=== PATIENT | female | born 1935 | race Caucasian/White ===

== ENCOUNTER 2016-12-31 05:26 | Emergency (ER) | payer MEDICARE, OTHER ==
[2016-12-31 06:56] LABS: ABSOLUTE EOSINOPHILS # (AUTO) 0.1 10^3/uL (0.0-0.6); ABSOLUTE LYMPHOCYTES (AUTO) 1.8 10^3/uL (0.5-4.7); ABSOLUTE MONOCYTES (AUTO) 0.5 10^3/uL (0.1-1.4); ABSOLUTE NEUT (AUTO) 2.3 10^3/uL (1.7-8.2); EOSINOPHILS % (AUTO) 2.5 % (0-6); HEMATOCRIT 38.3 % (36.0-47.0); HEMOGLOBIN 12.3 g/dL (12.0-15.5); HGB HCT DIFFERENCE -1.4; LYMPHOCYTES % (AUTO) 37.7 % (13-45); MEAN CORPUSCULAR HEMOGLOBIN 29.2 pg (27.0-33.4); MEAN CORPUSCULAR VOLUME 91 fl (80-97); MONOCYTES % (AUTO) 11.1 % (3-13); RED BLOOD COUNT 4.21 10^6/uL (3.72-5.28); RED CELL DISTRIBUTION WIDTH 14.3 % (11.5-14.0); SEGMENTED NEUTROPHILS % (AUTO) 47.7 % (42-78); WHITE BLOOD COUNT 4.7 10^3/uL (4.0-10.5)
[2016-12-31 07:05] LABS: ALANINE AMINOTRANSFERASE 25 U/L (9-52); ALBUMIN 4.7 g/dL (3.5-5.0); ALKALINE PHOSPHATASE 53 U/L (38-126); ANION GAP 13 (5-19); ASPARTATE AMINO TRANSFERASE 21 U/L (14-36); BILIRUBIN,TOTAL 0.4 mg/dL (0.2-1.3); BLOOD UREA NITROGEN 18 mg/dL (7-20); CALCIUM 9.9 mg/dL (8.4-10.2); CARBON DIOXIDE 26 mmol/L (22-30); CHLORIDE 106 mmol/L (98-107); CREATINE KINASE 126 U/L (30-135); CREATININE RESULT 0.87 mg/dL (0.52-1.25); GLUCOSE 104 mg/dL (75-110); POTASSIUM 4.3 mmol/L (3.6-5.0); SODIUM 144.7 mmol/L (137-145); TOTAL PROTEIN 7.5 g/dL (6.3-8.2)
[2016-12-31] MEDS ORDERED: LABETALOL HCL 200 MG TABLET PO ONE (07:06)
[2016-12-31] MEDS ORDERED: HYDRALAZINE HCL 50 MG TABLET PO ONE (07:06)
[2016-12-31 07:17] LABS: CREATINE KINASE MB 2.65 ng/mL (<4.55); TROPONIN I 0.014 ng/mL
[2016-12-31 07:20] LABS: APPEARANCE,URINE SLIGHTLY-CLOUDY; BILIRUBIN,URINE NEGATIVE (NEGATIVE); GLUCOSE, URINE NEGATIVE (NEGATIVE); KETONES,URINE NEGATIVE (NEGATIVE); LEUKOCYTE ESTERASE,URINE NEGATIVE (NEGATIVE); NITRITE,URINE NEGATIVE (NEGATIVE); PROTEIN,URINE NEGATIVE (NEGATIVE); URINE SPECIFIC GRAVITY 1.012; UROBILINOGEN,URINE NEGATIVE mg/dL (<2.0)
[2016-12-31] MEDS ORDERED: NITROGLYCERIN 2% OINTMENT 1 GM PACKET TP ONE (07:23)
--- NOTE | 2016-12-31 08:28 | EKG REPORT ---
SEVERITY:- ABNORMAL ECG - SINUS RHYTHM INCOMPLETE RIGHT BUNDLE BRANCH BLOCK LEFT VENTRICULAR HYPERTROPHY : Confirmed by: Freda Navarrete 31-Dec-2016 08:28:00
--- NOTE | 2016-12-31 11:41 | ER Document Report ---
ED General - General Chief Complaint: High Blood Pressure Stated Complaint: BLOOD PRESSURE ISSUES TRAVEL OUTSIDE OF THE [place] IN LAST 30 DAYS: No - HPI Patient complains to provider of: hypertension Notes: Patient coming in for evaluation of her elevated blood pressure. Patient states that she is on multiple medications she takes various times throughout the day states last night she took a few extra doses of clonidine with no improvement of her blood pressure therefore came to ER for further evaluation. Patient denies taking her morning medications upon my evaluation. Patient is initially little confused about what medication she did take last night. Patient is on amlodipine clonidine patches hydralazine and other medications. Patient denies any recent travel patient does state that she has chest pressure lasting "less than a second" multiple episodes greater than last 24 hours. No nausea no vomiting no diarrhea. Patient denies any changes in her medication. - Related Data Allergies/Adverse Reactions: ANDREY Inhibitors [Andrey Inhibitors] Allergy (Severe, Verified 12/14/15 13:56) Swelling of tongue,throat,lips,mouth Sulfa (Sulfonamide Antibiotics) Allergy (Mild, Verified 08/20/15 11:03) rash Past Medical History - Social History Smoking Status: Never Smoker Chew tobacco use (# tins/day): No Frequency of alcohol use: None Drug Abuse: None Family History: Reviewed & Not Pertinent Patient has suicidal ideation: No Patient has homicidal ideation: No - Past Medical History Cardiac Medical History: Reports: Hx Hypercholesterolemia, Hx Hypertension Denies: Hx Heart Attack Pulmonary Medical History: Denies: Hx Asthma Neurological Medical History: Denies: Hx Cerebrovascular Accident, Hx Seizures Renal/ Medical History: Denies: Hx Peritoneal Dialysis Malignancy Medical History: Reports: Hx Skin Cancer GI Medical History: Denies: Hx Hepatitis, Hx Hiatal Hernia, Hx Ulcer Musculoskeltal Medical History: Reports Hx Arthritis Psychiatric Medical History: Reports: Hx Depression Infectious Medical History: Denies: Hx Hepatitis Past Surgical History: Reports: Hx Genitourinary Surgery - bladder, Hx Gynecologic Surgery, Hx Hysterectomy, Hx Orthopedic Surgery - L knee. Denies: Hx Mastectomy, Hx Open Heart Surgery, Hx Pacemaker - Immunizations Hx Diphtheria, Pertussis, Tetanus Vaccination: No Hx Pneumococcal Vaccination: 12/02/14 Review of Systems - Review of Systems Constitutional: Other - Hypertension EENT: No symptoms reported Cardiovascular: No symptoms reported Respiratory: No symptoms reported Gastrointestinal: No symptoms reported Genitourinary: No symptoms reported Female Genitourinary: No symptoms reported Musculoskeletal: No symptoms reported Skin: No symptoms reported Hematologic/Lymphatic: No symptoms reported Neurological/Psychological: No symptoms reported -: Yes All other systems reviewed and negative Physical Exam - Vital signs Vitals: Temp Pulse Resp BP Pulse Ox 97.6 F 59 L 18 202/67 H 94 12/31/16 05:37 12/31/16 05:37 12/31/16 05:37 12/31/16 05:37 12/31/16 05:37 Interpretation: Hypertensive - General General appearance: Appears well, Alert - HEENT Head: Normocephalic, Atraumatic Eyes: Normal Pupils: PERRL - Respiratory Respiratory status: No respiratory distress Chest status: Nontender Breath sounds: Normal Chest palpation: Normal - Cardiovascular Rhythm: Regular Heart sounds: Normal auscultation Murmur: No - Abdominal Inspection: Normal Distension: No distension Bowel sounds: Normal Tenderness: Nontender Organomegaly: No organomegaly - Back Back: Normal, Nontender - Extremities General upper extremity: Normal inspection, Nontender, Normal color, Normal ROM , Normal temperature General lower extremity: Normal inspection, Nontender, Normal color, Normal ROM , Normal temperature, Normal weight bearing. No: Tessie's sign - Neurological Neuro grossly intact: Yes Cognition: Normal Orientation: AAOx4 [place] Coma Scale Eye Opening: Spontaneous [place] Coma Scale Verbal: Oriented [place] Coma Scale Motor: Obeys Commands [place] Coma Scale Total: 15 Speech: Normal Motor strength normal: LUE, RUE, LLE, RLE Sensory: Normal - Psychological Associated symptoms: Normal affect, Normal mood - Skin Skin Temperature: Warm Skin Moisture: Dry Skin Color: Normal Course - Re-evaluation Re-evalutation: 12/31/16 14:21 Patient's EKG troponin negative 2. 2 troponins were performed due to the patient having chest pressure "for seconds". Patient's blood pressure return to her normal systolics in the 140s 150s according to the patient. This was obtained bilaterally taking her home medication. At this time patient otherwise looks stable patient was encouraged follow-up with her primary care physician and her nephrology expert. Patient will be discharged home. - Vital Signs Vital signs: Temp Pulse Resp BP Pulse Ox 97.5 F 59 L 16 166/60 H 97 12/31/16 12:10 12/31/16 05:37 12/31/16 11:46 12/31/16 11:46 12/31/16 11:46 - Laboratory Result Diagrams: 12/31/16 06:35 12/31/16 06:35 Laboratory results interpreted by me: 12/31/16 06:35 RDW 14.3 H Discharge - Discharge Clinical Impression: Hypertension Qualifiers: Hypertension type: other secondary hypertension Qualified Code(s): I15.8 - Other secondary hypertension Disposition: HOME, SELF-CARE Instructions: High Blood Pressure, Requiring Treatment ([facility]) Additional Instructions: Please follow-up with your primary care physician and your hypertensive specialist for further evaluation of your blood pressure medications. I would highly recommend writing down when you take your blood pressure medication as well as her blood pressure. This may have a record of when you take your medications. Please take your medications as present prescribed when you arrives home. Referrals: ERICK TORRES MD [Primary Care Provider] - Follow up as needed
[2016-12-31 11:52] VITALS: BP 166/60
== END 2016-12-31 12:10 | disposition home or self-care (01) ==
LOC: ER 05:26
DX: I10 Essential (primary) hypertension (principal); E78.00 Pure hypercholesterolemia, unspecified; Z85.828 Personal history of other malignant neoplasm of skin; Z90.710 Acquired absence of both cervix and uterus; Z88.2 Allergy status to sulfonamides
CPT/HCPCS: 93005; 99284; 36415; 82553; 82550; 85025; 80053; 81001; 84484; 71020; 93010; A9270 ×2

== ENCOUNTER 2018-01-30 17:00 | Inpatient (IN) | payer MEDICARE, OTHER ==
[2018-01-30] MEDS ORDERED: FENTANYL CITRATE INJ/PF 100 MCG/2 ML AMPUL IV ONE (17:42)
[2018-01-30] MEDS ORDERED: DIAZEPAM INJ 10 MG/2 ML DISP.SYRIN IV ONE (18:51)
[2018-01-30] MEDS ORDERED: LORAZEPAM INJ 2 MG/1 ML VIAL ONE (18:56)
--- NOTE | 2018-01-30 18:58 | ER Document Report ---
ED General - General Mode of Arrival: Ambulatory Information source: Patient, Relative TRAVEL OUTSIDE OF THE [place] IN LAST 30 DAYS: No - HPI Patient complains to provider of: Facial nerve pain Onset: Other - 5 days ago Associated symptoms: Other - see notes above <ARIEL MURRAY - Last Filed: 01/30/18 22:24> <ISELA LANG - Last Filed: 01/31/18 03:51> - General Chief Complaint: Mouth Problem Stated Complaint: FACIAL PAIN Notes: 82 year old female with history of trigeminal neuralgia presents to the ED complaining of left sided facial pain that started 5 days ago which has progressively worsened. Patient's family reports that she has not been sick recently and have not noticed anything out of ordinary. Patient is being seen by pain management and had 3 nerve blocks administered over the past 3 days to no relief. Patient is additionally on Lyrica and Tegretol. After the pain was more under control, the patient states that she recently started using a CPAP machine which has irritated her trigeminal nerve. Patient reports that she has had nerve attacks in the past, but not this painful. Pain Management: Dr. Farmer Neurology: Dr. Azar (ARIEL MURRAY) - Related Data Allergies/Adverse Reactions: ANDREY Inhibitors [Andrey Inhibitors] Allergy (Severe, Verified 12/14/15 13:56) Swelling of tongue,throat,lips,mouth Sulfa (Sulfonamide Antibiotics) Allergy (Mild, Verified 08/20/15 11:03) rash Past Medical History - General Information source: Patient, Relative - Social History Smoking Status: Unknown if Ever Smoked Chew tobacco use (# tins/day): No Frequency of alcohol use: Rare Drug Abuse: None Family History: Reviewed & Not Pertinent Patient has suicidal ideation: No Patient has homicidal ideation: No - Past Medical History Cardiac Medical History: Reports: Hx Hypercholesterolemia, Hx Hypertension Denies: Hx Heart Attack Pulmonary Medical History: Denies: Hx Asthma Neurological Medical History: Reports: Other - Trigeminal neuralgia. Denies: Hx Cerebrovascular Accident, Hx Seizures Renal/ Medical History: Denies: Hx Peritoneal Dialysis Malignancy Medical History: Reports: Hx Skin Cancer GI Medical History: Denies: Hx Hepatitis, Hx Hiatal Hernia, Hx Ulcer Musculoskeltal Medical History: Reports Hx Arthritis Psychiatric Medical History: Reports: Hx Depression Infectious Medical History: Denies: Hx Hepatitis Past Surgical History: Reports: Hx Genitourinary Surgery - bladder, Hx Gynecologic Surgery, Hx Hysterectomy, Hx Orthopedic Surgery - L knee. Denies: Hx Mastectomy, Hx Open Heart Surgery, Hx Pacemaker - Immunizations Hx Diphtheria, Pertussis, Tetanus Vaccination: No Hx Pneumococcal Vaccination: 12/02/14 <ARIEL MURRAY - Last Filed: 01/30/18 22:24> Review of Systems - Review of Systems Constitutional: No symptoms reported EENT: No symptoms reported Cardiovascular: No symptoms reported Respiratory: No symptoms reported Gastrointestinal: No symptoms reported Genitourinary: No symptoms reported Female Genitourinary: No symptoms reported Musculoskeletal: No symptoms reported Skin: No symptoms reported Hematologic/Lymphatic: No symptoms reported Neurological/Psychological: See HPI, Other - left sided facial nerve pain -: Yes All other systems reviewed and negative <ARIEL MURRAY - Last Filed: 01/30/18 22:24> Physical Exam - General General appearance: Alert, Other - Crying in pain - HEENT Head: Atraumatic, Other - Tenderness to palpation of the left side of her face. No: Normocephalic Eyes: Normal Extraocular movements intact: Yes Pupils: PERRL - Respiratory Respiratory status: No respiratory distress Breath sounds: Normal - Cardiovascular Rhythm: Regular Heart sounds: Normal auscultation - Abdominal Inspection: Normal - Back Back: Normal - Extremities General upper extremity: Normal inspection, Normal ROM General lower extremity: Normal inspection, Normal ROM - Neurological Neuro grossly intact: Yes - see head exam above - Psychological Associated symptoms: Normal affect, Normal mood - Skin Skin Temperature: Warm Skin Moisture: Dry Skin Color: Normal <ARIEL MURRAY - Last Filed: 01/30/18 22:24> - Vital signs Vitals: Temp Pulse Resp BP Pulse Ox 97.5 F 70 20 215/72 H 90 L 01/30/18 17:07 01/30/18 17:07 01/30/18 17:07 01/30/18 17:07 01/30/18 17:07 Course - Laboratory Result Diagrams: 01/30/18 18:51 01/30/18 18:51 - Consults [facility] Time consulted: 19:18 Elizabeth Time consulted: 19:24 Dr. Azar Time consulted: 19:44 Aneudy Salas Time consulted: 21:05 Dr. Farmer Time consulted: 19:25 Dr. De Leon Time consulted: 21:39 <ARIEL MURRAY - Last Filed: 01/30/18 22:24> - Laboratory Result Diagrams: 01/30/18 18:51 01/30/18 18:51 <ISELA LANG - Last Filed: 01/31/18 03:51> - Re-evaluation Re-evalutation: Patient is an unfortunate 82-year-old female who comes in complaining of left facial pain. Patient has a history of trigeminal neuralgia. Patient has been on Tegretol for a number of years. She is taking 400 twice a day. She just saw her neurologist on Saturday. Patient began having pain over the last few days. Patient was started on Lyrica. Patient also had nerve blocks done. Here in the emergency department, patient is complaining of severe pain. She has received a total of 180 of fentanyl, 1 mg of Ativan, 2 mg of Valium, and 15 mg of ketamine to finally get her pain controlled. I have talked to her pain management doctor who said she would see her in the morning to try a deeper nerve block if the patient was discharged. I have also tried talking to the patient's neurologist who does not have after hours availability. I spoke to neurology at [facility] who did not have any further insight into how to treat the patient's pain. They said they would not add any new medications other than pain medication and benzodiazepine to the regimen of an 82-year-old because of the potential side effects. Recommend that she be optimized on Tegretol and that Lyrica was a good adjunct. I have discussed the patient and her management at length with family would like the patient to stay overnight for pain control. Patient was discussed with the hospitalist service will admit the patient to telemetry due to the number of potentially sedating medication she has received. She is otherwise stable at the time of admission. (ISELA LANG) - Vital Signs Vital signs: Temp Pulse Resp BP Pulse Ox 97.5 F 71 11 L 157/71 H 97 01/30/18 17:07 01/30/18 18:00 01/31/18 02:31 01/31/18 02:31 01/31/18 02:31 - Laboratory Laboratory results interpreted by me: 01/30/18 18:51 Chloride 108 H Carbon Dioxide 21 L - Consults [facility] Reason for consultation: 01/30/18 19:18 [facility] line was busy. (ARIEL MURRAY) Elizabeth Reason for consultation: 01/30/18 19:24 Patient discussed with Elizabeth and neurology was paged. 01/30/18 19:[address] Beard who advises not to start the patient on additional nerve medications due to her age. (ARIEL MURRAY) Dr. Azar Reason for consultation: 01/30/18 19:44 Dr. Azar's office was called, but they do not have after hours office calls. (ARIEL MURRAY) Aneudy Salas Reason for consultation: 01/30/18 21:05 Patient discussed with Aneudy Salas and neurology was paged. 01/30/18 21:19 Patient discussed with doctor who states that he has no further recommendations other than to follow up with her neurologist in the morning. (ARIEL MURRAY) Dr. Farmer Reason for consultation: 01/30/18 19:[address] Farmer who states to give the patient Ketamine and if the patient's pain can be controlled the patient can be seen at the office tomorrow morning. (ARIEL MURRAY) Dr. De Leon Reason for consultation: 01/30/18 21:[address] De Leon who agrees to admit the patient under his care. (ARIEL MURRAY) Critical Care Note - Critical Care Note Total time excluding time spent on procedures (mins): 90 - Management of severe acute pain with multiple re-evaluations and attempts at controlling pain, counseling of patient and family, consultation with specialist, coronation with admission <ISELA LANG - Last Filed: 01/31/18 03:51> Discharge <ARIEL MURRAY - Last Filed: 01/30/18 22:24> - Discharge Admitting Provider: Ana Lilia De Leon Unit Admitted: Telemetry <ISELA LANG - Last Filed: 01/31/18 03:51> - Discharge Clinical Impression: Trigeminal neuralgia of left side of face, Inadequate pain control Condition: Stable Disposition: ADMITTED OBSERVATION Scribe Attestation: 01/31/18 03:51 I personally performed the services described in the documentation, reviewed and edited the documentation which was dictated to the scribe in my presence, and it accurately records my words and actions. (IESLA LANG) Scribe Documentation - Scribe Written by Scribe:: Negar Crump, 01/30/2018 1912 acting as scribe for :: Dina <ARIEL MURRAY - Last Filed: 01/30/18 22:24>
[2018-01-30 19:06] LABS: ABSOLUTE LYMPHOCYTES (AUTO) 1.2 10^3/uL (0.5-4.7); ABSOLUTE MONOCYTES (AUTO) 0.5 10^3/uL (0.1-1.4); ABSOLUTE NEUT (AUTO) 4.5 10^3/uL (1.7-8.2); BASOPHILS % (AUTO) 0.6 % (0-2); EOSINOPHILS % (AUTO) 0.6 % (0-6); HEMATOCRIT 39.7 % (36.0-47.0); HEMOGLOBIN 13.2 g/dL (12.0-15.5); LYMPHOCYTES % (AUTO) 18.5 % (13-45); MEAN CORPUSCULAR HGB CONC 33.2 g/dL (32.0-36.0); MEAN CORPUSCULAR VOLUME 91 fl (80-97); PLATELET COUNT 272 10^3/uL (150-450); RED BLOOD COUNT 4.38 10^6/uL (3.72-5.28); RED CELL DISTRIBUTION WIDTH 13.7 % (11.5-14.0); SEGMENTED NEUTROPHILS % (AUTO) 72.3 % (42-78); TOTAL CELLS COUNTED % (AUTO) 100 %; WHITE BLOOD COUNT 6.3 10^3/uL (4.0-10.5)
[2018-01-30 19:18] LABS: ANION GAP 9 (5-19); BLOOD UREA NITROGEN 13 mg/dL (7-20); CALCIUM 9.3 mg/dL (8.4-10.2); CARBON DIOXIDE 21 mmol/L (22-30); CHLORIDE 108 mmol/L (98-107); GLUCOSE 95 mg/dL (75-110); POTASSIUM 4.1 mmol/L (3.6-5.0); SODIUM 138.4 mmol/L (137-145)
[2018-01-30] MEDS ORDERED: NORMAL SALINE 500 ML IV ONE (19:29)
[2018-01-30] MEDS ORDERED: LORAZEPAM INJ 2 MG/1 ML VIAL IV ONE (19:45)
[2018-01-30] MEDS ORDERED: KETAMINE HCL INJ 500 MG/10 ML VIAL IV ONE ×2 (20:00→23:08)
[2018-01-30] MEDS ORDERED: KETAMINE HCL INJ 500 MG/10 ML VIAL ONE (20:03)
[2018-01-30] MEDS ORDERED: KETAMINE HCL INJ 500 MG/10 ML VIAL IV PRN (21:44)
[2018-01-30] MEDS ORDERED: HYDRALAZINE HCL INJ/PF 20 MG/1 ML SDV IV PRN (21:44)
[2018-01-30] MEDS ORDERED: TEGRETOL 400 MG PO SCH (21:45)
[2018-01-30] MEDS ORDERED: HYDRALAZINE HCL 50 MG TABLET PO SCH (22:00)
[2018-01-30] MEDS ORDERED: HYDROMORPHONE HCL INJ/PF 2 MG/ML AMPULE ONE (23:05)
[2018-01-30] MEDS ORDERED: HYDROMORPHONE HCL INJ/PF 2 MG/ML AMPULE IV ONE (23:08)
[2018-01-31] MEDS ORDERED: METOPROLOL TARTRATE PF/INJ 5 MG/5 ML SDV IV PRN (01:05)
[2018-01-31] MEDS: LABETALOL HCL 200 MG TABLET PO SCH ×3 (01:11→22:42)
[2018-01-31] MEDS: CARBAMAZEPINE 200 MG TABLET PO SCH ×3 (01:11→22:42)
[2018-01-31] MEDS: SERTRALINE HCL 50 MG TABLET PO SCH ×2 (01:11→22:42)
[2018-01-31] MEDS: HYDRALAZINE HCL 50 MG TABLET PO SCH ×4 (01:11→17:56)
[2018-01-31] MEDS: HEPARIN SOD (PORCINE) 5,000 UNIT/ML 1 ML SYRINGE SUBCUT SCH ×4 (02:36→22:41)
[2018-01-31] MEDS: KETOROLAC TROMETHAMINE INJ/PF 30 MG/1 ML SDV IV PRN ×2 (02:45→20:55)
[2018-01-31] MEDS ORDERED: HYDROMORPHONE HCL INJ/PF 2 MG/ML AMPULE IV ONE (03:27)
--- NOTE | 2018-01-31 04:21 | PDOC H&P ---
History of Present Illness Admission Date/PCP: 01/30/18 22:14 ERICK TORRES MD Patient complains of: Trigeminal neuralgia flare History of Present Illness: CHELSEY MCDANIEL is a 82 year old female with a past medical history of hypertension , obstructive sleep apnea and trigeminal neuralgia with recent flare of the last 5 days requiring evaluation from neurologist and pain management where she received Tegretol and Lyrica as well as nerve block. Pain is intermittently controlled prompting her to seek evaluation emergency room where she receives 180 mcg of fentanyl, 2 mg of Ativan, 2 mg of Valium, 20 mg of ketamine prior to minimal control. Emergency room provider consults neurologist at [place] [facility] who recommend opiates and benzodiazepine only with outpatient follow-up and consideration of gamma knife rhizotomy. Patient is requiring frequent reevaluation given her uncontrolled pain and referred to the hospitalist for management. Patient denies recent illness, change in medications or dental complaints. Past Medical History Cardiac Medical History: Reports: Hyperlipidema, Hypertension Denies: Myocardial Infarction Pulmonary Medical History: Denies: Asthma Neurological Medical History: Reports: Other - Trigeminal neuralgia Denies: Seizures Malignancy Medical History: Reports: Skin Cancer GI Medical History: Denies: Hepatitis, Hiatal Hernia Musculoskeltal Medical History: Reports: Arthritis Psychiatric Medical History: Reports: Depression Hematology: Denies: Anemia, Sickle Cell Disease Past Surgical History Past Surgical History: Reports: Hysterectomy, Orthopedic Surgery - L knee Denies: Amputation, Mastectomy, Pacemaker Social History Information Source: Emergency Med Personnel Smoking Status: Unknown if Ever Smoked Frequency of Alcohol Use: None Hx Recreational Drug Use: No Hx Prescription Drug Abuse: No - Advance Directive Resuscitation Status: Full Code Family History Parental Family History Reviewed: Yes Children Family History Reviewed: Yes Sibling(s) Family History Reviewed.: Yes Medication/Allergy Home Medications: Hydralazine HCl [Apresoline 50 mg Tablet] 50 mg PO QID 08/20/15 Sertraline HCl [Zoloft] 100 mg PO QHS 08/20/15 Amlodipine Besylate [Norvasc 10 mg Tablet] 10 mg PO DAILY #30 tablet 08/22/15 Labetalol HCl [Trandate] 200 mg PO BID #60 tablet 08/22/15 Loratadine [Claritin] 10 mg PO DAILY PRN #0 08/22/15 Tegretol 400 mg PO BID 12/14/15 Tricor 1 tab PO QHS 12/14/15 Valsartan 160 mg PO BID 12/14/15 Hydrocodone/Acetaminophen [[place] 5-325 Tablet] 1 each PO QID #15 tablet Walker [Folding Walker] 1 each ASDIR PRN #1 each 01/16/16 Walker [Folding Walker] 1 each ASDIR PRN #1 each 01/17/16 Allergies/Adverse Reactions: ANDREY Inhibitors [Andrey Inhibitors] Allergy (Severe, Verified 12/14/15 13:56) Swelling of tongue,throat,lips,mouth Sulfa (Sulfonamide Antibiotics) Allergy (Mild, Verified 08/20/15 11:03) rash Review of Systems ROS unobtainable: Due to mental status Physical Exam Vital Signs: Temp Pulse Resp BP Pulse Ox 97.5 F 71 11 L 157/71 H 97 01/30/18 17:07 01/30/18 18:00 01/31/18 02:31 01/31/18 02:31 01/31/18 02:31 General appearance: PRESENT: severe distress Head exam: PRESENT: atraumatic, normocephalic Eye exam: PRESENT: conjunctiva pink, EOMI, PERRLA. ABSENT: scleral icterus Mouth exam: PRESENT: moist, tongue midline Neck exam: ABSENT: carotid bruit, JVD, lymphadenopathy, thyromegaly Respiratory exam: PRESENT: clear to auscultation ludivina. ABSENT: rales, rhonchi, wheezes Cardiovascular exam: PRESENT: RRR. ABSENT: diastolic murmur, rubs, systolic murmur Pulses: PRESENT: normal dorsalis pedis pul Vascular exam: PRESENT: normal capillary refill GI/Abdominal exam: PRESENT: normal bowel sounds, soft. ABSENT: distended, guarding, mass, organolmegaly, rebound, tenderness Rectal exam: PRESENT: deferred Extremities exam: PRESENT: full ROM. ABSENT: calf tenderness, clubbing, pedal edema Neurological exam: PRESENT: altered, oriented to person, oriented to situation, CN II-XII grossly intact. ABSENT: motor sensory deficit Psychiatric exam: PRESENT: agitated, anxious Focused psych exam: PRESENT: restlessness Skin exam: PRESENT: dry, intact, warm. ABSENT: cyanosis, rash Assessment & Plan - Diagnosis (1) Hypertension Is this a current diagnosis for this admission?: Yes Plan: IV Lopressor and hydralazine as needed (2) Inadequate pain control Is this a current diagnosis for this admission?: Yes Plan: Benzodiazepine and opiate as needed (3) Trigeminal neuralgia of left side of face Is this a current diagnosis for this admission?: Yes Plan: [facility] recommend benzodiazepine and opiate as needed acutely, outpatient follow-up with neurology. - Time Time Spent: 50 to 70 Minutes - Inpatient Certification Medical Necessity: Need Close Monitoring Due to Risk of Patient Decompensation, Need for Pain Control
[2018-01-31] MEDS: LORAZEPAM INJ 2 MG/1 ML VIAL IV PRN ×2 (04:34→20:55)
[2018-01-31] MEDS ORDERED: KETAMINE HCL INJ 500 MG/10 ML VIAL IV ONE ×2 (05:30→22:00)
[2018-01-31] MEDS: HYDROMORPHONE HCL INJ/PF 2 MG/ML AMPULE IV PRN ×4 (05:40→22:01)
[2018-01-31 06:17] LABS: ABSOLUTE EOSINOPHILS # (AUTO) 0.1 10^3/uL (0.0-0.6); ABSOLUTE LYMPHOCYTES (AUTO) 1.6 10^3/uL (0.5-4.7); ABSOLUTE MONOCYTES (AUTO) 0.6 10^3/uL (0.1-1.4); BASOPHILS % (AUTO) 0.3 % (0-2); HEMATOCRIT 39.4 % (36.0-47.0); HEMOGLOBIN 13.1 g/dL (12.0-15.5); MEAN CORPUSCULAR HEMOGLOBIN 30.5 pg (27.0-33.4); MEAN CORPUSCULAR HGB CONC 33.2 g/dL (32.0-36.0); MEAN CORPUSCULAR VOLUME 92 fl (80-97); MONOCYTES % (AUTO) 7.9 % (3-13); PLATELET COUNT 276 10^3/uL (150-450); RED BLOOD COUNT 4.28 10^6/uL (3.72-5.28); RED CELL DISTRIBUTION WIDTH 14.2 % (11.5-14.0); SEGMENTED NEUTROPHILS % (AUTO) 68.8 % (42-78); TOTAL CELLS COUNTED % (AUTO) 100 %; WHITE BLOOD COUNT 7.2 10^3/uL (4.0-10.5)
[2018-01-31 06:40] LABS: ANION GAP 12 (5-19); BLOOD UREA NITROGEN 16 mg/dL (7-20); CALCIUM 9.8 mg/dL (8.4-10.2); CARBON DIOXIDE 22 mmol/L (22-30); CHLORIDE 107 mmol/L (98-107); GLUCOSE 98 mg/dL (75-110); POTASSIUM 4.6 mmol/L (3.6-5.0); SODIUM 140.7 mmol/L (137-145)
[2018-01-31] MEDS ORDERED: LABETALOL HCL 200 MG TABLET PO SCH (10:00)
[2018-01-31 10:04] LABS: APPEARANCE,URINE CLEAR; BILIRUBIN,URINE NEGATIVE (NEGATIVE); COLOR,URINE YELLOW; GLUCOSE, URINE NEGATIVE (NEGATIVE); KETONES,URINE NEGATIVE (NEGATIVE); LEUKOCYTE ESTERASE,URINE NEGATIVE (NEGATIVE); NITRITE,URINE NEGATIVE (NEGATIVE); PROTEIN,URINE 100 mg/dL (NEGATIVE); URINE SPECIFIC GRAVITY 1.018
[2018-01-31] MEDS: AMLODIPINE BESYLATE 10 MG TABLET PO SCH (11:16)
[2018-01-31] MEDS: DOCUSATE SODIUM 100 MG CAPSULE PO SCH ×2 (11:18→17:55)
[2018-01-31] MEDS ORDERED: HYDROMORPHONE HCL INJ/PF 2 MG/ML AMPULE IV PRN (11:28)
[2018-01-31] MEDS: 1/2 NORMAL SALINE 1,000 ML IV PRN (11:46)
[2018-01-31] MEDS ORDERED: PREGABALIN 75 MG CAPSULE PO SCH (14:00)
--- NOTE | 2018-01-31 19:02 | Progress Note ---
Provider Note Provider Note: Was admitted to ICU to received Ketamine - Discussed case with outpatient Pain Physician/Anesthiologist with Dr. Farmer, who provided 3 nerve blocks as outpatient on 01/30 - Has discussed case with Dr Vipul Calvert (NSGY in [place] who will see pt next week to discuss trigeminal balloon rhizotomy - Dr. Farmer is available all weekend by phone Doing better today, only received Dilaudid * 1 dose - Will transfer to [facility] bed - Updated Dr. Farmer Likely discharge on Saturday
[2018-01-31] MEDS ORDERED: KETAMINE HCL INJ 500 MG/10 ML VIAL ONE (21:45)
[2018-01-31] MEDS ORDERED: FENTANYL 25 MCG/HR PATCH.TD72 TD ONE (22:00)
[2018-01-31] MEDS: PREGABALIN 75 MG CAPSULE PO SCH (22:42)
[2018-02-01] MEDS: HYDROMORPHONE HCL INJ/PF 2 MG/ML AMPULE IV PRN ×6 (00:18→20:13)
[2018-02-01] MEDS: HYDRALAZINE HCL 50 MG TABLET PO SCH ×4 (01:03→19:02)
[2018-02-01] MEDS: 1/2 NORMAL SALINE 1,000 ML IV PRN ×2 (01:28→16:40)
[2018-02-01] MEDS: PREGABALIN 75 MG CAPSULE PO SCH ×2 (07:37→13:01)
[2018-02-01] MEDS: HEPARIN SOD (PORCINE) 5,000 UNIT/ML 1 ML SYRINGE SUBCUT SCH ×2 (07:37→13:00)
[2018-02-01] MEDS: KETOROLAC TROMETHAMINE INJ/PF 30 MG/1 ML SDV IV PRN ×2 (08:11→15:54)
[2018-02-01] MEDS: LORAZEPAM INJ 2 MG/1 ML VIAL IV PRN ×3 (08:47→20:14)
[2018-02-01] MEDS: AMLODIPINE BESYLATE 10 MG TABLET PO SCH (09:34)
[2018-02-01] MEDS: OXYCODONE-ACETAMINOPHEN 5-325 MG TABLET PO PRN ×3 (09:34→19:07)
[2018-02-01] MEDS: LABETALOL HCL 200 MG TABLET PO SCH (09:35)
[2018-02-01] MEDS: DOCUSATE SODIUM 100 MG CAPSULE PO SCH ×2 (09:35→19:02)
[2018-02-01] MEDS: CARBAMAZEPINE 200 MG TABLET PO SCH (09:44)
--- NOTE | 2018-02-01 16:55 | PDOC PROGRESS REPORT ---
Subjective Progress Note for:: 02/01/18 Subjective:: Patient still c/o pain despite the numerous analgesia she has received She was sleeping but easily arousable. Her Vitals remain stable. Reason For Visit: INTRACTABLE PAIN, GURMEET Physical Exam Vital Signs: Temp Pulse Resp BP Pulse Ox 99.7 F 88 9 L 129/60 H 95 02/01/18 15:00 02/01/18 14:00 02/01/18 15:00 02/01/18 14:15 02/01/18 15:00 Intake & Output 01/31/18 02/01/18 02/02/18 06:59 06:59 06:59 Intake Total 1523 Output Total 200 Balance 1323 Weight 80.3 kg General appearance: PRESENT: no acute distress, other - elderly female Head exam: PRESENT: atraumatic Eye exam: PRESENT: conjunctiva pink, EOMI, PERRLA. ABSENT: scleral icterus Ear exam: PRESENT: normal external ear exam Mouth exam: PRESENT: other - L sided facial pain Neck exam: ABSENT: carotid bruit, JVD, lymphadenopathy, thyromegaly Respiratory exam: PRESENT: clear to auscultation ludivina. ABSENT: rales, rhonchi, wheezes Cardiovascular exam: PRESENT: RRR. ABSENT: diastolic murmur, rubs, systolic murmur Pulses: PRESENT: normal dorsalis pedis pul Vascular exam: PRESENT: normal capillary refill GI/Abdominal exam: PRESENT: normal bowel sounds, soft. ABSENT: distended, guarding, mass, organolmegaly, rebound, tenderness Rectal exam: PRESENT: deferred Extremities exam: PRESENT: full ROM. ABSENT: calf tenderness, clubbing, pedal edema Neurological exam: PRESENT: alert, awake, oriented to person, oriented to place , oriented to time, oriented to situation, CN II-XII grossly intact. ABSENT: motor sensory deficit Psychiatric exam: PRESENT: appropriate affect, normal mood. ABSENT: homicidal ideation, suicidal ideation Skin exam: PRESENT: dry, intact, warm. ABSENT: cyanosis, rash Results Laboratory Results: 01/31/18 06:00 01/31/18 06:00 Assessment & Plan - Diagnosis (1) Trigeminal neuralgia of left side of face Is this a current diagnosis for this admission?: Yes Plan: Will increase Dilaudid, Tegretol and Fentanyl patch. F/u for nerve block on Saturday if stable (2) Hypertension Is this a current diagnosis for this admission?: Yes Plan: Adjust BP meds as needed (3) Inadequate pain control Is this a current diagnosis for this admission?: Yes Plan: See above - Time Time Spent with patient: 25-34 minutes - Including discussions with family Medications reviewed and adjusted accordingly: Yes Anticipated discharge: Home Within: within 48 hours - Inpatient Certification Medical Necessity: Other - Pain control
[2018-02-02] MEDS: HEPARIN SOD (PORCINE) 5,000 UNIT/ML 1 ML SYRINGE SUBCUT SCH ×3 (00:06→13:45)
[2018-02-02] MEDS: CARBAMAZEPINE 200 MG TABLET PO SCH ×4 (00:17→21:49)
[2018-02-02] MEDS: HYDRALAZINE HCL 50 MG TABLET PO SCH ×4 (00:18→17:17)
[2018-02-02] MEDS: PREGABALIN 75 MG CAPSULE PO SCH ×4 (00:18→21:48)
[2018-02-02] MEDS: SERTRALINE HCL 50 MG TABLET PO SCH ×2 (00:18→21:49)
[2018-02-02] MEDS: LABETALOL HCL 200 MG TABLET PO SCH ×3 (00:18→21:49)
[2018-02-02] MEDS: OXYCODONE-ACETAMINOPHEN 5-325 MG TABLET PO PRN ×3 (00:18→11:28)
[2018-02-02] MEDS: LORAZEPAM INJ 2 MG/1 ML VIAL IV PRN (02:42)
[2018-02-02] MEDS: HYDROMORPHONE HCL INJ/PF 2 MG/ML AMPULE IV PRN (02:42)
[2018-02-02 08:41] LABS: HEMATOCRIT 36.4 % (36.0-47.0); MEAN CORPUSCULAR HEMOGLOBIN 30.3 pg (27.0-33.4); MEAN CORPUSCULAR HGB CONC 32.8 g/dL (32.0-36.0); MEAN CORPUSCULAR VOLUME 92 fl (80-97); PLATELET COUNT 190 10^3/uL (150-450); RED BLOOD COUNT 3.95 10^6/uL (3.72-5.28); WHITE BLOOD COUNT 9.5 10^3/uL (4.0-10.5)
[2018-02-02 08:57] LABS: ANION GAP 13 (5-19); BLOOD UREA NITROGEN 34 mg/dL (7-20); CALCIUM 9.6 mg/dL (8.4-10.2); CARBON DIOXIDE 15 mmol/L (22-30); CHLORIDE 107 mmol/L (98-107); GLUCOSE 75 mg/dL (75-110); POTASSIUM 4.9 mmol/L (3.6-5.0); SODIUM 135.1 mmol/L (137-145)
[2018-02-02] MEDS: AMLODIPINE BESYLATE 10 MG TABLET PO SCH (09:32)
[2018-02-02] MEDS: DOCUSATE SODIUM 100 MG CAPSULE PO SCH ×2 (09:32→18:50)
[2018-02-02] MEDS: ACETAMINOPHEN 325 MG TABLET PO PRN (11:45)
[2018-02-02] MEDS ORDERED: DRONEDARONE HYDROCHLORIDE 400 MG TABLET PO ONE (12:00)
--- NOTE | 2018-02-02 13:16 | PDOC PROGRESS REPORT ---
Subjective Progress Note for:: 02/02/18 Subjective:: Patient feels better today. She actually had a pretty good night and the pain is much better controlled. She however went into atrial fibrillation this morning. She denies any prior history of such. There is no chest pain nausea vomiting or palpitations. Reason For Visit: INTRACTABLE PAIN, GURMEET Physical Exam Vital Signs: Temp Pulse Resp BP Pulse Ox 100.9 F H 101 H 18 122/63 92 02/02/18 10:00 02/02/18 09:53 02/02/18 10:00 02/02/18 09:53 02/02/18 10:00 Intake & Output 02/01/18 02/02/18 02/03/18 06:59 06:59 06:59 Intake Total 1523 1558 Output Total 200 425 60 Balance 1323 1133 -60 Weight 80.3 kg 79.8 kg General appearance: PRESENT: no acute distress Head exam: PRESENT: atraumatic Eye exam: PRESENT: conjunctiva pink, EOMI, PERRLA. ABSENT: scleral icterus Ear exam: PRESENT: bleeding Neck exam: ABSENT: carotid bruit, JVD, lymphadenopathy, thyromegaly Respiratory exam: PRESENT: clear to auscultation ludivina. ABSENT: rales, rhonchi, wheezes Cardiovascular exam: PRESENT: irregular rhythm, +S1, +S2, tachycardia Pulses: PRESENT: normal dorsalis pedis pul GI/Abdominal exam: PRESENT: normal bowel sounds, soft. ABSENT: distended, guarding, mass, organolmegaly, rebound, tenderness Rectal exam: PRESENT: deferred Neurological exam: PRESENT: alert, awake, oriented to person, oriented to place , oriented to situation Results Laboratory Results: 02/02/18 08:32 02/02/18 08:32 02/02/18 02/02/18 08:32 08:32 WBC 9.5 RBC 3.95 Hgb 12.0 Hct 36.4 MCV 92 MCH 30.3 MCHC 32.8 RDW 14.0 Plt Count 190 Sodium 135.1 L Potassium 4.9 Chloride 107 Carbon Dioxide 15 L Anion Gap 13 BUN 34 H Creatinine 1.23 Est GFR ( Amer) 51 L Est GFR (Non-Af Amer) 42 L Glucose 75 Calcium 9.6 Magnesium 1.9 02/02/18 08:32 Troponin I 0.077 Assessment & Plan - Diagnosis (1) Trigeminal neuralgia of left side of face Is this a current diagnosis for this admission?: Yes Plan: Pain is better controlled on increased Dilaudid, Tegretol and Fentanyl patch. F/u for nerve block on Saturday once discharged (2) Hypertension Is this a current diagnosis for this admission?: Yes Plan: Adjust BP meds as needed (3) Inadequate pain control Is this a current diagnosis for this admission?: Yes Plan: Appears to be better controlled on this regimen. The pain may be also contributing to this atrial fibrillation. (4) Atrial fibrillation Qualifiers: Atrial fibrillation type: paroxysmal Qualified Code(s): I48.0 - Paroxysmal atrial fibrillation Is this a current diagnosis for this admission?: Yes Plan: New onset as patient denies any prior history of such. 2-dimensional echocardiogram has been ordered as well as a cardiology consult and routine labs have also been ordered. Patient is currently on labetalol and so will continue these and adjust as needed. - Time Time Spent with patient: 15-24 minutes Medications reviewed and adjusted accordingly: Yes Anticipated discharge: Home Within: within 48 hours - Inpatient Certification Based on my medical assessment, after consideration of the patient's comorbidities, presenting symptoms, or acuity I expect that the services needed warrant INPATIENT care.: Yes I certify that my determination is in accordance with my understanding of Medicare's requirements for reasonable and necessary INPATIENT services [42 CFR 412.3e].: Yes Medical Necessity: Need For Continuous Telemetry Monitoring, Need for Pain Control
--- NOTE | 2018-02-02 15:01 | PDOC CONSULTATION ---
Consultation Consult Date: 02/02/18 Attending physician:: SOL SIMEON Consult reason:: Atrial fibrillation History of Present Illness Admission Date/PCP: 01/30/18 22:14 ERICK TORRES MD Patient complains of: Trigeminal neuralgia pain and atrial fibrillation History of Present Illness: CHELSEY MCDANIEL is a 82 year old female with a past medical history of hypertension , obstructive sleep apnea and trigeminal neuralgia with recent flare of the last 5 days requiring evaluation from neurologist and pain management where she received Tegretol and Lyrica as well as nerve block. Pain is intermittently controlled prompting her to seek evaluation emergency room where she receives 180 mcg of fentanyl, 2 mg of Ativan, 2 mg of Valium, 20 mg of ketamine prior to minimal control. Emergency room provider consults neurologist at [facility] who recommend opiates and benzodiazepine only with outpatient follow-up and consideration of gamma knife rhizotomy. Patient is requiring frequent reevaluation given her uncontrolled pain and referred to the hospitalist for management. Patient denies recent illness, change in medications or dental complaints. While being monitored in the unit she is noted to have atrial fibrillation with intermittent rapid ventricular response. I was asked to evaluate this patient because of above. Patient's son in the room. There is no prior history of atrial fibrillation. No significant prior heart related history except for hypertension. Past Medical History Cardiac Medical History: Reports: Hyperlipidema, Hypertension Denies: Myocardial Infarction Pulmonary Medical History: Denies: Asthma Neurological Medical History: Reports: Other - Trigeminal neuralgia Denies: Seizures Malignancy Medical History: Reports: Skin Cancer GI Medical History: Denies: Hepatitis, Hiatal Hernia Musculoskeltal Medical History: Reports: Arthritis Psychiatric Medical History: Reports: Depression Hematology: Denies: Anemia, Sickle Cell Disease Past Surgical History Past Surgical History: Reports: Hysterectomy, Orthopedic Surgery - L knee Denies: Amputation, Mastectomy, Pacemaker Social History Information Source: Patient Smoking Status: Never Smoker Frequency of Alcohol Use: None Hx Recreational Drug Use: No Drugs: None Hx Prescription Drug Abuse: No - Advance Directive Resuscitation Status: Full Code Surrogate healthcare decision maker:: Patient's son is the surrogate decision-maker Family History Family History: Reviewed & Not Pertinent Parental Family History Reviewed: Yes Children Family History Reviewed: Yes Sibling(s) Family History Reviewed.: Yes Medication/Allergy Home Medications: Amlodipine Besylate [Norvasc 10 mg Tablet] 10 mg PO DAILY 01/31/18 Carbamazepine [Tegretol Xr] 400 mg PO BID 01/31/18 Clonidine HCl [Catapres 0.2 mg Tablet] 0.2 mg PO Q12 01/31/18 Fenofibrate Nanocrystallized [Tricor 48 mg Tablet] 48 mg PO QHS 01/31/18 Furosemide [Lasix 20 mg Tablet] 20 mg PO BID 01/31/18 Hydralazine HCl [Apresoline 50 mg Tablet] 100 mg PO BID 01/31/18 Labetalol HCl [Trandate] 200 mg PO BID 01/31/18 Loratadine [Claritin] 10 mg PO DAILY 01/31/18 Pregabalin [Lyrica 50 Mg Capsule] 50 mg PO TID 01/31/18 Sertraline HCl [Zoloft] 200 mg PO DAILY 01/31/18 Valsartan [Diovan 160 mg Tablet] 160 mg PO BID 01/31/18 Allergies/Adverse Reactions: ANDREY Inhibitors [Andrey Inhibitors] Allergy (Severe, Verified 12/14/15 13:56) Swelling of tongue,throat,lips,mouth Sulfa (Sulfonamide Antibiotics) Allergy (Mild, Verified 08/20/15 11:03) rash Review of Systems Review of Systems: Please see history of present illness and past medical history as wall. System review is somewhat limited in view of patient being under great sedation. Some of the questions asked from son. Constitutional: No fever or chills reported. Severe left-sided jaw pain noted from trigeminal neuralgia. Head : No recent chronic headaches, recent head injury. Eyes: No recent eye pain, diplopia, redness, discharge, acute visual changes. Ears: No recent chronic ear pain, acute hearing loss, ear discharge. Oral cavity: No recent ulcerations, bleeding, oral cavity discomfort. Neck: No recent acute neck pain reported. Hematologic: No recent easy bruising or bleeding or hematologic malignancy reported. Lymphatic: No recent lymphatic malignancy, chronic lymphadenopathy reported yet Cardiovascular system review: See history of present illness. Respiratory system review: No recent chronic cough, hemoptysis, blood clots in the lungs reported. Shortness of breath on exertion Gastrointestinal system review: Negative for any recent acute or chronic abdominal pain, hematemesis, melena, recent change in bowel habits. Genitourinary system review: No recent acute or chronic hematuria, flank pain, UTI etc. reported. Skin system review: Negative for any recent abnormal bruising, no rash, no pruritus reported. Neurologic: No prior history of strokes, mini strokes, seizure disorder. Psychologic: No history of major psychosis or major depression reported. Musculoskeletal: Minor aches and pains reported. No acute joint swelling reported. Endocrine: No recent polyuria, polydipsia, recent heat or cold intolerance. Physical Exam Vital Signs: Temp Pulse Resp BP Pulse Ox 99.3 F 68 13 110/64 95 02/02/18 14:00 02/02/18 14:00 02/02/18 14:00 02/02/18 14:00 02/02/18 14:00 Intake & Output 02/01/18 02/02/18 02/03/18 06:59 06:59 06:59 Intake Total 1523 1558 Output Total 200 425 120 Balance 1323 1133 -120 Weight 80.3 kg 79.8 kg Exam: GENERAL: well-nourished and in no acute distress. Alert and oriented x3. Patient noted to be lethargic from sedation. HEAD: Atraumatic, normocephalic. EYES: Pupils equal round and reactive to light, extraocular movements intact, sclera anicteric, conjunctiva are normal. ENT: TMs normal, nares patent, oropharynx clear without exudates. Moist mucous membranes. No oral ulcerations or bleeding gums noted NECK: supple without lymphadenopathy. Trachea is central. No cervical or axillary lymphadenopathy noted. Carotids are 2+, JVD WNL LUNGS: Respiration seems nonlabored, no significant accessory muscle action noted. Breath sounds clear to auscultation bilaterally and equal noted. No wheezes rales or rhonchi noted. No significant dullness noted on percussion. CHEST: Palpation of the chest wall shows no significant chest wall tenderness. No other significant abnormalities noted. HEART: Brock [employer] TE[employer], No PSH, 1/6 SUMMER aortic area, 1/6 machado systolic murmur mitral area, no rubs, no gallops. ABDOMEN: Soft, no significant tenderness appreciated, normoactive bowel sounds. No guarding, no rebound. No rigidity noted . No masses appreciated. EXTREMITIES: Pedal pulses are 1-2+, no calf tenderness noted. No clubbing or cyanosis.trace to 1+ pedal edema noted NEUROLOGICAL: Focused neurological exam showed no significant neurologic deficit. Normal speech, no focal weakness appreciated. PSYCH: Normal mood, normal affect. Judgment and insight within normal limits. SKIN: No significant ecchymosis, skin is noted to be warm. MUSCULOSKELETAL EXAM: No significant acute joint swelling noted. Results Laboratory Results: 02/02/18 08:32 02/02/18 08:32 02/02/18 02/02/18 08:32 08:32 WBC 9.5 RBC 3.95 Hgb 12.0 Hct 36.4 MCV 92 MCH 30.3 MCHC 32.8 RDW 14.0 Plt Count 190 Sodium 135.1 L Potassium 4.9 Chloride 107 Carbon Dioxide 15 L Anion Gap 13 BUN 34 H Creatinine 1.23 Est GFR ( Amer) 51 L Est GFR (Non-Af Amer) 42 L Glucose 75 Calcium 9.6 Magnesium 1.9 02/02/18 08:32 Troponin I 0.077 EKG Comments: Atrial fibrillation with rapid ventricular response. No acute ST-T wave changes are noted. Assessment & Plan - Diagnosis (1) Atrial fibrillation Qualifiers: Atrial fibrillation type: unspecified Qualified Code(s): I48.91 - Unspecified atrial fibrillation Is this a current diagnosis for this admission?: Yes (2) Hypertension Qualifiers: Hypertension type: essential hypertension Qualified Code(s): I10 - Essential (primary) hypertension Is this a current diagnosis for this admission?: Yes (3) Inadequate pain control Is this a current diagnosis for this admission?: Yes (4) Trigeminal neuralgia of left side of face Is this a current diagnosis for this admission?: Yes (5) Sleep apnea syndrome Qualifiers: Sleep apnea type: unspecified type Qualified Code(s): G47.30 - Sleep apnea , unspecified Is this a current diagnosis for this admission?: Yes - Notes Notes: Atrial fibrillation: Currently unspecified. Could have been precipitated by vagal stimulation because of pain. At this point recommend rate control with beta blockers, will start patient on multaq. Because of increased risk of stroke, after mutually discussion, I placed patient on Eliquis at 5 mg p.o. twice daily. Side effects are discussed. Hypertension: Recommend good control of blood pressure. Inadequate pain control secondary to trigeminal neuralgia: Agree with management plans by hospitalist. History of sleep apnea syndrome: Patient would benefit from nightly bilevel/ CPAP therapy. Sleep apnea untreated is associated with recurrence of atrial fibrillation. - Time Time Spent: 30 to 50 Minutes - CODE STATUS was discussed, patient remains full code. Surrogate decision-maker unchanged. Multiple medical problems were addressed. More than 50% of the time spent coordinating care, discussing management plans with involved caregivers. Management plans discussed with involved personnels. Medical decision making was of moderate to high complexity , patient's has multiple comorbidities. Medications reviewed and adjusted accordingly: Yes
--- NOTE | 2018-02-02 15:34 | EKG REPORT ---
SEVERITY:- ABNORMAL ECG - ATRIAL FIBRILLATION LEFT VENTRICULAR HYPERTROPHY IVCD : Confirmed by: Andrea Mariscal MD 02-Feb-2018 15:32:47
[2018-02-02] MEDS ORDERED: FUROSEMIDE 20 MG TABLET PO ONE (18:45)
[2018-02-02] MEDS: APIXABAN 5 MG TABLET PO SCH (18:50)
[2018-02-02] MEDS: DRONEDARONE HYDROCHLORIDE 400 MG TABLET PO SCH (21:49)
[2018-02-03] MEDS: NORMAL SALINE 1000 ML 1,000 ML IV PRN ×2 (00:48→13:05)
[2018-02-03] MEDS: HYDRALAZINE HCL 50 MG TABLET PO SCH ×5 (00:49→23:11)
[2018-02-03] MEDS: PREGABALIN 75 MG CAPSULE PO SCH ×3 (06:47→23:11)
--- NOTE | 2018-02-03 07:29 | Physician Advisory Note ---
Physician Advisor ProgressNote .: [facility] medical [facility] for this patient. Physician Advisor Statement: Status: Medicare pt, appropriate for Inpatient status. 82yo w/severe pain from trigem neuralgia, precipitated by needing to start CPAP , worsening outpt despite appropriate tx w/Tegretol, Lyrica, & 3 nerve blocks outpt 01/30 by her pain mgmt Was appropriate to come in for monitoring initially after requiring high doses of mult sedating meds for pain control in ED. Duragesic was added 01/31, & this - & Dilaudid prn dose, & Tegretol - were all increased on 02/01. Developed Afib 02/02, prompting further eval. Already needing even higher dose Duragesic 02/03, & dose of Lasix 3 PM. Thanks! CK
--- NOTE | 2018-02-03 09:15 | EKG REPORT ---
SEVERITY:- ABNORMAL ECG - SINUS RHYTHM INCOMPLETE RIGHT BUNDLE BRANCH BLOCK LEFT VENTRICULAR HYPERTROPHY : Confirmed by: Freda Navarrete 03-Feb-2018 09:14:41
[2018-02-03] MEDS ORDERED: FENTANYL 50 MCG/HR PATCH.TD72 TD SCH (10:00)
[2018-02-03] MEDS ORDERED: FENTANYL 25 MCG/HR PATCH.TD72 TD SCH ×2 (10:00)
[2018-02-03] MEDS: CARBAMAZEPINE 200 MG TABLET PO SCH ×3 (10:22→23:11)
[2018-02-03] MEDS: FUROSEMIDE 20 MG TABLET PO SCH (11:02)
[2018-02-03] MEDS: DOCUSATE SODIUM 100 MG CAPSULE PO SCH ×2 (11:02→17:21)
[2018-02-03] MEDS: AMLODIPINE BESYLATE 10 MG TABLET PO SCH (11:02)
[2018-02-03] MEDS: LABETALOL HCL 200 MG TABLET PO SCH ×2 (11:03→23:11)
[2018-02-03] MEDS: DRONEDARONE HYDROCHLORIDE 400 MG TABLET PO SCH ×2 (11:03→23:11)
[2018-02-03] MEDS: APIXABAN 5 MG TABLET PO SCH ×2 (11:04→17:21)
--- NOTE | 2018-02-03 12:58 | XCELERA REPORT ---
[address] [address] Transthoracic Echocardiogram Report Name: CHELSEY MCDANIEL Age: 82 yrs Gender: Female : 1935 Patient Status: Inpatient Patient Location: ICU^605^A Study Date: 02/03/2018 08:43 AM Height: 62 in Weight: 175 lb BSA: 1.8 m2 Procedure: A complete two-dimensional transthoracic echocardiogram was performed (2D, M-mode, spectral and color flow Doppler). The study was technically difficult with many images being suboptimal in quality. Reason For Study: Atrial fibrillation Ordering Physician: FREDA BURKS Performed By: Nirali August Interpretation Summary The left ventricular ejection fraction is normal. There is borderline concentric left ventricular hypertrophy. The left ventricle is grossly normal size. Doppler measurements suggest pseudonormalized left ventricular relaxation, which is associated with grade II/IV or mild to moderate diastolic dysfunction Wall motion cannot be accurately commented on, but no definite regional wall motion abnormalities noted. The right ventricle is mild to moderately dilated. The right atrium is mildly dilated. The left atrium is mildly dilated. There is a mild amount of mitral regurgitation There is no mitral valve stenosis. No aortic regurgitation is present. There is no aortic valve stenosis There is a mild amount of tricuspid regurgitation There is mild to moderate pulmonary hypertension by echo Right ventricular systolic pressure is estimated to be elevated at 40- 50mmHg. The aortic root is not well visualized but is probably normal size. The inferior vena cava appeared normal and decreased > 50% with respiration (RAP 5-10 mmHg) There is no pericardial effusion. MMode/2D Measurements & Calculations RVDd: 3.3 cm LVIDd: 5.1 cm FS: 42.2 % Ao root diam: 2.7 cm IVSd: 0.98 cm LVIDs: 3.0 cm EDV(Teich): 124.8 ml LVPWd: 0.98 cm ESV(Teich): 33.8 ml Ao root area: 5.6 cm2 EF(Teich): 72.9 % LA dimension: 4.0 cm Doppler Measurements & Calculations MV E max jf: MV P1/2t max jf: Ao V2 max: LV V1 max P.3 cm/sec 93.8 cm/sec 158.2 cm/sec 6.5 mmHg MV A max jf: MV P1/2t: 64.3 msec Ao max PG: LV V1 max: 48.4 cm/sec 10.0 mmHg 127.3 cm/sec MV E/A: 1.9 MVA(P1/2t): 3.4 cm2 MV dec slope: 427.4 cm/sec2 MV dec time: 0.21 sec PA V2 max: PI end-d jf: TR max jf: 63.2 cm/sec 111.3 cm/sec 308.1 cm/sec PA max PG: TR max P.6 mmHg 38.0 mmHg Left Ventricle The left ventricle is grossly normal size. There is borderline concentric left ventricular hypertrophy. The left ventricular ejection fraction is normal. Doppler measurements suggest pseudonormalized left ventricular relaxation, which is associated with grade II/IV or mild to moderate diastolic dysfunction. Wall motion cannot be accurately commented on, but no definite regional wall motion abnormalities noted. Right Ventricle The right ventricle is mild to moderately dilated. There is normal right ventricular wall thickness. The right ventricular systolic function is normal. Atria The right atrium is mildly dilated. The left atrium is mildly dilated. Interarterial septum not well visualized and not well dopplered. Cannot comment on ASD/PFO presence. Mitral Valve The mitral valve is grossly normal. There is no mitral valve stenosis. There is a mild amount of mitral regurgitation. Aortic Valve The aortic valve is not well visualized secondary to technical limitations. There is no aortic valve stenosis. No aortic regurgitation is present. Tricuspid Valve The tricuspid valve is not well visualized, but is grossly normal. There is no tricuspid stenosis. There is a mild amount of tricuspid regurgitation. There is mild to moderate pulmonary hypertension by echo. Right ventricular systolic pressure is estimated to be elevated at 40-50mmHg. Pulmonic Valve The pulmonic valve is not well visualized. Great Vessels The aortic root is not well visualized but is probably normal size. The inferior vena cava appeared normal and decreased > 50% with respiration (RAP 5-10 mmHg). Effusions There is no pericardial effusion. : FREDA BURKS > Freda Burks
--- NOTE | 2018-02-03 19:27 | PDOC PROGRESS REPORT ---
Subjective Progress Note for:: 02/03/18 Subjective:: Patient continues to feel better with the pain much better controlled on the current regimen. She is able to eat a low bit more also. She is back in sinus rhythm after going into atrial fibrillation about 48 hours ago. She has been seen by Dr. Navarrete and patient is currently on Multitak as well as Eliquis as per Dr. Navarrete suggestion. Reason For Visit: INTRACTABLE PAIN, GURMEET Physical Exam Vital Signs: Temp Pulse Resp BP Pulse Ox 99 F 69 16 145/53 H 95 02/03/18 16:00 02/03/18 16:43 02/03/18 16:00 02/03/18 16:00 02/03/18 16:00 Intake & Output 02/02/18 02/03/18 02/04/18 06:59 06:59 06:59 Intake Total 1558 1509 625 Output Total 425 1040 360 Balance 1133 469 265 Weight 79.8 kg General appearance: PRESENT: no acute distress, well-developed Head exam: PRESENT: atraumatic Eye exam: PRESENT: conjunctival injection Mouth exam: PRESENT: other - Left mandibular area tenderness mild and improved with minimal swelling Cardiovascular exam: PRESENT: RRR. ABSENT: diastolic murmur, rubs, systolic murmur Pulses: PRESENT: normal dorsalis pedis pul GI/Abdominal exam: PRESENT: normal bowel sounds, soft. ABSENT: distended, guarding, mass, organolmegaly, rebound, tenderness Rectal exam: PRESENT: deferred Neurological exam: PRESENT: alert, awake, oriented to person, oriented to time, oriented to situation Results Laboratory Results: 02/02/18 08:32 02/02/18 08:32 02/02/18 02/03/18 08:32 09:54 Troponin I 0.077 0.085 Assessment & Plan - Diagnosis (1) Atrial fibrillation Qualifiers: Atrial fibrillation type: unspecified Qualified Code(s): I48.91 - Unspecified atrial fibrillation Is this a current diagnosis for this admission?: Yes Plan: New onset as patient denies any prior history of such. Continue Multaq and Eliquis as per cardiology suggestion (2) Trigeminal neuralgia of left side of face Is this a current diagnosis for this admission?: Yes Plan: Pain is much better controlled on increased Tegretol and Fentanyl patch. I have discontinued Dilaudid IV F/u for nerve block once discharged (3) Hypertension Qualifiers: Hypertension type: essential hypertension Qualified Code(s): I10 - Essential (primary) hypertension Is this a current diagnosis for this admission?: Yes Plan: Adjust BP meds as needed (4) Inadequate pain control Is this a current diagnosis for this admission?: Yes Plan: Appears to be better controlled on this regimen. - Time Time Spent with patient: 15-24 minutes Medications reviewed and adjusted accordingly: Yes Anticipated discharge: Home Within: within 48 hours
--- NOTE | 2018-02-03 19:45 | PDOC PROGRESS REPORT ---
Subjective Progress Note for:: 02/03/18 Subjective:: Patient seems to be doing better with gradual improvement. Pt is denying any chest arm or neck discomfort. Patient denying any PND, orthopnea. Patient denied any sustained palpitations, dizziness, syncope, near syncope. Patient denying any fever chills. Patient denying any other significant discomfort. Patient denies recurrence of trigeminal neuralgia pain since last night. Patient also converted to sinus rhythm and is maintaining sinus rhythm. Patient is maintaining sinus rhythm. Review of systems: Rest review of systems negative. Medications: Medications have been reviewed. Reason For Visit: INTRACTABLE PAIN, GURMEET Physical Exam Vital Signs: Temp Pulse Resp BP Pulse Ox 99.3 F 73 16 149/59 H 96 02/03/18 19:12 02/03/18 19:12 02/03/18 19:12 02/03/18 19:12 02/03/18 19:12 Intake & Output 02/02/18 02/03/18 02/04/18 06:59 06:59 06:59 Intake Total 1558 1509 625 Output Total 425 1040 360 Balance 1133 469 265 Weight 79.8 kg Exam: GENERAL: well-nourished and in no acute distress. Alert and oriented x3 HEAD: Atraumatic, normocephalic. EYES: Pupils equal round and reactive to light, extraocular movements intact, sclera anicteric, conjunctiva are normal. ENT: TMs normal, nares patent, oropharynx clear without exudates. Moist mucous membranes. No oral ulcerations or bleeding gums noted NECK: supple without lymphadenopathy. Trachea is central. No cervical or axillary lymphadenopathy noted. Carotids are 2+, JVD WNL LUNGS: Respiration seems nonlabored, no significant accessory muscle action noted. Breath sounds clear to auscultation bilaterally and equal noted. No wheezes rales or rhonchi noted. No significant dullness noted on percussion. CHEST: Palpation of the chest wall shows no significant chest wall tenderness. No other significant abnormalities noted. HEART: [place] [employer], No PSH, 1/6 SUMMER aortic area, 1/6 machado systolic murmur mitral area, no rubs, no gallops. ABDOMEN: Soft, no significant tenderness appreciated, normoactive bowel sounds. No guarding, no rebound. No rigidity noted . No masses appreciated. EXTREMITIES: Pedal pulses are 1-2+, no calf tenderness noted. No clubbing or cyanosis.trace to 1+ pedal edema noted NEUROLOGICAL: Focused neurological exam showed no significant neurologic deficit. Normal speech, no focal weakness appreciated. PSYCH: Normal mood, normal affect. Judgment and insight within normal limits. SKIN: No significant ecchymosis, skin is noted to be warm. MUSCULOSKELETAL EXAM: No significant acute joint swelling noted. Results Laboratory Results: 02/02/18 08:32 02/02/18 08:32 02/02/18 02/03/18 08:32 09:54 Troponin I 0.077 0.085 EKG Comments: Twelve-lead EKG shows sinus rhythm. QTc WNL. No acute ST-T wave changes noted. Assessment & Plan - Diagnosis (1) Atrial fibrillation Qualifiers: Atrial fibrillation type: unspecified Qualified Code(s): I48.91 - Unspecified atrial fibrillation Is this a current diagnosis for this admission?: Yes (2) Hypertension Qualifiers: Hypertension type: essential hypertension Qualified Code(s): I10 - Essential (primary) hypertension Is this a current diagnosis for this admission?: Yes (3) Inadequate pain control Is this a current diagnosis for this admission?: Yes (4) Trigeminal neuralgia of left side of face Is this a current diagnosis for this admission?: Yes (5) Sleep apnea syndrome Qualifiers: Sleep apnea type: unspecified type Qualified Code(s): G47.30 - Sleep apnea , unspecified Is this a current diagnosis for this admission?: Yes - Notes Notes: Twelve-lead EKG reviewed. 2D echo reviewed. Patient has enlargement of the RV. Atrial fibrillation: [place] to be paroxysmal. 2D echo reviewed shows enlargement of the right atrium, right ventricle. Due to presence of sleep apnea syndrome, obesity, feel there is increased risk of recurrence. At this point recommend rate control with beta blockers, continue patient on multaq. Because of increased risk of stroke, after mutually discussion, I placed patient on Eliquis at 5 mg p.o. twice daily. Side effects are discussed. Hypertension: Recommend good control of blood pressure. Inadequate pain control secondary to trigeminal neuralgia: Agree with management plans by hospitalist. Currently neuralgia pain coming under control. History of sleep apnea syndrome: Patient would benefit from nightly bilevel/ CPAP therapy. Sleep apnea untreated is associated with recurrence of atrial fibrillation. - Time Time with patient: Greater than 35 minutes - CODE STATUS was discussed, patient remains full code. Surrogate decision-maker unchanged. Multiple medical problems were addressed. More than 50% of the time spent coordinating care, discussing management plans with involved caregivers. Management plans discussed with involved personnels. Medical decision making was of moderate to high complexity, patient's has multiple comorbidities. Medications reviewed and adjusted accordingly: Yes
[2018-02-03] MEDS: NYSTATIN 500000 UNIT/5 ML UDCUP PO SCH (23:11)
[2018-02-03] MEDS: SERTRALINE HCL 50 MG TABLET PO SCH (23:11)
[2018-02-04] MEDS: PREGABALIN 75 MG CAPSULE PO SCH ×3 (06:04→21:33)
[2018-02-04] MEDS: HYDRALAZINE HCL 50 MG TABLET PO SCH ×3 (06:04→18:55)
[2018-02-04] MEDS: NYSTATIN 500000 UNIT/5 ML UDCUP PO SCH ×3 (06:04→18:55)
[2018-02-04] MEDS: CARBAMAZEPINE 200 MG TABLET PO SCH ×3 (06:04→21:35)
[2018-02-04] MEDS: DRONEDARONE HYDROCHLORIDE 400 MG TABLET PO SCH ×2 (09:08→21:35)
[2018-02-04] MEDS: APIXABAN 5 MG TABLET PO SCH ×2 (09:09→18:55)
[2018-02-04] MEDS: AMLODIPINE BESYLATE 10 MG TABLET PO SCH (09:10)
[2018-02-04] MEDS: DOCUSATE SODIUM 100 MG CAPSULE PO SCH ×2 (09:11→18:58)
--- NOTE | 2018-02-04 09:11 | EKG REPORT ---
SEVERITY:- ABNORMAL ECG - SINUS RHYTHM INCOMPLETE RIGHT BUNDLE BRANCH BLOCK LEFT VENTRICULAR HYPERTROPHY : Confirmed by: Freda Navarrete 04-Feb-2018 09:11:25
[2018-02-04] MEDS: FUROSEMIDE 20 MG TABLET PO SCH (09:16)
[2018-02-04] MEDS: LABETALOL HCL 200 MG TABLET PO SCH ×2 (09:18→21:35)
--- NOTE | 2018-02-04 12:52 | PDOC PROGRESS REPORT ---
Subjective Progress Note for:: 02/04/18 Subjective:: Patient seems to be doing better with gradual improvement. Patient just feels very weak and debilitated. Pt is denying any chest arm or neck discomfort. Patient denying any PND, orthopnea. Patient denied any sustained palpitations, dizziness, syncope, near syncope. Patient denying any fever chills. Patient denying any other significant discomfort. Patient denies recurrence of trigeminal neuralgia pain since last night. Patient is maintaining sinus rhythm. Patient is maintaining sinus rhythm. Review of systems: Rest review of systems negative. Medications: Medications have been reviewed. Reason For Visit: INTRACTABLE PAIN, GURMEET Physical Exam Vital Signs: Temp Pulse Resp BP Pulse Ox 100.0 F 77 20 127/91 H 95 02/04/18 11:36 02/04/18 11:36 02/04/18 11:36 02/04/18 11:36 02/04/18 11:36 Intake & Output 02/03/18 02/04/18 02/05/18 06:59 06:59 06:59 Intake Total 1509 1747 Output Total 1040 1360 Balance 469 387 Weight 79.5 kg Exam: GENERAL: well-nourished and in no acute distress. Alert and oriented x2. Patient not oriented to time. Patient has difficulty recalling events. HEAD: Atraumatic, normocephalic. EYES: Pupils equal round and reactive to light, extraocular movements intact, sclera anicteric, conjunctiva are normal. ENT: TMs normal, nares patent, oropharynx clear without exudates. Moist mucous membranes. No oral ulcerations or bleeding gums noted NECK: supple without lymphadenopathy. Trachea is central. No cervical or axillary lymphadenopathy noted. Carotids are 2+, JVD WNL LUNGS: Respiration seems nonlabored, no significant accessory muscle action noted. Breath sounds clear to auscultation bilaterally and equal noted. No wheezes rales or rhonchi noted. No significant dullness noted on percussion. CHEST: Palpation of the chest wall shows no significant chest wall tenderness. No other significant abnormalities noted. HEART: [place] [employer]ER, No PSH, 1/6 SUMMER aortic area, 1/6 machado systolic murmur mitral area, no rubs, no gallops. ABDOMEN: Soft, no significant tenderness appreciated, normoactive bowel sounds. No guarding, no rebound. No rigidity noted . No masses appreciated. EXTREMITIES: Pedal pulses are 1-2+, no calf tenderness noted. No clubbing or cyanosis.trace to 1+ pedal edema noted NEUROLOGICAL: Focused neurological exam showed no significant neurologic deficit. Normal speech, no focal weakness appreciated. PSYCH: Normal mood, normal affect. Judgment and insight possibly impaired. SKIN: No significant ecchymosis, skin is noted to be warm. MUSCULOSKELETAL EXAM: No significant acute joint swelling noted. Results Laboratory Results: 02/02/18 08:32 02/02/18 08:32 02/02/18 02/03/18 08:32 09:54 Troponin I 0.077 0.085 EKG Comments: Twelve-lead EKG shows sinus rhythm, incomplete right bundle branch block pattern , normal QTC, no acute ST-T wave changes. Assessment & Plan - Diagnosis (1) Atrial fibrillation Qualifiers: Atrial fibrillation type: unspecified Qualified Code(s): I48.91 - Unspecified atrial fibrillation Is this a current diagnosis for this admission?: Yes (2) Hypertension Qualifiers: Hypertension type: essential hypertension Qualified Code(s): I10 - Essential (primary) hypertension Is this a current diagnosis for this admission?: Yes (3) Inadequate pain control Is this a current diagnosis for this admission?: Yes (4) Trigeminal neuralgia of left side of face Is this a current diagnosis for this admission?: Yes (5) Sleep apnea syndrome Qualifiers: Sleep apnea type: unspecified type Qualified Code(s): G47.30 - Sleep apnea , unspecified Is this a current diagnosis for this admission?: Yes (6) Troponin I above reference range Is this a current diagnosis for this admission?: Yes - Notes Notes: Atrial fibrillation: [place] to be paroxysmal. 2D echo reviewed shows enlargement of the right atrium, right ventricle. Due to presence of sleep apnea syndrome, obesity, feel there is increased risk of recurrence. At this point recommend rate control with beta blockers, continue patient on multaq. Because of increased risk of stroke, after mutually discussion, continue patient on Eliquis at 5 mg p.o. twice daily. Side effects are discussed. Hypertension: Recommend good control of blood pressure. Inadequate pain control secondary to trigeminal neuralgia: Agree with management plans by hospitalist. Currently neuralgia pain coming under control. History of sleep apnea syndrome: Patient would benefit from nightly bilevel/ CPAP therapy. Sleep apnea untreated is associated with recurrence of atrial fibrillation. Abnormal troponin I level: Most likely related to transient atrial fibrillation , hypertension however patient likely to have underlying CAD. Discussed pursuing nuclear stress testing while inpatient or as an outpatient. Patient's [id number] was in the room. She needs to discuss this with her and get back to me. At this point will recommend medical management with Eliquis, beta-blockers, statins,, good control of blood pressure. - Time Time with patient: 15-25 minutes - CODE STATUS was discussed, patient remains full code. Surrogate decision-maker unchanged. Multiple medical problems were addressed. More than 50% of the time spent coordinating care, discussing management plans with involved caregivers. Management plans discussed with involved personnels. Medical decision making was of moderate to high complexity , patient's has multiple comorbidities. Medications reviewed and adjusted accordingly: Yes
[2018-02-04] MEDS: NORMAL SALINE 1000 ML 1,000 ML IV PRN (14:07)
[2018-02-04] MEDS ORDERED: FUROSEMIDE INJ/PF 40 MG/4 ML SDV IV ONE (17:40)
[2018-02-04] MEDS ORDERED: LORAZEPAM INJ 2 MG/1 ML VIAL IV PRN (17:44)
--- NOTE | 2018-02-04 17:52 | PDOC PROGRESS REPORT ---
Subjective Progress Note for:: 02/04/18 Subjective:: Daughter states the patient has been coughing more frequently. Nursing also reports the patient had a low-grade temperature. Nurse also reports that cough is very loose in nature. Daughter states that patient is very sleepy. Reason For Visit: INTRACTABLE PAIN, GURMEET Physical Exam Vital Signs: Temp Pulse Resp BP Pulse Ox 99.7 F 74 19 154/57 H 91 L 02/04/18 16:00 02/04/18 16:00 02/04/18 16:00 02/04/18 16:00 02/04/18 16:00 Intake & Output 02/03/18 02/04/18 02/05/18 06:59 06:59 06:59 Intake Total 1509 1747 Output Total 1040 1360 Balance 469 387 Weight 79.5 kg General appearance: PRESENT: no acute distress, well-developed, well-nourished Head exam: PRESENT: atraumatic, normocephalic Eye exam: PRESENT: conjunctiva pink, EOMI. ABSENT: scleral icterus Ear exam: PRESENT: normal external ear exam Mouth exam: PRESENT: moist, tongue midline Neck exam: ABSENT: carotid bruit, JVD, lymphadenopathy, thyromegaly Respiratory exam: PRESENT: crackles, other - bilaterally lower lobes, fair air movement Cardiovascular exam: PRESENT: RRR. ABSENT: diastolic murmur, rubs, systolic murmur Pulses: PRESENT: normal dorsalis pedis pul Vascular exam: PRESENT: normal capillary refill GI/Abdominal exam: PRESENT: normal bowel sounds, soft. ABSENT: distended, guarding, mass, organolmegaly, rebound, tenderness Rectal exam: PRESENT: deferred Extremities exam: PRESENT: full ROM. ABSENT: calf tenderness, clubbing, pedal edema Neurological exam: PRESENT: alert, awake, oriented to person, oriented to place , oriented to time, oriented to situation, CN II-XII grossly intact. ABSENT: motor sensory deficit Psychiatric exam: PRESENT: appropriate affect, normal mood. ABSENT: homicidal ideation, suicidal ideation Skin exam: PRESENT: dry, intact, warm. ABSENT: cyanosis, rash Results Laboratory Results: 02/02/18 08:32 02/02/18 08:32 02/02/18 02/03/18 08:32 09:54 Troponin I 0.077 0.085 Assessment & Plan - Diagnosis (1) Low grade fever Is this a current diagnosis for this admission?: Yes Plan: Chest x-ray. Will check urine and blood culture. (2) Shortness of breath Is this a current diagnosis for this admission?: Yes Plan: Will check CXR of chest (3) Hyponatremia Is this a current diagnosis for this admission?: Yes Plan: Will check BMP in am. (4) Atrial fibrillation Qualifiers: Atrial fibrillation type: unspecified Qualified Code(s): I48.91 - Unspecified atrial fibrillation Is this a current diagnosis for this admission?: Yes Plan: Multaq, Eliquis, and Metoprolol. (5) Hypertension Qualifiers: Hypertension type: essential hypertension Qualified Code(s): I10 - Essential (primary) hypertension Is this a current diagnosis for this admission?: Yes Plan: Will continue home medications (6) Inadequate pain control Is this a current diagnosis for this admission?: Yes Plan: Will continue to monitor. (7) Trigeminal neuralgia of left side of face Is this a current diagnosis for this admission?: Yes Plan: Will continue Tegretol and Fentanyl patch. - Time Time Spent with patient: 15-24 minutes
--- NOTE | 2018-02-04 18:16 | RADIOLOGY REPORT (SQ) ---
EXAM DESCRIPTION: CHEST SINGLE VIEW COMPLETED DATE/TIME: 02/04/2018 6:07 pm REASON FOR STUDY: Shortness of breath COMPARISON: 12/31/2016 EXAM PARAMETERS: NUMBER OF VIEWS: One view. TECHNIQUE: Single frontal radiographic view of the chest acquired. RADIATION DOSE: NA LIMITATIONS: None. FINDINGS: LUNGS AND PLEURA: No opacities, masses or pneumothorax. No pleural effusion. MEDIASTINUM AND HILAR STRUCTURES: No masses. Contour normal. HEART AND VASCULAR STRUCTURES: Cardiac silhouette is enlarged. There is mild pulmonary vascular jennifer estion. BONES: No acute findings. HARDWARE: None in the chest. OTHER: Some elevation of the right hemidiaphragm is seen. IMPRESSION: Cardiomegaly with mild pulmonary vascular congestion. No acute consolidations or pleura l effusions. Other findings as noted above TECHNICAL DOCUMENTATION: JOB ID: [id number] [employer]- All Rights Reserved Reading location - IP/workstation name: [email or web address]
[2018-02-04] MEDS ORDERED: FLUCONAZOLE 100 MG TABLET PO ONE (19:00)
[2018-02-04] MEDS: ATORVASTATIN CALCIUM 10 MG TABLET PO SCH (21:33)
[2018-02-04] MEDS: SERTRALINE HCL 50 MG TABLET PO SCH (21:34)
[2018-02-04] MEDS: ACETAMINOPHEN 325 MG TABLET PO PRN (21:35)
[2018-02-05] MEDS: HYDRALAZINE HCL 50 MG TABLET PO SCH ×5 (01:02→23:58)
[2018-02-05] MEDS: NYSTATIN 500000 UNIT/5 ML UDCUP PO SCH ×5 (05:17→21:22)
[2018-02-05] MEDS: CARBAMAZEPINE 200 MG TABLET PO SCH ×3 (05:59→21:25)
[2018-02-05] MEDS: PREGABALIN 75 MG CAPSULE PO SCH ×3 (05:59→21:24)
[2018-02-05 07:11] LABS: ABSOLUTE BASOPHILS # (AUTO) 0.1 10^3/uL (0.0-0.2); ABSOLUTE EOSINOPHILS # (AUTO) 0.1 10^3/uL (0.0-0.6); ABSOLUTE LYMPHOCYTES (AUTO) 0.8 10^3/uL (0.5-4.7); ABSOLUTE MONOCYTES (AUTO) 0.7 10^3/uL (0.1-1.4); ABSOLUTE NEUT (AUTO) 6.5 10^3/uL (1.7-8.2); EOSINOPHILS % (AUTO) 1.6 % (0-6); HEMATOCRIT 34.5 % (36.0-47.0); HEMOGLOBIN 11.5 g/dL (12.0-15.5); LYMPHOCYTES % (AUTO) 9.5 % (13-45); MEAN CORPUSCULAR HEMOGLOBIN 30.5 pg (27.0-33.4); MEAN CORPUSCULAR HGB CONC 33.4 g/dL (32.0-36.0); MEAN CORPUSCULAR VOLUME 91 fl (80-97); MONOCYTES % (AUTO) 8.5 % (3-13); PLATELET COUNT 167 10^3/uL (150-450); RED BLOOD COUNT 3.78 10^6/uL (3.72-5.28); RED CELL DISTRIBUTION WIDTH 13.9 % (11.5-14.0); SEGMENTED NEUTROPHILS % (AUTO) 79.4 % (42-78); TOTAL CELLS COUNTED % (AUTO) 100 %; WHITE BLOOD COUNT 8.2 10^3/uL (4.0-10.5)
[2018-02-05 07:30] LABS: ALANINE AMINOTRANSFERASE 33 U/L (9-52); ALBUMIN 3.4 g/dL (3.5-5.0); ALKALINE PHOSPHATASE 50 U/L (38-126); ANION GAP 10 (5-19); ASPARTATE AMINO TRANSFERASE 33 U/L (14-36); BILIRUBIN,DIRECT 0.5 mg/dL (0.0-0.4); BILIRUBIN,TOTAL 0.5 mg/dL (0.2-1.3); BLOOD UREA NITROGEN 16 mg/dL (7-20); CALCIUM 9.2 mg/dL (8.4-10.2); CARBON DIOXIDE 23 mmol/L (22-30); CHLORIDE 108 mmol/L (98-107); CHOLESTEROL 162.58 mg/dL (0-200); GLUCOSE 116 mg/dL (75-110); POTASSIUM 4.2 mmol/L (3.6-5.0); TOTAL PROTEIN 6.2 g/dL (6.3-8.2); TRIGLYCERIDES 154 mg/dL (<150)
[2018-02-05 07:41] LABS: DIRECT LDL 71 mg/dL (<100)
[2018-02-05 07:42] LABS: VLDL CHOLESTEROL 30.8 mg/dL (10-31)
--- NOTE | 2018-02-05 08:59 | EKG REPORT ---
SEVERITY:- ABNORMAL ECG - SINUS RHYTHM INCOMPLETE RIGHT BUNDLE BRANCH BLOCK LEFT VENTRICULAR HYPERTROPHY : Confirmed by: Freda Navarrete 05-Feb-2018 08:58:05
[2018-02-05] MEDS ORDERED: FLUCONAZOLE 100 MG TABLET PO SCH (10:00)
[2018-02-05] MEDS: LABETALOL HCL 200 MG TABLET PO SCH ×2 (12:09→21:25)
[2018-02-05] MEDS: DOCUSATE SODIUM 100 MG CAPSULE PO SCH ×2 (12:10→18:31)
[2018-02-05] MEDS: DRONEDARONE HYDROCHLORIDE 400 MG TABLET PO SCH ×2 (12:11→21:24)
[2018-02-05] MEDS: FUROSEMIDE 20 MG TABLET PO SCH (12:11)
[2018-02-05] MEDS: APIXABAN 5 MG TABLET PO SCH ×2 (12:11→18:32)
[2018-02-05] MEDS: AMLODIPINE BESYLATE 10 MG TABLET PO SCH (12:11)
--- NOTE | 2018-02-05 16:03 | PDOC PROGRESS REPORT ---
Subjective Progress Note for:: 02/05/18 Subjective:: Pt seen earlier this morning and son was at bedside. Son states that pt has been a little confused. Reason For Visit: INTRACTABLE PAIN, GURMEET Physical Exam Vital Signs: Temp Pulse Resp BP Pulse Ox 99.6 F 73 16 148/60 H 92 02/05/18 09:17 02/05/18 09:17 02/05/18 09:17 02/05/18 09:17 02/05/18 09:17 Intake & Output 02/04/18 02/05/18 02/06/18 06:59 06:59 06:59 Intake Total 1747 265 Output Total 1360 1300 Balance 387 -1035 Weight 79.5 kg 82.1 kg General appearance: PRESENT: no acute distress, well-developed, well-nourished Head exam: PRESENT: atraumatic, normocephalic Eye exam: PRESENT: conjunctiva pink, EOMI. ABSENT: scleral icterus Ear exam: PRESENT: normal external ear exam Mouth exam: PRESENT: moist, tongue midline Neck exam: ABSENT: carotid bruit, JVD, lymphadenopathy, thyromegaly Respiratory exam: PRESENT: clear to auscultation ludivina. ABSENT: rales, rhonchi, wheezes Cardiovascular exam: PRESENT: RRR. ABSENT: diastolic murmur, rubs, systolic murmur Pulses: PRESENT: normal dorsalis pedis pul Vascular exam: PRESENT: normal capillary refill GI/Abdominal exam: PRESENT: normal bowel sounds, soft. ABSENT: distended, guarding, mass, organolmegaly, rebound, tenderness Rectal exam: PRESENT: deferred Extremities exam: ABSENT: calf tenderness, clubbing, pedal edema Neurological exam: PRESENT: awake Psychiatric exam: PRESENT: appropriate affect, normal mood. ABSENT: homicidal ideation, suicidal ideation Skin exam: PRESENT: dry, intact, warm. ABSENT: cyanosis, rash Results Laboratory Results: 02/05/18 06:52 02/05/18 06:52 02/05/18 02/05/18 06:52 06:52 WBC 8.2 RBC 3.78 Hgb 11.5 L Hct 34.5 L MCV 91 MCH 30.5 MCHC 33.4 RDW 13.9 Plt Count 167 Seg Neutrophils % 79.4 H Lymphocytes % 9.5 L Monocytes % 8.5 Eosinophils % 1.6 Basophils % 1.0 Absolute Neutrophils 6.5 Absolute Lymphocytes 0.8 Absolute Monocytes 0.7 Absolute Eosinophils 0.1 Absolute Basophils 0.1 Sodium 141.0 Potassium 4.2 Chloride 108 H Carbon Dioxide 23 Anion Gap 10 BUN 16 Creatinine 0.75 Est GFR ( Amer) > 60 Est GFR (Non-Af Amer) > 60 Glucose 116 H Calcium 9.2 Magnesium 1.5 L Total Bilirubin 0.5 AST 33 ALT 33 Alkaline Phosphatase 50 Total Protein 6.2 L Albumin 3.4 L Triglycerides 154 H Cholesterol 162.58 LDL Cholesterol Direct 71 VLDL Cholesterol 30.8 HDL Cholesterol 53 02/02/18 02/03/18 08:32 09:54 Troponin I 0.077 0.085 Impressions: Chest X-Ray 02/04/18 00:00 IMPRESSION: Cardiomegaly with mild pulmonary vascular congestion. No acute consolidations or pleural effusions. Other findings as noted above Assessment & Plan - Diagnosis (1) Acute cystitis Is this a current diagnosis for this admission?: Yes Plan: Gram Negative Rods: Rocephin. (2) Low grade fever Is this a current diagnosis for this admission?: Yes Plan: Acute Cystitis Gram Neg Jose [place]: Rocephin. (3) Shortness of breath Is this a current diagnosis for this admission?: Yes Plan: Secondary Acute on chronic Diastolic CHF: Will give Lasix 40 mg IV X 1. BMP in am. (4) Hyponatremia Is this a current diagnosis for this admission?: Yes Plan: Resolved. (5) Atrial fibrillation Qualifiers: Atrial fibrillation type: unspecified Qualified Code(s): I48.91 - Unspecified atrial fibrillation Is this a current diagnosis for this admission?: Yes Plan: Multaq, Eliquis, and Metoprolol. (6) Hypertension Qualifiers: Hypertension type: essential hypertension Qualified Code(s): I10 - Essential (primary) hypertension Is this a current diagnosis for this admission?: Yes Plan: Will continue home medications (7) Inadequate pain control Is this a current diagnosis for this admission?: Yes Plan: Will continue to monitor. (8) Trigeminal neuralgia of left side of face Is this a current diagnosis for this admission?: Yes Plan: Will continue Tegretol. (9) Delirium Is this a current diagnosis for this admission?: Yes Plan: Secondary to Medication: We will discontinue fentanyl patch. We will also check ABG (10) Hypomagnesemia Is this a current diagnosis for this admission?: Yes Plan: Will give Magnesium 1 gram IV X 1. Mg in am - Time Time Spent with patient: 25-34 minutes
[2018-02-05] MEDS ORDERED: FUROSEMIDE INJ/PF 40 MG/4 ML SDV IV ONE (17:00)
[2018-02-05] MEDS ORDERED: MAGNESIUM SULFATE/D5W 1 GM/100 ML RTUPB IV ONE (17:00)
[2018-02-05 17:45] LABS: ARTERIAL BLOOD BASE EXCESS -1.2 mmol/L; ARTERIAL BLOOD H2CO3 1.06 mmol/L (1.05-1.35); ARTERIAL BLOOD HCO3 22.6 mmol/L (20-26); ARTERIAL BLOOD O2 SATURATION 93.7 % (94-98); ARTERIAL BLOOD PCO2 35.2 mmHg (35-45); ARTERIAL BLOOD PH 7.43 (7.35-7.45); ARTERIAL BLOOD PO2 66.3 mmHg (80-100); ARTERIAL BLOOD TOTAL CO2 23.7 mmol/L (21-25)
[2018-02-05 17:46] LABS: ARTERIAL BLOOD FIO2 2.5L
--- NOTE | 2018-02-05 19:39 | PDOC PROGRESS REPORT ---
Subjective Progress Note for:: 02/05/18 Subjective:: Patient noted to be somewhat confused by patient's [id number] and son. Otherwise patient is more arousable. Patient seems to be doing better with gradual improvement. Patient just feels very weak and debilitated. Pt is denying any chest arm or neck discomfort. Patient denying any PND, orthopnea. Patient denied any sustained palpitations, dizziness, syncope, near syncope. Patient denying any fever chills. Patient denying any other significant discomfort. Patient denies recurrence of trigeminal neuralgia pain since last night. Patient is maintaining sinus rhythm. Patient is maintaining sinus rhythm. Review of systems: Rest review of systems negative. Medications: Medications have been reviewed. Reason For Visit: INTRACTABLE PAIN, GURMEET Physical Exam Vital Signs: Temp Pulse Resp BP Pulse Ox 99.1 F 71 12 140/47 H 90 L 02/05/18 16:12 02/05/18 16:12 02/05/18 11:48 02/05/18 16:12 02/05/18 16:12 Intake & Output 02/04/18 02/05/18 02/06/18 06:59 06:59 06:59 Intake Total 1747 265 448 Output Total 1360 1300 200 Balance 387 -1035 248 Weight 79.5 kg 82.1 kg Exam: GENERAL: well-nourished and in no acute distress. Alert and oriented x1. Patient noted to be somewhat lethargic and confused which family thinks is related to medications. HEAD: Atraumatic, normocephalic. EYES: Pupils equal round and reactive to light, extraocular movements intact, sclera anicteric, conjunctiva are normal. ENT: TMs normal, nares patent, oropharynx clear without exudates. Moist mucous membranes. No oral ulcerations or bleeding gums noted NECK: supple without lymphadenopathy. Trachea is central. No cervical or axillary lymphadenopathy noted. Carotids are 2+, JVD WNL LUNGS: Respiration seems nonlabored, no significant accessory muscle action noted. Breath sounds clear to auscultation bilaterally and equal noted. No wheezes rales or rhonchi noted. No significant dullness noted on percussion. CHEST: Palpation of the chest wall shows no significant chest wall tenderness. No other significant abnormalities noted. 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 ABDOMEN: Soft, no significant tenderness appreciated, normoactive bowel sounds. No guarding, no rebound. No rigidity noted . No masses appreciated. EXTREMITIES: Pedal pulses are 1-2+, no calf tenderness noted. No clubbing or cyanosis.trace to 1+ pedal edema noted NEUROLOGICAL: Focused neurological exam showed no significant neurologic deficit. Normal speech, no focal weakness appreciated. PSYCH: Normal mood, normal affect. Judgment and insight not checked today. SKIN: No significant ecchymosis, skin is noted to be warm. MUSCULOSKELETAL EXAM: No significant acute joint swelling noted. Results Laboratory Results: 02/05/18 06:52 02/05/18 06:52 02/05/18 02/05/18 02/05/18 06:52 06:52 17:24 WBC 8.2 RBC 3.78 Hgb 11.5 L Hct 34.5 L MCV 91 MCH 30.5 MCHC 33.4 RDW 13.9 Plt Count 167 Seg Neutrophils % 79.4 H Lymphocytes % 9.5 L Monocytes % 8.5 Eosinophils % 1.6 Basophils % 1.0 Absolute Neutrophils 6.5 Absolute Lymphocytes 0.8 Absolute Monocytes 0.7 Absolute Eosinophils 0.1 Absolute Basophils 0.1 Carbonic Acid 1.06 HCO3/H2CO3 Ratio 21:1 ABG pH 7.43 ABG pCO2 35.2 ABG pO2 66.3 L ABG HCO3 22.6 ABG O2 Saturation 93.7 L ABG Base Excess -1.2 FiO2 2.5L Sodium 141.0 Potassium 4.2 Chloride 108 H Carbon Dioxide 23 Anion Gap 10 BUN 16 Creatinine 0.75 Est GFR ( Amer) > 60 Est GFR (Non-Af Amer) > 60 Glucose 116 H Calcium 9.2 Magnesium 1.5 L Total Bilirubin 0.5 AST 33 ALT 33 Alkaline Phosphatase 50 Total Protein 6.2 L Albumin 3.4 L Triglycerides 154 H Cholesterol 162.58 LDL Cholesterol Direct 71 VLDL Cholesterol 30.8 HDL Cholesterol 53 02/02/18 02/03/18 08:32 09:54 Troponin I 0.077 0.085 EKG Comments: Telemetry strips shows patient maintaining sinus rhythm. Impressions: Chest X-Ray 02/04/18 00:00 IMPRESSION: Cardiomegaly with mild pulmonary vascular congestion. No acute consolidations or pleural effusions. Other findings as noted above Assessment & Plan - Diagnosis (1) Atrial fibrillation Qualifiers: Atrial fibrillation type: unspecified Qualified Code(s): I48.91 - Unspecified atrial fibrillation Is this a current diagnosis for this admission?: Yes (2) Hypertension Qualifiers: Hypertension type: essential hypertension Qualified Code(s): I10 - Essential (primary) hypertension Is this a current diagnosis for this admission?: Yes (3) Inadequate pain control Is this a current diagnosis for this admission?: Yes (4) Trigeminal neuralgia of left side of face Is this a current diagnosis for this admission?: Yes (5) Sleep apnea syndrome Qualifiers: Sleep apnea type: unspecified type Qualified Code(s): G47.30 - Sleep apnea , unspecified Is this a current diagnosis for this admission?: Yes (6) Troponin I above reference range Is this a current diagnosis for this admission?: Yes - Notes Notes: Atrial fibrillation: [place] to be paroxysmal. 2D echo reviewed shows enlargement of the right atrium, right ventricle. Due to presence of sleep apnea syndrome, obesity, feel there is increased risk of recurrence. At this point recommend rate control with beta blockers, continue patient on multaq. continue patient on Eliquis at 5 mg p.o. twice daily. Side effects are discussed. Hypertension: Recommend good control of blood pressure. Currently blood pressure is satisfactorily controlled. Inadequate pain control secondary to trigeminal neuralgia: Agree with management plans by hospitalist. Currently neuralgia pain coming under control. History of sleep apnea syndrome: Patient would benefit from nightly bilevel/ CPAP therapy. Sleep apnea untreated is associated with recurrence of atrial fibrillation. Abnormal troponin I level: Most likely related to transient atrial fibrillation , hypertension however patient likely to have underlying CAD. Discussed pursuing nuclear stress testing while inpatient or as an outpatient. Because of marked general debility, it was decided to postpone nuclear stress test until patient condition improves. It can be considered as an outpatient. - Time Time with patient: Greater than 35 minutes - CODE STATUS was discussed, patient remains full code. Surrogate decision-maker unchanged. Multiple medical problems were addressed. More than 50% of the time spent coordinating care, discussing management plans with involved caregivers. Management plans discussed with involved personnels. Medical decision making was of moderate to high complexity, patient's has multiple comorbidities. Medications reviewed and adjusted accordingly: Yes
[2018-02-05] MEDS: ATORVASTATIN CALCIUM 10 MG TABLET PO SCH (21:24)
[2018-02-05] MEDS: SERTRALINE HCL 50 MG TABLET PO SCH (21:24)
[2018-02-05] MEDS: CEFTRIAXONE SODIUM 1,000 MG in NORMAL SALINE 100 ML IV SCH (21:26)
[2018-02-05] MEDS: ACETAMINOPHEN 325 MG TABLET PO PRN (23:58)
[2018-02-06] MEDS: CARBAMAZEPINE 200 MG TABLET PO SCH ×3 (06:03→22:09)
[2018-02-06] MEDS: PREGABALIN 75 MG CAPSULE PO SCH ×3 (06:04→22:09)
[2018-02-06] MEDS: NYSTATIN 500000 UNIT/5 ML UDCUP PO SCH ×4 (06:04→23:26)
[2018-02-06] MEDS: HYDRALAZINE HCL 50 MG TABLET PO SCH ×3 (06:07→18:43)
[2018-02-06 07:25] LABS: ABSOLUTE BASOPHILS # (AUTO) 0.1 10^3/uL (0.0-0.2); ABSOLUTE EOSINOPHILS # (AUTO) 0.1 10^3/uL (0.0-0.6); ABSOLUTE LYMPHOCYTES (AUTO) 0.9 10^3/uL (0.5-4.7); ABSOLUTE NEUT (AUTO) 6.8 10^3/uL (1.7-8.2); BASOPHILS % (AUTO) 0.6 % (0-2); EOSINOPHILS % (AUTO) 0.6 % (0-6); HEMOGLOBIN 11.2 g/dL (12.0-15.5); LYMPHOCYTES % (AUTO) 10.6 % (13-45); MEAN CORPUSCULAR HEMOGLOBIN 30.2 pg (27.0-33.4); MEAN CORPUSCULAR HGB CONC 32.9 g/dL (32.0-36.0); MEAN CORPUSCULAR VOLUME 92 fl (80-97); MONOCYTES % (AUTO) 11.2 % (3-13); PLATELET COUNT 157 10^3/uL (150-450); RED CELL DISTRIBUTION WIDTH 13.9 % (11.5-14.0); TOTAL CELLS COUNTED % (AUTO) 100 %; WHITE BLOOD COUNT 8.8 10^3/uL (4.0-10.5)
[2018-02-06 07:41] LABS: ALANINE AMINOTRANSFERASE 32 U/L (9-52); ALBUMIN 3.5 g/dL (3.5-5.0); ALKALINE PHOSPHATASE 50 U/L (38-126); ANION GAP 12 (5-19); ASPARTATE AMINO TRANSFERASE 24 U/L (14-36); BILIRUBIN,DIRECT 0.2 mg/dL (0.0-0.4); BILIRUBIN,TOTAL 0.2 mg/dL (0.2-1.3); BLOOD UREA NITROGEN 18 mg/dL (7-20); CARBON DIOXIDE 26 mmol/L (22-30); CHLORIDE 102 mmol/L (98-107); GLUCOSE 133 mg/dL (75-110); POTASSIUM 3.7 mmol/L (3.6-5.0)
[2018-02-06] MEDS ORDERED: CEFTRIAXONE 1 GM/D5W RTU 1 GM/50 ML RTUPB IV SCH (10:00)
[2018-02-06] MEDS: AMLODIPINE BESYLATE 10 MG TABLET PO SCH (10:25)
[2018-02-06] MEDS: LABETALOL HCL 200 MG TABLET PO SCH ×2 (10:26→22:09)
[2018-02-06] MEDS: FUROSEMIDE 20 MG TABLET PO SCH (10:26)
[2018-02-06] MEDS: APIXABAN 5 MG TABLET PO SCH ×2 (10:26→18:43)
[2018-02-06] MEDS: DOCUSATE SODIUM 100 MG CAPSULE PO SCH ×2 (10:26→18:42)
[2018-02-06] MEDS: DRONEDARONE HYDROCHLORIDE 400 MG TABLET PO SCH ×2 (10:28→22:09)
[2018-02-06] MEDS: OXYCODONE-ACETAMINOPHEN 5-325 MG TABLET PO PRN ×3 (11:16→22:09)
[2018-02-06] MEDS ORDERED: FUROSEMIDE INJ/PF 20 MG/2 ML SDV IV ONE (17:54)
--- NOTE | 2018-02-06 18:00 | PDOC PROGRESS REPORT ---
Subjective Progress Note for:: 02/06/18 Subjective:: Patient was seen this morning. Patient's daughter states that she is doing much better and she was able to feed herself. Received call later on during the day the patient vomited. Also received a call with the family was requesting for more pain medication but explained that due to patient's mental status feel that is best not to sedate patient with additional medication. Reason For Visit: INTRACTABLE PAIN, GURMEET Physical Exam Vital Signs: Temp Pulse Resp BP Pulse Ox 99.1 F 75 16 154/70 H 96 02/06/18 16:00 02/06/18 16:00 02/06/18 16:00 02/06/18 16:00 02/06/18 17:16 Intake & Output 02/05/18 02/06/18 02/07/18 06:59 06:59 06:59 Intake Total 265 1388 Output Total 1300 1750 Balance -1035 -362 Weight 82.1 kg 81.5 kg General appearance: PRESENT: no acute distress, well-developed, well-nourished Head exam: PRESENT: atraumatic, normocephalic Eye exam: PRESENT: conjunctiva pink, EOMI. ABSENT: scleral icterus Ear exam: PRESENT: normal external ear exam Mouth exam: PRESENT: moist, tongue midline Neck exam: ABSENT: carotid bruit, JVD, lymphadenopathy, thyromegaly Respiratory exam: PRESENT: clear to auscultation ludivina. ABSENT: rales, rhonchi, wheezes Cardiovascular exam: PRESENT: RRR. ABSENT: diastolic murmur, rubs, systolic murmur Pulses: PRESENT: normal dorsalis pedis pul Vascular exam: PRESENT: normal capillary refill GI/Abdominal exam: PRESENT: normal bowel sounds, soft. ABSENT: distended, guarding, mass, organolmegaly, rebound, tenderness Rectal exam: PRESENT: deferred Extremities exam: PRESENT: full ROM. ABSENT: calf tenderness, clubbing, pedal edema Musculoskeletal exam: PRESENT: full ROM Neurological exam: PRESENT: alert, awake, oriented to person Psychiatric exam: PRESENT: appropriate affect, normal mood. ABSENT: homicidal ideation, suicidal ideation Skin exam: PRESENT: dry, intact, warm. ABSENT: cyanosis, rash Results Laboratory Results: 02/06/18 06:48 02/06/18 06:48 02/06/18 02/06/18 06:48 06:48 WBC 8.8 RBC 3.70 L Hgb 11.2 L Hct 34.0 L MCV 92 MCH 30.2 MCHC 32.9 RDW 13.9 Plt Count 157 Seg Neutrophils % 77.0 Lymphocytes % 10.6 L Monocytes % 11.2 Eosinophils % 0.6 Basophils % 0.6 Absolute Neutrophils 6.8 Absolute Lymphocytes 0.9 Absolute Monocytes 1.0 Absolute Eosinophils 0.1 Absolute Basophils 0.1 Sodium 140.0 Potassium 3.7 Chloride 102 Carbon Dioxide 26 Anion Gap 12 BUN 18 Creatinine 0.91 Est GFR ( Amer) > 60 Est GFR (Non-Af Amer) 59 L Glucose 133 H Calcium 9.0 Magnesium 1.8 Total Bilirubin 0.2 AST 24 ALT 32 Alkaline Phosphatase 50 Total Protein 6.0 L Albumin 3.5 02/04/18 18:20 [place] Catheter Urine Culture - Final Escherichia Coli 02/02/18 02/03/18 08:32 09:54 Troponin I 0.077 0.085 Impressions: Chest X-Ray 02/04/18 00:00 IMPRESSION: Cardiomegaly with mild pulmonary vascular congestion. No acute consolidations or pleural effusions. Other findings as noted above Assessment & Plan - Diagnosis (1) Acute cystitis Is this a current diagnosis for this admission?: Yes Plan: E. coli: Rocephin. (2) Low grade fever Is this a current diagnosis for this admission?: Yes Plan: Acute Cystitis E. Coli: Rocephin. (3) Shortness of breath Is this a current diagnosis for this admission?: Yes Plan: Secondary Acute on chronic Diastolic CHF: Will give additional Lasix 40 mg IV X 1. BMP in am. (4) Hyponatremia Is this a current diagnosis for this admission?: Yes Plan: Resolved. (5) Atrial fibrillation Qualifiers: Atrial fibrillation type: unspecified Qualified Code(s): I48.91 - Unspecified atrial fibrillation Is this a current diagnosis for this admission?: Yes Plan: Multaq, Eliquis, and Metoprolol. (6) Hypertension Qualifiers: Hypertension type: essential hypertension Qualified Code(s): I10 - Essential (primary) hypertension Is this a current diagnosis for this admission?: Yes Plan: Will continue home medications (7) Inadequate pain control Is this a current diagnosis for this admission?: Yes Plan: Will continue to monitor. (8) Trigeminal neuralgia of left side of face Is this a current diagnosis for this admission?: Yes Plan: Will continue Tegretol. (9) Delirium Is this a current diagnosis for this admission?: Yes Plan: Secondary to Medication: discontinue fentanyl patch. Mentation improving. (10) Hypomagnesemia Is this a current diagnosis for this admission?: Yes Plan: Resolved. - Time Time Spent with patient: 15-24 minutes
--- NOTE | 2018-02-06 19:32 | RADIOLOGY REPORT (SQ) ---
EXAM DESCRIPTION: CHEST SINGLE VIEW COMPLETED DATE/TIME: 02/06/2018 6:19 pm REASON FOR STUDY: Pneumonia COMPARISON: 02/04/2018 EXAM PARAMETERS: NUMBER OF VIEWS: One view. TECHNIQUE: Single frontal radiographic view of the chest acquired. RADIATION DOSE: NA LIMITATIONS: None. FINDINGS: LUNGS AND PLEURA: No opacities, masses or pneumothorax. No pleural effusion. MEDIASTINUM AND HILAR STRUCTURES: No masses. Contour normal. HEART AND VASCULAR STRUCTURES: Heart normal in size. Normal vasculature. BONES: No acute findings. HARDWARE: None in the chest. OTHER: No other significant finding. IMPRESSION: NO ACUTE RADIOGRAPHIC FINDING IN THE CHEST. TECHNICAL DOCUMENTATION: JOB ID: [id number] [employer]- All Rights Reserved Reading location - IP/workstation name: [email or web address]
[2018-02-06] MEDS ORDERED: GLYCERIN (ADULT) SUPP.RECT PR ONE (20:00)
[2018-02-06] MEDS: ATORVASTATIN CALCIUM 10 MG TABLET PO SCH (22:09)
[2018-02-06] MEDS: CEFTRIAXONE SODIUM 1,000 MG in NORMAL SALINE 100 ML IV SCH (22:09)
[2018-02-06] MEDS: SERTRALINE HCL 50 MG TABLET PO SCH (22:09)
[2018-02-07] MEDS ORDERED: OXYCODONE HCL IR 5 MG TABLET PO PRN (00:50)
[2018-02-07] MEDS: HYDRALAZINE HCL 50 MG TABLET PO SCH ×4 (01:22→18:43)
[2018-02-07] MEDS: PREGABALIN 75 MG CAPSULE PO SCH (05:43)
[2018-02-07] MEDS: CARBAMAZEPINE 200 MG TABLET PO SCH ×3 (05:43→21:38)
[2018-02-07] MEDS: NYSTATIN 500000 UNIT/5 ML UDCUP PO SCH ×3 (05:43→18:44)
[2018-02-07 06:52] LABS: ABSOLUTE BASOPHILS # (AUTO) 0.1 10^3/uL (0.0-0.2); ABSOLUTE EOSINOPHILS # (AUTO) 0.2 10^3/uL (0.0-0.6); ABSOLUTE LYMPHOCYTES (AUTO) 1.4 10^3/uL (0.5-4.7); ABSOLUTE MONOCYTES (AUTO) 0.7 10^3/uL (0.1-1.4); ABSOLUTE NEUT (AUTO) 5.4 10^3/uL (1.7-8.2); BASOPHILS % (AUTO) 0.9 % (0-2); EOSINOPHILS % (AUTO) 2.6 % (0-6); HEMATOCRIT 34.1 % (36.0-47.0); HEMOGLOBIN 11.4 g/dL (12.0-15.5); LYMPHOCYTES % (AUTO) 17.4 % (13-45); MEAN CORPUSCULAR HEMOGLOBIN 30.5 pg (27.0-33.4); MEAN CORPUSCULAR HGB CONC 33.5 g/dL (32.0-36.0); MEAN CORPUSCULAR VOLUME 91 fl (80-97); MONOCYTES % (AUTO) 9.6 % (3-13); PLATELET COUNT 190 10^3/uL (150-450); RED BLOOD COUNT 3.75 10^6/uL (3.72-5.28); RED CELL DISTRIBUTION WIDTH 13.9 % (11.5-14.0); SEGMENTED NEUTROPHILS % (AUTO) 69.5 % (42-78); TOTAL CELLS COUNTED % (AUTO) 100 %; WHITE BLOOD COUNT 7.8 10^3/uL (4.0-10.5)
[2018-02-07 07:25] LABS: ALANINE AMINOTRANSFERASE 37 U/L (9-52); ALBUMIN 3.7 g/dL (3.5-5.0); ALKALINE PHOSPHATASE 54 U/L (38-126); ANION GAP 13 (5-19); ASPARTATE AMINO TRANSFERASE 26 U/L (14-36); BILIRUBIN,DIRECT 0.3 mg/dL (0.0-0.4); BILIRUBIN,TOTAL 0.3 mg/dL (0.2-1.3); BLOOD UREA NITROGEN 17 mg/dL (7-20); CALCIUM 9.4 mg/dL (8.4-10.2); CARBON DIOXIDE 29 mmol/L (22-30); CHLORIDE 101 mmol/L (98-107); GLUCOSE 114 mg/dL (75-110); POTASSIUM 3.9 mmol/L (3.6-5.0); SODIUM 142.6 mmol/L (137-145); TOTAL PROTEIN 6.4 g/dL (6.3-8.2)
[2018-02-07] MEDS ORDERED: PREGABALIN 75 MG CAPSULE PO SCH (10:28)
[2018-02-07] MEDS: LABETALOL HCL 200 MG TABLET PO SCH ×2 (10:38→21:38)
[2018-02-07] MEDS: APIXABAN 5 MG TABLET PO SCH ×2 (10:42→18:43)
[2018-02-07] MEDS: AMLODIPINE BESYLATE 10 MG TABLET PO SCH (10:42)
[2018-02-07] MEDS: DOCUSATE SODIUM 100 MG CAPSULE PO SCH ×2 (10:43→18:43)
--- NOTE | 2018-02-07 10:43 | PDOC PROGRESS REPORT ---
Subjective Progress Note for:: 02/07/18 Subjective:: Patient son was at bedside and stated the patient was saying that she was having severe pain at 1:00 in the morning. Patient was given OxyContin once. On morning rounds patient was very sedated and somewhat still at bedside. Called nurse to see if patient's mentation had improved and nurse states that patient is still very sleepy. Reason For Visit: INTRACTABLE PAIN, GURMEET Physical Exam Vital Signs: Temp Pulse Resp BP Pulse Ox 98.3 F 64 16 158/70 H 96 02/07/18 08:00 02/07/18 08:00 02/07/18 08:00 02/07/18 08:00 02/07/18 08:00 Intake & Output 02/06/18 02/07/18 02/08/18 06:59 06:59 06:59 Intake Total 1388 630 Output Total 1750 1030 Balance -362 -400 Weight 81.5 kg 80.5 kg General appearance: PRESENT: no acute distress, well-developed, well-nourished Head exam: PRESENT: atraumatic, normocephalic Eye exam: PRESENT: conjunctiva pink, EOMI. ABSENT: scleral icterus Ear exam: PRESENT: normal external ear exam Mouth exam: PRESENT: moist, tongue midline Neck exam: ABSENT: carotid bruit, JVD, lymphadenopathy, thyromegaly Respiratory exam: PRESENT: clear to auscultation ludivina. ABSENT: rales, rhonchi, wheezes Cardiovascular exam: PRESENT: RRR. ABSENT: diastolic murmur, rubs, systolic murmur Pulses: PRESENT: normal dorsalis pedis pul Vascular exam: PRESENT: normal capillary refill GI/Abdominal exam: PRESENT: normal bowel sounds, soft. ABSENT: distended, guarding, mass, organolmegaly, rebound, tenderness Rectal exam: PRESENT: deferred Extremities exam: PRESENT: full ROM. ABSENT: calf tenderness, clubbing, pedal edema Neurological exam: PRESENT: alert, awake, oriented to person. ABSENT: motor sensory deficit Psychiatric exam: PRESENT: appropriate affect, normal mood. ABSENT: homicidal ideation, suicidal ideation Skin exam: PRESENT: dry, intact, warm. ABSENT: cyanosis, rash Results Laboratory Results: 02/07/18 06:39 02/07/18 06:39 03/09/18 03/09/18 06:39 06:39 WBC 7.8 RBC 3.75 Hgb 11.4 L Hct 34.1 L MCV 91 MCH 30.5 MCHC 33.5 RDW 13.9 Plt Count 190 Seg Neutrophils % 69.5 Lymphocytes % 17.4 Monocytes % 9.6 Eosinophils % 2.6 Basophils % 0.9 Absolute Neutrophils 5.4 Absolute Lymphocytes 1.4 Absolute Monocytes 0.7 Absolute Eosinophils 0.2 Absolute Basophils 0.1 Sodium 142.6 Potassium 3.9 Chloride 101 Carbon Dioxide 29 Anion Gap 13 BUN 17 Creatinine 0.81 Est GFR ( Amer) > 60 Est GFR (Non-Af Amer) > 60 Glucose 114 H Calcium 9.4 Magnesium 1.7 Total Bilirubin 0.3 AST 26 ALT 37 Alkaline Phosphatase 54 Total Protein 6.4 Albumin 3.7 02/04/18 18:20 [place] Catheter Urine Culture - Final Escherichia Coli 02/02/18 02/03/18 08:32 09:54 Troponin I 0.077 0.085 Impressions: Chest X-Ray 02/06/18 00:00 IMPRESSION: NO ACUTE RADIOGRAPHIC FINDING IN THE CHEST. Assessment & Plan - Diagnosis (1) Acute cystitis Is this a current diagnosis for this admission?: Yes Plan: E. coli: Discontinue Rocephin and place patient on Keflex.. (2) Low grade fever Is this a current diagnosis for this admission?: Yes Plan: Acute Cystitis E. Coli: We will discontinue Rocephin and place patient on Keflex. (3) Shortness of breath Is this a current diagnosis for this admission?: Yes Plan: Secondary Acute on chronic Diastolic CHF: Resolved. (4) Hyponatremia Is this a current diagnosis for this admission?: Yes Plan: Resolved. (5) Atrial fibrillation Qualifiers: Atrial fibrillation type: unspecified Qualified Code(s): I48.91 - Unspecified atrial fibrillation Is this a current diagnosis for this admission?: Yes Plan: Multaq, Eliquis, and Metoprolol. (6) Hypertension Qualifiers: Hypertension type: essential hypertension Qualified Code(s): I10 - Essential (primary) hypertension Is this a current diagnosis for this admission?: Yes Plan: Will continue home medications (7) Inadequate pain control Is this a current diagnosis for this admission?: Yes Plan: Will continue to monitor. (8) Trigeminal neuralgia of left side of face Is this a current diagnosis for this admission?: Yes Plan: Will continue Tegretol, Lyrica. Will DC OxyContin due to patient being sedated. Will try hydrocodone with acetaminophen. Will also decrease dose of Lyrica. Goal now is to get patient more awake and functional so that patient can be discharged and follow-up for outpatient appointment. Have explained to family that patient will have pain with this issue and would be best served by seeing a specialist. (9) Delirium Is this a current diagnosis for this admission?: Yes Plan: Secondary to Medication: Mentation improving. (10) Hypomagnesemia Is this a current diagnosis for this admission?: Yes Plan: We will give magnesium replacement. Magnesium Replacement. - Time Time Spent with patient: 15-24 minutes
[2018-02-07] MEDS: DRONEDARONE HYDROCHLORIDE 400 MG TABLET PO SCH ×2 (10:46→21:38)
[2018-02-07] MEDS: FUROSEMIDE 20 MG TABLET PO SCH (10:47)
[2018-02-07] MEDS: PREGABALIN 50 MG CAPSULE PO SCH ×2 (13:08→21:38)
[2018-02-07] MEDS: MAGNESIUM SULFATE/D5W 1 GM/100 ML RTUPB IV SCH ×2 (13:09→14:30)
[2018-02-07] MEDS: ONDANSETRON HCL INJ/PF 4 MG/2 ML SDV IV PRN (15:42)
[2018-02-07] MEDS: HYDROCODONE/ACETAMINOPHEN 10-325 MG TABLET PO PRN (21:22)
[2018-02-07] MEDS: CEPHALEXIN 500 MG CAPSULE PO SCH (21:38)
[2018-02-07] MEDS: ATORVASTATIN CALCIUM 10 MG TABLET PO SCH (21:38)
[2018-02-07] MEDS: SERTRALINE HCL 50 MG TABLET PO SCH (21:38)
[2018-02-08 05:16] LABS: ABSOLUTE BASOPHILS # (AUTO) 0.1 10^3/uL (0.0-0.2); ABSOLUTE EOSINOPHILS # (AUTO) 0.2 10^3/uL (0.0-0.6); ABSOLUTE LYMPHOCYTES (AUTO) 1.4 10^3/uL (0.5-4.7); ABSOLUTE MONOCYTES (AUTO) 0.7 10^3/uL (0.1-1.4); ABSOLUTE NEUT (AUTO) 3.6 10^3/uL (1.7-8.2); EOSINOPHILS % (AUTO) 3.5 % (0-6); HEMATOCRIT 33.1 % (36.0-47.0); HEMOGLOBIN 10.8 g/dL (12.0-15.5); LYMPHOCYTES % (AUTO) 23.4 % (13-45); MEAN CORPUSCULAR HEMOGLOBIN 30.2 pg (27.0-33.4); MEAN CORPUSCULAR HGB CONC 32.7 g/dL (32.0-36.0); MEAN CORPUSCULAR VOLUME 92 fl (80-97); MONOCYTES % (AUTO) 11.2 % (3-13); PLATELET COUNT 202 10^3/uL (150-450); RED BLOOD COUNT 3.59 10^6/uL (3.72-5.28); RED CELL DISTRIBUTION WIDTH 13.7 % (11.5-14.0); SEGMENTED NEUTROPHILS % (AUTO) 60.9 % (42-78); TOTAL CELLS COUNTED % (AUTO) 100 %; WHITE BLOOD COUNT 5.9 10^3/uL (4.0-10.5)
[2018-02-08 05:45] LABS: ALANINE AMINOTRANSFERASE 35 U/L (9-52); ALBUMIN 3.4 g/dL (3.5-5.0); ALKALINE PHOSPHATASE 50 U/L (38-126); ANION GAP 12 (5-19); ASPARTATE AMINO TRANSFERASE 33 U/L (14-36); BILIRUBIN,DIRECT 0.3 mg/dL (0.0-0.4); BILIRUBIN,TOTAL 0.3 mg/dL (0.2-1.3); BLOOD UREA NITROGEN 22 mg/dL (7-20); CALCIUM 9.4 mg/dL (8.4-10.2); CARBON DIOXIDE 27 mmol/L (22-30); CHLORIDE 101 mmol/L (98-107); GLUCOSE 94 mg/dL (75-110); POTASSIUM 3.8 mmol/L (3.6-5.0)
[2018-02-08] MEDS: ONDANSETRON HCL INJ/PF 4 MG/2 ML SDV IV PRN ×3 (05:47→16:08)
[2018-02-08] MEDS: PREGABALIN 50 MG CAPSULE PO SCH ×3 (05:47→21:18)
[2018-02-08] MEDS: CARBAMAZEPINE 200 MG TABLET PO SCH ×3 (05:47→21:18)
[2018-02-08] MEDS: HYDRALAZINE HCL 50 MG TABLET PO SCH ×4 (05:54→17:55)
[2018-02-08] MEDS: NYSTATIN 500000 UNIT/5 ML UDCUP PO SCH ×4 (05:54→17:56)
[2018-02-08] MEDS: LABETALOL HCL 200 MG TABLET PO SCH ×2 (10:13→21:18)
[2018-02-08] MEDS: APIXABAN 5 MG TABLET PO SCH ×2 (10:14→17:55)
[2018-02-08] MEDS: DRONEDARONE HYDROCHLORIDE 400 MG TABLET PO SCH ×2 (10:14→21:17)
[2018-02-08] MEDS: DOCUSATE SODIUM 100 MG CAPSULE PO SCH ×2 (10:14→17:55)
[2018-02-08] MEDS: CEPHALEXIN 500 MG CAPSULE PO SCH ×2 (10:14→21:17)
[2018-02-08] MEDS: FUROSEMIDE 20 MG TABLET PO SCH (10:15)
[2018-02-08] MEDS: AMLODIPINE BESYLATE 10 MG TABLET PO SCH (10:15)
[2018-02-08] MEDS: HYDROCODONE/ACETAMINOPHEN 10-325 MG TABLET PO PRN (10:56)
--- NOTE | 2018-02-08 15:54 | PDOC PROGRESS REPORT ---
Subjective Progress Note for:: 02/08/18 Subjective:: Son was at bedside this morning concerned that his mother was sleeping a lot. Son states that she had another pain episode during the night. Reason For Visit: INTRACTABLE PAIN, GURMEET Physical Exam Vital Signs: Temp Pulse Resp BP Pulse Ox 98.3 F 62 16 179/69 H 92 02/08/18 13:21 02/08/18 13:21 02/08/18 13:21 02/08/18 13:21 02/08/18 13:21 Intake & Output 02/07/18 02/08/18 02/09/18 06:59 06:59 07:59 Intake Total 630 850 Output Total 1030 650 Balance -400 200 Weight 80.5 kg 79.3 kg General appearance: PRESENT: no acute distress, well-developed, well-nourished Head exam: PRESENT: atraumatic, normocephalic Eye exam: PRESENT: conjunctiva pink, EOMI. ABSENT: scleral icterus Ear exam: PRESENT: normal external ear exam Mouth exam: PRESENT: moist, tongue midline Neck exam: ABSENT: carotid bruit, JVD, lymphadenopathy, thyromegaly Respiratory exam: PRESENT: clear to auscultation ludivina. ABSENT: rales, rhonchi, wheezes Cardiovascular exam: PRESENT: RRR. ABSENT: diastolic murmur, rubs, systolic murmur Pulses: PRESENT: normal dorsalis pedis pul Vascular exam: PRESENT: normal capillary refill GI/Abdominal exam: PRESENT: normal bowel sounds, soft. ABSENT: distended, guarding, mass, organolmegaly, rebound, tenderness Rectal exam: PRESENT: deferred Extremities exam: ABSENT: calf tenderness, clubbing, pedal edema Neurological exam: PRESENT: alert, awake, oriented to person, oriented to place , oriented to time, oriented to situation. ABSENT: motor sensory deficit Psychiatric exam: PRESENT: appropriate affect, normal mood. ABSENT: homicidal ideation, suicidal ideation Skin exam: PRESENT: dry, intact, warm. ABSENT: cyanosis, rash Results Laboratory Results: 02/08/18 04:13 02/08/18 04:13 02/08/18 02/08/18 04:13 04:13 WBC 5.9 RBC 3.59 L Hgb 10.8 L Hct 33.1 L MCV 92 MCH 30.2 MCHC 32.7 RDW 13.7 Plt Count 202 Seg Neutrophils % 60.9 Lymphocytes % 23.4 Monocytes % 11.2 Eosinophils % 3.5 Basophils % 1.0 Absolute Neutrophils 3.6 Absolute Lymphocytes 1.4 Absolute Monocytes 0.7 Absolute Eosinophils 0.2 Absolute Basophils 0.1 Sodium 140.0 Potassium 3.8 Chloride 101 Carbon Dioxide 27 Anion Gap 12 BUN 22 H Creatinine 0.73 Est GFR ( Amer) > 60 Est GFR (Non-Af Amer) > 60 Glucose 94 Calcium 9.4 Magnesium 2.2 Total Bilirubin 0.3 AST 33 ALT 35 Alkaline Phosphatase 50 Total Protein 6.0 L Albumin 3.4 L 02/02/18 02/03/18 08:32 09:54 Troponin I 0.077 0.085 Impressions: Chest X-Ray 02/06/18 00:00 IMPRESSION: NO ACUTE RADIOGRAPHIC FINDING IN THE CHEST. Assessment & Plan - Diagnosis (1) Acute cystitis Is this a current diagnosis for this admission?: Yes Plan: E. coli: Keflex.. (2) Low grade fever Is this a current diagnosis for this admission?: Yes Plan: Acute Cystitis E. Coli: Keflex. (3) Shortness of breath Is this a current diagnosis for this admission?: Yes Plan: Secondary Acute on chronic Diastolic CHF: Resolved. (4) Hyponatremia Is this a current diagnosis for this admission?: Yes Plan: Resolved. (5) Atrial fibrillation Qualifiers: Atrial fibrillation type: unspecified Qualified Code(s): I48.91 - Unspecified atrial fibrillation Is this a current diagnosis for this admission?: Yes Plan: Multaq, Eliquis, and Metoprolol. (6) Hypertension Qualifiers: Hypertension type: essential hypertension Qualified Code(s): I10 - Essential (primary) hypertension Is this a current diagnosis for this admission?: Yes Plan: Will continue home medications (7) Inadequate pain control Is this a current diagnosis for this admission?: Yes Plan: Patient's hydrocodone was decreased to 5 mg every 6 hours as needed for pain. Patient this morning denied any pain. (8) Trigeminal neuralgia of left side of face Is this a current diagnosis for this admission?: Yes Plan: Will continue Tegretol, Lyrica. Patient yesterday was placed on hydrocodone 10 however will decrease to 5 mg. This morning patient states that she was not having any facial pain. (9) Delirium Is this a current diagnosis for this admission?: Yes Plan: Secondary to Medication: Mentation improving. (10) Hypomagnesemia Is this a current diagnosis for this admission?: Yes Plan: Resolved. - Time Time Spent with patient: 15-24 minutes
[2018-02-08] MEDS: HYDROCODONE/ACETAMINOPHEN 5-325 MG TABLET PO PRN (16:08)
--- NOTE | 2018-02-08 18:09 | PDOC PROGRESS REPORT ---
Subjective Progress Note for:: 02/06/18 Subjective:: Patient seems to be doing better with gradual improvement. Patient still has intermittent confusion. Patient just feels very weak and debilitated. Pt is denying any chest arm or neck discomfort. Patient denying any PND, orthopnea. Patient denied any sustained palpitations, dizziness, syncope, near syncope. Patient denying any fever chills. Patient denying any other significant discomfort. Mild recurrence of trigeminal neuralgia pain since last night. Patient is maintaining sinus rhythm. Patient is maintaining sinus rhythm. Review of systems: Rest review of systems negative. Medications: Medications have been reviewed. Reason For Visit: INTRACTABLE PAIN, GURMEET Physical Exam Vital Signs: Temp Pulse Resp BP Pulse Ox 99.1 F 75 16 154/70 H 96 02/06/18 16:00 02/06/18 16:00 02/06/18 16:00 02/06/18 16:00 02/06/18 17:16 Intake & Output 02/05/18 02/06/18 02/07/18 06:59 06:59 06:59 Intake Total 265 1388 410 Output Total 1300 1750 350 Balance -1035 -362 60 Weight 82.1 kg 81.5 kg Exam: GENERAL: well-nourished and in no acute distress. Patient is alert and oriented 2 HEAD: Atraumatic, normocephalic. EYES: Pupils equal round and reactive to light, extraocular movements intact, sclera anicteric, conjunctiva are normal. ENT: TMs normal, nares patent, oropharynx clear without exudates. Moist mucous membranes. No oral ulcerations or bleeding gums noted NECK: supple without lymphadenopathy or JVD. Trachea is central. No cervical or axillary lymphadenopathy noted. Carotids are 2+ LUNGS: Breath sounds bibasilar fine crackles at bases. No significant dullness noted. CHEST: Palpation of chest wall shows no significant chest wall tenderness. HEART: [place] [employer], No PSH, 2/6 SUMMER aortic area, 1/6 machado systolic murmur mitral area, rubs or gallops. ABDOMEN: Soft, no significant tenderness appreciated, normoactive bowel sounds. No guarding, no rebound. No rigidity noted . No masses appreciated. EXTREMITIES: Pedal pulses are 1-2+, no calf tenderness noted, Trace + pedal edema noted. No clubbing or cyanosis. NEUROLOGICAL: Patient is alert, generally weak but able to move all 4 extremities. PSYCH: Mood and judgment not checked. SKIN: No significant ecchymosis, rash, ulcerations or signs of pruritus noted. MUSCULOSKELETAL EXAM: No significant joint swelling noted. Results Laboratory Results: 02/06/18 06:48 02/06/18 06:48 02/06/18 02/06/18 06:48 06:48 WBC 8.8 RBC 3.70 L Hgb 11.2 L Hct 34.0 L MCV 92 MCH 30.2 MCHC 32.9 RDW 13.9 Plt Count 157 Seg Neutrophils % 77.0 Lymphocytes % 10.6 L Monocytes % 11.2 Eosinophils % 0.6 Basophils % 0.6 Absolute Neutrophils 6.8 Absolute Lymphocytes 0.9 Absolute Monocytes 1.0 Absolute Eosinophils 0.1 Absolute Basophils 0.1 Sodium 140.0 Potassium 3.7 Chloride 102 Carbon Dioxide 26 Anion Gap 12 BUN 18 Creatinine 0.91 Est GFR ( Amer) > 60 Est GFR (Non-Af Amer) 59 L Glucose 133 H Calcium 9.0 Magnesium 1.8 Total Bilirubin 0.2 AST 24 ALT 32 Alkaline Phosphatase 50 Total Protein 6.0 L Albumin 3.5 02/04/18 18:20 [place]antes Catheter Urine Culture - Final Escherichia Coli 02/02/18 02/03/18 08:32 09:54 Troponin I 0.077 0.085 EKG Comments: Telemetry strips shows patient maintaining sinus rhythm. Impressions: Chest X-Ray 02/06/18 00:00 IMPRESSION: NO ACUTE RADIOGRAPHIC FINDING IN THE CHEST. Assessment & Plan - Diagnosis (1) Atrial fibrillation Qualifiers: Atrial fibrillation type: unspecified Qualified Code(s): I48.91 - Unspecified atrial fibrillation Is this a current diagnosis for this admission?: Yes (2) Hypertension Qualifiers: Hypertension type: essential hypertension Qualified Code(s): I10 - Essential (primary) hypertension Is this a current diagnosis for this admission?: Yes (3) Inadequate pain control Is this a current diagnosis for this admission?: Yes (4) Trigeminal neuralgia of left side of face Is this a current diagnosis for this admission?: Yes (5) Sleep apnea syndrome Qualifiers: Sleep apnea type: unspecified type Qualified Code(s): G47.30 - Sleep apnea , unspecified Is this a current diagnosis for this admission?: Yes (6) Troponin I above reference range Is this a current diagnosis for this admission?: Yes - Notes Notes: Atrial fibrillation: [place] to be paroxysmal. 2D echo reviewed shows enlargement of the right atrium, right ventricle. Due to presence of sleep apnea syndrome, obesity, feel there is increased risk of recurrence. At this point recommend rate control with beta blockers, continue patient on multaq. continue patient on Eliquis at 5 mg p.o. twice daily. Side effects are discussed. Hypertension: Recommend good control of blood pressure. Currently blood pressure is satisfactorily controlled. Inadequate pain control secondary to trigeminal neuralgia: Agree with management plans by hospitalist. Currently neuralgia pain coming under control. History of sleep apnea syndrome: Patient would benefit from nightly bilevel/ CPAP therapy. Sleep apnea untreated is associated with recurrence of atrial fibrillation. Abnormal troponin I level: Most likely related to transient atrial fibrillation , hypertension however patient likely to have underlying CAD. Discussed pursuing nuclear stress testing while inpatient or as an outpatient. Because of marked general debility, it was decided to postpone nuclear stress test until patient condition improves. It can be considered as an outpatient. Will sign off. Please reconsult if needed. I will be happy to follow patient in the office. - Time Time with patient: 15-25 minutes - CODE STATUS was discussed, patient remains full code. Surrogate decision-maker unchanged. Multiple medical problems were addressed. More than 50% of the time spent coordinating care, discussing management plans with involved caregivers. Management plans discussed with involved personnels. Medical decision making was of moderate to high complexity , patient's has multiple comorbidities. Medications reviewed and adjusted accordingly: Yes
[2018-02-08] MEDS: SERTRALINE HCL 50 MG TABLET PO SCH (21:18)
[2018-02-08] MEDS: ATORVASTATIN CALCIUM 10 MG TABLET PO SCH (21:18)
[2018-02-09] MEDS: HYDRALAZINE HCL 50 MG TABLET PO SCH ×4 (00:32→17:32)
[2018-02-09] MEDS: NYSTATIN 500000 UNIT/5 ML UDCUP PO SCH ×5 (00:32→21:31)
[2018-02-09] MEDS: CARBAMAZEPINE 200 MG TABLET PO SCH ×3 (05:39→21:31)
[2018-02-09] MEDS: PREGABALIN 50 MG CAPSULE PO SCH ×3 (05:39→21:31)
[2018-02-09] MEDS: HYDROCODONE/ACETAMINOPHEN 5-325 MG TABLET PO PRN ×3 (08:27→19:56)
[2018-02-09] MEDS: ONDANSETRON HCL INJ/PF 4 MG/2 ML SDV IV PRN ×3 (08:28→19:55)
[2018-02-09] MEDS: APIXABAN 5 MG TABLET PO SCH ×2 (09:33→17:34)
[2018-02-09] MEDS: DRONEDARONE HYDROCHLORIDE 400 MG TABLET PO SCH ×2 (09:33→21:31)
[2018-02-09] MEDS: CEPHALEXIN 500 MG CAPSULE PO SCH ×2 (09:33→21:31)
[2018-02-09] MEDS: LABETALOL HCL 200 MG TABLET PO SCH ×2 (09:33→21:31)
[2018-02-09] MEDS: FUROSEMIDE 20 MG TABLET PO SCH (09:34)
[2018-02-09] MEDS: AMLODIPINE BESYLATE 10 MG TABLET PO SCH (09:34)
[2018-02-09] MEDS: DOCUSATE SODIUM 100 MG CAPSULE PO SCH ×2 (09:34→17:32)
--- NOTE | 2018-02-09 16:06 | PDOC PROGRESS REPORT ---
Subjective Progress Note for:: 02/09/18 Subjective:: Patient this morning was seen early and patient denied any pain issues at that time or during the night. Patient did report having a pain episode which required pain medication which helped. Patient's nurse states that she did vomit yesterday however when she was given Zofran she had no episodes of vomiting. Called nurse later on in the afternoon to see how patient was doing and nurse states that patient did have 2 pain episodes and was given pain medication and has tolerated medication well and is still able to talk and interact with family and staff. Nurse also reports that patient is denying to get out of bed because she feels too weak. Patient's son was at bedside during time of my encounter when I went back by the room patient's daughter was at bedside. Reason For Visit: INTRACTABLE PAIN, GURMEET Physical Exam Vital Signs: Temp Pulse Resp BP Pulse Ox 98.5 F 58 L 18 147/64 H 94 02/09/18 15:53 02/09/18 15:53 02/09/18 15:53 02/09/18 15:53 02/09/18 15:53 Intake & Output 02/08/18 02/09/18 02/10/18 05:59 06:59 06:59 Intake Total Output Total Balance Weight General appearance: PRESENT: no acute distress, well-developed, well-nourished Head exam: PRESENT: atraumatic, normocephalic Eye exam: PRESENT: conjunctiva pink, EOMI, PERRLA. ABSENT: scleral icterus Ear exam: PRESENT: normal external ear exam Mouth exam: PRESENT: moist, tongue midline, other - Right-sided facial tenderness Neck exam: ABSENT: carotid bruit, JVD, lymphadenopathy, thyromegaly Respiratory exam: PRESENT: clear to auscultation ludivina. ABSENT: rales, rhonchi, wheezes Cardiovascular exam: PRESENT: RRR. ABSENT: diastolic murmur, rubs, systolic murmur Pulses: PRESENT: normal dorsalis pedis pul Vascular exam: PRESENT: normal capillary refill GI/Abdominal exam: PRESENT: normal bowel sounds, soft. ABSENT: distended, guarding, mass, organolmegaly, rebound, tenderness Rectal exam: PRESENT: deferred Extremities exam: PRESENT: full ROM. ABSENT: calf tenderness, clubbing, pedal edema Musculoskeletal exam: PRESENT: full ROM Neurological exam: PRESENT: alert, awake, oriented to person, oriented to place , oriented to time, oriented to situation, CN II-XII grossly intact. ABSENT: motor sensory deficit Psychiatric exam: PRESENT: appropriate affect, normal mood. ABSENT: homicidal ideation, suicidal ideation Skin exam: PRESENT: dry, intact, warm. ABSENT: cyanosis, rash Results Laboratory Results: 02/08/18 04:13 02/08/18 04:13 02/02/18 02/03/18 08:32 09:54 Troponin I 0.077 0.085 Impressions: Chest X-Ray 02/06/18 00:00 IMPRESSION: NO ACUTE RADIOGRAPHIC FINDING IN THE CHEST. Assessment & Plan - Diagnosis (1) Acute cystitis Is this a current diagnosis for this admission?: Yes Plan: E. coli: Keflex.. (2) Low grade fever Is this a current diagnosis for this admission?: Yes Plan: Acute Cystitis E. Coli: Keflex. (3) Shortness of breath Is this a current diagnosis for this admission?: Yes Plan: Secondary Acute on chronic Diastolic CHF: Resolved. (4) Hyponatremia Is this a current diagnosis for this admission?: Yes Plan: Resolved. (5) Atrial fibrillation Qualifiers: Atrial fibrillation type: unspecified Qualified Code(s): I48.91 - Unspecified atrial fibrillation Is this a current diagnosis for this admission?: Yes Plan: Multaq, Eliquis, and Metoprolol. (6) Hypertension Qualifiers: Hypertension type: essential hypertension Qualified Code(s): I10 - Essential (primary) hypertension Is this a current diagnosis for this admission?: Yes Plan: Will continue home medications (7) Inadequate pain control Is this a current diagnosis for this admission?: Yes Plan: Patient's hydrocodone was decreased to 5 mg every 6 hours as needed for pain. She is tolerating new dose of pain medication. No changes today. (8) Trigeminal neuralgia of left side of face Is this a current diagnosis for this admission?: Yes Plan: Will continue Tegretol, Lyrica. Patient tolerating current dose of pain medication of 5/325 hydrocodone. This morning patient states that she was not having any facial pain. (9) Delirium Is this a current diagnosis for this admission?: Yes Plan: Secondary to Medication: Mentation improving. (10) Hypomagnesemia Is this a current diagnosis for this admission?: Yes Plan: Resolved. (11) Debility Is this a current diagnosis for this admission?: Yes Plan: Patient working with PT OT. Patient currently refusing to get up out of bed due to feeling too weak. Concerned that patient most likely will need rehab and not be able to make it to her specialist appointment for her trigeminal neuralgia. - Time Time Spent with patient: 15-24 minutes
[2018-02-09] MEDS: ACETAMINOPHEN 325 MG TABLET PO PRN (17:00)
[2018-02-09] MEDS: ATORVASTATIN CALCIUM 10 MG TABLET PO SCH (21:31)
[2018-02-09] MEDS: SERTRALINE HCL 50 MG TABLET PO SCH (21:31)
[2018-02-10] MEDS: HYDRALAZINE HCL 50 MG TABLET PO SCH ×4 (00:15→16:49)
[2018-02-10] MEDS: ONDANSETRON HCL INJ/PF 4 MG/2 ML SDV IV PRN ×2 (05:35→20:58)
[2018-02-10] MEDS: HYDROCODONE/ACETAMINOPHEN 5-325 MG TABLET PO PRN (05:36)
[2018-02-10] MEDS: PREGABALIN 50 MG CAPSULE PO SCH ×3 (05:42→20:44)
[2018-02-10] MEDS: CARBAMAZEPINE 200 MG TABLET PO SCH ×3 (05:42→20:44)
[2018-02-10] MEDS: NYSTATIN 500000 UNIT/5 ML UDCUP PO SCH ×5 (05:42→21:00)
[2018-02-10] MEDS ORDERED: HYDROCOD/ACETAMIN 7.5-325 MG/15 ML ORAL SOLN UDCUP PO ONE (08:44)
[2018-02-10] MEDS: APIXABAN 5 MG TABLET PO SCH ×2 (09:19→16:49)
[2018-02-10] MEDS: DOCUSATE SODIUM 100 MG CAPSULE PO SCH ×2 (09:19→16:49)
[2018-02-10] MEDS: AMLODIPINE BESYLATE 10 MG TABLET PO SCH (09:19)
[2018-02-10] MEDS: CEPHALEXIN 500 MG CAPSULE PO SCH ×2 (09:20→20:44)
[2018-02-10] MEDS: FUROSEMIDE 20 MG TABLET PO SCH (09:20)
[2018-02-10] MEDS: DRONEDARONE HYDROCHLORIDE 400 MG TABLET PO SCH ×2 (09:20→20:45)
[2018-02-10] MEDS: LABETALOL HCL 200 MG TABLET PO SCH ×2 (09:20→20:59)
[2018-02-10] MEDS: HYDROCODONE/ACETAMINOPHEN 7.5-325 MG TABLET PO PRN ×2 (14:36→20:59)
--- NOTE | 2018-02-10 19:10 | PDOC TRANSFER SUMMARY ---
General Admission Date/PCP: 01/30/18 22:15 ERICK TORRES MD Admission Date: 01/30/18 Transfer Date: 02/10/18 Accepting Facility: [facility] Resuscitation Status: Full Code - Transfer Diagnosis (1) Acute cystitis Is this a current diagnosis for this admission?: Yes Diagnosis Summary: Secondary to E. coli: Patient is on Keflex. Patient has 3 more days of treatment for total of 7 days. Patient prior to being switched to Keflex was on Rocephin for 2 days. (2) Low grade fever Is this a current diagnosis for this admission?: Yes Diagnosis Summary: Secondary to acute cystitis due to E. coli: Resolved (3) Shortness of breath Is this a current diagnosis for this admission?: Yes Diagnosis Summary: Secondary to acute on chronic diastolic congestive heart failure: Resolved (4) Hyponatremia Is this a current diagnosis for this admission?: Yes Diagnosis Summary: Resolved (5) Atrial fibrillation Is this a current diagnosis for this admission?: Yes Diagnosis Summary: Multaq,Eliquis, and Metoprolol (6) Hypertension Is this a current diagnosis for this admission?: Yes Diagnosis Summary: Continue home medications (7) Inadequate pain control Is this a current diagnosis for this admission?: Yes Diagnosis Summary: Pt continued on Hydrocodone 7.5mg [id number] PRN (8) Trigeminal neuralgia of left side of face Is this a current diagnosis for this admission?: Yes Diagnosis Summary: Tegreto,Lyrica, and hydrocodone. (9) Delirium Is this a current diagnosis for this admission?: Yes Diagnosis Summary: Secondary to medication: mentation improving. (10) Hypomagnesemia Is this a current diagnosis for this admission?: Yes Diagnosis Summary: Resolved. (11) Debility Is this a current diagnosis for this admission?: Yes Diagnosis Summary: PT/OT. - Transfer Medications Home Medications: Clonidine HCl [Catapres 0.2 mg Tablet] 0.2 mg PO Q12 01/31/18 Transfer Medications: Current Medications Acetaminophen (Tylenol 325 Mg Tablet) 650 mg PO Q6HP PRN PRN Reason: FOR PAIN OR TEMP Stop: 03/01/18 21:43 Last Admin: 02/09/18 17:00 Dose: 650 mg Hydrocodone Bitart/Acetaminophen ([place] 5-325 Mg Tablet) 1 tab PO Q6HP PRN PRN Reason: FOR PAIN SCALE 4-5 Stop: 02/15/18 13:32 Last Admin: 02/10/18 05:36 Dose: 1 tab Hydrocodone Bitart/Acetaminophen ([place] 7.5-325 Mg Tablet) 1 tab PO Q6HP PRN PRN Reason: FOR PAIN SCALE 3-5 Stop: 02/17/18 08:44 Last Admin: 02/10/18 14:36 Dose: 1 tab Amlodipine Besylate (Norvasc 10 Mg Tablet) 10 mg PO DAILY PEE Stop: 03/02/18 09:59 Last Admin: 02/10/18 09:19 Dose: 10 mg Apixaban (Eliquis 5 Mg Tablet) 5 mg PO BID [facility] Stop: 03/04/18 17:59 Last Admin: 02/10/18 16:49 Dose: 5 mg Atorvastatin Calcium (Lipitor 10 Mg Tablet) 10 mg PO QHS [facility] Stop: 03/06/18 21:59 Last Admin: 02/09/18 21:31 Dose: 10 mg Carbamazepine (Tegretol 200 Mg Tablet) 400 mg PO Q8 [facility] Stop: 03/03/18 21:59 Last Admin: 02/10/18 13:10 Dose: 400 mg Cephalexin HCl (Keflex 500 Mg Capsule) 500 mg PO Q12 [facility] Stop: 02/14/18 21:59 Last Admin: 02/10/18 09:20 Dose: 500 mg Docusate Sodium (Colace 100 Mg Capsule) 100 mg PO BID [facility] Stop: 03/02/18 09:59 Last Admin: 02/10/18 16:49 Dose: 100 mg Dronedarone (Multaq 400 Mg Tablet) 400 mg PO Q12 PEE Stop: 03/04/18 21:59 Last Admin: 02/10/18 09:20 Dose: 400 mg Furosemide (Lasix 20 Mg Tablet) 20 mg PO DAILY [facility] Stop: 03/05/18 09:59 Last Admin: 02/10/18 09:20 Dose: 20 mg Hydralazine HCl (Apresoline Inj/Pf 20 Mg/1 Ml Sdv) 10 mg IV Q6HP PRN PRN Reason: Sbp>160 Stop: 03/01/18 21:43 Hydralazine HCl (Apresoline 50 Mg Tablet) 50 mg PO Q6 PEE Stop: 03/02/18 00:00 Last Admin: 03/12/18 16:49 Dose: 50 mg Labetalol HCl (Normodyne 200 Mg Tablet) 200 mg PO Q12 PEE Stop: 03/01/18 21:59 Last Admin: 02/10/18 09:20 Dose: 200 mg Lorazepam (Ativan Inj 2 Mg/1 Ml Vial) 1 mg IV Q6HP PRN PRN Reason: ANXIETY/AGITATION Stop: 02/11/18 17:42 Metoprolol Tartrate (Lopressor Inj/Pf 5 Mg/5 Ml Sdv) 5 mg IV Q6HP PRN PRN Reason: BP ABOVE 150 SYSTOLIC Stop: 03/02/18 01:04 Nystatin (Mycostatin 500,000 Unit/5 Ml Susp Udcup) 100,000 unit PO Q6 PEE Stop: 02/11/18 00:00 Last Admin: 02/10/18 16:49 Dose: 100,000 unit Ondansetron HCl (Zofran Inj/Pf 4 Mg/2 Ml Sdv) 4 mg IV Q4HP PRN PRN Reason: FOR NAUSEA/VOMITING Stop: 03/08/18 17:52 Last Admin: 02/10/18 05:35 Dose: 4 mg Pregabalin (Lyrica 50 Mg Capsule) 50 mg PO Q8 PEE Stop: 03/09/18 13:59 Last Admin: 02/10/18 13:10 Dose: 50 mg Sertraline HCl (Zoloft 50 Mg Tablet) 100 mg PO QHS PEE Stop: 03/01/18 21:59 Last Admin: 02/09/18 21:31 Dose: 100 mg - Allergies Allergies/Adverse Reactions: ANDREY Inhibitors [Andrey Inhibitors] Allergy (Severe, Verified 12/14/15 13:56) Swelling of tongue,throat,lips,mouth Sulfa (Sulfonamide Antibiotics) Allergy (Mild, Verified 08/20/15 11:03) rash - Diet/Activity Discharge Diet: Cardiac Hospital Course Hospital Course: Patient is a 82-year-old female that was admitted to our facility for A. fib and trigeminal neuralgia. Patient was seen by cardiology which she was placed on appropriate medications and heart rate has been under good control since. Patient was found to have intractable pain secondary to trigeminal neuralgia and patient's medications were adjusted during this hospital stay. My interaction with the duration of patient's stay has been rather short however patient was taken off of some of the pain medications she had been placed on and placed on hydrocodone 7.5 as needed. This regimen has appeared to help decrease the severity of the pain. Family asked that patient be transferred to [facility] and I was connected to Dr. Velásquez who recommended that patient follow-up as outpatient. Patient's [id number] contacted Dr. Allred's office and then I was contacted by way of the nurse that Dr. Allred had agreed to accept patient under the services of Dr. Mónica Sexton. Spoke to Dr. Allred and Dr. Sexton who have agreed to accept patient. Patient was found to have an E. coli urinary tract infection has been on antibiotics. Patient will need 3 days of additional treatment before discontinuing therapy. Due to patient having A. fib patient was volume overloaded and received diuretics. Diuretics have been discontinued with patient's heart rate under good control. Physical Exam Vital Signs: Temp Pulse Resp BP Pulse Ox 98.4 F 60 16 121/53 L 94 02/10/18 15:41 02/10/18 15:41 02/10/18 15:41 02/10/18 15:41 02/10/18 15:41 Intake & Output 02/09/18 02/10/18 02/11/18 06:59 06:59 06:59 Intake Total 1800 765 Output Total 1075 650 Balance 725 115 Weight 81.1 kg General appearance: PRESENT: no acute distress, cooperative, well-developed, well-nourished Head exam: PRESENT: atraumatic, normocephalic Eye exam: PRESENT: conjunctiva pink, EOMI. ABSENT: scleral icterus Ear exam: PRESENT: normal external ear exam Mouth exam: PRESENT: moist, tongue midline Neck exam: ABSENT: carotid bruit, JVD, lymphadenopathy, thyromegaly Respiratory exam: PRESENT: clear to auscultation ludivina. ABSENT: rales, rhonchi, wheezes Cardiovascular exam: PRESENT: irregular rhythm. ABSENT: diastolic murmur, rubs , systolic murmur Pulses: PRESENT: normal dorsalis pedis pul Vascular exam: PRESENT: normal capillary refill GI/Abdominal exam: PRESENT: normal bowel sounds, soft. ABSENT: distended, guarding, mass, organolmegaly, rebound, tenderness Rectal exam: PRESENT: deferred Extremities exam: PRESENT: full ROM. ABSENT: calf tenderness, clubbing, pedal edema Musculoskeletal exam: PRESENT: full ROM Neurological exam: PRESENT: alert, oriented to person, oriented to place, oriented to time, oriented to situation Skin exam: PRESENT: dry, intact, warm. ABSENT: cyanosis, rash Results Laboratory Results: 02/08/18 04:13 02/08/18 04:13 02/04/18 18:30 Blood Blood Culture - Final NO GROWTH IN 5 DAYS 02/04/18 18:20 Blood Blood Culture - Final NO GROWTH IN 5 DAYS 02/02/18 02/03/18 08:32 09:54 Troponin I 0.077 0.085 Impressions: Chest X-Ray 02/06/18 00:00 IMPRESSION: NO ACUTE RADIOGRAPHIC FINDING IN THE CHEST. Plan Time Spent: Greater than 30 Minutes
[2018-02-10] MEDS: ACETAMINOPHEN 325 MG TABLET PO PRN (19:22)
[2018-02-10] MEDS: SERTRALINE HCL 50 MG TABLET PO SCH (20:44)
[2018-02-10] MEDS: ATORVASTATIN CALCIUM 10 MG TABLET PO SCH (20:45)
[2018-02-11] MEDS: HYDRALAZINE HCL 50 MG TABLET PO SCH (00:20)
[2018-02-11 00:59] VITALS: BP 169/65
== END 2018-02-11 00:55 | disposition short-term general hospital (02) | DRG 73 ==
LOC: ER 17:00 → EH 22:14 → OBSVTOIN 22:15 → ICU 01-31 12:00 → 4S 02-03 15:06 → 5 02-04 14:21
PROVIDERS: ADMIT Internal Medicine; ATTEND Internal Medicine
DX: G50.0 Trigeminal neuralgia (principal); I50.33 Acute on chronic diastolic (congestive) heart failure; N30.00 Acute cystitis without hematuria; E87.1 Hypo-osmolality and hyponatremia; I48.0 Paroxysmal atrial fibrillation; I11.0 Hypertensive heart disease with heart failure; B96.20 Unspecified Escherichia coli [E. coli] as the cause of diseases classified elsewhere; R41.0 Disorientation, unspecified; T50.905A Adverse effect of unspecified drugs, medicaments and biological substances, initial encounter; E83.42 Hypomagnesemia; G47.33 Obstructive sleep apnea (adult) (pediatric); M19.90 Unspecified osteoarthritis, unspecified site; F32.9 Major depressive disorder, single episode, unspecified; I25.10 Atherosclerotic heart disease of native coronary artery without angina pectoris; E78.00 Pure hypercholesterolemia, unspecified; E66.9 Obesity, unspecified; Z68.32 Body mass index [BMI] 32.0-32.9, adult; Z88.2 Allergy status to sulfonamides; Z85.828 Personal history of other malignant neoplasm of skin; Z90.710 Acquired absence of both cervix and uterus; Z79.899 Other long term (current) drug therapy
CPT/HCPCS: 36415; 36600; 71045; 80048; 80053; 80061; 80156; 81001; 82803; 83735; 84484; 85025; 85027; 87040; 87086; 87088; 87186; 93005; 93010; 93306; 94667; 94668; 96361; 96374; 96375; 96376; 99291; 99292; G8978-GP; G8979-GP; G8987-GO; G8988-GO; J0696; J1170; J1644; J1885; J1940; J2060; J2405; J3010; J3360; J3475; J3490; J7030; J7040

== ENCOUNTER 2018-03-01 20:02 | Inpatient (IN) | payer MEDICARE, OTHER ==
[2018-03-01 20:26] LABS: ABSOLUTE LYMPHOCYTES (AUTO) 0.9 10^3/uL (0.5-4.7); ABSOLUTE NEUT (AUTO) 9.6 10^3/uL (1.7-8.2); BASOPHILS % (AUTO) 0.2 % (0-2); EOSINOPHILS % (AUTO) 0.3 % (0-6); HEMOGLOBIN 11.4 g/dL (12.0-15.5); LYMPHOCYTES % (AUTO) 7.6 % (13-45); MEAN CORPUSCULAR HEMOGLOBIN 29.8 pg (27.0-33.4); MEAN CORPUSCULAR HGB CONC 32.6 g/dL (32.0-36.0); MEAN CORPUSCULAR VOLUME 91 fl (80-97); MONOCYTES % (AUTO) 8.9 % (3-13); PLATELET COUNT 159 10^3/uL (150-450); RED BLOOD COUNT 3.84 10^6/uL (3.72-5.28); RED CELL DISTRIBUTION WIDTH 14.6 % (11.5-14.0); TOTAL CELLS COUNTED % (AUTO) 100 %; WHITE BLOOD COUNT 11.5 10^3/uL (4.0-10.5)
[2018-03-01 20:36] LABS: VENOUS BLOOD BASE EXCESS -3.4 mmol/L; VENOUS BLOOD HCO3 21.5 mmol/L (20-32); VENOUS BLOOD PCO2 38.4 mmHg (35-63); VENOUS BLOOD PH 7.37 (7.30-7.42)
[2018-03-01 20:36] LABS: ALANINE AMINOTRANSFERASE 22 U/L (9-52); ALBUMIN 3.8 g/dL (3.5-5.0); ALKALINE PHOSPHATASE 63 U/L (38-126); ANION GAP 12 (5-19); ASPARTATE AMINO TRANSFERASE 39 U/L (14-36); BILIRUBIN,DIRECT 0.4 mg/dL (0.0-0.4); BILIRUBIN,TOTAL 0.5 mg/dL (0.2-1.3); BLOOD UREA NITROGEN 24 mg/dL (7-20); CALCIUM 9.2 mg/dL (8.4-10.2); CARBON DIOXIDE 25 mmol/L (22-30); CHLORIDE 99 mmol/L (98-107); CREATINE KINASE 200 U/L (30-135); GLUCOSE 122 mg/dL (75-110); LIPASE 49.7 U/L (23-300); POTASSIUM 3.3 mmol/L (3.6-5.0); SODIUM 135.9 mmol/L (137-145); TOTAL PROTEIN 6.9 g/dL (6.3-8.2)
[2018-03-01 20:43] LABS: INTERNATIONAL RATION (INR) 1.06; PROTHROMBIN TIME 14.5 SEC (11.4-15.4)
[2018-03-01 20:47] LABS: CREATINE KINASE MB 1.47 ng/mL (<4.55)
[2018-03-01 20:53] LABS: TROPONIN I 0.105 ng/mL
[2018-03-01] MEDS ORDERED: FUROSEMIDE INJ/PF 40 MG/4 ML SDV IV ONE (21:13)
[2018-03-01 21:34] LABS: COLOR,URINE YELLOW
[2018-03-01 21:35] LABS: APPEARANCE,URINE SLIGHTLY-CLOUDY; BILIRUBIN,URINE MODERATE (NEGATIVE); GLUCOSE, URINE NEGATIVE (NEGATIVE); KETONES,URINE NEGATIVE (NEGATIVE); LEUKOCYTE ESTERASE,URINE LARGE (NEGATIVE); NITRITE,URINE NEGATIVE (NEGATIVE); PROTEIN,URINE 100 mg/dL (NEGATIVE)
[2018-03-01] MEDS ORDERED: CEFTRIAXONE 1 GM/D5W RTU 1 GM/50 ML RTUPB IV ONE (21:51)
--- NOTE | 2018-03-01 21:51 | RADIOLOGY REPORT (SQ) ---
EXAM DESCRIPTION: CHEST SINGLE VIEW COMPLETED DATE/TIME: 03/01/2018 9:38 pm REASON FOR STUDY: hypoxia, BL crackles COMPARISON: 02/06/2018 NUMBER OF VIEWS: One view. TECHNIQUE: Single frontal radiographic view of the chest acquired. LIMITATIONS: None. FINDINGS: LUNGS AND PLEURA: No opacities, masses or pneumothorax. No pleural effusion. MEDIASTINUM AND HILAR STRUCTURES: No masses or contour abnormality. HEART AND VASCULATURE: Cardiac enlargement. Vascular congestion. BONES: No acute findings. HARDWARE: None in the chest. OTHER: No other significant finding. IMPRESSION: CARDIAC ENLARGEMENT. VASCULAR CONGESTION. TECHNICAL DOCUMENTATION: JOB ID: [id number] [employer]- All Rights Reserved Reading location - IP/workstation name: [email or web address]
[2018-03-01] MEDS ORDERED: NITROGLYCERIN 0.4 MG/TAB 25 TAB/BOTTLE ONE (22:01)
[2018-03-01] MEDS ORDERED: CEFTRIAXONE INJ 1000 MG VIAL ONE (22:03)
--- NOTE | 2018-03-01 22:03 | EKG REPORT ---
SEVERITY:- ABNORMAL ECG - SINUS RHYTHM PROBABLE LEFT VENTRICULAR HYPERTROPHY ABNORMAL T, CONSIDER ISCHEMIA, INFERIOR LEADS : Confirmed by: Andrea Mariscal MD 01-Mar-2018 22:02:55
--- NOTE | 2018-03-01 22:11 | RADIOLOGY REPORT (SQ) ---
EXAM DESCRIPTION: CT HEAD WITHOUT COMPLETED DATE/TIME: 03/01/2018 9:54 pm REASON FOR STUDY: hypoxia, BL crackles COMPARISON: 08/20/2015 TECHNIQUE: Axial images acquired through the brain without intravenous contrast. Images reviewed wi th bone, brain and subdural windows. Images stored on PACS. All CT scanners at this facility use dose modulation, iterative reconstruction, and/or weight based d osing when appropriate to reduce radiation dose to as low as reasonably achievable (ALARA). [facility]: Dose Right [facility]: CareDose [facility]: Dose Right [facility]: Teradose 4D [facility]: Smart [id number] RADIATION DOSE: CT Rad equipment meets quality standard of care and radiation dose reduction techniq ues were employed. CTDIvol: 53.2 mGy. DLP: 991 mGy-cm. mGy. LIMITATIONS: None. FINDINGS: VENTRICLES: Normal size and configuration. CEREBRUM: No masses. No hemorrhage. No midline shift. Very few scattered areas of low density in t he white matter most likely due to chronic micro-vascular ischemic change. No evidence for acute inf arction. CEREBELLUM: No masses. No hemorrhage. No alteration of density. No evidence for acute infarction. EXTRAAXIAL SPACES: Mild age-related involutional change. No fluid collections. No masses. ORBITS AND GLOBE: No intra- or extraconal masses. Normal contour of globe without masses. CALVARIUM: No fracture. PARANASAL SINUSES: No fluid or mucosal thickening. SOFT TISSUES: No mass or hematoma. OTHER: No other significant finding. IMPRESSION: MILD CHRONIC CHANGES OF ATROPHY AND MICROVASCULAR ISCHEMIA. NO ACUTE PROCESS. EVIDENCE OF ACUTE STROKE: NO. TECHNICAL DOCUMENTATION: JOB ID: [id number] Quality ID # [id number]: Final reports with documentation of one or more dose reduction techniques (e.g., Au tomated exposure control, adjustment of the mA and/or kV according to patient size, use of iterative reconstruction technique) 2010 [employer]- All Rights Reserved Reading location - IP/workstation name: [email or web address]
[2018-03-01] MEDS ORDERED: NITROGLYCERIN/D5W 50 MG/250 ML RTUINJ IV PRN (22:22)
--- NOTE | 2018-03-01 22:40 | ER Document Report ---
ED General - General Chief Complaint: Altered Mental Status Stated Complaint: DECREASED ALERTNESS,POSSIBLE AMS Time Seen by Provider: 03/01/18 20:10 Notes: 82-year-old female brought in from an acute rehab facility for alteration in mental status. Patient's primary care physician is Dr. Ranjeet Mcneil. For the past 3-4 days family members and staff members have noticed that she is becoming less responsive and less alert. They state that today she was hypotensive and hypoxic. They deny any specific focal deficits. Patient denies any pain for me at this time, admits to vomiting but denies abdominal pain, snf also admits abdominal pain. Patient does admit shortness of breath, denies chest pain. Denies cough. TRAVEL OUTSIDE OF THE [place] IN LAST 30 DAYS: No - Related Data Allergies/Adverse Reactions: ANDREY Inhibitors [Andrey Inhibitors] Allergy (Severe, Verified 12/14/15 13:56) Swelling of tongue,throat,lips,mouth Sulfa (Sulfonamide Antibiotics) Allergy (Mild, Verified 08/20/15 11:03) rash Past Medical History - General Information source: Patient, Relative, [facility] Records, Outside Facility Records - Social History Smoking Status: Never Smoker Chew tobacco use (# tins/day): No Frequency of alcohol use: None Drug Abuse: None Lives with: [facility] Family History: Reviewed & Not Pertinent Patient has suicidal ideation: No Patient has homicidal ideation: No - Past Medical History Cardiac Medical History: Reports: Hx Hypercholesterolemia, Hx Hypertension Denies: Hx Heart Attack Pulmonary Medical History: Denies: Hx Asthma Neurological Medical History: Denies: Hx Cerebrovascular Accident, Hx Seizures Renal/ Medical History: Denies: Hx Peritoneal Dialysis Malignancy Medical History: Reports: Hx Skin Cancer GI Medical History: Denies: Hx Hepatitis, Hx Hiatal Hernia, Hx Ulcer Musculoskeltal Medical History: Reports Hx Arthritis Psychiatric Medical History: Reports: Hx Depression Infectious Medical History: Denies: Hx Hepatitis Past Surgical History: Reports: Hx Genitourinary Surgery - bladder, Hx Gynecologic Surgery, Hx Hysterectomy, Hx Orthopedic Surgery - L knee. Denies: Hx Mastectomy, Hx Open Heart Surgery, Hx Pacemaker - Immunizations Hx Diphtheria, Pertussis, Tetanus Vaccination: No Hx Pneumococcal Vaccination: 12/02/14 Review of Systems - Review of Systems Constitutional: See HPI, Weakness, Recent illness EENT: No symptoms reported Cardiovascular: No symptoms reported. denies: Chest pain, Syncope, Dizziness Respiratory: See HPI, Short of breath. denies: Cough Gastrointestinal: See HPI, Nausea, Vomiting. denies: Abdominal pain -: Yes All other systems reviewed and negative Physical Exam - Vital signs Vitals: Resp Pulse Ox 22 H 94 03/01/18 20:11 03/01/18 20:11 Notes: Patient initially hypoxic and hypotensive, this is not reflected in initial vitals. - Notes Notes: GENERAL: Lethargic, appears fatigued, able to answer questions. HEAD: Normocephalic, atraumatic EYES: Pupils equal, round and reactive to light, extraocular movements intact. ENT: Oral mucosa dry, tongue midline. NECK: Full range of motion, supple, trachea midline. LUNGS: Appears somewhat short of breath, mildly tachypneic, rales two thirds the way up the lungs. HEART: Regular rate and rhythm, no murmurs, gallops, rubs. ABDOMEN: Soft, nontender, nondistended, bowel sounds present in all 4 quadrants. EXTREMITIES: Moves all 4 extremities spontaneously on command but moves them slowly, trace pitting edema bilateral lower extremities, radial and dorsalis pedis pulses 2/4 bilaterally. No cyanosis. NEUROLOGICAL: Oriented x3, very limited speech but will answer questions, biceps and patellar DTRs 2+ bilaterally. SKIN: Warm, Dry. Course - Re-evaluation Re-evalutation: 03/01/18 22:38 CBC shows leukocytosis 11.5, anemia with hemoglobin 11.4, platelets normal, INR normal at 1.06, venous blood gas does not show acidosis or significant CO2 retention, chemistries show acute renal failure with a BUN of 24 and creatinine 1.42, potassium slightly low at 3.3 this will be repleted, lactic acid is normal at 0.7, magnesium and calcium are also normal, patient does have a history of abnormalities in both of these, troponin is indeterminate at 0.105, proBNP elevated at 5810. Urinalysis shows large leukocyte esterase, 3+ bacteria , few WBC clumps, this was sent for culture as was blood. She is treated with Rocephin for monotherapy for sepsis. Lasix and nitroglycerin been started for heart failure, patient is a DNR, she has been placed on BiPAP due to her hypoxia. Hospitalist will be consulted for admission. Family is aware that she is quite ill. They have confirmed her DNR status. - Vital Signs Vital signs: Temp Pulse Resp BP Pulse Ox 100.7 F H 94 26 H 207/87 H 97 03/01/18 20:13 03/01/18 21:04 03/01/18 22:07 03/01/18 22:01 03/01/18 22:07 - Laboratory Result Diagrams: 03/01/18 19:45 03/01/18 19:45 Laboratory results interpreted by me: 03/01/18 03/01/18 03/01/18 19:45 19:45 19:45 WBC 11.5 H Hgb 11.4 L Hct 35.0 L RDW 14.6 H Seg Neutrophils % 83.0 H Lymphocytes % 7.6 L Absolute Neutrophils 9.6 H Sodium 135.9 L Potassium 3.3 L BUN 24 H Creatinine 1.42 H Est GFR ( Amer) 43 L Est GFR (Non-Af Amer) 36 L Glucose 122 H POC Glucose AST 39 H Creatine Kinase 200 H NT-Pro-B Natriuret Pep 5810 H Urine Protein Urine Bilirubin Urine Urobilinogen Ur Leukocyte Esterase 03/01/18 03/01/18 21:00 21:26 WBC Hgb Hct RDW Seg Neutrophils % Lymphocytes % Absolute Neutrophils Sodium Potassium BUN Creatinine Est GFR ( Amer) Est GFR (Non-Af Amer) Glucose POC Glucose 120 H AST Creatine Kinase NT-Pro-B Natriuret Pep Urine Protein 100 H Urine Bilirubin MODERATE H Urine Urobilinogen 2.0 H Ur Leukocyte Esterase LARGE H - EKG Interpretation by Me Additional EKG results interpreted by me: 03/01/18 22:39 EKG shows sinus rhythm at a rate of 84, normal axis, normal intervals, no ST segment elevations or depressions, baseline is quite irregular per my interpretation. Critical Care Note - Critical Care Note Total time excluding time spent on procedures (mins): 45 Discharge - Discharge Clinical Impression: Troponin level elevated Acute congestive heart failure Qualifiers: Heart failure type: diastolic Qualified Code(s): I50.31 - Acute diastolic ( congestive) heart failure Urinary tract infection Qualifiers: Urinary tract infection type: acute cystitis Hematuria presence: without hematuria Qualified Code(s): N30.00 - Acute cystitis without hematuria Acute renal failure Qualifiers: Acute renal failure type: unspecified Qualified Code(s): N17.9 - Acute kidney failure, unspecified Hypertension Qualifiers: Hypertension type: essential hypertension Qualified Code(s): I10 - Essential ( primary) hypertension Condition: Critical Disposition: ADMITTED INPATIENT Admitting Provider: [facility]ist [facility] Unit Admitted: [facility]
[2018-03-01] MEDS ORDERED: HYDRALAZINE HCL INJ/PF 20 MG/1 ML SDV IV PRN (22:45)
[2018-03-01] MEDS ORDERED: MAG HYDROX/AL HYDROX/SIMETH SUSP 30 ML UDCUP PO PRN (22:47)
[2018-03-01] MEDS ORDERED: IPRATROPIUM/ALBUTEROL 0.5-2.5 MG/3 ML AMPUL NEB PRN (22:47)
[2018-03-01] MEDS ORDERED: MAGNESIUM HYDROXIDE SUSP 30 ML UDCUP PO PRN (22:47)
[2018-03-01] MEDS ORDERED: ATORVASTATIN CALCIUM 10 MG TABLET PO ONE (23:00)
[2018-03-01] MEDS ORDERED: CLONIDINE HCL 0.2 MG TABLET PO ONE (23:00)
[2018-03-01] MEDS ORDERED: DRONEDARONE HYDROCHLORIDE 400 MG TABLET PO ONE (23:00)
[2018-03-01 23:46] LABS: CREATINE KINASE MB 0.9 ng/mL (<4.55); TROPONIN I 0.139 ng/mL
[2018-03-02] MEDS ORDERED: ACETAMINOPHEN 650 MG SUPP.RECT PR ONE ×2 (00:18→00:45)
[2018-03-02] MEDS: HYDRALAZINE HCL 50 MG TABLET PO SCH (01:19)
[2018-03-02] MEDS ORDERED: NORMAL SALINE 1000 ML 1,000 ML IV ONE (04:19)
[2018-03-02 05:47] LABS: ABSOLUTE LYMPHOCYTES (AUTO) 0.7 10^3/uL (0.5-4.7); ABSOLUTE MONOCYTES (AUTO) 1.2 10^3/uL (0.1-1.4); ABSOLUTE NEUT (AUTO) 9.7 10^3/uL (1.7-8.2); BASOPHILS % (AUTO) 0.2 % (0-2); HEMATOCRIT 30.5 % (36.0-47.0); HEMOGLOBIN 10.1 g/dL (12.0-15.5); LYMPHOCYTES % (AUTO) 5.9 % (13-45); MEAN CORPUSCULAR HEMOGLOBIN 29.8 pg (27.0-33.4); MEAN CORPUSCULAR VOLUME 90 fl (80-97); PLATELET COUNT 130 10^3/uL (150-450); RED BLOOD COUNT 3.39 10^6/uL (3.72-5.28); RED CELL DISTRIBUTION WIDTH 14.4 % (11.5-14.0); SEGMENTED NEUTROPHILS % (AUTO) 83.9 % (42-78); TOTAL CELLS COUNTED % (AUTO) 100 %; WHITE BLOOD COUNT 11.5 10^3/uL (4.0-10.5)
--- NOTE | 2018-03-02 06:02 | PDOC H&P ---
History of Present Illness Admission Date/PCP: 03/01/18 22:55 ERICK TORRES MD Patient complains of: Altered mental status History of Present Illness: CHELSEY MCDANIEL is a 82 year old female with a past medical history of trigeminal neuralgia, atrial fibrillation not on anticoagulation, diastolic heart failure, obstructive sleep apnea and hypertension. Patient presents from intermediate with 5 days of worsening lethargy noted in the afternoons followed by 24 hours of nausea with vomiting of gastric content. She is brought to the emergency room for evaluation and found to have fever, leukocytosis, uncontrolled hypertension and pyuria. She started on IV nitroglycerin, BiPAP and empiric antibiotics refer to the hospitalist for admission. Patient is able to arouse and denies pain. Review of her intermediate medications include clonazepam 0.5 twice daily scheduled for hypertension. Patient's son at bedside states she has occasionally taken clonazepam in the past for insomnia. Past Medical History Cardiac Medical History: Reports: Atrial Fibrillation, Congestive Heart Failure , Hyperlipidema, Hypertension Denies: Myocardial Infarction Pulmonary Medical History: Reports: Sleep Apnea Denies: Asthma Neurological Medical History: Denies: Seizures Malignancy Medical History: Reports: Skin Cancer GI Medical History: Denies: Hepatitis, Hiatal Hernia Musculoskeltal Medical History: Reports: Arthritis Psychiatric Medical History: Reports: Depression Hematology: Denies: Anemia, Sickle Cell Disease Past Surgical History Past Surgical History: Reports: Hysterectomy, Orthopedic Surgery - L knee Denies: Amputation, Mastectomy, Pacemaker Social History Information Source: Relative, Emergency Med Personnel, [facility] Records Lives with: Care Home Smoking Status: Never Smoker Frequency of Alcohol Use: None Hx Recreational Drug Use: No Drugs: None Hx Prescription Drug Abuse: No - Advance Directive Resuscitation Status: Do Not Resuscitate Family History Family History: Arthritis, Hypertension Parental Family History Reviewed: Yes Children Family History Reviewed: Yes Sibling(s) Family History Reviewed.: Yes Medication/Allergy Home Medications: Clonidine HCl [Catapres 0.2 mg Tablet] 0.2 mg PO Q12 01/31/18 Acetaminophen [Tylenol 325 mg Tablet] 650 mg PO Q6HP PRN tablet 02/10/18 Amlodipine Besylate [Norvasc 10 mg Tablet] 10 mg PO DAILY tablet 02/10/18 Apixaban [Eliquis 5 mg Tablet] 5 mg PO BID tablet 02/10/18 Atorvastatin Calcium [Lipitor 10 mg Tablet] 10 mg PO QHS tablet 02/10/18 Carbamazepine [Tegretol 200 mg Tablet] 400 mg PO Q8 tablet 02/10/18 Cephalexin Monohydrate [Keflex 500 mg Capsule] 500 mg PO Q12 capsule 02/10/18 Docusate Sodium [Colace 100 mg Capsule] 100 mg PO BID capsule 02/10/18 Dronedarone Hydrochloride [Multaq 400 mg Tablet] 400 mg PO Q12 tablet 02/10/18 Furosemide [Lasix 20 mg Tablet] 20 mg PO DAILY tablet 02/10/18 Hydralazine HCl [Apresoline 50 mg Tablet] 50 mg PO Q6 tablet 02/10/18 Hydrocodone/Acetaminophen [[place] 5-325 mg Tablet] 1 tab PO Q6HP PRN tablet 11/18 Hydrocodone/Acetaminophen [[place] 7.5-325 mg Tablet] 1 tab PO Q6HP PRN tablet Labetalol HCl [Normodyne 200 mg Tablet] 200 mg PO Q12 tablet 02/10/18 Nystatin [Mycostatin 500,000 Unit/5 ml Susp Udcup] 100,000 unit PO Q6 udc 02/10 Pregabalin [Lyrica 50 mg Capsule] 50 mg PO Q8 capsule 02/10/18 Sertraline HCl [Zoloft 50 mg Tablet] 100 mg PO QHS tablet 02/10/18 Allergies/Adverse Reactions: ANDREY Inhibitors [Andrey Inhibitors] Allergy (Severe, Verified 12/14/15 13:56) Swelling of tongue,throat,lips,mouth Sulfa (Sulfonamide Antibiotics) Allergy (Mild, Verified 08/20/15 11:03) rash Review of Systems ROS unobtainable: Due to mental status Physical Exam Vital Signs: Temp Pulse Resp BP Pulse Ox 98.3 F 66 17 119/41 L 100 03/02/18 05:09 03/02/18 05:09 03/02/18 05:09 03/02/18 05:09 03/02/18 05:09 Intake & Output 02/28/18 03/01/18 03/02/18 11:59 11:59 11:59 Intake Total 300 Output Total 750 Balance -450 Weight 73.5 kg General appearance: PRESENT: cooperative, mild distress, obese Head exam: PRESENT: atraumatic, normocephalic Eye exam: PRESENT: conjunctiva pink, EOMI, PERRLA. ABSENT: scleral icterus Ear exam: PRESENT: normal external ear exam Mouth exam: PRESENT: moist, tongue midline Neck exam: ABSENT: carotid bruit, lymphadenopathy, thyromegaly Respiratory exam: PRESENT: accessory muscle use, crackles, retraction, tachypnea Cardiovascular exam: PRESENT: gallop, irregular rhythm, +S1, +S2, systolic murmur Pulses: PRESENT: normal dorsalis pedis pul Vascular exam: PRESENT: normal capillary refill GI/Abdominal exam: PRESENT: normal bowel sounds, soft. ABSENT: distended, guarding, mass, organolmegaly, rebound, tenderness Rectal exam: PRESENT: deferred Extremities exam: PRESENT: full ROM. ABSENT: calf tenderness, clubbing, pedal edema Neurological exam: PRESENT: altered, awake, oriented to person, oriented to situation, CN II-XII grossly intact. ABSENT: motor sensory deficit Psychiatric exam: PRESENT: appropriate affect, normal mood. ABSENT: homicidal ideation, suicidal ideation Skin exam: PRESENT: dry, intact, warm. ABSENT: cyanosis, rash Results Laboratory Results: 03/01/18 23:13 Magnesium 1.5 L 03/01/18 03/01/18 23:13 23:13 Creatine Kinase 201 H CK-MB (CK-2) 0.90 Troponin I 0.139 Impressions: Head CT 03/01/18 20:16 IMPRESSION: MILD CHRONIC CHANGES OF ATROPHY AND MICROVASCULAR ISCHEMIA. NO ACUTE PROCESS. EVIDENCE OF ACUTE STROKE: NO. Chest X-Ray 03/01/18 20:17 IMPRESSION: CARDIAC ENLARGEMENT. VASCULAR CONGESTION. Assessment & Plan - Diagnosis (1) Hypertensive urgency Is this a current diagnosis for this admission?: Yes Plan: IV nitroglycerin, Lasix 1, hydralazine as needed (2) Diastolic heart failure Is this a current diagnosis for this admission?: Yes Plan: Secondary to #1, BiPAP with the above medications. Limiting diuresis (4) Acute renal failure Qualifiers: Acute renal failure type: unspecified Qualified Code(s): N17.9 - Acute kidney failure, unspecified Is this a current diagnosis for this admission?: Yes Plan: Likely secondary to hypertensive urgency, reevaluate chemistry avoid nephrotoxic meds and doses. (5) Atrial fibrillation Qualifiers: Atrial fibrillation type: unspecified Qualified Code(s): I48.91 - Unspecified atrial fibrillation Is this a current diagnosis for this admission?: Yes Plan: Resume amiodarone. Patient refuses anticoagulation in history. (6) Aspiration pneumonia Is this a current diagnosis for this admission?: Yes Plan: Secondary to vomiting. Right lower lobe with rales on exam. Levaquin initiated. BiPAP support (7) Urinary tract infection Qualifiers: Urinary tract infection type: acute cystitis Hematuria presence: without hematuria Qualified Code(s): N30.00 - Acute cystitis without hematuria Is this a current diagnosis for this admission?: Yes Plan: Patient's received Rocephin in the emergency room, Levaquin initiated for simultaneous aspiration pneumonia, recent urine culture results E. coli sensitive to both. Follow-up CBC, blood and urine culture - Time Time Spent: 50 to 70 Minutes - Inpatient Certification Medical Necessity: Need Close Monitoring Due to Risk of Patient Decompensation
[2018-03-02 06:14] LABS: ANION GAP 9 (5-19); BLOOD UREA NITROGEN 24 mg/dL (7-20); CALCIUM 8.5 mg/dL (8.4-10.2); CARBON DIOXIDE 26 mmol/L (22-30); CHLORIDE 102 mmol/L (98-107); CREATINE KINASE 215 U/L (30-135); GLUCOSE 129 mg/dL (75-110); SODIUM 137.4 mmol/L (137-145)
[2018-03-02 06:24] LABS: CREATINE KINASE MB 0.78 ng/mL (<4.55)
[2018-03-02 06:31] LABS: TROPONIN I 0.306 ng/mL
[2018-03-02] MEDS ORDERED: ASPIRIN 81 MG TABLET, CHEWABLE PO ONE (06:40)
[2018-03-02] MEDS: POTASSI CL 20 MEQ/50 ML RIDER 20 MEQ/50 ML RTUPB IV SCH ×2 (08:50→11:42)
[2018-03-02] MEDS: AMLODIPINE BESYLATE 10 MG TABLET PO SCH (09:08)
[2018-03-02] MEDS: DOCUSATE SODIUM 100 MG CAPSULE PO SCH ×2 (09:09→18:19)
[2018-03-02] MEDS: CLONIDINE HCL 0.2 MG TABLET PO SCH ×2 (09:09→22:41)
[2018-03-02] MEDS: DRONEDARONE HYDROCHLORIDE 400 MG TABLET PO SCH ×2 (09:10→22:42)
[2018-03-02] MEDS: APIXABAN 5 MG TABLET PO SCH ×2 (09:10→18:19)
[2018-03-02] MEDS: LEVOFLOXACIN 500 MG/D5W RTU 500 MG/100 ML RTUPB IV SCH (09:12)
[2018-03-02] MEDS ORDERED: LEVOFLOXACIN 750 MG/D5W RTU 750 MG/150 ML RTUPB IV SCH (10:00)
[2018-03-02 12:04] LABS: CREATINE KINASE MB 1.4 ng/mL (<4.55); TROPONIN I 0.136 ng/mL
--- NOTE | 2018-03-02 12:40 | PDOC CONSULTATION ---
Consultation Consult Date: 03/02/18 Attending physician:: COLE ORELLANA Consult reason:: Positive troponin I History of Present Illness Admission Date/PCP: 03/01/18 22:55 ERICK TORRES MD Patient complains of: Shortness of breath History of Present Illness: CHELSEY MCDANIEL is a 82 year old female with a past medical history of trigeminal neuralgia, atrial fibrillation not on anticoagulation, diastolic heart failure, obstructive sleep apnea and hypertension. Patient presents from [facility] with 5 days of worsening lethargy noted in the afternoons followed by 24 hours of nausea with vomiting of gastric content. She is brought to the emergency room for evaluation and found to have fever, leukocytosis, uncontrolled hypertension and pyuria. She started on IV nitroglycerin, BiPAP and empiric antibiotics refer to the hospitalist for admission. Patient is able to arouse and denies pain. Review of her [facility] medications include clonazepam 0.5 twice daily scheduled for hypertension. Patient's son at bedside states she has occasionally taken clonazepam in the past for insomnia. Patient has history of sleep apnea syndrome and was on BiPAP therapy at home but since she went to the [facility], she has not been on BiPAP therapy. Evaluation here showed elevated troponin I. I been asked to help with management of blood pressure and also evaluate elevated troponin I level. Patient seems to be not very active at this point. Past Medical History Cardiac Medical History: Reports: Atrial Fibrillation, Congestive Heart Failure , Hyperlipidema, Hypertension Denies: Myocardial Infarction Pulmonary Medical History: Reports: Sleep Apnea Denies: Asthma Neurological Medical History: Denies: Seizures Malignancy Medical History: Reports: Skin Cancer GI Medical History: Denies: Hepatitis, Hiatal Hernia Musculoskeltal Medical History: Reports: Arthritis Psychiatric Medical History: Reports: Depression Hematology: Denies: Anemia, Sickle Cell Disease Past Surgical History Past Surgical History: Reports: Hysterectomy, Orthopedic Surgery - L knee Denies: Amputation, Mastectomy, Pacemaker Social History Information Source: Relative Lives with: Prison Smoking Status: Unknown if Ever Smoked Frequency of Alcohol Use: None Hx Recreational Drug Use: No Drugs: None Hx Prescription Drug Abuse: No - Advance Directive Resuscitation Status: Do Not Resuscitate Surrogate healthcare decision maker:: Patient's son is the surrogate decision-maker Family History Family History: Arthritis, Hypertension Parental Family History Reviewed: Yes Children Family History Reviewed: Yes Sibling(s) Family History Reviewed.: Yes Medication/Allergy Home Medications: Clonidine HCl [Catapres 0.2 mg Tablet] 0.2 mg PO Q12 01/31/18 Acetaminophen [Tylenol 325 mg Tablet] 650 mg PO Q6HP PRN tablet 02/10/18 Amlodipine Besylate [Norvasc 10 mg Tablet] 10 mg PO DAILY tablet 02/10/18 Apixaban [Eliquis 5 mg Tablet] 5 mg PO BID tablet 02/10/18 Atorvastatin Calcium [Lipitor 10 mg Tablet] 10 mg PO QHS tablet 02/10/18 Carbamazepine [Tegretol 200 mg Tablet] 400 mg PO Q8 tablet 02/10/18 Cephalexin Monohydrate [Keflex 500 mg Capsule] 500 mg PO Q12 capsule 02/10/18 Docusate Sodium [Colace 100 mg Capsule] 100 mg PO BID capsule 02/10/18 Dronedarone Hydrochloride [Multaq 400 mg Tablet] 400 mg PO Q12 tablet 02/10/18 Furosemide [Lasix 20 mg Tablet] 20 mg PO DAILY tablet 02/10/18 Hydralazine HCl [Apresoline 50 mg Tablet] 50 mg PO Q6 tablet 02/10/18 Hydrocodone/Acetaminophen [[place] 5-325 mg Tablet] 1 tab PO Q6HP PRN tablet 11/18 Hydrocodone/Acetaminophen [[place] 7.5-325 mg Tablet] 1 tab PO Q6HP PRN tablet Labetalol HCl [Normodyne 200 mg Tablet] 200 mg PO Q12 tablet 02/10/18 Nystatin [Mycostatin 500,000 Unit/5 ml Susp Udcup] 100,000 unit PO Q6 udc 02/10 Pregabalin [Lyrica 50 mg Capsule] 50 mg PO Q8 capsule 02/10/18 Sertraline HCl [Zoloft 50 mg Tablet] 100 mg PO QHS tablet 02/10/18 Allergies/Adverse Reactions: ANDREY Inhibitors [Andrey Inhibitors] Allergy (Severe, Verified 12/14/15 13:56) Swelling of tongue,throat,lips,mouth Sulfa (Sulfonamide Antibiotics) Allergy (Mild, Verified 08/20/15 11:03) rash Review of Systems Review of Systems: Please see history of present illness and past medical history as wall. Constitutional: fever or chills reported. Generalized fatigue, tiredness noted. Head : No recent chronic headaches, recent head injury. Eyes: No recent eye pain, diplopia, redness, discharge, acute visual changes. Ears: No recent chronic ear pain, acute hearing loss, ear discharge. Oral cavity: No recent ulcerations, bleeding, oral cavity discomfort. Neck: No recent acute neck pain reported. Hematologic: No recent easy bruising or bleeding or hematologic malignancy reported. Lymphatic: No recent lymphatic malignancy, chronic lymphadenopathy reported yet Cardiovascular system review: See history of present illness. Respiratory system review: No recent chronic cough, hemoptysis, blood clots in the lungs reported. Shortness of breath on exertion Gastrointestinal system review: Negative for any recent acute or chronic abdominal pain, hematemesis, melena, recent change in bowel habits. Genitourinary system review: No recent acute or chronic hematuria, flank pain, UTI etc. reported. Skin system review: Negative for any recent abnormal bruising, no rash, no pruritus reported. Neurologic: No prior history of strokes, mini strokes, seizure disorder. History of severe trigeminal neuralgia. History of sleep apnea syndrome. Psychologic: No history of major psychosis or major depression reported. Musculoskeletal: Minor aches and pains reported. No acute joint swelling reported. Endocrine: No recent polyuria, polydipsia, recent heat or cold intolerance. Physical Exam Vital Signs: Temp Pulse Resp BP Pulse Ox 97.4 F 68 14 133/58 H 100 03/02/18 07:57 03/02/18 09:10 03/02/18 09:10 03/02/18 07:57 03/02/18 09:10 Intake & Output 03/01/18 03/02/18 03/03/18 06:59 06:59 06:59 Intake Total 300 Output Total 750 Balance -450 Weight 73.5 kg Exam: GENERAL: well-nourished and in no acute distress. Alert and oriented x2 HEAD: Atraumatic, normocephalic. EYES: Pupils equal round and reactive to light, extraocular movements intact, sclera anicteric, conjunctiva are normal. ENT: TMs normal, nares patent, oropharynx clear without exudates. Moist mucous membranes. No oral ulcerations or bleeding gums noted NECK: supple without lymphadenopathy. Trachea is central. No cervical or axillary lymphadenopathy noted. Carotids are 2+, JVD WNL LUNGS: Respiration seems nonlabored, no significant accessory muscle action noted. Breath sounds clear to auscultation bilaterally and equal noted. No wheezes rales or rhonchi noted. No significant dullness noted on percussion. CHEST: Palpation of the chest wall shows no significant chest wall tenderness. No other significant abnormalities noted. HEART: [place] [employer], No PSH, 1/6 SUMMER aortic area, 1/6 machado systolic murmur mitral area, no rubs, no gallops. ABDOMEN: Soft, no significant tenderness appreciated, normoactive bowel sounds. No guarding, no rebound. No rigidity noted . No masses appreciated. EXTREMITIES: Pedal pulses are 1-2+, no calf tenderness noted. No clubbing or cyanosis.trace to 1+ pedal edema noted NEUROLOGICAL: Focused neurological exam showed no significant neurologic deficit. Normal speech, no focal weakness appreciated. PSYCH: Normal mood, normal affect. Judgment and insight not checked. SKIN: No significant ecchymosis, skin is noted to be warm. MUSCULOSKELETAL EXAM: No significant acute joint swelling noted. Results Laboratory Results: 03/02/18 05:30 03/02/18 05:30 03/01/18 03/02/18 03/02/18 23:13 05:30 05:30 WBC 11.5 H RBC 3.39 L Hgb 10.1 L Hct 30.5 L MCV 90 MCH 29.8 MCHC 33.0 RDW 14.4 H Plt Count 130 L Seg Neutrophils % 83.9 H Lymphocytes % 5.9 L Monocytes % 10.0 Eosinophils % 0.0 Basophils % 0.2 Absolute Neutrophils 9.7 H Absolute Lymphocytes 0.7 Absolute Monocytes 1.2 Absolute Eosinophils 0.0 Absolute Basophils 0.0 Sodium 137.4 Potassium 3.0 L* Chloride 102 Carbon Dioxide 26 Anion Gap 9 BUN 24 H Creatinine 1.30 H Est GFR ( Amer) 48 L Est GFR (Non-Af Amer) 39 L Glucose 129 H Calcium 8.5 Magnesium 1.5 L 03/01/18 03/01/18 03/02/18 23:13 23:13 05:30 Creatine Kinase 201 H 215 H CK-MB (CK-2) 0.90 Troponin I 0.139 03/02/18 03/02/18 03/02/18 05:30 10:59 10:59 Creatine Kinase 213 H CK-MB (CK-2) 0.78 1.40 Troponin I 0.306 0.136 EKG Comments: Twelve-lead EKG shows sinus tachycardia, no acute ST-T wave changes noted. Impressions: Head CT 03/01/18 20:16 IMPRESSION: MILD CHRONIC CHANGES OF ATROPHY AND MICROVASCULAR ISCHEMIA. NO ACUTE PROCESS. EVIDENCE OF ACUTE STROKE: NO. Chest X-Ray 03/01/18 20:17 IMPRESSION: CARDIAC ENLARGEMENT. VASCULAR CONGESTION. Assessment & Plan - Diagnosis (1) Acute congestive heart failure Qualifiers: Heart failure type: diastolic Qualified Code(s): I50.31 - Acute diastolic ( congestive) heart failure Is this a current diagnosis for this admission?: Yes (2) Hypertensive urgency Is this a current diagnosis for this admission?: Yes (3) Troponin level elevated Is this a current diagnosis for this admission?: Yes (4) Urinary tract infection Qualifiers: Urinary tract infection type: acute cystitis Hematuria presence: without hematuria Qualified Code(s): N30.00 - Acute cystitis without hematuria Is this a current diagnosis for this admission?: Yes (5) Atrial fibrillation Qualifiers: Atrial fibrillation type: unspecified Qualified Code(s): I48.91 - Unspecified atrial fibrillation Is this a current diagnosis for this admission?: Yes (6) Debility Is this a current diagnosis for this admission?: Yes (7) Non-STEMI (non-ST elevated myocardial infarction) Is this a current diagnosis for this admission?: Yes - Notes Notes: Acute congestive heart failure: Diastolic, most likely related to severe hypertension and possibly volume overload. Currently much improved. Recommend low-dose diuretics and salt and fluid restriction. Hypertensive urgency: Patient was noted to have extremely high blood pressure over 200 mmHg systolic on presentation. Currently blood pressure is more stable. Blood pressure goal in this elderly should be less than 150/90. Troponin I elevated: Most likely related to severe hypertension, hypoxemia and CHF in setting of also chronic renal failure. At this point recommend statins and antiplatelet therapy along with beta-lauro therapy. Paroxysmal atrial fibrillation: Continue multaq therapy. She was noted to be in atrial fibrillation during last admission. Continue with Eliquis therapy. Recommend rate control with beta-blockers preferred. Urinary tract infection: Continue with antibiotic therapy. General debility: Patient will benefit from physical therapy. Non-STEMI: Type II related to supply demand mismatch. Do not feel patient has acute coronary syndrome. Feel patient not a optimal candidate for ischemia evaluation due to dementia, general debility etc. and also in the absence of any significant anginal symptoms. We will repeat EKG 2 to look for any evolving changes. - Time Time Spent: 30 to 50 Minutes - CODE STATUS was discussed, patient remains full code. Surrogate decision-maker patient's son. Multiple medical problems were addressed. More than 50% of the time spent coordinating care, discussing management plans with involved caregivers. Management plans discussed with involved personnels. Medical decision making was of moderate to high complexity , patient's has multiple comorbidities. Medications reviewed and adjusted accordingly: Yes
[2018-03-02] MEDS ORDERED: CEFTRIAXONE 1 GM/D5W RTU 1 GM/50 ML RTUPB IV SCH (22:00)
[2018-03-02] MEDS: ATORVASTATIN CALCIUM 10 MG TABLET PO SCH (22:40)
[2018-03-03] MEDS: ACETAMINOPHEN 325 MG TABLET PO PRN ×2 (02:04→08:33)
[2018-03-03] MEDS ORDERED: OXYCODONE HCL IR 5 MG TABLET PO ONE (02:45)
[2018-03-03] MEDS ORDERED: HYDRALAZINE HCL 25 MG TABLET ONE (06:24)
[2018-03-03] MEDS: HYDRALAZINE HCL 50 MG TABLET PO SCH ×3 (06:59→23:23)
[2018-03-03] MEDS ORDERED: HYDRALAZINE HCL 50 MG TABLET PO ONE (07:00)
[2018-03-03] MEDS: LEVOFLOXACIN 500 MG/D5W RTU 500 MG/100 ML RTUPB IV SCH (10:05)
[2018-03-03] MEDS: AMLODIPINE BESYLATE 10 MG TABLET PO SCH (10:06)
[2018-03-03] MEDS: APIXABAN 5 MG TABLET PO SCH ×2 (10:06→17:14)
[2018-03-03] MEDS: DRONEDARONE HYDROCHLORIDE 400 MG TABLET PO SCH ×2 (10:06→21:39)
[2018-03-03] MEDS: DOCUSATE SODIUM 100 MG CAPSULE PO SCH ×2 (10:07→17:14)
[2018-03-03] MEDS: CLONIDINE HCL 0.2 MG TABLET PO SCH ×2 (10:07→21:39)
[2018-03-03] MEDS ORDERED: HYDRALAZINE HCL INJ/PF 20 MG/1 ML SDV IV PRN (10:40)
[2018-03-03] MEDS ORDERED: MORPHINE SULFATE 10 MG/ML INJ IV ONE (10:43)
[2018-03-03] MEDS ORDERED: ACETAMINOPHEN 325 MG TABLET PO PRN (10:46)
[2018-03-03] MEDS ORDERED: LORAZEPAM INJ 2 MG/1 ML VIAL IV ONE (11:30)
[2018-03-03] MEDS: POTASSI CL 40 MEQ/NS 1L 1,000 ML IV PRN ×2 (11:51→21:41)
[2018-03-03 12:02] LABS: ANION GAP 10 (5-19); BLOOD UREA NITROGEN 15 mg/dL (7-20); CALCIUM 8.9 mg/dL (8.4-10.2); CARBON DIOXIDE 24 mmol/L (22-30); CHLORIDE 104 mmol/L (98-107); GLUCOSE 119 mg/dL (75-110); POTASSIUM 3.3 mmol/L (3.6-5.0); SODIUM 137.5 mmol/L (137-145)
[2018-03-03] MEDS: POTASSI CL 20 MEQ/50 ML RIDER 20 MEQ/50 ML RTUPB IV SCH ×2 (13:06→14:58)
--- NOTE | 2018-03-03 18:16 | PDOC PROGRESS REPORT ---
Subjective Progress Note for:: 03/03/18 Subjective:: Patient complains of nausea and headache. She states that the headache came first and then the nausea. Had not been able to eat for the past 2-3 days because of the pain. She denies neck pain Review of systems All organ systems evaluated and negative except as in subjective All significant laboratories and diagnostics have been reviewed Reason For Visit: UTI,DELERIUM,HTN URGENCY Physical Exam Vital Signs: Temp Pulse Resp BP Pulse Ox 98.9 F 64 22 H 122/83 96 03/03/18 04:02 03/03/18 04:02 03/03/18 04:02 03/03/18 04:02 03/03/18 04:02 Intake & Output 03/02/18 03/03/18 03/04/18 06:59 06:59 06:59 Intake Total 300 605 Output Total 750 1175 Balance -450 -570 Weight 73.5 kg 75.5 kg General appearance: PRESENT: cooperative, obese, severe distress Head exam: PRESENT: atraumatic, normocephalic Eye exam: PRESENT: conjunctival injection, conjunctiva pink, EOMI, PERRLA Ear exam: PRESENT: normal external ear exam Mouth exam: PRESENT: moist, neck supple Neck exam: PRESENT: full ROM. ABSENT: JVD, lymphadenopathy, tenderness Respiratory exam: PRESENT: clear to auscultation ludivina Cardiovascular exam: PRESENT: irregular rhythm. ABSENT: diastolic murmur, systolic murmur Vascular exam: PRESENT: normal capillary refill GI/Abdominal exam: PRESENT: normal bowel sounds, soft. ABSENT: tenderness Extremities exam: PRESENT: full ROM. ABSENT: pedal edema Musculoskeletal exam: PRESENT: ambulatory Neurological exam: PRESENT: alert, awake, oriented to person, oriented to place , oriented to time, oriented to situation, CN II-XII grossly intact Psychiatric exam: PRESENT: anxious. ABSENT: appropriate affect Skin exam: PRESENT: intact, normal color Results Laboratory Results: 03/02/18 05:30 03/02/18 05:30 03/01/18 03/01/18 03/02/18 23:13 23:13 05:30 Creatine Kinase 201 H 215 H CK-MB (CK-2) 0.90 Troponin I 0.139 03/02/18 03/02/18 03/02/18 05:30 10:59 10:59 Creatine Kinase 213 H CK-MB (CK-2) 0.78 1.40 Troponin I 0.306 0.136 Impressions: Head CT 03/01/18 20:16 IMPRESSION: MILD CHRONIC CHANGES OF ATROPHY AND MICROVASCULAR ISCHEMIA. NO ACUTE PROCESS. EVIDENCE OF ACUTE STROKE: NO. Chest X-Ray 03/01/18 20:17 IMPRESSION: CARDIAC ENLARGEMENT. VASCULAR CONGESTION. Assessment & Plan - Diagnosis (1) Headache Qualifiers: Headache type: unspecified Headache chronicity pattern: acute headache Is this a current diagnosis for this admission?: Yes Plan: It appears that patient does have a mildly prolonged QT interval well so therefore will place her on Ativan for nausea and vomiting. Will order morphine and follow-up response. (2) Hypokalemia Is this a current diagnosis for this admission?: Yes Plan: Will replace through IV and trend (3) Troponin level elevated Is this a current diagnosis for this admission?: Yes Plan: This likely related to myocardial demand ischemia in the setting of sepsis (4) Urinary tract infection Qualifiers: Urinary tract infection type: acute cystitis Hematuria presence: without hematuria Qualified Code(s): N30.00 - Acute cystitis without hematuria Is this a current diagnosis for this admission?: Yes Plan: Will continue Levaquin for now. (5) Atrial fibrillation Qualifiers: Atrial fibrillation type: unspecified Qualified Code(s): I48.91 - Unspecified atrial fibrillation Is this a current diagnosis for this admission?: Yes Plan: Stable (6) Sepsis Qualifiers: Sepsis type: Escherichia coli Qualified Code(s): A41.51 - Sepsis due to Escherichia coli [E. coli] Is this a current diagnosis for this admission?: Yes Plan: Sepsis due to translocation of E. coli from urinary tract infection. - Time Time Spent with patient: 15-24 minutes Medications reviewed and adjusted accordingly: Yes Anticipated discharge: SNF Within: within 72 hours - Inpatient Certification Based on my medical assessment, after consideration of the patient's comorbidities, presenting symptoms, or acuity I expect that the services needed warrant INPATIENT care.: Yes I certify that my determination is in accordance with my understanding of Medicare's requirements for reasonable and necessary INPATIENT services [42 CFR 412.3e].: Yes Medical Necessity: Need Close Monitoring Due to Risk of Patient Decompensation, Need for IV Antibiotics
--- NOTE | 2018-03-03 19:55 | PDOC PROGRESS REPORT ---
Subjective Progress Note for:: 03/03/18 Subjective:: Patient complaining of significant problems with headaches today. She is however denying any chest pain. Telemetry shows sinus rhythm without any sustained tachycardia or bradycardia. Reason For Visit: UTI,DELERIUM,HTN URGENCY Physical Exam Vital Signs: Temp Pulse Resp BP Pulse Ox 98.0 F 70 18 174/70 H 95 03/03/18 15:00 03/03/18 15:00 03/03/18 15:00 03/03/18 15:00 03/03/18 15:00 Intake & Output 03/02/18 03/03/18 03/04/18 06:59 06:59 06:59 Intake Total 200 067 2867 Output Total 750 1175 800 Balance -450 -570 860 Weight 73.5 kg 75.5 kg Exam: GENERAL: well-nourished and in no acute distress. Alert and oriented x2 HEAD: Atraumatic, normocephalic. EYES: Pupils equal round and reactive to light, extraocular movements intact, sclera anicteric, conjunctiva are normal. ENT: TMs normal, nares patent, oropharynx clear without exudates. Moist mucous membranes. No oral ulcerations or bleeding gums noted NECK: supple without lymphadenopathy. Trachea is central. No cervical or axillary lymphadenopathy noted. Carotids are 2+, JVD WNL LUNGS: Respiration seems nonlabored, no significant accessory muscle action noted. Breath sounds clear to auscultation bilaterally and equal noted. No wheezes rales or rhonchi noted. No significant dullness noted on percussion. CHEST: Palpation of the chest wall shows no significant chest wall tenderness. No other significant abnormalities noted. HEART: [place] [employer], No PSH, 1/6 SUMMER aortic area, 1/6 [place] systolic murmur mitral area, no rubs, no gallops. ABDOMEN: Soft, no significant tenderness appreciated, normoactive bowel sounds. No guarding, no rebound. No rigidity noted . No masses appreciated. EXTREMITIES: Pedal pulses are 1-2+, no calf tenderness noted. No clubbing or cyanosis.trace to 1+ pedal edema noted NEUROLOGICAL: Focused neurological exam showed no significant neurologic deficit. Normal speech, no focal weakness appreciated. PSYCH: Normal mood, normal affect. Judgment and insight not checked. SKIN: No significant ecchymosis, skin is noted to be warm. MUSCULOSKELETAL EXAM: No significant acute joint swelling noted. Results Laboratory Results: 03/02/18 05:30 03/03/18 11:20 03/03/18 11:20 Sodium 137.5 Potassium 3.3 L Chloride 104 Carbon Dioxide 24 Anion Gap 10 BUN 15 Creatinine 0.68 Est GFR ( Amer) > 60 Est GFR (Non-Af Amer) > 60 Glucose 119 H Calcium 8.9 03/01/18 03/01/18 03/02/18 23:13 23:13 05:30 Creatine Kinase 201 H 215 H CK-MB (CK-2) 0.90 Troponin I 0.139 03/02/18 03/02/18 03/02/18 05:30 10:59 10:59 Creatine Kinase 213 H CK-MB (CK-2) 0.78 1.40 Troponin I 0.306 0.136 EKG Comments: Telemetry strip shows sinus rhythm without any sustained tachycardia or bradycardia. Impressions: Head CT 03/01/18 20:16 IMPRESSION: MILD CHRONIC CHANGES OF ATROPHY AND MICROVASCULAR ISCHEMIA. NO ACUTE PROCESS. EVIDENCE OF ACUTE STROKE: NO. Chest X-Ray 03/01/18 20:17 IMPRESSION: CARDIAC ENLARGEMENT. VASCULAR CONGESTION. Assessment & Plan - Diagnosis (1) Acute congestive heart failure Qualifiers: Heart failure type: diastolic Qualified Code(s): I50.31 - Acute diastolic ( congestive) heart failure Is this a current diagnosis for this admission?: Yes (2) Hypertensive urgency Is this a current diagnosis for this admission?: Yes (3) Troponin level elevated Is this a current diagnosis for this admission?: Yes (4) Urinary tract infection Qualifiers: Urinary tract infection type: acute cystitis Hematuria presence: without hematuria Qualified Code(s): N30.00 - Acute cystitis without hematuria Is this a current diagnosis for this admission?: Yes (5) Atrial fibrillation Qualifiers: Atrial fibrillation type: unspecified Qualified Code(s): I48.91 - Unspecified atrial fibrillation Is this a current diagnosis for this admission?: Yes (6) Debility Is this a current diagnosis for this admission?: Yes (7) Non-STEMI (non-ST elevated myocardial infarction) Is this a current diagnosis for this admission?: Yes - Notes Notes: Patient is denying any chest pain. EKG for some reason was not performed. Will order an EKG for today. This is to look for evolving changes. Blood pressure still intermittently elevated. Due to hypokalemia, will add spironolactone. May consider switching either to clonidine TTS patch for more a smoother action or sustained release form. Acute congestive heart failure: Diastolic, most likely related to severe hypertension and possibly volume overload. Currently much improved. Recommend low-dose diuretics and salt and fluid restriction. Hypertensive urgency: Patient was noted to have extremely high blood pressure over 200 mmHg systolic on presentation. Currently blood pressure is more stable. Blood pressure goal in this elderly should be less than 150/90. Will adjust blood pressure medication further. Troponin I elevated: Most likely related to severe hypertension, hypoxemia and CHF in setting of also chronic renal failure. At this point recommend statins and antiplatelet therapy along with beta-lauro therapy. Will repeat EKG to look for any evolving changes. Paroxysmal atrial fibrillation: Continue multaq therapy. She was noted to be in atrial fibrillation during last admission. Continue with Eliquis therapy. Recommend rate control with beta-blockers preferred. Urinary tract infection: Continue with antibiotic therapy. General debility: Patient will benefit from physical therapy. Non-STEMI: Type II related to supply demand mismatch. Do not feel patient has acute coronary syndrome. Feel patient not a optimal candidate for ischemia evaluation due to dementia, general debility etc. and also in the absence of any significant anginal symptoms. We will repeat EKG 2 to look for any evolving changes. - Time Time with patient: 15-25 minutes - CODE STATUS was discussed, patient remains DNR. Surrogate decision-maker unchanged. Multiple medical problems were addressed. More than 50% of the time spent coordinating care, discussing management plans with involved caregivers. Management plans discussed with involved personnels. Medical decision making was of moderate to high complexity , patient's has multiple comorbidities. Medications reviewed and adjusted accordingly: Yes
[2018-03-03] MEDS ORDERED: SPIRONOLACTONE 25 MG TABLET PO ONE (20:30)
[2018-03-03] MEDS: MORPHINE SULFATE 10 MG/ML INJ IV PRN (21:38)
[2018-03-03] MEDS: ATORVASTATIN CALCIUM 10 MG TABLET PO SCH (21:39)
[2018-03-03] MEDS: LORAZEPAM INJ 2 MG/1 ML VIAL IV PRN (21:39)
[2018-03-04] MEDS: HYDRALAZINE HCL 50 MG TABLET PO SCH ×3 (05:12→17:30)
[2018-03-04 06:02] LABS: ANION GAP 9 (5-19); BLOOD UREA NITROGEN 10 mg/dL (7-20); CALCIUM 9.1 mg/dL (8.4-10.2); CARBON DIOXIDE 22 mmol/L (22-30); CHLORIDE 108 mmol/L (98-107); GLUCOSE 89 mg/dL (75-110); SODIUM 139.1 mmol/L (137-145)
[2018-03-04 06:06] LABS: POTASSIUM 4.8 mmol/L (3.6-5.0)
[2018-03-04] MEDS: DRONEDARONE HYDROCHLORIDE 400 MG TABLET PO SCH ×2 (10:03→22:45)
[2018-03-04] MEDS: AMLODIPINE BESYLATE 10 MG TABLET PO SCH (10:03)
[2018-03-04] MEDS: APIXABAN 5 MG TABLET PO SCH ×2 (10:03→17:30)
[2018-03-04] MEDS: CLONIDINE HCL 0.2 MG TABLET PO SCH ×2 (10:03→22:44)
[2018-03-04] MEDS: DOCUSATE SODIUM 100 MG CAPSULE PO SCH ×2 (10:04→17:30)
[2018-03-04] MEDS: LEVOFLOXACIN 500 MG/D5W RTU 500 MG/100 ML RTUPB IV SCH (10:04)
[2018-03-04] MEDS: SPIRONOLACTONE 25 MG TABLET PO SCH (10:04)
--- NOTE | 2018-03-04 10:41 | EKG REPORT ---
SEVERITY:- ABNORMAL ECG - SINUS RHYTHM LEFT VENTRICULAR HYPERTROPHY BORDERLINE T ABNORMALITIES, INFERIOR LEADS : Confirmed by: Freda Navarrete 04-Mar-2018 10:40:31
--- NOTE | 2018-03-04 12:42 | PDOC PROGRESS REPORT ---
Subjective Progress Note for:: 03/04/18 Subjective:: Patient today claims that her headache is resolved. She is feeling improved. She is however denying any chest pain. Telemetry shows sinus rhythm without any sustained tachycardia or bradycardia. Reason For Visit: UTI,DELERIUM,HTN URGENCY Physical Exam Vital Signs: Temp Pulse Resp BP Pulse Ox 98.4 F 76 16 151/51 H 95 03/04/18 10:49 03/04/18 10:49 03/04/18 10:49 03/04/18 10:49 03/04/18 10:49 Intake & Output 03/03/18 03/04/18 03/05/18 06:59 06:59 06:59 Intake Total 605 3465 225 Output Total 1175 1900 450 Balance -570 1565 -225 Weight 75.5 kg 76.2 kg Exam: GENERAL: well-nourished and in no acute distress. Alert and oriented x2 HEAD: Atraumatic, normocephalic. EYES: Pupils equal round and reactive to light, extraocular movements intact, sclera anicteric, conjunctiva are normal. ENT: TMs normal, nares patent, oropharynx clear without exudates. Moist mucous membranes. No oral ulcerations or bleeding gums noted NECK: supple without lymphadenopathy. Trachea is central. No cervical or axillary lymphadenopathy noted. Carotids are 2+, JVD WNL LUNGS: Respiration seems nonlabored, no significant accessory muscle action noted. Breath sounds clear to auscultation bilaterally and equal noted. No wheezes rales or rhonchi noted. No significant dullness noted on percussion. CHEST: Palpation of the chest wall shows no significant chest wall tenderness. No other significant abnormalities noted. HEART: [place] RIDING DOUBLE, No PSH, 1/6 [place] aortic area, 1/6 [place] systolic murmur mitral area, no rubs, no gallops. ABDOMEN: Soft, no significant tenderness appreciated, normoactive bowel sounds. No guarding, no rebound. No rigidity noted . No masses appreciated. EXTREMITIES: Pedal pulses are 1-2+, no calf tenderness noted. No clubbing or cyanosis. negative pedal edema noted NEUROLOGICAL: Focused neurological exam showed no significant neurologic deficit. Normal speech, no focal weakness appreciated. PSYCH: Normal mood, normal affect. Judgment and insight not evaluated. SKIN: No significant ecchymosis, skin is noted to be warm. MUSCULOSKELETAL EXAM: No significant acute joint swelling noted. Results Laboratory Results: 03/02/18 05:30 03/04/18 04:52 03/04/18 04:52 Sodium 139.1 Potassium 4.8 D Chloride 108 H Carbon Dioxide 22 Anion Gap 9 BUN 10 Creatinine 0.57 Est GFR ( Amer) > 60 Est GFR (Non-Af Amer) > 60 Glucose 89 Calcium 9.1 Magnesium 1.8 03/01/18 03/01/18 03/02/18 23:13 23:13 05:30 Creatine Kinase 201 H 215 H CK-MB (CK-2) 0.90 Troponin I 0.139 03/02/18 03/02/18 03/02/18 05:30 10:59 10:59 Creatine Kinase 213 H CK-MB (CK-2) 0.78 1.40 Troponin I 0.306 0.136 EKG Comments: Telemetry shows sinus rhythm without any sustained tachycardia or bradycardia. Impressions: Head CT 03/01/18 20:16 IMPRESSION: MILD CHRONIC CHANGES OF ATROPHY AND MICROVASCULAR ISCHEMIA. NO ACUTE PROCESS. EVIDENCE OF ACUTE STROKE: NO. Chest X-Ray 03/01/18 20:17 IMPRESSION: CARDIAC ENLARGEMENT. VASCULAR CONGESTION. Assessment & Plan - Diagnosis (1) Acute congestive heart failure Qualifiers: Heart failure type: diastolic Qualified Code(s): I50.31 - Acute diastolic ( congestive) heart failure Is this a current diagnosis for this admission?: Yes (2) Hypertensive urgency Is this a current diagnosis for this admission?: Yes (3) Troponin level elevated Is this a current diagnosis for this admission?: Yes (4) Urinary tract infection Qualifiers: Urinary tract infection type: acute cystitis Hematuria presence: without hematuria Qualified Code(s): N30.00 - Acute cystitis without hematuria Is this a current diagnosis for this admission?: Yes (5) Atrial fibrillation Qualifiers: Atrial fibrillation type: unspecified Qualified Code(s): I48.91 - Unspecified atrial fibrillation Is this a current diagnosis for this admission?: Yes (6) Debility Is this a current diagnosis for this admission?: Yes (7) Non-STEMI (non-ST elevated myocardial infarction) Is this a current diagnosis for this admission?: Yes - Notes Notes: Patient is denying any chest pain. EKG from yesterday morning reviewed. Showed sinus rhythm, minor nonspecific T-wave inversion noted inferiorly. Blood pressure still intermittently elevated. Potassium today normal. Spironolactone was added yesterday. May consider switching either to clonidine TTS patch for more a smoother action or sustained release form. Have added carvedilol 6.25 mg p.o. twice daily for blood pressure control and also for presumed underlying CAD. Acute congestive heart failure: Diastolic, most likely related to severe hypertension and possibly volume overload. Currently much improved. Recommend low-dose diuretics and salt and fluid restriction. Hypertensive urgency: Patient was noted to have extremely high blood pressure over 200 mmHg systolic on presentation. Currently blood pressure is more stable. Blood pressure goal in this elderly should be less than 150/90. Blood pressure seemingly coming gradually under better control. Troponin I elevated: Most likely related to severe hypertension, hypoxemia and CHF in setting of also chronic renal failure. At this point recommend statins and antiplatelet therapy along with beta-lauro therapy. Paroxysmal atrial fibrillation: Continue multaq therapy. She was noted to be in atrial fibrillation during last admission. Continue with Eliquis therapy. Recommend rate control with beta-blockers preferred. Urinary tract infection: Continue with antibiotic therapy. General debility: Patient will benefit from physical therapy. Non-STEMI: Type II related to supply demand mismatch. Do not feel patient has acute coronary syndrome. Medical management for presumed underlying CAD is being optimized. Feel patient not a optimal candidate for ischemia evaluation due to dementia, general debility etc. and also in the absence of any significant anginal symptoms. We will repeat EKG 2 to look for any evolving changes. - Time Time with patient: Greater than 35 minutes - CODE STATUS : was discussed, patient remains DO NOT RESUSCITATE. Surrogate decision-maker unchanged. Multiple medical problems were addressed. More than 50% of the time spent coordinating care, discussing management plans with involved caregivers. Management plans discussed with involved personnels. Medical decision making was of moderate to high complexity, patient's has multiple comorbidities. Medications reviewed and adjusted accordingly: Yes
[2018-03-04] MEDS: LACTULOSE SYRUP 20 GM/30 ML UDCUP PO SCH (17:30)
[2018-03-04] MEDS: NORMAL SALINE 1000 ML 1,000 ML IV PRN (17:32)
[2018-03-04] MEDS: ATORVASTATIN CALCIUM 10 MG TABLET PO SCH (22:44)
[2018-03-04] MEDS: CARVEDILOL 6.25 MG TABLET PO SCH (22:44)
[2018-03-05] MEDS: HYDRALAZINE HCL 50 MG TABLET PO SCH ×4 (00:50→22:32)
--- NOTE | 2018-03-05 02:50 | PDOC PROGRESS REPORT ---
Subjective Progress Note for:: 03/04/18 Subjective:: Patient complains of constipation. Nausea andheadache is better Review of systems All organ systems evaluated and negative except as in subjective All significant laboratories and diagnostics have been reviewed Reason For Visit: UTI,DELERIUM,HTN URGENCY Physical Exam Vital Signs: Temp Pulse Resp BP Pulse Ox 99.1 F 70 16 176/70 H 95 03/04/18 04:13 03/04/18 04:13 03/04/18 04:13 03/04/18 04:13 03/04/18 04:13 Intake & Output 03/02/18 03/03/18 03/04/18 06:59 06:59 06:59 Intake Total 728 170 8570 Output Total 750 1175 1900 Balance -450 -570 115 Weight 73.5 kg 75.5 kg 76.2 kg General appearance: PRESENT: cooperative, well-developed, well-nourished Head exam: PRESENT: atraumatic, normocephalic Eye exam: PRESENT: conjunctiva pink, EOMI, PERRLA Mouth exam: PRESENT: moist Neck exam: PRESENT: full ROM. ABSENT: JVD, lymphadenopathy, tenderness Respiratory exam: PRESENT: clear to auscultation ludivina Cardiovascular exam: PRESENT: irregular rhythm. ABSENT: diastolic murmur, systolic murmur Vascular exam: PRESENT: normal capillary refill GI/Abdominal exam: PRESENT: normal bowel sounds, soft. ABSENT: tenderness Extremities exam: PRESENT: full ROM. ABSENT: pedal edema Musculoskeletal exam: ABSENT: ambulatory Neurological exam: PRESENT: alert, awake, oriented to person, oriented to place , oriented to time, oriented to situation, CN II-XII grossly intact Psychiatric exam: PRESENT: appropriate affect, normal mood Skin exam: PRESENT: normal color Results Laboratory Results: 03/02/18 05:30 03/04/18 04:52 03/03/18 03/04/18 11:20 04:52 Sodium 137.5 139.1 Potassium 3.3 L 4.8 D Chloride 104 108 H Carbon Dioxide 24 22 Anion Gap 10 9 BUN 15 10 Creatinine 0.68 0.57 Est GFR ( Amer) > 60 > 60 Est GFR (Non-Af Amer) > 60 > 60 Glucose 119 H 89 Calcium 8.9 9.1 Magnesium 1.8 03/31/18 03/31/18 04/01/18 23:13 23:13 05:30 Creatine Kinase 201 H 215 H CK-MB (CK-2) 0.90 Troponin I 0.139 03/02/18 03/02/18 03/02/18 05:30 10:59 10:59 Creatine Kinase 213 H CK-MB (CK-2) 0.78 1.40 Troponin I 0.306 0.136 Impressions: Head CT 03/01/18 20:16 IMPRESSION: MILD CHRONIC CHANGES OF ATROPHY AND MICROVASCULAR ISCHEMIA. NO ACUTE PROCESS. EVIDENCE OF ACUTE STROKE: NO. Chest X-Ray 03/01/18 20:17 IMPRESSION: CARDIAC ENLARGEMENT. VASCULAR CONGESTION. Assessment & Plan - Diagnosis (1) Headache Qualifiers: Headache type: unspecified Headache chronicity pattern: acute headache Is this a current diagnosis for this admission?: Yes Plan: Improving. To continue current treatment (2) Hypokalemia Is this a current diagnosis for this admission?: Yes Plan: Resolved. Discontinue supplementation (3) Troponin level elevated Is this a current diagnosis for this admission?: Yes Plan: This likely related to myocardial demand ischemia in the setting of sepsis (4) Urinary tract infection Qualifiers: Urinary tract infection type: acute cystitis Hematuria presence: without hematuria Qualified Code(s): N30.00 - Acute cystitis without hematuria Is this a current diagnosis for this admission?: Yes Plan: To change to ceftin since on multaq (5) Atrial fibrillation Qualifiers: Atrial fibrillation type: unspecified Qualified Code(s): I48.91 - Unspecified atrial fibrillation Is this a current diagnosis for this admission?: Yes Plan: Stable (6) Sepsis Qualifiers: Sepsis type: Escherichia coli Qualified Code(s): A41.51 - Sepsis due to Escherichia coli [E. coli] Is this a current diagnosis for this admission?: Yes Plan: Sepsis due to translocation of E. coli from urinary tract infection. (7) Constipation Qualifiers: Constipation type: unspecified constipation type Qualified Code(s): K59.00 - Constipation, unspecified Is this a current diagnosis for this admission?: Yes Plan: Bowel regimen - Time Time Spent with patient: 15-24 minutes Medications reviewed and adjusted accordingly: Yes Anticipated discharge: SNF Within: within 72 hours - Inpatient Certification Based on my medical assessment, after consideration of the patient's comorbidities, presenting symptoms, or acuity I expect that the services needed warrant INPATIENT care.: Yes I certify that my determination is in accordance with my understanding of Medicare's requirements for reasonable and necessary INPATIENT services [42 CFR 412.3e].: Yes Medical Necessity: Need Close Monitoring Due to Risk of Patient Decompensation
[2018-03-05] MEDS: METAXALONE 800 MG TABLET PO SCH ×3 (05:55→22:32)
[2018-03-05] MEDS ORDERED: PREGABALIN 50 MG CAPSULE PO SCH (06:00)
[2018-03-05] MEDS: NORMAL SALINE 1000 ML 1,000 ML IV PRN ×2 (06:18→17:33)
--- NOTE | 2018-03-05 09:32 | EKG REPORT ---
SEVERITY:- ABNORMAL ECG - ATRIAL FIBRILLATION : Confirmed by: Freda Navarrete 05-Mar-2018 09:31:36
[2018-03-05] MEDS ORDERED: SERTRALINE HCL 50 MG TABLET PO SCH (10:00)
[2018-03-05] MEDS ORDERED: CLONIDINE HCL 0.2 MG TABLET PO SCH (10:00)
[2018-03-05] MEDS ORDERED: LEVOFLOXACIN 500 MG TABLET PO SCH (10:00)
[2018-03-05] MEDS: MORPHINE SULFATE 10 MG/ML INJ IV PRN (10:25)
[2018-03-05] MEDS: LORAZEPAM INJ 2 MG/1 ML VIAL IV PRN (10:25)
[2018-03-05] MEDS: CARBAMAZEPINE 200 MG TABLET PO SCH ×2 (10:25→17:30)
[2018-03-05] MEDS: DOCUSATE SODIUM 100 MG CAPSULE PO SCH ×2 (11:06→17:33)
[2018-03-05] MEDS: LACTULOSE SYRUP 20 GM/30 ML UDCUP PO SCH ×2 (11:06→17:33)
[2018-03-05] MEDS: POLYETHYLENE GLYCOL 3350 POWDER 17 GM/1 PACKET PO SCH (11:06)
[2018-03-05] MEDS: APIXABAN 5 MG TABLET PO SCH ×2 (12:44→17:30)
[2018-03-05] MEDS: SPIRONOLACTONE 25 MG TABLET PO SCH (12:44)
[2018-03-05] MEDS: DRONEDARONE HYDROCHLORIDE 400 MG TABLET PO SCH ×2 (12:45→22:32)
[2018-03-05] MEDS: CEFUROXIME 500 MG TABLET PO SCH ×2 (12:45→17:30)
[2018-03-05] MEDS: ASPIRIN 81 MG TABLET, ENT COATED PO SCH (12:46)
[2018-03-05] MEDS: CARVEDILOL 6.25 MG TABLET PO SCH ×2 (12:46→22:32)
[2018-03-05] MEDS: AMLODIPINE BESYLATE 10 MG TABLET PO SCH (12:46)
[2018-03-05] MEDS: CLONIDINE HCL 0.2 MG TABLET PO SCH ×2 (12:46→22:32)
[2018-03-05] MEDS: GABAPENTIN 300 MG CAPSULE PO SCH ×2 (12:47→22:32)
--- NOTE | 2018-03-05 17:22 | PDOC PROGRESS REPORT ---
Subjective Reason For Visit: UTI,DELERIUM,HTN URGENCY Physical Exam Vital Signs: Temp Pulse Resp BP Pulse Ox 98.2 F 78 18 102/54 L 96 03/05/18 15:43 03/05/18 15:43 03/05/18 15:43 03/05/18 15:43 03/05/18 15:43 Intake & Output 03/04/18 03/05/18 03/06/18 06:59 06:59 06:59 Intake Total 3465 3055 Output Total 1900 2250 425 Balance 1565 805 -425 Weight 76.2 kg 75.5 kg Results Laboratory Results: 03/02/18 05:30 03/04/18 04:52 03/01/18 03/01/18 03/02/18 23:13 23:13 05:30 Creatine Kinase 201 H 215 H CK-MB (CK-2) 0.90 Troponin I 0.139 03/02/18 03/02/18 03/02/18 05:30 10:59 10:59 Creatine Kinase 213 H CK-MB (CK-2) 0.78 1.40 Troponin I 0.306 0.136 Impressions: Head CT 03/01/18 20:16 IMPRESSION: MILD CHRONIC CHANGES OF ATROPHY AND MICROVASCULAR ISCHEMIA. NO ACUTE PROCESS. EVIDENCE OF ACUTE STROKE: NO. Chest X-Ray 03/01/18 20:17 IMPRESSION: CARDIAC ENLARGEMENT. VASCULAR CONGESTION. Assessment & Plan - Diagnosis (1) Headache Qualifiers: Headache type: unspecified Headache chronicity pattern: acute headache Is this a current diagnosis for this admission?: Yes (2) Hypokalemia Is this a current diagnosis for this admission?: Yes (3) Troponin level elevated Is this a current diagnosis for this admission?: Yes (4) Urinary tract infection Qualifiers: Urinary tract infection type: acute cystitis Hematuria presence: without hematuria Qualified Code(s): N30.00 - Acute cystitis without hematuria Is this a current diagnosis for this admission?: Yes (5) Atrial fibrillation Qualifiers: Atrial fibrillation type: unspecified Qualified Code(s): I48.91 - Unspecified atrial fibrillation Is this a current diagnosis for this admission?: Yes (6) Sepsis Qualifiers: Sepsis type: Escherichia coli Qualified Code(s): A41.51 - Sepsis due to Escherichia coli [E. coli] Is this a current diagnosis for this admission?: Yes (7) Constipation Qualifiers: Constipation type: unspecified constipation type Qualified Code(s): K59.00 - Constipation, unspecified Is this a current diagnosis for this admission?: Yes (8) NSTEMI (non-ST elevated myocardial infarction) Is this a current diagnosis for this admission?: Yes Plan: Due to myocardial demand ischemia in the setting of hypertensive urgency (9) Diastolic heart failure Qualifiers: Heart failure chronicity: acute on chronic Qualified Code(s): I50.33 - Acute on chronic diastolic (congestive) heart failure Is this a current diagnosis for this admission?: Yes Plan: Exacerbation due to hypertensive urgency. Resolved (10) Encephalopathy Is this a current diagnosis for this admission?: Yes Plan: Resolved (11) Debility Is this a current diagnosis for this admission?: Yes Plan: Order PT (12) Trigeminal neuralgia of left side of face Is this a current diagnosis for this admission?: Yes Plan: Discontinue pregabalin and try gabapentin. Continue carbamazepine. Follow-up response (13) Hypertensive urgency Is this a current diagnosis for this admission?: Yes Plan: Improved. Patient on her usual outpatient regimen. To change hydralazine 200 mg p.o. every 8 hours - Time Time Spent with patient: 15-24 minutes Medications reviewed and adjusted accordingly: Yes Anticipated discharge: SNF Within: within 48 hours - Inpatient Certification Based on my medical assessment, after consideration of the patient's comorbidities, presenting symptoms, or acuity I expect that the services needed warrant INPATIENT care.: Yes I certify that my determination is in accordance with my understanding of Medicare's requirements for reasonable and necessary INPATIENT services [42 CFR 412.3e].: Yes Medical Necessity: Need Close Monitoring Due to Risk of Patient Decompensation, Need for Pain Control
[2018-03-05] MEDS: ATORVASTATIN CALCIUM 10 MG TABLET PO SCH (22:32)
[2018-03-05] MEDS: FENOFIBRATE NANOCRYSTALLIZED 48 MG TABLET PO SCH (22:32)
[2018-03-06] MEDS: CARBAMAZEPINE 200 MG TABLET PO SCH ×4 (02:37→23:18)
[2018-03-06] MEDS: NORMAL SALINE 1000 ML 1,000 ML IV PRN (04:24)
[2018-03-06] MEDS: HYDRALAZINE HCL 50 MG TABLET PO SCH ×3 (05:52→21:19)
[2018-03-06] MEDS: GABAPENTIN 300 MG CAPSULE PO SCH ×3 (05:53→21:19)
[2018-03-06] MEDS: METAXALONE 800 MG TABLET PO SCH ×3 (05:53→21:20)
[2018-03-06] MEDS: CEFUROXIME 500 MG TABLET PO SCH ×2 (10:12→17:47)
[2018-03-06] MEDS: DOCUSATE SODIUM 100 MG CAPSULE PO SCH ×2 (10:13→17:48)
[2018-03-06] MEDS: SPIRONOLACTONE 25 MG TABLET PO SCH (10:13)
[2018-03-06] MEDS: SERTRALINE HCL 50 MG TABLET PO SCH (10:15)
[2018-03-06] MEDS: ASPIRIN 81 MG TABLET, ENT COATED PO SCH (10:15)
[2018-03-06] MEDS: DRONEDARONE HYDROCHLORIDE 400 MG TABLET PO SCH ×2 (10:15→21:19)
[2018-03-06] MEDS: CLONIDINE HCL 0.2 MG TABLET PO SCH ×2 (10:16→21:19)
[2018-03-06] MEDS: APIXABAN 5 MG TABLET PO SCH ×2 (10:16→17:48)
[2018-03-06] MEDS: AMLODIPINE BESYLATE 10 MG TABLET PO SCH (10:17)
[2018-03-06] MEDS: CARVEDILOL 6.25 MG TABLET PO SCH ×2 (10:17→21:20)
[2018-03-06] MEDS: POLYETHYLENE GLYCOL 3350 POWDER 17 GM/1 PACKET PO SCH (10:57)
[2018-03-06] MEDS: LACTULOSE SYRUP 20 GM/30 ML UDCUP PO SCH ×2 (10:57→17:49)
--- NOTE | 2018-03-06 17:59 | PDOC PROGRESS REPORT ---
Subjective Progress Note for:: 03/06/18 Subjective:: Patient relates that she was able to move her bowels. Patient expressed that she is tired of being treated as an 82 years old as she mentally feels like she is 52 years old. She wants to return back to physical therapy as soon as possible. Family has requested an update in her whole medical condition and we held the conference around 9:00. Family was made aware of findings which included a urinary tract infection which translocated to the bloodstream. Also expressed the family that my major concern is that patient still having poor appetite. Family expressed that they will go to Dr. Mallika Nathan to try to address some of the issues that happened while she was staying at that facility. They would like for her to return back to the same facility. They were informed that likely she will be discharged in the morning Review of systems All organ systems evaluated and negative except as in subjective All significant laboratories and diagnostics have been reviewed Reason For Visit: UTI,DELERIUM,HTN URGENCY Physical Exam Vital Signs: Temp Pulse Resp BP Pulse Ox 98.3 F 63 16 100/40 L 93 03/06/18 11:46 03/06/18 14:00 03/06/18 11:46 03/06/18 11:46 03/06/18 11:46 Intake & Output 03/05/18 03/06/18 03/07/18 06:59 06:59 06:59 Intake Total 3055 2480 218 Output Total 2250 750 225 Balance 805 1730 -7 Weight 75.5 kg 77.6 kg General appearance: PRESENT: no acute distress, cooperative, obese Head exam: PRESENT: atraumatic, normocephalic Eye exam: PRESENT: conjunctiva pink, EOMI, PERRLA Ear exam: PRESENT: normal external ear exam Neck exam: PRESENT: full ROM. ABSENT: JVD, lymphadenopathy, tenderness Respiratory exam: PRESENT: clear to auscultation ludivina Cardiovascular exam: PRESENT: irregular rhythm. ABSENT: diastolic murmur, systolic murmur Vascular exam: PRESENT: normal capillary refill GI/Abdominal exam: PRESENT: normal bowel sounds, soft. ABSENT: tenderness Extremities exam: PRESENT: full ROM. ABSENT: pedal edema Musculoskeletal exam: PRESENT: ambulatory Neurological exam: PRESENT: alert, awake, oriented to person, oriented to place , oriented to time, oriented to situation, CN II-XII grossly intact Psychiatric exam: PRESENT: appropriate affect, normal mood Skin exam: PRESENT: intact, normal color Results Laboratory Results: 03/02/18 05:30 03/04/18 04:52 03/01/18 03/01/18 03/02/18 23:13 23:13 05:30 Creatine Kinase 201 H 215 H CK-MB (CK-2) 0.90 Troponin I 0.139 03/02/18 03/02/18 03/02/18 05:30 10:59 10:59 Creatine Kinase 213 H CK-MB (CK-2) 0.78 1.40 Troponin I 0.306 0.136 Impressions: Head CT 03/01/18 20:16 IMPRESSION: MILD CHRONIC CHANGES OF ATROPHY AND MICROVASCULAR ISCHEMIA. NO ACUTE PROCESS. EVIDENCE OF ACUTE STROKE: NO. Chest X-Ray 03/01/18 20:17 IMPRESSION: CARDIAC ENLARGEMENT. VASCULAR CONGESTION. Assessment & Plan - Diagnosis (1) Urinary tract infection Qualifiers: Urinary tract infection type: acute cystitis Hematuria presence: without hematuria Qualified Code(s): N30.00 - Acute cystitis without hematuria Is this a current diagnosis for this admission?: Yes Plan: Continue Ceftin (2) Sepsis Qualifiers: Sepsis type: Escherichia coli Qualified Code(s): A41.51 - Sepsis due to Escherichia coli [E. coli] Is this a current diagnosis for this admission?: Yes Plan: Continue Ceftin for a total of 14 days. Family has been recommended after discharge she needs to follow-up with her primary care provider and recommended to repeat urine and blood culture within 48 hours after stopping antibiotic (3) Headache Qualifiers: Headache type: unspecified Headache chronicity pattern: acute headache Is this a current diagnosis for this admission?: Yes Plan: To continue current treatment (4) Hypokalemia Is this a current diagnosis for this admission?: Yes Plan: Resolved. Discontinue supplementation. Trend (5) Troponin level elevated Is this a current diagnosis for this admission?: Yes Plan: This likely related to myocardial demand ischemia in the setting of sepsis (6) Atrial fibrillation Qualifiers: Atrial fibrillation type: unspecified Qualified Code(s): I48.91 - Unspecified atrial fibrillation Is this a current diagnosis for this admission?: Yes Plan: Stable (7) Constipation Qualifiers: Constipation type: unspecified constipation type Qualified Code(s): K59.00 - Constipation, unspecified Is this a current diagnosis for this admission?: Yes (8) NSTEMI (non-ST elevated myocardial infarction) Is this a current diagnosis for this admission?: Yes Plan: Due to myocardial demand ischemia in the setting of hypertensive urgency (9) Diastolic heart failure Qualifiers: Heart failure chronicity: acute on chronic Qualified Code(s): I50.33 - Acute on chronic diastolic (congestive) heart failure Is this a current diagnosis for this admission?: Yes Plan: Exacerbation due to hypertensive urgency. Resolved (10) Encephalopathy Is this a current diagnosis for this admission?: Yes Plan: Resolved (11) Debility Is this a current diagnosis for this admission?: Yes Plan: Continue PT (12) Trigeminal neuralgia of left side of face Is this a current diagnosis for this admission?: Yes Plan: Continue carbamazepine and gabapentin. (13) Hypertensive urgency Is this a current diagnosis for this admission?: Yes Plan: Improved. - Time Time Spent with patient: 25-34 minutes Medications reviewed and adjusted accordingly: Yes Anticipated discharge: Acute Rehab Within: within 24 hours - Inpatient Certification Based on my medical assessment, after consideration of the patient's comorbidities, presenting symptoms, or acuity I expect that the services needed warrant INPATIENT care.: Yes I certify that my determination is in accordance with my understanding of Medicare's requirements for reasonable and necessary INPATIENT services [42 CFR 412.3e].: Yes Medical Necessity: Need Close Monitoring Due to Risk of Patient Decompensation
--- NOTE | 2018-03-06 20:19 | PDOC PROGRESS REPORT ---
Subjective Progress Note for:: 03/06/18 Subjective:: Patient claims to be feeling better. She is feeling improved. She is however denying any chest pain. Patient denying any significant problems with palpitations, syncope or near syncope.. Reason For Visit: UTI,DELERIUM,HTN URGENCY Physical Exam Vital Signs: Temp Pulse Resp BP Pulse Ox 98.4 F 60 15 120/55 L 96 03/06/18 15:40 03/06/18 15:40 03/06/18 15:40 03/06/18 15:40 03/06/18 15:40 Intake & Output 03/05/18 03/06/18 03/07/18 06:59 06:59 06:59 Intake Total 3055 2480 1218 Output Total 2250 750 325 Balance 805 1730 893 Weight 75.5 kg 77.6 kg Exam: GENERAL: well-nourished and in no acute distress. Alert and oriented x2, patient noted to be intermittently confused as related by the nurses. HEAD: Atraumatic, normocephalic. EYES: Pupils equal round and reactive to light, extraocular movements intact, sclera anicteric, conjunctiva are normal. ENT: TMs normal, nares patent, oropharynx clear without exudates. Moist mucous membranes. No oral ulcerations or bleeding gums noted NECK: supple without lymphadenopathy. Trachea is central. No cervical or axillary lymphadenopathy noted. Carotids are 2+, JVD WNL LUNGS: Respiration seems nonlabored, no significant accessory muscle action noted. Breath sounds clear to auscultation bilaterally and equal noted. No wheezes rales or rhonchi noted. No significant dullness noted on percussion. CHEST: Palpation of the chest wall shows no significant chest wall tenderness. No other significant abnormalities noted. HEART: [place] [employer], No PSH, 1/6 SUMMER aortic area, 1/6 machado systolic murmur mitral area, no rubs, no gallops. ABDOMEN: Soft, no significant tenderness appreciated, normoactive bowel sounds. No guarding, no rebound. No rigidity noted . No masses appreciated. EXTREMITIES: Pedal pulses are 1-2+, no calf tenderness noted. No clubbing or cyanosis. negative pedal edema noted NEUROLOGICAL: Focused neurological exam showed no significant neurologic deficit. Normal speech, no focal weakness appreciated. PSYCH: Normal mood, normal affect. Judgment and insight not checked. SKIN: No significant ecchymosis, skin is noted to be warm. MUSCULOSKELETAL EXAM: No significant acute joint swelling noted. Results Laboratory Results: 03/02/18 05:30 03/04/18 04:52 03/01/18 03/01/18 03/02/18 23:13 23:13 05:30 Creatine Kinase 201 H 215 H CK-MB (CK-2) 0.90 Troponin I 0.139 03/02/18 03/02/18 03/02/18 05:30 10:59 10:59 Creatine Kinase 213 H CK-MB (CK-2) 0.78 1.40 Troponin I 0.306 0.136 Impressions: Head CT 03/01/18 20:16 IMPRESSION: MILD CHRONIC CHANGES OF ATROPHY AND MICROVASCULAR ISCHEMIA. NO ACUTE PROCESS. EVIDENCE OF ACUTE STROKE: NO. Chest X-Ray 03/01/18 20:17 IMPRESSION: CARDIAC ENLARGEMENT. VASCULAR CONGESTION. Assessment & Plan - Diagnosis (1) Acute congestive heart failure Qualifiers: Heart failure type: diastolic Qualified Code(s): I50.31 - Acute diastolic ( congestive) heart failure Is this a current diagnosis for this admission?: Yes (2) Hypertensive urgency Is this a current diagnosis for this admission?: Yes (3) Troponin level elevated Is this a current diagnosis for this admission?: Yes (4) Urinary tract infection Qualifiers: Urinary tract infection type: acute cystitis Hematuria presence: without hematuria Qualified Code(s): N30.00 - Acute cystitis without hematuria Is this a current diagnosis for this admission?: Yes (5) Atrial fibrillation Qualifiers: Atrial fibrillation type: unspecified Qualified Code(s): I48.91 - Unspecified atrial fibrillation Is this a current diagnosis for this admission?: Yes (6) Debility Is this a current diagnosis for this admission?: Yes (7) Non-STEMI (non-ST elevated myocardial infarction) Is this a current diagnosis for this admission?: Yes - Notes Notes: Acute congestive heart failure: Diastolic, most likely related to severe hypertension and possibly volume overload. Currently much improved. Recommend low-dose diuretics and salt and fluid restriction. Hypertensive urgency: Patient was noted to have extremely high blood pressure over 200 mmHg systolic on presentation. Currently blood pressure is more stable. Blood pressure goal in this elderly should be less than 150/90. Blood pressure seemingly coming gradually under better control. Troponin I elevated: Most likely related to severe hypertension, hypoxemia and CHF in setting of also chronic renal failure. At this point recommend statins and antiplatelet therapy along with beta-lauro therapy. Patient currently felt not an optimal candidate for any ischemia workup due to dementia and DNR status. Paroxysmal atrial fibrillation: Continue multaq therapy. She was noted to be in atrial fibrillation during last admission. Continue with Eliquis therapy. Recommend rate control with beta-blockers preferred. Patient currently in paroxysmal atrial fibrillation. Urinary tract infection: Continue with antibiotic therapy. General debility: Patient will benefit from physical therapy. Non-STEMI: Type II related to supply demand mismatch. Do not feel patient has acute coronary syndrome. Medical management for presumed underlying CAD is being optimized. Feel patient not a optimal candidate for ischemia evaluation due to dementia, general debility etc. and also in the absence of any significant anginal symptoms. At this point will sign off. Please reconsult if needed. - Time Time with patient: 15-25 minutes - CODE STATUS : was discussed, patient remains DO NOT RESUSCITATE. Surrogate decision-maker unchanged. Multiple medical problems were addressed. More than 50% of the time spent coordinating care, discussing management plans with involved caregivers. Management plans discussed with involved personnels. Medical decision making was of moderate to high complexity, patient's has multiple comorbidities. Medications reviewed and adjusted accordingly: Yes
--- NOTE | 2018-03-06 20:20 | PDOC PROGRESS REPORT ---
Subjective Progress Note for:: 03/05/18 Subjective:: Patient today claims that her headache is resolved. She is feeling improved. She is however denying any chest pain. Patient noted to be in atrial fibrillation but tolerating this well. Heart rate is well controlled. Atrial fibrillation also noted on EKG. Reason For Visit: UTI,DELERIUM,HTN URGENCY Physical Exam Vital Signs: Temp Pulse Resp BP Pulse Ox 98.3 F 79 20 138/71 H 98 03/05/18 19:46 03/05/18 19:46 03/05/18 19:46 03/05/18 19:46 03/05/18 19:46 Intake & Output 03/04/18 03/05/18 03/06/18 06:59 06:59 06:59 Intake Total 3465 3055 1350 Output Total 1900 2250 475 Balance 1565 805 875 Weight 76.2 kg 75.5 kg Exam: GENERAL: well-nourished and in no acute distress. Alert and oriented x2 HEAD: Atraumatic, normocephalic. EYES: Pupils equal round and reactive to light, extraocular movements intact, sclera anicteric, conjunctiva are normal. ENT: TMs normal, nares patent, oropharynx clear without exudates. Moist mucous membranes. No oral ulcerations or bleeding gums noted NECK: supple without lymphadenopathy. Trachea is central. No cervical or axillary lymphadenopathy noted. Carotids are 2+, JVD WNL LUNGS: Respiration seems nonlabored, no significant accessory muscle action noted. Breath sounds clear to auscultation bilaterally and equal noted. No wheezes rales or rhonchi noted. No significant dullness noted on percussion. CHEST: Palpation of the chest wall shows no significant chest wall tenderness. No other significant abnormalities noted. HEART: [place] [employer], No PSH, 1/6 SUMMER aortic area, 1/6 machado systolic murmur mitral area, no rubs, no gallops. ABDOMEN: Soft, no significant tenderness appreciated, normoactive bowel sounds. No guarding, no rebound. No rigidity noted . No masses appreciated. EXTREMITIES: Pedal pulses are 1-2+, no calf tenderness noted. No clubbing or cyanosis. negative pedal edema noted NEUROLOGICAL: Focused neurological exam showed no significant neurologic deficit. Normal speech, no focal weakness appreciated. PSYCH: Normal mood, normal affect. Judgment and insight not checked. SKIN: No significant ecchymosis, skin is noted to be warm. MUSCULOSKELETAL EXAM: No significant acute joint swelling noted. Results Laboratory Results: 03/02/18 05:30 03/04/18 04:52 03/01/18 03/01/18 03/02/18 23:13 23:13 05:30 Creatine Kinase 201 H 215 H CK-MB (CK-2) 0.90 Troponin I 0.139 03/02/18 03/02/18 03/02/18 05:30 10:59 10:59 Creatine Kinase 213 H CK-MB (CK-2) 0.78 1.40 Troponin I 0.306 0.136 EKG Comments: Telemetry strip shows atrial fibrillation however heart rate seems well controlled. Impressions: Head CT 03/01/18 20:16 IMPRESSION: MILD CHRONIC CHANGES OF ATROPHY AND MICROVASCULAR ISCHEMIA. NO ACUTE PROCESS. EVIDENCE OF ACUTE STROKE: NO. Chest X-Ray 03/01/18 20:17 IMPRESSION: CARDIAC ENLARGEMENT. VASCULAR CONGESTION. Assessment & Plan - Diagnosis (1) Acute congestive heart failure Qualifiers: Heart failure type: diastolic Qualified Code(s): I50.31 - Acute diastolic ( congestive) heart failure Is this a current diagnosis for this admission?: Yes (2) Hypertensive urgency Is this a current diagnosis for this admission?: Yes (3) Troponin level elevated Is this a current diagnosis for this admission?: Yes (4) Urinary tract infection Qualifiers: Urinary tract infection type: acute cystitis Hematuria presence: without hematuria Qualified Code(s): N30.00 - Acute cystitis without hematuria Is this a current diagnosis for this admission?: Yes (5) Atrial fibrillation Qualifiers: Atrial fibrillation type: unspecified Qualified Code(s): I48.91 - Unspecified atrial fibrillation Is this a current diagnosis for this admission?: Yes (6) Debility Is this a current diagnosis for this admission?: Yes (7) Non-STEMI (non-ST elevated myocardial infarction) Is this a current diagnosis for this admission?: Yes - Notes Notes: Acute congestive heart failure: Diastolic, most likely related to severe hypertension and possibly volume overload. Currently much improved. Recommend low-dose diuretics and salt and fluid restriction. Hypertensive urgency: Patient was noted to have extremely high blood pressure over 200 mmHg systolic on presentation. Currently blood pressure is more stable. Blood pressure goal in this elderly should be less than 150/90. Blood pressure seemingly coming gradually under better control. Troponin I elevated: Most likely related to severe hypertension, hypoxemia and CHF in setting of also chronic renal failure. At this point recommend statins and antiplatelet therapy along with beta-lauro therapy. Patient currently felt not an optimal candidate for any ischemia workup due to dementia and DNR status. Paroxysmal atrial fibrillation: Continue multaq therapy. She was noted to be in atrial fibrillation during last admission. Continue with Eliquis therapy. Recommend rate control with beta-blockers preferred. Patient currently in paroxysmal atrial fibrillation. Urinary tract infection: Continue with antibiotic therapy. General debility: Patient will benefit from physical therapy. Non-STEMI: Type II related to supply demand mismatch. Do not feel patient has acute coronary syndrome. Medical management for presumed underlying CAD is being optimized. Feel patient not a optimal candidate for ischemia evaluation due to dementia, general debility etc. and also in the absence of any significant anginal symptoms. Patient advised to report any chest pain, significant shortness of breath. Will follow patient for 1 more day, since patient noted to be in atrial fibrillation today. - Time Time with patient: 15-25 minutes - CODE STATUS : was discussed, patient remains DO NOT RESUSCITATE. Surrogate decision-maker unchanged. Multiple medical problems were addressed. More than 50% of the time spent coordinating care, discussing management plans with involved caregivers. Management plans discussed with involved personnels. Medical decision making was of moderate to high complexity, patient's has multiple comorbidities. Medications reviewed and adjusted accordingly: Yes
[2018-03-06] MEDS: FENOFIBRATE NANOCRYSTALLIZED 48 MG TABLET PO SCH (21:19)
[2018-03-06] MEDS: ATORVASTATIN CALCIUM 10 MG TABLET PO SCH (21:20)
[2018-03-07] MEDS: METAXALONE 800 MG TABLET PO SCH ×2 (05:32→15:10)
[2018-03-07] MEDS: GABAPENTIN 300 MG CAPSULE PO SCH ×2 (05:32→15:10)
[2018-03-07] MEDS: HYDRALAZINE HCL 50 MG TABLET PO SCH ×2 (05:32→15:10)
[2018-03-07 06:18] LABS: ABSOLUTE BASOPHILS # (AUTO) 0.1 10^3/uL (0.0-0.2); ABSOLUTE EOSINOPHILS # (AUTO) 0.3 10^3/uL (0.0-0.6); ABSOLUTE LYMPHOCYTES (AUTO) 1.2 10^3/uL (0.5-4.7); ABSOLUTE MONOCYTES (AUTO) 0.6 10^3/uL (0.1-1.4); ABSOLUTE NEUT (AUTO) 5.7 10^3/uL (1.7-8.2); BASOPHILS % (AUTO) 0.7 % (0-2); EOSINOPHILS % (AUTO) 3.2 % (0-6); HEMATOCRIT 33.3 % (36.0-47.0); LYMPHOCYTES % (AUTO) 15.2 % (13-45); MEAN CORPUSCULAR HEMOGLOBIN 29.7 pg (27.0-33.4); MEAN CORPUSCULAR VOLUME 90 fl (80-97); MONOCYTES % (AUTO) 7.9 % (3-13); PLATELET COUNT 241 10^3/uL (150-450); RED BLOOD COUNT 3.69 10^6/uL (3.72-5.28); RED CELL DISTRIBUTION WIDTH 14.3 % (11.5-14.0); TOTAL CELLS COUNTED % (AUTO) 100 %; WHITE BLOOD COUNT 7.7 10^3/uL (4.0-10.5)
[2018-03-07 06:38] LABS: ANION GAP 8 (5-19); BLOOD UREA NITROGEN 11 mg/dL (7-20); CALCIUM 9.2 mg/dL (8.4-10.2); CARBON DIOXIDE 23 mmol/L (22-30); CHLORIDE 105 mmol/L (98-107); GLUCOSE 99 mg/dL (75-110); POTASSIUM 4.3 mmol/L (3.6-5.0)
[2018-03-07] MEDS: POLYETHYLENE GLYCOL 3350 POWDER 17 GM/1 PACKET PO SCH (09:47)
[2018-03-07] MEDS: CARBAMAZEPINE 200 MG TABLET PO SCH ×2 (09:47→15:10)
[2018-03-07] MEDS: SERTRALINE HCL 50 MG TABLET PO SCH (09:48)
[2018-03-07] MEDS: SPIRONOLACTONE 25 MG TABLET PO SCH (09:48)
[2018-03-07] MEDS: AMLODIPINE BESYLATE 10 MG TABLET PO SCH (09:49)
[2018-03-07] MEDS: DOCUSATE SODIUM 100 MG CAPSULE PO SCH ×2 (09:49→17:20)
[2018-03-07] MEDS: CEFUROXIME 500 MG TABLET PO SCH ×2 (09:49→17:20)
[2018-03-07] MEDS: DRONEDARONE HYDROCHLORIDE 400 MG TABLET PO SCH (09:49)
[2018-03-07] MEDS: ASPIRIN 81 MG TABLET, ENT COATED PO SCH (09:49)
[2018-03-07] MEDS: CARVEDILOL 6.25 MG TABLET PO SCH (09:50)
[2018-03-07] MEDS: APIXABAN 5 MG TABLET PO SCH ×2 (09:50→17:20)
[2018-03-07] MEDS: CLONIDINE HCL 0.2 MG TABLET PO SCH (09:50)
--- NOTE | 2018-03-07 14:43 | PDOC TRANSFER SUMMARY ---
General - Admit/Disc Date/PCP Admission Date/Primary Care Provider: 03/01/18 22:55 ERICK TORRES MD Discharge Date: 03/07/18 - Discharge Diagnosis (1) UTI (urinary tract infection) Is this a current diagnosis for this admission?: Yes Summary: Continue ceftin two times daily for a total of 14 days (2) Acute renal failure Is this a current diagnosis for this admission?: Yes (3) Diastolic heart failure Is this a current diagnosis for this admission?: Yes (4) Encephalopathy Is this a current diagnosis for this admission?: Yes (5) Hypertensive urgency Is this a current diagnosis for this admission?: Yes (6) NSTEMI (non-ST elevated myocardial infarction) Is this a current diagnosis for this admission?: Yes - Additional Information Resuscitation Status: Do Not Resuscitate Discharge Diet: Cardiac Discharge Activity: Activity As Tolerated, Balance Activity w/Rest, Weigh Daily Prescriptions: Cefuroxime Axetil [Ceftin 500 mg Tablet] 500 mg PO BID #12 tablet Home Medications: Acetaminophen [Tylenol 325 mg Tablet] 650 mg PO Q4HP PRN 03/02/18 Aspirin [Aspirin EC] 81 mg PO DAILY 03/02/18 Carbamazepine [Tegretol 200 Mg Tablet] 400 mg PO Q8@0000,0800,1600 03/02/18 Clonidine HCl [Catapres 0.2 mg Tablet] 0.2 mg PO Q12 03/02/18 Cyclosporine 0.05% Oph Emulsio [Restasis 0.05% Oph Emulsion Pf 0.4 ml] 1 drop OU Q12 03/02/18 Docusate Sodium [Colace 100 mg Capsule] 100 mg PO BID 03/02/18 Dronedarone Hydrochloride [Multaq 400 mg Tablet] 400 mg PO Q12 03/02/18 Fenofibrate Nanocrystallized [Tricor 48 mg Tablet] 48 mg PO QHS 03/02/18 Furosemide [Lasix 20 mg Tablet] 20 mg PO QAM 03/02/18 Hydralazine HCl [Apresoline 25 mg Tablet] 25 mg PO Q8 03/02/18 Metaxalone [Skelaxin 800 mg Tablet] 800 mg PO Q8 03/02/18 Oxycodone HCl [Oxy-Ir 5 mg Tablet] 5 mg PO Q6HP PRN 03/02/18 Oxycodone HCl [Oxy-Ir 5 mg Tablet] 10 mg PO Q6HP PRN 03/02/18 Pantoprazole Sodium [Protonix] 40 mg PO Q6AM 03/02/18 Polyethylene Glycol 3350 [Miralax Powder 17 gm/Packet] 1 packet PO DAILY Prednisolone Acetate [Pred Forte] 1 drop OD Q6 03/02/18 Pregabalin [Lyrica 50 mg Capsule] 50 mg PO Q8 03/02/18 Sertraline HCl [Zoloft 50 mg Tablet] 50 mg PO DAILY 03/02/18 Apixaban [Eliquis 5 mg Tablet] 5 mg PO BID tablet 03/07/18 Carvedilol [Coreg 6.25 mg Tablet] 6.25 mg PO Q12 tablet 03/07/18 Cefuroxime Axetil [Ceftin 500 mg Tablet] 500 mg PO BID #12 tablet 03/07/18 Hydralazine HCl [Apresoline 50 mg Tablet] 100 mg PO Q8 tablet 03/07/18 Polyethylene Glycol 3350 [Miralax Powder 17 gm/Packet] 17 gm PO DAILY powd.pack 03/07/18 History of Present Illness Admission Date/PCP: 03/01/18 22:55 ERICK TORRES MD Patient complains of: Altered mental status History of Present Illness: CHELSEY MCDANIEL is a 82 year old female with a past medical history of trigeminal neuralgia, atrial fibrillation not on anticoagulation, diastolic heart failure, obstructive sleep apnea and hypertension. Patient presents from care home with 5 days of worsening lethargy noted in the afternoons followed by 24 hours of nausea with vomiting of gastric content. She is brought to the emergency room for evaluation and found to have fever, leukocytosis, uncontrolled hypertension and pyuria. She started on IV nitroglycerin, BiPAP and empiric antibiotics refer to the hospitalist for admission. Patient is able to arouse and denies pain. Review of her care home medications include clonazepam 0.5 twice daily scheduled for hypertension. Patient's son at bedside states she has occasionally taken clonazepam in the past for insomnia. Patient has history of sleep apnea syndrome and was on BiPAP therapy at home but since she went to the care home, she has not been on BiPAP therapy. Evaluation here showed elevated troponin I. I been asked to help with management of blood pressure and also evaluate elevated troponin I level. Patient seems to be not very active at this point. Hospital Course Hospital Course: Patient was admitted to [facility] on telemetry. She ruled in for non-STEMI. Cardiology was consulted. Dr. Navarrete saw the patient in consult. She had her medications adjusted for her hypertensive urgency. She was diuresed. Blood pressure medications were maximized. Troponins were thought to be possible to have due to hypertensive urgency and hypoxemia. She was also found to have a UTI and started on IV antibiotics. These were later transitioned to oral. She had physical therapy and occupational therapy to assess for out of bed. Today her blood pressure has been well controlled over the last 48 hours. Patient would like to be discharged home to [facility] to get for further rehab services. She will follow-up with her neurologist in [place] regarding her trigeminal neuralgia. Physical Exam Vital Signs: Temp Pulse Resp BP Pulse Ox 98.4 F 69 16 165/61 H 93 03/07/18 07:45 03/07/18 07:45 03/07/18 07:45 03/07/18 07:45 03/07/18 07:45 Intake & Output 03/06/18 03/07/18 03/08/18 06:59 06:59 06:59 Intake Total 2480 1618 Output Total 750 1075 Balance 1730 543 Weight 77.6 kg 78.4 kg General appearance: PRESENT: no acute distress, obese, well-developed, well- nourished Head exam: PRESENT: atraumatic, normocephalic Eye exam: PRESENT: conjunctiva pink, EOMI, PERRLA. ABSENT: scleral icterus Ear exam: PRESENT: bleeding Mouth exam: PRESENT: moist, tongue midline Neck exam: ABSENT: carotid bruit, JVD, lymphadenopathy, thyromegaly Respiratory exam: PRESENT: clear to auscultation lud[place], decreased breath sounds - bilateral bases. ABSENT: rales, rhonchi, wheezes Cardiovascular exam: PRESENT: RRR. ABSENT: diastolic murmur, rubs, systolic murmur Pulses: PRESENT: normal dorsalis pedis pul Vascular exam: PRESENT: normal capillary refill GI/Abdominal exam: PRESENT: normal bowel sounds, soft. ABSENT: distended, guarding, mass, organolmegaly, rebound, tenderness Rectal exam: PRESENT: deferred Extremities exam: PRESENT: full ROM. ABSENT: calf tenderness, clubbing, pedal edema Musculoskeletal exam: PRESENT: ambulatory Neurological exam: PRESENT: alert, awake, oriented to person, oriented to place , oriented to time, oriented to situation, CN II-XII grossly intact. ABSENT: motor sensory deficit Psychiatric exam: PRESENT: appropriate affect, normal mood. ABSENT: homicidal ideation, suicidal ideation Skin exam: PRESENT: dry, intact, warm. ABSENT: cyanosis, rash Results Laboratory Results: 03/07/18 05:52 03/07/18 05:52 03/07/18 03/07/18 05:52 05:52 WBC 7.7 RBC 3.69 L Hgb 11.0 L Hct 33.3 L MCV 90 MCH 29.7 MCHC 33.0 RDW 14.3 H Plt Count 241 Seg Neutrophils % 73.0 Lymphocytes % 15.2 Monocytes % 7.9 Eosinophils % 3.2 Basophils % 0.7 Absolute Neutrophils 5.7 Absolute Lymphocytes 1.2 Absolute Monocytes 0.6 Absolute Eosinophils 0.3 Absolute Basophils 0.1 Sodium 136.0 L Potassium 4.3 Chloride 105 Carbon Dioxide 23 Anion Gap 8 BUN 11 Creatinine 0.60 Est GFR ( Amer) > 60 Est GFR (Non-Af Amer) > 60 Glucose 99 Calcium 9.2 Magnesium 1.8 03/02/18 08:30 Blood Blood Culture - Final NO GROWTH IN 5 DAYS 03/02/18 05:30 Blood Blood Culture - Final NO GROWTH IN 5 DAYS 03/01/18 03/01/18 03/02/18 23:13 23:13 05:30 Creatine Kinase 201 H 215 H CK-MB (CK-2) 0.90 Troponin I 0.139 03/02/18 03/02/18 03/02/18 05:30 10:59 10:59 Creatine Kinase 213 H CK-MB (CK-2) 0.78 1.40 Troponin I 0.306 0.136 Impressions: Head CT 03/01/18 20:16 IMPRESSION: MILD CHRONIC CHANGES OF ATROPHY AND MICROVASCULAR ISCHEMIA. NO ACUTE PROCESS. EVIDENCE OF ACUTE STROKE: NO. Chest X-Ray 03/01/18 20:17 IMPRESSION: CARDIAC ENLARGEMENT. VASCULAR CONGESTION. Transfer Plan - Disposition Transfer Plan: Return to [facility] - Time Spent with Patient Time spent with patient: Less than 30 Minutes Qualifiers - * PATEINT BEING DISCHARGED WITH ANY OF THE FOLLOWING DIAGNOSIS?: No
[2018-03-07 16:23] VITALS: BP 121/47
== END 2018-03-07 20:34 | DRG 871 ==
LOC: ER 20:02 → EH 22:55 → 3W 03-02 05:08
PROVIDERS: ADMIT Internal Medicine; ATTEND Internal Medicine
PROC: 5A09457 Assistance with Respiratory Ventilation, 24-96 Consecutive Hours, Continuous Positive Airway Pressure (ICD-10-PCS; principal; 2018-03-01)
DX: A41.51 Sepsis due to Escherichia coli [E. coli] (principal); I21.A1 Myocardial infarction type 2; I50.33 Acute on chronic diastolic (congestive) heart failure; G93.41 Metabolic encephalopathy; N39.0 Urinary tract infection, site not specified; N17.9 Acute kidney failure, unspecified; I16.0 Hypertensive urgency; B96.20 Unspecified Escherichia coli [E. coli] as the cause of diseases classified elsewhere; G50.0 Trigeminal neuralgia; I11.0 Hypertensive heart disease with heart failure; E87.6 Hypokalemia; I48.0 Paroxysmal atrial fibrillation; G47.33 Obstructive sleep apnea (adult) (pediatric); E78.5 Hyperlipidemia, unspecified; M19.90 Unspecified osteoarthritis, unspecified site; F32.9 Major depressive disorder, single episode, unspecified; Z85.828 Personal history of other malignant neoplasm of skin; Z66 Do not resuscitate; Z82.49 Family history of ischemic heart disease and other diseases of the circulatory system; Z88.2 Allergy status to sulfonamides; K59.00 Constipation, unspecified
CPT/HCPCS: 36415; 51701; 70450; 71045; 80048; 80053; 81001; 82550; 82553; 82803; 82962; 83605; 83690; 83735; 83880; 84484; 85025; 85610; 87040; 87077; 87086; 87088; 87186; 93005; 93010; 94660; 96365; 96368; 96375; 99291; G8978-GP; G8979-GP; J0360; J0696; J1940; J1956; J2060; J2270; J3480; J3490; J7030

== ENCOUNTER 2018-03-20 00:02 | Inpatient (IN) | payer MEDICARE, OTHER ==
[2018-03-20] MEDS ORDERED: IBUPROFEN 600 MG TABLET PO ONE (00:27)
[2018-03-20] MEDS ORDERED: NORMAL SALINE 1000 ML 1,000 ML IV ONE (00:35)
[2018-03-20 00:56] LABS: HEMATOCRIT 32.2 % (36.0-47.0); HEMOGLOBIN 10.8 g/dL (12.0-15.5); MEAN CORPUSCULAR HEMOGLOBIN 29.9 pg (27.0-33.4); MEAN CORPUSCULAR HGB CONC 33.5 g/dL (32.0-36.0); MEAN CORPUSCULAR VOLUME 89 fl (80-97); PLATELET COUNT 112 10^3/uL (150-450); RED BLOOD COUNT 3.61 10^6/uL (3.72-5.28); RED CELL DISTRIBUTION WIDTH 14.6 % (11.5-14.0); WHITE BLOOD COUNT 9.8 10^3/uL (4.0-10.5)
[2018-03-20] MEDS ORDERED: ACETAMINOPHEN 650 MG SUPP.RECT PR ONE (01:00)
[2018-03-20 01:02] LABS: AMORPHOUS SEDIMENT,URINE TRACE /HPF; APPEARANCE,URINE CLOUDY; BILIRUBIN,URINE NEGATIVE (NEGATIVE); COLOR,URINE AMBER; GLUCOSE, URINE NEGATIVE (NEGATIVE); KETONES,URINE NEGATIVE (NEGATIVE); LEUKOCYTE ESTERASE,URINE LARGE (NEGATIVE); NITRITE,URINE NEGATIVE (NEGATIVE); PROTEIN,URINE 100 mg/dL (NEGATIVE); URINE SPECIFIC GRAVITY 1.012; UROBILINOGEN,URINE NEGATIVE mg/dL (<2.0)
--- NOTE | 2018-03-20 01:08 | ER Document Report ---
ED Fever - General Chief Complaint: Fever Stated Complaint: FEVER Time Seen by Provider: 03/20/18 00:22 Mode of Arrival: Medic Information source: Emergency Med Personnel, Outside Facility Records TRAVEL OUTSIDE OF THE [place] IN LAST 30 DAYS: No - HPI Patient complains to provider of: Fever Onset: This evening Context: Cough Similar symptoms previously: Yes Recently seen / treated by doctor: Yes Notes: Patient is an 82-year-old female sent from local [facility] care facility for complaints of fever with altered mental status, patient was diagnosed with a urinary tract infection and received some Rocephin today at the [facility], however this evening her fever shot up to 105 and she has a change in mental status as well prompting the staff there to send her to the emergency room for evaluation, patient is able to answer simple yes or no questions but other than that can provide no further details of her current condition - Related Data Allergies/Adverse Reactions: ANDREY Inhibitors [Andrey Inhibitors] Allergy (Severe, Verified 12/14/15 13:56) Swelling of tongue,throat,lips,mouth Sulfa (Sulfonamide Antibiotics) Allergy (Mild, Verified 08/20/15 11:03) rash Past Medical History - General Information source: Outside Facility Records - Social History Smoking Status: Unknown if Ever Smoked Chew tobacco use (# tins/day): No Frequency of alcohol use: None Drug Abuse: None Family History: Arthritis, Hypertension Patient has suicidal ideation: No Patient has homicidal ideation: No - Past Medical History Cardiac Medical History: Reports: Hx Atrial Fibrillation, Hx Congestive Heart Failure, Hx Hypercholesterolemia, Hx Hypertension Denies: Hx Heart Attack Pulmonary Medical History: Reports: Hx Sleep Apnea Denies: Hx Asthma Neurological Medical History: Denies: Hx Cerebrovascular Accident, Hx Seizures Renal/ Medical History: Denies: Hx Peritoneal Dialysis Malignancy Medical History: Reports: Hx Skin Cancer GI Medical History: Denies: Hx Hepatitis, Hx Hiatal Hernia, Hx Ulcer Musculoskeltal Medical History: Reports Hx Arthritis Psychiatric Medical History: Reports: Hx Depression Infectious Medical History: Denies: Hx Hepatitis Past Surgical History: Reports: Hx Genitourinary Surgery - bladder, Hx Gynecologic Surgery, Hx Hysterectomy, Hx Orthopedic Surgery - L knee. Denies: Hx Mastectomy, Hx Open Heart Surgery, Hx Pacemaker - Immunizations Hx Diphtheria, Pertussis, Tetanus Vaccination: No Hx Pneumococcal Vaccination: 12/02/14 Review of Systems - Review of Systems -: Yes ROS unobtainable due to patient's medical condition Constitutional: Fever EENT: No symptoms reported Cardiovascular: No symptoms reported Respiratory: Cough Gastrointestinal: No symptoms reported Genitourinary: See HPI Female Genitourinary: No symptoms reported Musculoskeletal: No symptoms reported Skin: No symptoms reported Hematologic/Lymphatic: No symptoms reported Neurological/Psychological: Confusion -: Yes All other systems reviewed and negative Physical Exam - Vital signs Vitals: Temp Pulse Resp BP Pulse Ox 103.4 F H 93 24 H 153/92 H 92 03/20/18 00:03 03/20/18 00:03 03/20/18 00:03 03/20/18 00:03 03/20/18 00:03 Interpretation: Febrile - General General appearance: Appears well, Alert - HEENT Head: Normocephalic, Atraumatic Eyes: Normal Pupils: PERRL - Respiratory Respiratory status: Tachypnea Chest status: Nontender Breath sounds: Nonproductive cough, Rhonchi Chest palpation: Normal - Cardiovascular Rhythm: Regular Heart sounds: Normal auscultation Murmur: No - Abdominal Inspection: Normal Distension: No distension Bowel sounds: Normal Tenderness: Nontender Organomegaly: No organomegaly - Back Back: Normal, Nontender - Extremities General upper extremity: Normal inspection, Nontender, Normal color, Normal ROM , Normal temperature General lower extremity: Normal inspection, Nontender, Normal color, Normal ROM , Normal temperature. No: Tessie's sign - Neurological Cognition: Confused [place] Coma Scale Eye Opening: Spontaneous [place] Coma Scale Verbal: Confused [place] Coma Scale Motor: Withdraws to Pain [place] Coma Scale Total: 12 Motor strength normal: LUE, RUE, LLE, RLE Additional motor exam normals: Involuntary movements - Rigors Sensory: Normal - Skin Skin Temperature: Warm Skin Moisture: Dry Skin Color: Normal Course - Re-evaluation Re-evalutation: 03/20/18 03:49 Patient much more awake and alert on reevaluation, temperature is coming down, vital signs are stable, imaging findings unremarkable, labs consistent with urinary tract infection, patient discussed with the hospitalist who agrees to admit for further evaluation and treatment - Vital Signs Vital signs: Temp Pulse Resp BP Pulse Ox 105.5 F H 94 17 147/59 H 95 03/20/18 01:11 03/20/18 00:21 03/20/18 02:02 03/20/18 02:02 03/20/18 02:02 - Laboratory Result Diagrams: 03/20/18 00:40 03/20/18 00:40 Laboratory results interpreted by me: 03/20/18 03/20/18 03/20/18 00:40 00:40 00:40 RBC 3.61 L Hgb 10.8 L Hct 32.2 L RDW 14.6 H Plt Count 112 L Seg Neuts % (Manual) 86 H Lymphocytes % (Manual) 3 L Abs Neuts (Manual) 8.8 H Abs Lymphs (Manual) 0.3 L Potassium 2.8 L* Est GFR ( Amer) 55 L Est GFR (Non-Af Amer) 46 L Glucose 137 H Calcium 8.3 L Magnesium 1.5 L Direct Bilirubin 0.6 H Total Protein 6.1 L Albumin 3.2 L Urine Protein Urine Blood Ur Leukocyte Esterase 03/20/18 00:41 RBC Hgb Hct RDW Plt Count Seg Neuts % (Manual) Lymphocytes % (Manual) Abs Neuts (Manual) Abs Lymphs (Manual) Potassium Est GFR ( Amer) Est GFR (Non-Af Amer) Glucose Calcium Magnesium Direct Bilirubin Total Protein Albumin Urine Protein 100 H Urine Blood SMALL H Ur Leukocyte Esterase LARGE H - Diagnostic Test Radiology reviewed: Image reviewed, Reports reviewed Discharge - Discharge Clinical Impression: Hypomagnesemia, Hypokalemia Urinary tract infection Qualifiers: Urinary tract infection type: site unspecified Hematuria presence: without hematuria Qualified Code(s): N39.0 - Urinary tract infection, site not specified Condition: Fair Disposition: ADMITTED INPATIENT Admitting Provider: Hospitalist Unit Admitted: Telemetry
[2018-03-20 01:09] LABS: ALANINE AMINOTRANSFERASE 25 U/L (9-52); ALBUMIN 3.2 g/dL (3.5-5.0); ALKALINE PHOSPHATASE 55 U/L (38-126); ASPARTATE AMINO TRANSFERASE 23 U/L (14-36); BILIRUBIN,DIRECT 0.6 mg/dL (0.0-0.4); BILIRUBIN,TOTAL 0.6 mg/dL (0.2-1.3); BLOOD UREA NITROGEN 19 mg/dL (7-20); CALCIUM 8.3 mg/dL (8.4-10.2); CARBON DIOXIDE 29 mmol/L (22-30); CHLORIDE 98 mmol/L (98-107); GLUCOSE 137 mg/dL (75-110); TOTAL PROTEIN 6.1 g/dL (6.3-8.2)
[2018-03-20] MEDS ORDERED: PIPERACILLIN/TAZOBACTAM 3.375 GM VIAL IV ONE (01:09)
[2018-03-20 01:23] LABS: POTASSIUM 2.8 mmol/L (3.6-5.0)
[2018-03-20 01:24] LABS: ANION GAP 14 (5-19); SODIUM 141.1 mmol/L (137-145)
[2018-03-20 01:29] LABS: ABSOLUTE LYMPHOCYTES# (MANUAL) 0.3 10^3/uL (0.5-4.7); ABSOLUTE MONOCYTES # (MANUAL) 0.7 10^3/uL (0.1-1.4); ABSOLUTE NEUTROPHILS# (MANUAL) 8.8 10^3/uL (1.7-8.2); BAND NEUTROPHILS % (MANUAL) 4 % (3-5); BASOPHILS % (MANUAL) 0 % (0-2); EOSINOPHILS % (MANUAL) 0 % (0-6); LYMPHOCYTES % (MANUAL) 3 % (13-45); MONOCYTES % (MANUAL) 7 % (3-13); SEGMENTED NEUTROPHILS % (MAN) 86 % (42-78); TOTAL CELLS COUNTED 100
[2018-03-20 01:31] LABS: PLATELET COMMENT DECREASED; PLATELET GIANT PRESENT; PLATELET LARGE PRESENT
[2018-03-20 01:32] LABS: RBC MORPHOLOGY COMMENT NORMO-CYTIC/CHROMIC; TOXIC GRANULATION 1+; TOXIC VACUOLATION PRESENT
--- NOTE | 2018-03-20 01:56 | RADIOLOGY REPORT (SQ) ---
EXAM DESCRIPTION: CHEST 2 VIEWS CLINICAL HISTORY: fever COMPARISON: 03/01/2018 FINDINGS: Frontal and lateral views of the chest. Atherosclerotic calcification and tortuosity of thoracic aorta. Cardiomegaly. Low lung volumes. Leads overlie the chest. No consolidation, pneumothorax, or pleural effusion. Degenerative change of the spine. Upper abdominal soft tissues are unremarkable. IMPRESSION: 1. No acute pulmonary process identified. Low lung volumes.
[2018-03-20] MEDS ORDERED: MAGNESIUM SULFATE/D5W 1 GM/100 ML RTUPB IV SCH ×2 (02:00→09:30)
--- NOTE | 2018-03-20 02:08 | RADIOLOGY REPORT (SQ) ---
EXAM DESCRIPTION: CT HEAD WITHOUT CLINICAL HISTORY: ams COMPARISON: 03/01/2018 TECHNIQUE: Axial CT of the head obtained from the skull apex to the skull base without contrast. FINDINGS: No acute intracranial hemorrhage identified. No mass, mass effect, shift of the midline, abnormal extra-axial fluid collection or CT evidence of acute ischemic change identified. The ventricular system and sulcal spaces are mildly enlarged compatible with mild cerebral atrophy. Scattered areas of hypodensity throughout the supratentorial white matter are nonspecific and may be related to chronic small vessel ischemic change. The visualized paranasal sinuses and the mastoids are clear. No skull fracture identified. Visualized orbits and globes are unremarkable. Atherosclerotic calcification of the intracranial internal carotid arteries. DLP:363.96 mGy-cm IMPRESSION: 1. No acute intracranial abnormality by CT criteria. This exam was performed according to our departmental dose-optimization program, which includes automated exposure control, adjustment of the mA and/or kV according to patient size and/or use of iterative reconstruction technique.
[2018-03-20] MEDS ORDERED: ALBUTEROL SULFATE 0.083% NEB 2.5 MG/3 ML AMPUL NEB PRN (02:40)
[2018-03-20] MEDS ORDERED: PROMETHAZINE HCL INJ 25 MG/1 ML VIAL IV PRN (02:40)
[2018-03-20] MEDS ORDERED: PIPERACILLIN/TAZOBACTAM 3.375 GM VIAL IV PRN (03:02)
[2018-03-20] MEDS: POTASSI CL 20 MEQ/50 ML RIDER 20 MEQ/50 ML RTUPB IV SCH ×3 (03:59→10:41)
[2018-03-20] MEDS ORDERED: PIPERACILLIN SODIUM/TAZOBACTAM 3.375 GM in NORMAL SALINE 100 ML IV SCH (06:00)
--- NOTE | 2018-03-20 06:49 | PDOC H&P ---
History of Present Illness Admission Date/PCP: 03/20/18 02:34 Patient complains of: Altered mental status and fever today. History of Present Illness: CHELSEY OTTO is a 82 year old female with history of NSTEMI (omn 03/2018), chronic diastolic CHF, A. fib (on Eliquis since 01/2018), chronic respiratory failure (on 2 L home oxygen since 01/2018), GURMEET (not on CPAP) and recurrent UTIs was sent from rehab center with above-mentioned complaints. The patient was last hospitalized here from 03/02/2018 to 03/07/2018 for non-STEMI, UTI and acute renal failure and she was discharged to SNF. Most of the history which was limited was obtained from the ED physician/notes and her son at bedside. According to her son, the patient was more confused and lethargic last night. She also was nauseous and vomited once. According to the ED note, the patient was diagnosed with UTI and was given on dose of Rocephin in AM. However, this evening she spiked a fever of 105 and she had altered mental status so she was sent to the ED for further evaluation and treatment. The patient currently denies any chest pain, shortness of breath, cough, abdominal pain or any diarrhea or constipation. She also denies any dysuria, hematuria or increased frequency or urgency. She feels generally weak since she is severely deconditioned after her long and repeat recent hospitalizations. In the ED, her temperature was 103.4 (105.5 rectally), heart rate 93, respiratory rate 24, blood pressure 153/92 with oxygen saturation of 92% on 2 L nasal cannula. Her WBC was 9.8 and her hemoglobin was 10.8. Her potassium was 2.8 and her magnesium was 1.5. UA was positive. A chest x-ray and CAT scan of the head were done which were unremarkable. She received 3.375 mg and Zosyn 1 , 20 mEq KCl (1 of 3), 1 mg IV magnesium sulfate (1 of 2) and 1 L of normal saline. A otto catheter was placed in the ED. Past Medical History Medical History: Other - According to patient and son and based on previous records. E coli sepsis. Cardiac Medical History: Reports: Atrial Fibrillation - on eliquis., Congestive Heart Failure - on 2L home oxygen., Hyperlipidema, Hypertension Denies: Myocardial Infarction Pulmonary Medical History: Reports: Sleep Apnea Denies: Asthma Neurological Medical History: Reports: Other - trigeminal neuralgia. Denies: Seizures Renal/ Medical History: Reports: Other - recurrent UTIs. Malignancy Medical History: Reports: Cervical Cancer, Skin Cancer GI Medical History: Denies: Hepatitis, Hiatal Hernia Musculoskeltal Medical History: Reports: Arthritis Psychiatric Medical History: Reports: Depression Hematology: Denies: Anemia, Sickle Cell Disease Infectious Medical History: Reports: Other Past Surgical History Past Surgical History: Reports: Hysterectomy, Orthopedic Surgery - L knee, Other - bladder tuck: R corneal implant. Denies: Amputation, Mastectomy, Pacemaker Social History Smoking Status: Never Smoker Frequency of Alcohol Use: None Hx Recreational Drug Use: No Drugs: None Hx Prescription Drug Abuse: No - Advance Directive Resuscitation Status: Do Not Resuscitate Family History Family History: Arthritis, Hypertension Parental Family History Reviewed: Yes - Mother: Heart disease. Children Family History Reviewed: No Sibling(s) Family History Reviewed.: Yes Medication/Allergy Home Medications: Acetaminophen [Tylenol 325 mg Tablet] 650 mg PO Q4HP PRN 03/02/18 Aspirin [Aspirin EC] 81 mg PO DAILY 03/02/18 Carbamazepine [Tegretol 200 Mg Tablet] 400 mg PO Q8@0000,0800,1600 03/02/18 Clonidine HCl [Catapres 0.2 mg Tablet] 0.2 mg PO Q12 03/02/18 Cyclosporine 0.05% Oph Emulsio [Restasis 0.05% Oph Emulsion Pf 0.4 ml] 1 drop OU Q12 03/02/18 Docusate Sodium [Colace 100 mg Capsule] 100 mg PO BID 03/02/18 Dronedarone Hydrochloride [Multaq 400 mg Tablet] 400 mg PO Q12 03/02/18 Fenofibrate Nanocrystallized [Tricor 48 mg Tablet] 48 mg PO QHS 03/02/18 Furosemide [Lasix 20 mg Tablet] 20 mg PO QAM 03/02/18 Hydralazine HCl [Apresoline 25 mg Tablet] 25 mg PO Q8 03/02/18 Metaxalone [Skelaxin 800 mg Tablet] 800 mg PO Q8 03/02/18 Oxycodone HCl [Oxy-Ir 5 mg Tablet] 10 mg PO Q6HP PRN 03/02/18 Pantoprazole Sodium [Protonix] 40 mg PO Q6AM 03/02/18 Polyethylene Glycol 3350 [Miralax Powder 17 gm/Packet] 1 packet PO DAILY Prednisolone Acetate [Pred Forte] 1 drop OD Q6 03/02/18 Pregabalin [Lyrica 50 mg Capsule] 50 mg PO Q8 03/02/18 Sertraline HCl [Zoloft 50 mg Tablet] 50 mg PO DAILY 03/02/18 Apixaban [Eliquis 5 mg Tablet] 5 mg PO BID tablet 03/07/18 Carvedilol [Coreg 6.25 mg Tablet] 6.25 mg PO Q12 tablet 03/07/18 Cefuroxime Axetil [Ceftin 500 mg Tablet] 500 mg PO BID #12 tablet 03/07/18 Hydralazine HCl [Apresoline 50 mg Tablet] 100 mg PO Q8 tablet 03/07/18 Oxycodone HCl [Oxy-Ir 5 mg Tablet] 5 mg PO Q6HP PRN #20 tablet 03/07/18 Polyethylene Glycol 3350 [Miralax Powder 17 gm/Packet] 17 gm PO DAILY powd.pack 03/07/18 Allergies/Adverse Reactions: ANDREY Inhibitors [Andrey Inhibitors] Allergy (Severe, Verified 12/14/15 13:56) Swelling of tongue,throat,lips,mouth Sulfa (Sulfonamide Antibiotics) Allergy (Mild, Verified 08/20/15 11:03) rash Review of Systems ROS unobtainable: Other - Pertinent positives and negatives as detailed in the HPI. Physical Exam Vital Signs: Temp Pulse Resp BP Pulse Ox 105.5 F H 94 17 147/59 H 95 03/20/18 01:11 03/20/18 00:21 03/20/18 02:02 03/20/18 02:02 03/20/18 02:02 General appearance: PRESENT: no acute distress, obese Head exam: PRESENT: atraumatic, normocephalic Eye exam: PRESENT: PERRLA Mouth exam: PRESENT: dry mucosa Neck exam: PRESENT: full ROM. ABSENT: JVD Respiratory exam: PRESENT: clear to auscultation ludivina. ABSENT: rales, rhonchi, wheezes Cardiovascular exam: PRESENT: +S1, +S2, other - irregular heart beat. Pulses: PRESENT: normal dorsalis pedis pul GI/Abdominal exam: PRESENT: normal bowel sounds, soft. ABSENT: distended, rebound, tenderness Rectal exam: PRESENT: deferred Extremities exam: ABSENT: pedal edema Musculoskeletal exam: PRESENT: other - able to move all 4 extremities.. ABSENT : full ROM Neurological exam: PRESENT: alert, altered, awake, oriented to person, oriented to place, motor sensory deficit - Motor 3+ thoughout , no sensory deficit. No Babinski or clonus, gait was not assessed. Results Laboratory Results: CBC: WBC 9.8, hemoglobin 10.8, hematocrit 32.2, MCV 89, RDW 14.6, platelets 112. BMP: Sodium 141, potassium 2.8, chloride 98, bicarb 29, anion gap 14, BUN 19, creatinine 1.14, glucose 137, lactic acid 0.9, calcium 8.3, magnesium 1.5. UA: positive. Impressions: Chest X-Ray 03/20/18 00:26 IMPRESSION: 1. No acute pulmonary process identified. Low lung volumes. Head CT 03/20/18 00:36 IMPRESSION: 1. No acute intracranial abnormality by CT criteria. This exam was performed according to our departmental dose-optimization program, which includes automated exposure control, adjustment of the mA and/or kV according to patient size and/or use of iterative reconstruction technique. Assessment & Plan - Diagnosis (1) Sepsis Qualifiers: Sepsis type: sepsis due to unspecified organism Qualified Code(s): A41.9 - Sepsis, unspecified organism Is this a current diagnosis for this admission?: Yes Plan: by criteria given leukocytosis (prior to admission) and fever in the setting of UTI, however the patient does not look clinically septic. Will continue Zosyn for now and follow-up cultures. Lactic acid was 0.9. On reviewing previous urine and blood cultures, they all grew E. coli sensitive to almost all antibiotics. (2) Hypokalemia Is this a current diagnosis for this admission?: Yes Plan: Will continue to replace as indicated. (3) Hypomagnesemia Is this a current diagnosis for this admission?: Yes Plan: Will replace as indicated. (4) Atrial fibrillation Is this a current diagnosis for this admission?: No Plan: Rate controlled. Will continue Eliquis started during her hospitalization in 2017. (5) Essential hypertension Is this a current diagnosis for this admission?: Yes Plan: Will resume some of her BP medications until her medications' list is clarified by pharmacy. (6) NSTEMI (non-ST elevated myocardial infarction) Is this a current diagnosis for this admission?: No Plan: history of NSTEMI during her last hospitalization on 03/02/2018. Will resume her medication once clarified by pharmacy. - Time Time Spent: Greater than 70 Minutes - Inpatient Certification Based on my medical assessment, after consideration of the patient's comorbidities, presenting symptoms, or acuity I expect that the services needed warrant INPATIENT care.: Yes I certify that my determination is in accordance with my understanding of Medicare's requirements for reasonable and necessary INPATIENT services [42 CFR 412.3e].: Yes
[2018-03-20] MEDS ORDERED: POTASSI CL 20 MEQ/50 ML RIDER 20 MEQ/50 ML RTUPB IV ONE (10:00)
[2018-03-20] MEDS ORDERED: APIXABAN 5 MG TABLET PO SCH (10:00)
[2018-03-20] MEDS: CARVEDILOL 6.25 MG TABLET PO SCH ×2 (10:31→21:46)
[2018-03-20] MEDS: CARBAMAZEPINE 200 MG TABLET PO SCH ×2 (10:37→15:42)
[2018-03-20] MEDS: FUROSEMIDE 20 MG TABLET PO SCH (10:39)
[2018-03-20] MEDS: APIXABAN 5 MG TABLET PO SCH ×2 (10:40→21:45)
[2018-03-20] MEDS: 1/2 NORMAL SALINE 1,000 ML IV PRN (10:40)
[2018-03-20] MEDS: SERTRALINE HCL 50 MG TABLET PO SCH (10:40)
[2018-03-20] MEDS: DRONEDARONE HYDROCHLORIDE 400 MG TABLET PO SCH ×2 (10:40→21:45)
[2018-03-20] MEDS: PIPERACILLIN SODIUM/TAZOBACTAM 3.375 GM in NORMAL SALINE 100 ML IV SCH ×3 (10:40→21:47)
[2018-03-20] MEDS: ASPIRIN 81 MG TABLET, ENT COATED PO SCH (10:40)
[2018-03-20] MEDS ORDERED: MAGNESIUM SULFATE/D5W 1 GM/100 ML RTUPB IV ONE (13:33)
--- NOTE | 2018-03-20 16:46 | RADIOLOGY REPORT (SQ) ---
EXAM DESCRIPTION: CT ABD/PELVIS NO ORAL OR IV COMPLETED DATE/TIME: 03/20/2018 4:28 pm REASON FOR STUDY: r/o kidney stone COMPARISON: Chest x-ray dated 03/01/2018 TECHNIQUE: CT scan of the abdomen and pelvis performed without intravenous or oral contrast. Images reviewed with lung, soft tissue, and bone windows. Reconstructed coronal and sagittal MPR images revi ewed. All images stored on PACS. All CT scanners at this facility use dose modulation, iterative reconstruction, and/or weight based d osing when appropriate to reduce radiation dose to as low as reasonably achievable (ALARA). [facility]: Dose Right [facility]: CareDose [facility]: Dose Right [facility]: Teradose 4D [facility]: Smart BackerKit RADIATION DOSE: mGy. LIMITATIONS: None. FINDINGS: LOWER CHEST: A 2.9 cm in diameter lateral pleural-based cavitary mass is identified in the right lower hemithorax. The differential possibilities would include a lung abscess versus a cavita ry mass lesion. A tiny right pleural effusion is identified. There is some minimal airspace consoli dation in the lung bases posteriorly most consistent with atelectatic changes although I cannot exclu de minimal pneumonic infiltrates. NON-CONTRASTED LIVER, SPLEEN, ADRENALS: Evaluation limited by lack of IV contrast. No identified sign ificant masses. PANCREAS: No masses. No peripancreatic inflammatory changes. GALLBLADDER: No identified stones by CT criteria. No inflammatory changes to suggest cholecystitis. RIGHT KIDNEY AND URETER: There is compensatory hypertrophy of the right kidney. No suspicious masses . Assessment limited by lack of IV contrast. No significant calcifications. No hydronephrosis or hydroureter. LEFT KIDNEY AND URETER: Atrophic appearing left kidney is identified. No suspicious masses. Assessm ent limited by lack of IV contrast. No significant calcifications. No hydronephrosis or hydrouret er. AORTA AND RETROPERITONEUM: No aneurysm. No retroperitoneal masses or adenopathy. BOWEL AND PERITONEAL CAVITY: No obvious masses or inflammatory changes. No free fluid. APPENDIX: Not identified PELVIS, BLADDER, AND ABDOMINAL WALL:No abnormal masses. No free fluid. Bladder is in a decompressed state with Orantes catheter being identified. Umbilical hernia is identified containing fat. BONES: No significant findings. OTHER: No other significant finding. IMPRESSION: 2.9 cm in diameter are lateral pleural base cavitary mass in the right lower hemithorax as noted above. The differential possibilities would include a lung abscess versus is a cavitary mas s lesion. Fat containing umbilical hernia. Atrophic left kidney with compensatory hypertrophy of th e right kidney Orantes catheter in the bladder. Other findings as noted above COMMENT: Quality ID # 436: Final reports with documentation of one or more dose reduction techniques (e.g., Automated exposure control, adjustment of the mA and/or kV according to patient size, use of iterative reconstruction technique) TECHNICAL DOCUMENTATION: JOB ID: [id number] 2033 [employer]- All Rights Reserved Reading location - IP/workstation name: [email or web address]
[2018-03-20] MEDS ORDERED: OXYCODONE HCL IR 5 MG TABLET PO PRN (17:23)
--- NOTE | 2018-03-20 17:28 | Progress Note ---
Provider Note Provider Note: Patient seen this morning on rounds. She has no complaints during my assessment. She is sleeping, but arousable and answers all questions appropriately. Her son is at the bedside. Home medications restarted. Blood and urine cultures are POSITIVE for Gram negative Rods. She is adequately covered with IV Zosyn. Will narrow antibiotic spectrum once sensitivities are resulted. Agree with ship keeper plan of care.
[2018-03-20] MEDS: PREDNISOLONE ACETATE 1% OPH SUSP 5 ML OD SCH (21:43)
[2018-03-20] MEDS: CYCLOSPORINE 0.05% OPH EMULSIO 0.4 ML DROPERETTE OU SCH (21:44)
[2018-03-20] MEDS: CLONIDINE HCL 0.2 MG TABLET PO SCH (21:45)
[2018-03-20] MEDS: PREGABALIN 50 MG CAPSULE PO SCH (21:46)
[2018-03-20] MEDS: HYDRALAZINE HCL 25 MG TABLET PO SCH (21:47)
[2018-03-20] MEDS: FENOFIBRATE NANOCRYSTALLIZED 48 MG TABLET PO SCH (21:49)
[2018-03-21] MEDS: PREDNISOLONE ACETATE 1% OPH SUSP 5 ML OD SCH ×4 (01:34→17:00)
[2018-03-21] MEDS: CARBAMAZEPINE 200 MG TABLET PO SCH ×3 (01:36→17:00)
[2018-03-21] MEDS: PIPERACILLIN SODIUM/TAZOBACTAM 3.375 GM in NORMAL SALINE 100 ML IV SCH ×4 (04:53→22:49)
[2018-03-21] MEDS: ACETAMINOPHEN 325 MG TABLET PO PRN (04:53)
[2018-03-21] MEDS: HYDRALAZINE HCL 25 MG TABLET PO SCH ×3 (06:28→22:52)
[2018-03-21] MEDS: PREGABALIN 50 MG CAPSULE PO SCH ×3 (06:28→22:52)
[2018-03-21] MEDS: LANSOPRAZOLE 30 MG TAB.RAP.DR PO SCH (06:28)
[2018-03-21 06:45] LABS: HEMATOCRIT 26.8 % (36.0-47.0); MEAN CORPUSCULAR HEMOGLOBIN 29.6 pg (27.0-33.4); MEAN CORPUSCULAR HGB CONC 33.6 g/dL (32.0-36.0); MEAN CORPUSCULAR VOLUME 88 fl (80-97); RED BLOOD COUNT 3.04 10^6/uL (3.72-5.28); RED CELL DISTRIBUTION WIDTH 14.9 % (11.5-14.0); WHITE BLOOD COUNT 7.6 10^3/uL (4.0-10.5)
[2018-03-21 06:54] LABS: ANION GAP 11 (5-19); BLOOD UREA NITROGEN 11 mg/dL (7-20); CALCIUM 7.8 mg/dL (8.4-10.2); CARBON DIOXIDE 25 mmol/L (22-30); CHLORIDE 103 mmol/L (98-107); GLUCOSE 104 mg/dL (75-110); POTASSIUM 3.1 mmol/L (3.6-5.0); SODIUM 139.2 mmol/L (137-145)
[2018-03-21 07:13] LABS: PLATELET COUNT 97 10^3/uL (150-450)
[2018-03-21] MEDS ORDERED: POTASSIUM CHLORIDE 10 MEQ TABLET.SA PO ONE (08:15)
[2018-03-21] MEDS: SERTRALINE HCL 50 MG TABLET PO SCH (10:04)
[2018-03-21] MEDS: ASPIRIN 81 MG TABLET, ENT COATED PO SCH (10:04)
[2018-03-21] MEDS: CLONIDINE HCL 0.2 MG TABLET PO SCH ×2 (10:05→22:52)
[2018-03-21] MEDS: CARVEDILOL 6.25 MG TABLET PO SCH ×2 (10:05→22:51)
[2018-03-21] MEDS: DRONEDARONE HYDROCHLORIDE 400 MG TABLET PO SCH ×2 (10:05→22:51)
[2018-03-21] MEDS: CYCLOSPORINE 0.05% OPH EMULSIO 0.4 ML DROPERETTE OU SCH ×2 (10:06→22:50)
--- NOTE | 2018-03-21 10:11 | RADIOLOGY REPORT (SQ) ---
EXAM DESCRIPTION: CT CHEST WITHOUT COMPLETED DATE/TIME: 03/21/2018 9:33 am REASON FOR STUDY: cavitary lung lesion COMPARISON: CT abdomen dated 03/20/2018. Chest x-ray dated 03/20/2018, 03/01/2018, and 02/06/2018. TECHNIQUE: CT scan performed of the chest without intravenous contrast. Images reviewed with lung, soft tissue and bone windows. Reconstructed coronal and sagittal MPR images reviewed. All images st ored on PACS. All CT scanners at this facility use dose modulation, iterative reconstruction, and/or weight based d osing when appropriate to reduce radiation dose to as low as reasonably achievable (ALARA). [facility]: Dose Right [facility]: CareDose [facility]: Dose Right [facility]: Teradose 4D [facility]: Smart Smartsy RADIATION DOSE: CT Rad equipment meets quality standard of care and radiation dose reduction techniq ues were employed. CTDIvol: 8.5 - 9.2 mGy. DLP: 395 mGy-cm. mGy. LIMITATIONS: No technical limitations. FINDINGS: LUNGS AND PLEURA: Irregular density in the peripheral subpleural right middle lobe, measur ing 2.5 cm in diameter. A few areas of radiolucency appear to be due to adjacent uninvolved lung par enchyma as opposed to actual cavitation. Subpleural nodular mass in the right lower lobe measuring 6 x 14 mm (axial series 3, image 77). A few calcified granulomas. Small pleural effusions. Bilatera l lower lobe bronchiectasis. HILAR AND MEDIASTINAL STRUCTURES: No identified masses or abnormal nodes. No obvious aneurysm. HEART AND VASCULAR STRUCTURES: No aneurysm. No pericardial effusion. UPPER ABDOMEN: No significant findings. The left kidney appears be atrophic although not fully image d. Limited exam. THYROID AND OTHER SOFT TISSUES: No masses. No adenopathy. BONES: No significant finding. HARDWARE: None in the chest. OTHER: No other significant findings. IMPRESSION: 1. IRREGULAR DENSITY IN THE PERIPHERAL SUBPLEURAL RIGHT MIDDLE LOBE DESCRIBED. THIS WAS NOT PRESE NT ON THE PRIOR CHEST X-RAY DATED 02/06/2018. THIS MOST LIKELY REPRESENTS AN AREA OF PNEUMONIA. RADIO LUCENT AREAS WITHIN THIS DENSITY APPEAR TO REPRESENT SMALL AREAS OF UNINVOLVED LUNG AND DO NOT REPRES ENT TRUE CAVITATION. 2. SUBPLEURAL NODULAR MASS IN THE PERIPHERAL RIGHT LOWER LOBE. DIFFERENTIAL INCLUDES INFECTIOUS ETIO LOGY VERSUS SOFT TISSUE MASS. 3. SMALL PLEURAL EFFUSIONS. BRONCHIECTASIS IN BOTH LOWER LOBES. 4. RECOMMEND APPROPRIATE TREATMENT FOR PRESUMED PNEUMONIA WITH FOLLOW-UP CHEST CT IN 6 WEEKS TO DETER MINE IF THE LESIONS IN THE RIGHT LUNG RESPOND TO TREATMENT. TECHNICAL DOCUMENTATION: JOB ID: [id number] Quality ID # [id number]: Final reports with documentation of one or more dose reduction techniques (e.g., Au tomated exposure control, adjustment of the mA and/or kV according to patient size, use of iterative reconstruction technique) 2010 [employer]- All Rights Reserved Reading location - IP/workstation name: [email or web address]
[2018-03-21] MEDS: POLYETHYLENE GLYCOL 3350 POWDER 17 GM/1 PACKET PO SCH (10:15)
[2018-03-21] MEDS: APIXABAN 5 MG TABLET PO SCH ×2 (10:15→22:53)
[2018-03-21] MEDS: 1/2 NORMAL SALINE 1,000 ML IV PRN (13:13)
[2018-03-21] MEDS ORDERED: VANCOMYCIN HCL 0 MG in DEXTROSE 5%-WATER 250 ML IV NR (16:30)
[2018-03-21] MEDS: FENOFIBRATE NANOCRYSTALLIZED 48 MG TABLET PO SCH (22:51)
[2018-03-22] MEDS: CARBAMAZEPINE 200 MG TABLET PO SCH ×3 (00:55→15:01)
[2018-03-22] MEDS: HYDRALAZINE HCL INJ/PF 20 MG/1 ML SDV IV PRN (00:55)
[2018-03-22] MEDS: PREDNISOLONE ACETATE 1% OPH SUSP 5 ML OD SCH ×4 (00:56→17:02)
[2018-03-22] MEDS: VANCOMYCIN HCL 1,250 MG in DEXTROSE 5%-WATER 250 ML IV SCH ×2 (01:58→22:06)
[2018-03-22] MEDS: PIPERACILLIN SODIUM/TAZOBACTAM 3.375 GM in NORMAL SALINE 100 ML IV SCH (05:36)
[2018-03-22] MEDS: HYDRALAZINE HCL 25 MG TABLET PO SCH ×3 (05:36→21:35)
[2018-03-22] MEDS: LANSOPRAZOLE 30 MG TAB.RAP.DR PO SCH (05:36)
[2018-03-22] MEDS: PREGABALIN 50 MG CAPSULE PO SCH ×3 (05:37→21:35)
[2018-03-22] MEDS: CARVEDILOL 6.25 MG TABLET PO SCH ×2 (08:36→21:35)
[2018-03-22] MEDS: CLONIDINE HCL 0.2 MG TABLET PO SCH ×2 (08:37→21:35)
[2018-03-22] MEDS: ASPIRIN 81 MG TABLET, ENT COATED PO SCH (08:37)
[2018-03-22] MEDS: SERTRALINE HCL 50 MG TABLET PO SCH (08:37)
[2018-03-22] MEDS: CYCLOSPORINE 0.05% OPH EMULSIO 0.4 ML DROPERETTE OU SCH ×2 (08:37→21:35)
[2018-03-22] MEDS: DRONEDARONE HYDROCHLORIDE 400 MG TABLET PO SCH ×2 (08:38→21:35)
[2018-03-22] MEDS: APIXABAN 5 MG TABLET PO SCH ×2 (08:38→21:35)
[2018-03-22] MEDS: POLYETHYLENE GLYCOL 3350 POWDER 17 GM/1 PACKET PO SCH (08:48)
[2018-03-22] MEDS: MEROPENEM 1 GM in NORMAL SALINE 50 ML IV SCH ×2 (10:21→21:35)
[2018-03-22 10:53] LABS: ABSOLUTE EOSINOPHILS # (AUTO) 0.1 10^3/uL (0.0-0.6); ABSOLUTE MONOCYTES (AUTO) 0.5 10^3/uL (0.1-1.4); ABSOLUTE NEUT (AUTO) 3.1 10^3/uL (1.7-8.2); BASOPHILS % (AUTO) 0.9 % (0-2); EOSINOPHILS % (AUTO) 1.2 % (0-6); HEMATOCRIT 26.7 % (36.0-47.0); HEMOGLOBIN 8.9 g/dL (12.0-15.5); LYMPHOCYTES % (AUTO) 20.7 % (13-45); MEAN CORPUSCULAR HEMOGLOBIN 29.7 pg (27.0-33.4); MEAN CORPUSCULAR HGB CONC 33.5 g/dL (32.0-36.0); MEAN CORPUSCULAR VOLUME 89 fl (80-97); MONOCYTES % (AUTO) 10.1 % (3-13); SEGMENTED NEUTROPHILS % (AUTO) 67.1 % (42-78); TOTAL CELLS COUNTED % (AUTO) 100 %; WHITE BLOOD COUNT 4.7 10^3/uL (4.0-10.5)
[2018-03-22 11:21] LABS: ANION GAP 8 (5-19); BLOOD UREA NITROGEN 9 mg/dL (7-20); CARBON DIOXIDE 26 mmol/L (22-30); CHLORIDE 104 mmol/L (98-107); GLUCOSE 117 mg/dL (75-110); PHOSPHORUS 2.3 mg/dL (2.5-4.5); POTASSIUM 3.3 mmol/L (3.6-5.0); SODIUM 138.1 mmol/L (137-145)
[2018-03-22 11:28] LABS: PLATELET COUNT 101 10^3/uL (150-450)
--- NOTE | 2018-03-22 12:26 | PDOC PROGRESS REPORT ---
Subjective Progress Note for:: 03/21/18 Subjective:: CHELSEY MCDANIEL is a 82 year old female who was admitted on03/20/2018 for UTI. She has a PMH of NSTEMI, chronic diastolic CHF, A. fib on Eliquis, chronic respiratory failure on 2 L home oxygen, GURMEET, recurrent UTI. Last hospitalized at [facility] from 03/02-03/07/2018 for NSTEMI, UTI and ARF. She was discharged to SNF. Yesterday, her blood and urine cultures grew out GNR, currently awaiting sensitivities. During her previous 2 hospitalizations, the patient's urine has grown out E. coli, but she has never been bacteremic. Additionally, a 2.9 cm lateral pleural based cavitary mass was discovered on CT. Pulmonary has been consulted, awaiting their recommendations. Reason For Visit: FEVER/ELECTROLYTE ABNORMALITIES/UTI. Physical Exam Vital Signs: Temp Pulse Resp BP Pulse Ox 98.5 F 58 L 16 133/59 H 99 03/21/18 11:56 03/21/18 14:00 03/21/18 12:49 03/21/18 11:56 03/21/18 11:56 Intake & Output 03/20/18 03/21/18 03/22/18 06:59 06:59 06:59 Intake Total 1355 Output Total 1825 Balance -470 Weight 76.4 kg General appearance: PRESENT: no acute distress Head exam: PRESENT: atraumatic Eye exam: PRESENT: conjunctiva pink, PERRLA Mouth exam: PRESENT: moist Teeth exam: PRESENT: poor dentation Neck exam: PRESENT: full ROM Respiratory exam: PRESENT: symmetrical, unlabored Pulses: PRESENT: normal radial pulses, normal dorsalis pedis pul Vascular exam: PRESENT: normal capillary refill GI/Abdominal exam: PRESENT: normal bowel sounds, soft. ABSENT: tenderness Rectal exam: PRESENT: deferred Gentrourinary exam: PRESENT: indwelling catheter Extremities exam: PRESENT: full ROM Musculoskeletal exam: PRESENT: ambulatory - with assistance, full ROM Neurological exam: PRESENT: alert, awake, oriented to person, oriented to place , oriented to time, oriented to situation. ABSENT: normal gait Psychiatric exam: PRESENT: appropriate affect Skin exam: PRESENT: intact, normal color, warm Results Laboratory Results: 03/21/18 05:25 03/21/18 05:25 03/20/18 03/21/18 03/21/18 17:50 05:25 05:25 WBC 7.6 RBC 3.04 L Hgb 9.0 L Hct 26.8 L MCV 88 MCH 29.6 MCHC 33.6 RDW 14.9 H Plt Count 97 L Sodium 139.2 Potassium 3.1 L Chloride 103 Carbon Dioxide 25 Anion Gap 11 BUN 11 Creatinine 0.76 Est GFR ( Amer) > 60 Est GFR (Non-Af Amer) > 60 Glucose 104 Lactic Acid 0.8 Calcium 7.8 L Magnesium 1.9 Impressions: Abdomen/Pelvis CT 03/20/18 00:00 IMPRESSION: 2.9 cm in diameter are lateral pleural base cavitary mass in the right lower hemithorax as noted above. The differential possibilities would include a lung abscess versus is a cavitary mass lesion. Fat containing umbilical hernia. Atrophic left kidney with compensatory hypertrophy of the right kidney Mcdaniel catheter in the bladder. Other findings as noted above Chest X-Ray 03/20/18 00:26 IMPRESSION: 1. No acute pulmonary process identified. Low lung volumes. Head CT 03/20/18 00:36 IMPRESSION: 1. No acute intracranial abnormality by CT criteria. This exam was performed according to our departmental dose-optimization program, which includes automated exposure control, adjustment of the mA and/or kV according to patient size and/or use of iterative reconstruction technique. Chest CT 03/21/18 00:00 IMPRESSION: 1. IRREGULAR DENSITY IN THE PERIPHERAL SUBPLEURAL RIGHT MIDDLE LOBE DESCRIBED. THIS WAS NOT PRESENT ON THE PRIOR CHEST X-RAY DATED 02/06/2018. THIS MOST LIKELY REPRESENTS AN AREA OF PNEUMONIA. RADIOLUCENT AREAS WITHIN THIS DENSITY APPEAR TO REPRESENT SMALL AREAS OF UNINVOLVED LUNG AND DO NOT REPRESENT TRUE CAVITATION. 2. SUBPLEURAL NODULAR MASS IN THE PERIPHERAL RIGHT LOWER LOBE. DIFFERENTIAL INCLUDES INFECTIOUS ETIOLOGY VERSUS SOFT TISSUE MASS. 3. SMALL PLEURAL EFFUSIONS. BRONCHIECTASIS IN BOTH LOWER LOBES. 4. RECOMMEND APPROPRIATE TREATMENT FOR PRESUMED PNEUMONIA WITH FOLLOW-UP CHEST CT IN 6 WEEKS TO DETERMINE IF THE LESIONS IN THE RIGHT LUNG RESPOND TO TREATMENT. Status: Imported from PACS Assessment & Plan - Diagnosis (1) Sepsis Qualifiers: Sepsis type: sepsis due to unspecified organism Qualified Code(s): A41.9 - Sepsis, unspecified organism Is this a current diagnosis for this admission?: Yes Plan: Sepsis due to UTI as evidenced by leukocytosis (WBC 12.1 - from lab work done at [facility]), and fever. In the last 3 months the patient has been hospitalized twice for urinary tract infection, the organism is always E. coli Urine and blood cultures from admission growing gram-negative rods, awaiting sensitivities. Continue IV zosyn for GNR coverage until sensitivities result and can narrow antibiotic spectrum. Chest CT completed today to evaluate lung nodule. Demonstrates irregular density in the peripheral subpleural right middle lobe, not present on prior chest x-ray dated 02/06/2018. Could very well represent an area of pneumonia. Given the patient's recent stay at alf facility, will add IV vancomycin to treat for suspected MDR organism. Pulmonology consulted, awaiting their recommendations. (2) UTI (urinary tract infection) Qualifiers: Urinary tract infection type: site unspecified Hematuria presence: without hematuria Qualified Code(s): N39.0 - Urinary tract infection, site not specified Is this a current diagnosis for this admission?: Yes Plan: Patient has a history of recurrent urinary tract infections within the last 3 months. Urine cultures consistently positive for E. coli. Mcdaniel catheter placed in emergency department, no plan to discontinue Antibiotic and culture data listed above (3) Lung mass Is this a current diagnosis for this admission?: Yes Plan: New lung mass present on CT, not previously seen on chest x-ray from 02/06/2018. Irregular density in the peripheral subpleural right middle lobe measuring 2.5 cm in diameter. Subpleural nodular mass in the right lower lobe measuring 6 x 14 mm. The patient's lungs are clear to auscultation, she does not appear to be in any respiratory distress. Pulmonary has been consulted, awaiting their recommendations. (4) Atrial fibrillation Qualifiers: Atrial fibrillation type: chronic Qualified Code(s): I48.2 - Chronic atrial fibrillation Is this a current diagnosis for this admission?: Yes Plan: Rate controlled. Continue home dose Eliquis. Continue home dose Multaq (5) Essential hypertension Is this a current diagnosis for this admission?: Yes Plan: Patient endorses history of hypertension. Continue home dose Coreg, Catapres, hydralazine. (6) Limited code status Is this a current diagnosis for this admission?: Yes Plan: The patient is a DNR/DNI, confirmed with family. - Time Time Spent with patient: 15-24 minutes Medications reviewed and adjusted accordingly: Yes Anticipated discharge: Home - Inpatient Certification Based on my medical assessment, after consideration of the patient's comorbidities, presenting symptoms, or acuity I expect that the services needed warrant INPATIENT care.: Yes I certify that my determination is in accordance with my understanding of Medicare's requirements for reasonable and necessary INPATIENT services [42 CFR 412.3e].: Yes Medical Necessity: Need for IV Antibiotics, Risk of Complication if Not Cared For in Hospital
--- NOTE | 2018-03-22 13:52 | PDOC PROGRESS REPORT ---
Subjective Progress Note for:: 03/22/18 Subjective:: CHELSEY MCDANIEL is a 82 year old female who was admitted on03/20/2018 for UTI. She has a PMH of NSTEMI, chronic diastolic CHF, A. fib on Eliquis, chronic respiratory failure on 2 L home oxygen, GURMEET, recurrent UTI. Last hospitalized at [facility] from 03/02-03/07/2018 for NSTEMI, UTI and ARF. She was discharged to SNF. Her blood and urine cultures grew out E. Coli ESBL, resistant to MULTIPLE antibiotics. Discontinued Zosyn and initiated Meropenem. Additionally, her repeat chest CT to evaluate the new lesion in her R lung was inconclusive. Cavitary lesion vs. abscess/empyema vs. pneumonia. Started vancomycin yesterday to empirically cover for healthcare associated pneumonia. The patient was seen this morning on rounds, she is resting comfortably in bed on supplemental oxygen. Her only complaint this morning is generalized weakness , requiring 2 person assist to get out of bed to chair. The patient denies chest pain, shortness of breath, dyspnea, abdominal pain, dysuria. The patient has remained afebrile and her vital signs are stable over the last 24 hours. Reason For Visit: FEVER/ELECTROLYTE ABNORMALITIES/UTI. Physical Exam Vital Signs: Temp Pulse Resp BP Pulse Ox 98.7 F 61 16 132/48 H 97 03/22/18 12:00 03/22/18 12:00 03/22/18 12:00 03/22/18 12:00 03/22/18 12:00 Intake & Output 03/21/18 03/22/18 03/23/18 06:59 06:59 06:59 Intake Total 1355 2038 Output Total 1825 625 Balance -470 1413 Weight 76.4 kg 76.4 kg General appearance: PRESENT: no acute distress, well-developed Eye exam: PRESENT: conjunctiva pink, PERRLA Mouth exam: PRESENT: moist Teeth exam: PRESENT: poor dentation Neck exam: PRESENT: full ROM Respiratory exam: PRESENT: clear to auscultation ludivina, symmetrical, unlabored Cardiovascular exam: PRESENT: +S1, +S2 Pulses: PRESENT: normal radial pulses, normal dorsalis pedis pul GI/Abdominal exam: PRESENT: normal bowel sounds, soft. ABSENT: tenderness Rectal exam: PRESENT: deferred Gentrourinary exam: PRESENT: indwelling catheter Extremities exam: PRESENT: full ROM Musculoskeletal exam: PRESENT: ambulatory - With assistance, full ROM Neurological exam: PRESENT: alert, awake, oriented to person, oriented to place , oriented to time, oriented to situation Psychiatric exam: PRESENT: appropriate affect Skin exam: PRESENT: intact, normal color Results Laboratory Results: 03/22/18 10:39 03/22/18 10:39 03/22/18 03/22/18 10:39 10:39 WBC 4.7 RBC 3.00 L Hgb 8.9 L Hct 26.7 L MCV 89 MCH 29.7 MCHC 33.5 RDW 15.0 H Plt Count 101 L Seg Neutrophils % 67.1 Lymphocytes % 20.7 Monocytes % 10.1 Eosinophils % 1.2 Basophils % 0.9 Absolute Neutrophils 3.1 Absolute Lymphocytes 1.0 Absolute Monocytes 0.5 Absolute Eosinophils 0.1 Absolute Basophils 0.0 Sodium 138.1 Potassium 3.3 L Chloride 104 Carbon Dioxide 26 Anion Gap 8 BUN 9 Creatinine 0.69 Est GFR ( Amer) > 60 Est GFR (Non-Af Amer) > 60 Glucose 117 H Calcium 8.0 L Phosphorus 2.3 L Magnesium 1.9 Impressions: Abdomen/Pelvis CT 03/20/18 00:00 IMPRESSION: 2.9 cm in diameter are lateral pleural base cavitary mass in the right lower hemithorax as noted above. The differential possibilities would include a lung abscess versus is a cavitary mass lesion. Fat containing umbilical hernia. Atrophic left kidney with compensatory hypertrophy of the right kidney Mcdaniel catheter in the bladder. Other findings as noted above Chest X-Ray 03/20/18 00:26 IMPRESSION: 1. No acute pulmonary process identified. Low lung volumes. Head CT 03/20/18 00:36 IMPRESSION: 1. No acute intracranial abnormality by CT criteria. This exam was performed according to our departmental dose-optimization program, which includes automated exposure control, adjustment of the mA and/or kV according to patient size and/or use of iterative reconstruction technique. Chest CT 03/21/18 00:00 IMPRESSION: 1. IRREGULAR DENSITY IN THE PERIPHERAL SUBPLEURAL RIGHT MIDDLE LOBE DESCRIBED. THIS WAS NOT PRESENT ON THE PRIOR CHEST X-RAY DATED 02/06/2018. THIS MOST LIKELY REPRESENTS AN AREA OF PNEUMONIA. RADIOLUCENT AREAS WITHIN THIS DENSITY APPEAR TO REPRESENT SMALL AREAS OF UNINVOLVED LUNG AND DO NOT REPRESENT TRUE CAVITATION. 2. SUBPLEURAL NODULAR MASS IN THE PERIPHERAL RIGHT LOWER LOBE. DIFFERENTIAL INCLUDES INFECTIOUS ETIOLOGY VERSUS SOFT TISSUE MASS. 3. SMALL PLEURAL EFFUSIONS. BRONCHIECTASIS IN BOTH LOWER LOBES. 4. RECOMMEND APPROPRIATE TREATMENT FOR PRESUMED PNEUMONIA WITH FOLLOW-UP CHEST CT IN 6 WEEKS TO DETERMINE IF THE LESIONS IN THE RIGHT LUNG RESPOND TO TREATMENT. Status: Imported from PACS Assessment & Plan - Diagnosis (1) Sepsis Qualifiers: Sepsis type: sepsis due to unspecified organism Qualified Code(s): A41.9 - Sepsis, unspecified organism Is this a current diagnosis for this admission?: Yes Plan: Sepsis due to UTI as evidenced by leukocytosis (WBC 12.1 - from lab work done at [facility]), and fever. In the last 3 months the patient has been hospitalized twice for urinary tract infection, the organism is always E. coli Urine and blood cultures from admission e. coli ESBL. Resistant to multiple antibiotics. Discontinue IV zosyn and initiated Meropenem per sensitivity report. Chest CT completed today to evaluate lung nodule. Demonstrates irregular density in the peripheral subpleural right middle lobe, not present on prior chest x-ray dated 02/06/2018. Could very well represent an area of pneumonia. Given the patient's recent stay at [facility], will add IV vancomycin to treat for suspected MDR organism. Pulmonology consulted, their recommendations are listed below. (2) UTI (urinary tract infection) Qualifiers: Urinary tract infection type: site unspecified Hematuria presence: without hematuria Qualified Code(s): N39.0 - Urinary tract infection, site not specified Is this a current diagnosis for this admission?: Yes Plan: Patient has a history of recurrent urinary tract infections within the last 3 months. Urine cultures consistently positive for E. coli. Mcdaniel catheter placed in emergency department, no plan to discontinue Antibiotic and culture data listed above (3) Lung mass Is this a current diagnosis for this admission?: Yes Plan: New lung mass present on CT, not previously seen on chest x-ray from 02/06/2018. Irregular density in the peripheral subpleural right middle lobe measuring 2.5 cm in diameter. Subpleural nodular mass in the right lower lobe measuring 6 x 14 mm. cavitary lesion vs. abscess/empyema vs. pneumonia Started empiric antibiotic therapy for healthcare associated pneumonia The patient's lungs are clear to auscultation, she does not appear to be in any respiratory distress. Pulmonary has been consulted, Dr. Giordano recommends continuing empiric antibiotic treatment for pneumonia. Will re-CT chest in 3 days. If 'infiltrate' has diminished in size, will continue to treat as pneumonia. If no change in size, will likely perform bronchoscopy. (4) Atrial fibrillation Qualifiers: Atrial fibrillation type: chronic Qualified Code(s): I48.2 - Chronic atrial fibrillation Is this a current diagnosis for this admission?: Yes Plan: Rate controlled. Continue home dose Eliquis. Continue home dose Multaq (5) Essential hypertension Is this a current diagnosis for this admission?: Yes Plan: Patient endorses history of hypertension. Continue home dose Coreg, Catapres, hydralazine. (6) Limited code status Is this a current diagnosis for this admission?: Yes Plan: The patient is a DNR/DNI, confirmed with family. - Time Time Spent with patient: 15-24 minutes Medications reviewed and adjusted accordingly: Yes Anticipated discharge: Home - Inpatient Certification Based on my medical assessment, after consideration of the patient's comorbidities, presenting symptoms, or acuity I expect that the services needed warrant INPATIENT care.: Yes I certify that my determination is in accordance with my understanding of Medicare's requirements for reasonable and necessary INPATIENT services [42 CFR 412.3e].: Yes Medical Necessity: Need for IV Antibiotics, Risk of Complication if Not Cared For in Hospital - Plan Summary Plan Summary: Ultimately, the plan is to discharge the patient home, in the care of her family , with home health and physical therapy.
[2018-03-22] MEDS: 1/2 NORMAL SALINE 1,000 ML IV PRN (21:35)
[2018-03-22] MEDS: FENOFIBRATE NANOCRYSTALLIZED 48 MG TABLET PO SCH (21:35)
[2018-03-23] MEDS: PREDNISOLONE ACETATE 1% OPH SUSP 5 ML OD SCH ×5 (05:43→23:23)
[2018-03-23] MEDS: CARBAMAZEPINE 200 MG TABLET PO SCH ×4 (05:46→23:22)
[2018-03-23] MEDS: HYDRALAZINE HCL 25 MG TABLET PO SCH ×3 (05:50→23:21)
[2018-03-23] MEDS: PREGABALIN 50 MG CAPSULE PO SCH ×3 (05:50→23:22)
[2018-03-23] MEDS: LANSOPRAZOLE 30 MG TAB.RAP.DR PO SCH (05:51)
[2018-03-23 06:59] LABS: ABSOLUTE EOSINOPHILS # (AUTO) 0.1 10^3/uL (0.0-0.6); ABSOLUTE LYMPHOCYTES (AUTO) 1.3 10^3/uL (0.5-4.7); ABSOLUTE MONOCYTES (AUTO) 0.4 10^3/uL (0.1-1.4); ABSOLUTE NEUT (AUTO) 2.9 10^3/uL (1.7-8.2); BASOPHILS % (AUTO) 0.9 % (0-2); EOSINOPHILS % (AUTO) 1.2 % (0-6); HEMATOCRIT 28.1 % (36.0-47.0); HEMOGLOBIN 9.3 g/dL (12.0-15.5); LYMPHOCYTES % (AUTO) 27.6 % (13-45); MEAN CORPUSCULAR HEMOGLOBIN 29.3 pg (27.0-33.4); MEAN CORPUSCULAR HGB CONC 33.1 g/dL (32.0-36.0); MEAN CORPUSCULAR VOLUME 88 fl (80-97); MONOCYTES % (AUTO) 9.1 % (3-13); PLATELET COUNT 120 10^3/uL (150-450); RED BLOOD COUNT 3.18 10^6/uL (3.72-5.28); RED CELL DISTRIBUTION WIDTH 15.2 % (11.5-14.0); SEGMENTED NEUTROPHILS % (AUTO) 61.2 % (42-78); TOTAL CELLS COUNTED % (AUTO) 100 %; WHITE BLOOD COUNT 4.7 10^3/uL (4.0-10.5)
[2018-03-23 07:25] LABS: ANION GAP 7 (5-19); BLOOD UREA NITROGEN 7 mg/dL (7-20); CALCIUM 8.3 mg/dL (8.4-10.2); CARBON DIOXIDE 27 mmol/L (22-30); CHLORIDE 104 mmol/L (98-107); GLUCOSE 92 mg/dL (75-110); PHOSPHORUS 2.9 mg/dL (2.5-4.5); POTASSIUM 3.3 mmol/L (3.6-5.0); SODIUM 137.7 mmol/L (137-145)
[2018-03-23] MEDS: HYDRALAZINE HCL INJ/PF 20 MG/1 ML SDV IV PRN (07:44)
[2018-03-23] MEDS: DRONEDARONE HYDROCHLORIDE 400 MG TABLET PO SCH ×2 (09:53→23:23)
[2018-03-23] MEDS: POLYETHYLENE GLYCOL 3350 POWDER 17 GM/1 PACKET PO SCH (09:53)
[2018-03-23] MEDS: APIXABAN 5 MG TABLET PO SCH ×2 (09:53→23:22)
[2018-03-23] MEDS: CLONIDINE HCL 0.2 MG TABLET PO SCH ×2 (09:54→23:22)
[2018-03-23] MEDS: ASPIRIN 81 MG TABLET, ENT COATED PO SCH (09:54)
[2018-03-23] MEDS: CARVEDILOL 6.25 MG TABLET PO SCH ×2 (09:54→23:22)
[2018-03-23] MEDS: CYCLOSPORINE 0.05% OPH EMULSIO 0.4 ML DROPERETTE OU SCH ×2 (09:54→23:22)
[2018-03-23] MEDS: MEROPENEM 1 GM in NORMAL SALINE 50 ML IV SCH ×2 (09:55→23:23)
[2018-03-23] MEDS: SERTRALINE HCL 50 MG TABLET PO SCH (09:55)
--- NOTE | 2018-03-23 16:41 | PDOC PROGRESS REPORT ---
Subjective Progress Note for:: 03/23/18 Subjective:: CHELSEY MCDANIEL is a 82 year old female who was admitted on03/20/2018 for UTI. She has a PMH of NSTEMI, chronic diastolic CHF, A. fib on Eliquis, chronic respiratory failure on 2 L home oxygen, GURMEET, recurrent UTI. Last hospitalized at [facility] from 03/02-03/07/2018 for NSTEMI, UTI and ARF. She was discharged to SNF. Her blood and urine cultures grew out E. Coli ESBL, resistant to MULTIPLE antibiotics. The patient was seen this morning on rounds, she is resting comfortably in bed on supplemental oxygen. The patient is very sleepy, she is able to wake up for assessment but drifts back to sleep when not participating in conversation. Patient's son is at bedside, lengthy conversation regarding plan of care. He states understanding. Reason For Visit: FEVER/ELECTROLYTE ABNORMALITIES/UTI. Physical Exam Vital Signs: Temp Pulse Resp BP Pulse Ox 97.9 F 61 16 173/56 H 95 03/23/18 15:28 03/23/18 15:28 03/23/18 15:28 03/23/18 15:28 03/23/18 15:28 Intake & Output 03/22/18 03/23/18 03/24/18 06:59 06:59 06:59 Intake Total 2038 2455 Output Total 625 800 Balance 1413 1655 Weight 76.4 kg 78.5 kg Results Laboratory Results: 03/23/18 06:34 03/23/18 06:34 03/23/18 03/23/18 06:34 06:34 WBC 4.7 RBC 3.18 L Hgb 9.3 L Hct 28.1 L MCV 88 MCH 29.3 MCHC 33.1 RDW 15.2 H Plt Count 120 L Seg Neutrophils % 61.2 Lymphocytes % 27.6 Monocytes % 9.1 Eosinophils % 1.2 Basophils % 0.9 Absolute Neutrophils 2.9 Absolute Lymphocytes 1.3 Absolute Monocytes 0.4 Absolute Eosinophils 0.1 Absolute Basophils 0.0 Sodium 137.7 Potassium 3.3 L Chloride 104 Carbon Dioxide 27 Anion Gap 7 BUN 7 Creatinine 0.58 Est GFR ( Amer) > 60 Est GFR (Non-Af Amer) > 60 Glucose 92 Calcium 8.3 L Phosphorus 2.9 Magnesium 1.8 Impressions: Abdomen/Pelvis CT 03/20/18 00:00 IMPRESSION: 2.9 cm in diameter are lateral pleural base cavitary mass in the right lower hemithorax as noted above. The differential possibilities would include a lung abscess versus is a cavitary mass lesion. Fat containing umbilical hernia. Atrophic left kidney with compensatory hypertrophy of the right kidney Mcdaniel catheter in the bladder. Other findings as noted above Chest X-Ray 03/20/18 00:26 IMPRESSION: 1. No acute pulmonary process identified. Low lung volumes. Head CT 03/20/18 00:36 IMPRESSION: 1. No acute intracranial abnormality by CT criteria. This exam was performed according to our departmental dose-optimization program, which includes automated exposure control, adjustment of the mA and/or kV according to patient size and/or use of iterative reconstruction technique. Chest CT 03/21/18 00:00 IMPRESSION: 1. IRREGULAR DENSITY IN THE PERIPHERAL SUBPLEURAL RIGHT MIDDLE LOBE DESCRIBED. THIS WAS NOT PRESENT ON THE PRIOR CHEST X-RAY DATED 02/06/2018. THIS MOST LIKELY REPRESENTS AN AREA OF PNEUMONIA. RADIOLUCENT AREAS WITHIN THIS DENSITY APPEAR TO REPRESENT SMALL AREAS OF UNINVOLVED LUNG AND DO NOT REPRESENT TRUE CAVITATION. 2. SUBPLEURAL NODULAR MASS IN THE PERIPHERAL RIGHT LOWER LOBE. DIFFERENTIAL INCLUDES INFECTIOUS ETIOLOGY VERSUS SOFT TISSUE MASS. 3. SMALL PLEURAL EFFUSIONS. BRONCHIECTASIS IN BOTH LOWER LOBES. 4. RECOMMEND APPROPRIATE TREATMENT FOR PRESUMED PNEUMONIA WITH FOLLOW-UP CHEST CT IN 6 WEEKS TO DETERMINE IF THE LESIONS IN THE RIGHT LUNG RESPOND TO TREATMENT. Assessment & Plan - Diagnosis (1) Sepsis Qualifiers: Sepsis type: sepsis due to unspecified organism Qualified Code(s): A41.9 - Sepsis, unspecified organism Is this a current diagnosis for this admission?: Yes Plan: Sepsis due to UTI as evidenced by leukocytosis (WBC 12.1 - from lab work done at [facility]), and fever. In the last 3 months the patient has been hospitalized twice for urinary tract infection, the organism is always E. coli Urine and blood cultures from this admission e. coli ESBL. Resistant to multiple antibiotics. Continue Meropenem per sensitivity report. Chest CT demonstrates irregular density in the peripheral subpleural right middle lobe, not present on prior chest x-ray dated 02/06/2018. Could very well represent an area of pneumonia. [facility], currently treating with IV vancomycin for suspected MDR organism. Pulmonology consulted, their recommendations are listed below. (2) UTI (urinary tract infection) Qualifiers: Urinary tract infection type: site unspecified Hematuria presence: without hematuria Qualified Code(s): N39.0 - Urinary tract infection, site not specified Is this a current diagnosis for this admission?: Yes Plan: Patient has a history of recurrent urinary tract infections within the last 3 months. Urine cultures consistently positive for E. coli. Mcdaniel catheter placed in emergency department, no plan to discontinue Antibiotic and culture data listed above (3) Lung mass Is this a current diagnosis for this admission?: Yes Plan: New lung mass present on CT, not previously seen on chest x-ray from 02/06/2018. Irregular density in the peripheral subpleural right middle lobe measuring 2.5 cm in diameter. Subpleural nodular mass in the right lower lobe measuring 6 x 14 mm. cavitary lesion vs. abscess/empyema vs. pneumonia Started empiric vancomycin for healthcare associated pneumonia The patient's lungs are clear to auscultation, she does not appear to be in any respiratory distress. Pulmonary has been consulted, Dr. Giordano recommends continuing empiric antibiotic treatment for pneumonia. Will re-CT chest in 24-48hrs. If 'infiltrate ' has diminished in size, will continue to treat as pneumonia. If no change in size, will likely perform bronchoscopy. (4) Atrial fibrillation Qualifiers: Atrial fibrillation type: chronic Qualified Code(s): I48.2 - Chronic atrial fibrillation Is this a current diagnosis for this admission?: Yes Plan: Rate controlled. Continue home dose Eliquis. Continue home dose Multaq (5) Essential hypertension Is this a current diagnosis for this admission?: Yes Plan: Patient endorses history of hypertension. She has remained HYPERtensive, requiring a number of PRN IV medications. Continue home dose Coreg and Catapres. Plan to increase hydralazine from 25 to 50mg PO TID. (6) Limited code status Is this a current diagnosis for this admission?: Yes Plan: The patient is a DNR/DNI, confirmed with family. - Time Time Spent with patient: 15-24 minutes Anticipated discharge: Home - Inpatient Certification Based on my medical assessment, after consideration of the patient's comorbidities, presenting symptoms, or acuity I expect that the services needed warrant INPATIENT care.: Yes I certify that my determination is in accordance with my understanding of Medicare's requirements for reasonable and necessary INPATIENT services [42 CFR 412.3e].: Yes Medical Necessity: Risk of Complication if Not Cared For in Hospital - Plan Summary Plan Summary: Ultimately, the plan is to send the patient home to live with her son and daughter in law.
--- NOTE | 2018-03-23 17:48 | PDOC CONSULTATION ---
Consultation Consult Date: 03/20/18 Attending physician:: SOL SORIA Consult reason:: Abnormal CT scan History of Present Illness Admission Date/PCP: 03/20/18 02:34 History of Present Illness: CHELSEY MCDANIEL is a 82 year old female No hemoptysis nausea vomiting diarrhea she has a cough but is usually nonproductive PPD status is negative dates unknown she is to be exposed to passive smoke as a child as well as an adultShe has no significant occupational history of exposure to potential respiratory toxins she has no pets and no recent travel she denies currently angina-like chest pain sleeps on 2-3 pillows occasional PND occasional nocturnal cough and intermittent episodes of edema.She has no significant occupational history of exposure to potential respiratory toxins she has no pets and no recent travel she denies currently angina-like chest pain sleeps on 2-3 pillows occasional PND occasional nocturnal cough and intermittent episodes of edema Past Medical History Cardiac Medical History: Reports: Atrial Fibrillation - on eliquis., Congestive Heart Failure - on 2L home oxygen., Hyperlipidema, Hypertension Denies: Myocardial Infarction Pulmonary Medical History: Reports: Sleep Apnea Denies: Asthma Neurological Medical History: Reports: Other - trigeminal neuralgia. Denies: Seizures Renal/ Medical History: Reports: Other - recurrent UTIs. Malignancy Medical History: Reports: Cervical Cancer, Skin Cancer GI Medical History: Denies: Hepatitis, Hiatal Hernia Musculoskeltal Medical History: Reports: Arthritis Psychiatric Medical History: Reports: Depression Hematology: Denies: Anemia, Sickle Cell Disease Infectious Medical History: Reports: Other Past Surgical History Past Surgical History: Reports: Hysterectomy, Orthopedic Surgery - L knee, Other - bladder tuck: R corneal implant. Denies: Amputation, Mastectomy, Pacemaker Social History Information Source: Patient, [facility] Records Smoking Status: Never Smoker Passive smoke exposure as: Both Frequency of Alcohol Use: None Hx Recreational Drug Use: No Drugs: None Hx Prescription Drug Abuse: No Do you have pets?: No Have you had any respiratory illnesses as a child?: No Have you been exposed to any sick contacts recently?: No Have you had any recent respiratory illnesses?: No Have you travelled outside of [place] in the past 12 months?: No - Advance Directive Resuscitation Status: Do Not Resuscitate Family History Family History: Arthritis, Hypertension Parental Family History Reviewed: Yes Children Family History Reviewed: Yes Sibling(s) Family History Reviewed.: Yes Medication/Allergy Home Medications: Acetaminophen [Tylenol 325 mg Tablet] 650 mg PO Q4HP PRN 03/02/18 Aspirin [Aspirin EC] 81 mg PO DAILY 03/02/18 Carbamazepine [Tegretol 200 Mg Tablet] 400 mg PO Q8 03/02/18 Clonidine HCl [Catapres 0.2 mg Tablet] 0.2 mg PO Q12 03/02/18 Cyclosporine 0.05% Oph Emulsio [Restasis 0.05% Oph Emulsion Pf 0.4 ml] 1 drop OU Q12 03/02/18 Docusate Sodium [Colace 100 mg Capsule] 100 mg PO BID 03/02/18 Dronedarone Hydrochloride [Multaq 400 mg Tablet] 400 mg PO Q12 03/02/18 Fenofibrate Nanocrystallized [Tricor 48 mg Tablet] 48 mg PO QHS 03/02/18 Furosemide [Lasix 20 mg Tablet] 20 mg PO QAM 03/02/18 Hydralazine HCl [Apresoline 25 mg Tablet] 25 mg PO Q8 MDD HOLD FOR SBP <120 12/19 Metaxalone [Skelaxin 800 mg Tablet] 800 mg PO Q8 03/02/18 Oxycodone HCl [Oxy-Ir 5 mg Tablet] 10 mg PO Q6HP PRN 03/02/18 Pantoprazole Sodium [Protonix] 40 mg PO Q6AM 03/02/18 Prednisolone Acetate [Pred Forte] 1 drop OD Q6 03/02/18 Pregabalin [Lyrica 50 mg Capsule] 50 mg PO Q8 03/02/18 Sertraline HCl [Zoloft 50 mg Tablet] 50 mg PO DAILY 03/02/18 Apixaban [Eliquis 5 mg Tablet] 5 mg PO BID tablet 03/07/18 Carvedilol [Coreg 6.25 mg Tablet] 6.25 mg PO Q12 tablet 03/07/18 Cefuroxime Axetil [Ceftin 500 mg Tablet] 500 mg PO BID #12 tablet 03/07/18 Oxycodone HCl [Oxy-Ir 5 mg Tablet] 5 mg PO Q6HP PRN #20 tablet 03/07/18 Polyethylene Glycol 3350 [Miralax Powder 17 gm/Packet] 17 gm PO DAILY powd.pack 03/07/18 Allergies/Adverse Reactions: ANDREY Inhibitors [Andrey Inhibitors] Allergy (Severe, Verified 12/14/15 13:56) Swelling of tongue,throat,lips,mouth Sulfa (Sulfonamide Antibiotics) Allergy (Mild, Verified 08/20/15 11:03) rash Review of Systems Constitutional: PRESENT: fatigue, weakness Eyes: ABSENT: visual disturbances Ears: ABSENT: hearing changes Nose, Mouth, and Throat: ABSENT: mouth pain Cardiovascular: PRESENT: edema, orthropnea. ABSENT: palpitations Respiratory: PRESENT: cough, dyspnea. ABSENT: hemoptysis Gastrointestinal: PRESENT: abdominal pain, bloating, heartburn Neurological: ABSENT: abnormal gait, abnormal movements, abnormal speech, confusion, focal weakness, lack of coordination, memory loss Psychiatric: ABSENT: hallucinations, homidical ideation, suicidal ideation Endocrine: ABSENT: cold intolerance, heat intolerance, polydipsia, polyuria Hematologic/Lymphatic: PRESENT: easy bruising Physical Exam Vital Signs: Temp Pulse Resp BP Pulse Ox 97.9 F 61 16 173/56 H 95 03/23/18 15:28 03/23/18 15:28 03/23/18 15:28 03/23/18 15:28 03/23/18 15:28 Intake & Output 03/22/18 03/23/18 03/24/18 06:59 06:59 06:59 Intake Total 2038 2455 636 Output Total 667 562 9230 Balance 1413 1655 -664 Weight 76.4 kg 78.5 kg General appearance: PRESENT: no acute distress, cooperative, disheveled, obese Head exam: PRESENT: atraumatic, normocephalic Eye exam: PRESENT: conjunctiva pale, EOMI. ABSENT: nystagmus, periorbital swelling, scleral icterus Mouth exam: PRESENT: moist, neck supple, tongue midline Neck exam: ABSENT: carotid bruit, JVD, lymphadenopathy, thyromegaly, tracheal deviation, tracheostomy Respiratory exam: PRESENT: decreased breath sounds, prolonged expiratory phas, rales, rhonchi, symmetrical, unlabored. ABSENT: retraction, stridor Cardiovascular exam: PRESENT: RRR, +S1, +S2 GI/Abdominal exam: PRESENT: diminished bowel sounds, soft Extremities exam: ABSENT: calf tenderness, clubbing, joint swelling Musculoskeletal exam: ABSENT: deformity, dislocation Neurological exam: PRESENT: awake Psychiatric exam: PRESENT: flat affect Skin exam: PRESENT: dry, warm Results Laboratory Results: 03/23/18 06:34 03/23/18 06:34 03/23/18 03/23/18 06:34 06:34 WBC 4.7 RBC 3.18 L Hgb 9.3 L Hct 28.1 L MCV 88 MCH 29.3 MCHC 33.1 RDW 15.2 H Plt Count 120 L Seg Neutrophils % 61.2 Lymphocytes % 27.6 Monocytes % 9.1 Eosinophils % 1.2 Basophils % 0.9 Absolute Neutrophils 2.9 Absolute Lymphocytes 1.3 Absolute Monocytes 0.4 Absolute Eosinophils 0.1 Absolute Basophils 0.0 Sodium 137.7 Potassium 3.3 L Chloride 104 Carbon Dioxide 27 Anion Gap 7 BUN 7 Creatinine 0.58 Est GFR ( Amer) > 60 Est GFR (Non-Af Amer) > 60 Glucose 92 Calcium 8.3 L Phosphorus 2.9 Magnesium 1.8 Impressions: Abdomen/Pelvis CT 03/20/18 00:00 IMPRESSION: 2.9 cm in diameter are lateral pleural base cavitary mass in the right lower hemithorax as noted above. The differential possibilities would include a lung abscess versus is a cavitary mass lesion. Fat containing umbilical hernia. Atrophic left kidney with compensatory hypertrophy of the right kidney Mcdaniel catheter in the bladder. Other findings as noted above Chest X-Ray 03/20/18 00:26 IMPRESSION: 1. No acute pulmonary process identified. Low lung volumes. Head CT 03/20/18 00:36 IMPRESSION: 1. No acute intracranial abnormality by CT criteria. This exam was performed according to our departmental dose-optimization program, which includes automated exposure control, adjustment of the mA and/or kV according to patient size and/or use of iterative reconstruction technique. Chest CT 03/21/18 00:00 IMPRESSION: 1. IRREGULAR DENSITY IN THE PERIPHERAL SUBPLEURAL RIGHT MIDDLE LOBE DESCRIBED. THIS WAS NOT PRESENT ON THE PRIOR CHEST X-RAY DATED 02/06/2018. THIS MOST LIKELY REPRESENTS AN AREA OF PNEUMONIA. RADIOLUCENT AREAS WITHIN THIS DENSITY APPEAR TO REPRESENT SMALL AREAS OF UNINVOLVED LUNG AND DO NOT REPRESENT TRUE CAVITATION. 2. SUBPLEURAL NODULAR MASS IN THE PERIPHERAL RIGHT LOWER LOBE. DIFFERENTIAL INCLUDES INFECTIOUS ETIOLOGY VERSUS SOFT TISSUE MASS. 3. SMALL PLEURAL EFFUSIONS. BRONCHIECTASIS IN BOTH LOWER LOBES. 4. RECOMMEND APPROPRIATE TREATMENT FOR PRESUMED PNEUMONIA WITH FOLLOW-UP CHEST CT IN 6 WEEKS TO DETERMINE IF THE LESIONS IN THE RIGHT LUNG RESPOND TO TREATMENT. Assessment & Plan - Diagnosis (1) Atrial fibrillation Qualifiers: Atrial fibrillation type: chronic Qualified Code(s): I48.2 - Chronic atrial fibrillation Is this a current diagnosis for this admission?: Yes Plan: Chronic anticoagulation (2) Lung mass Is this a current diagnosis for this admission?: Yes Plan: Afebrile, no leukocytosis, no left shift, (3) NSTEMI (non-ST elevated myocardial infarction) Is this a current diagnosis for this admission?: No (4) Aspiration pneumonia Is this a current diagnosis for this admission?: Yes Plan: This is a distinct possibility she has chemical pneumonitisConsidering debilitation or level of consciousness waxing and waning with follow these lesions closely and if necessary and suitable for her level of care would proceed with a bronchoscopy after these decisions have been made (5) Pulmonary hypertension Is this a current diagnosis for this admission?: Yes Plan: via echo 02/16
[2018-03-23] MEDS: FENOFIBRATE NANOCRYSTALLIZED 48 MG TABLET PO SCH (23:23)
[2018-03-24] MEDS: HYDRALAZINE HCL INJ/PF 20 MG/1 ML SDV IV PRN (00:20)
[2018-03-24] MEDS: VANCOMYCIN HCL 1,250 MG in DEXTROSE 5%-WATER 250 ML IV SCH ×2 (00:21→21:38)
[2018-03-24] MEDS: 1/2 NORMAL SALINE 1,000 ML IV PRN (06:12)
[2018-03-24] MEDS: HYDRALAZINE HCL 25 MG TABLET PO SCH (06:13)
[2018-03-24] MEDS: LANSOPRAZOLE 30 MG TAB.RAP.DR PO SCH (06:13)
[2018-03-24] MEDS: PREGABALIN 50 MG CAPSULE PO SCH ×2 (06:13→13:58)
[2018-03-24] MEDS: PREDNISOLONE ACETATE 1% OPH SUSP 5 ML OD SCH ×4 (06:13→20:43)
[2018-03-24 06:42] LABS: ARTERIAL BLOOD BASE EXCESS 0 mmol/L; ARTERIAL BLOOD FIO2 28%; ARTERIAL BLOOD H2CO3 1.14 mmol/L (1.05-1.35); ARTERIAL BLOOD HCO3 24.3 mmol/L (20-26); ARTERIAL BLOOD O2 SATURATION 97.6 % (94-98); ARTERIAL BLOOD PH 7.42 (7.35-7.45); ARTERIAL BLOOD PO2 98.9 mmHg (80-100); ARTERIAL BLOOD TOTAL CO2 25.4 mmol/L (21-25)
[2018-03-24] MEDS: POLYETHYLENE GLYCOL 3350 POWDER 17 GM/1 PACKET PO SCH (09:17)
[2018-03-24] MEDS: DRONEDARONE HYDROCHLORIDE 400 MG TABLET PO SCH ×2 (09:17→20:42)
[2018-03-24] MEDS: CYCLOSPORINE 0.05% OPH EMULSIO 0.4 ML DROPERETTE OU SCH ×2 (09:17→20:42)
[2018-03-24] MEDS: CARVEDILOL 6.25 MG TABLET PO SCH ×2 (09:18→20:41)
[2018-03-24] MEDS: APIXABAN 5 MG TABLET PO SCH ×2 (09:18→20:41)
[2018-03-24] MEDS: CARBAMAZEPINE 200 MG TABLET PO SCH ×3 (09:18→20:42)
[2018-03-24] MEDS: SERTRALINE HCL 50 MG TABLET PO SCH (09:19)
[2018-03-24] MEDS: ASPIRIN 81 MG TABLET, ENT COATED PO SCH (09:19)
[2018-03-24] MEDS: CLONIDINE HCL 0.2 MG TABLET PO SCH ×2 (09:19→20:42)
[2018-03-24] MEDS: MEROPENEM 1 GM in NORMAL SALINE 50 ML IV SCH ×2 (11:33→20:45)
[2018-03-24] MEDS: HYDRALAZINE HCL 50 MG TABLET PO SCH ×2 (13:58→20:42)
[2018-03-24] MEDS: PREGABALIN 25 MG CAPSULE PO SCH (20:42)
[2018-03-24] MEDS: FENOFIBRATE NANOCRYSTALLIZED 48 MG TABLET PO SCH (20:42)
--- NOTE | 2018-03-24 22:39 | PDOC PROGRESS REPORT ---
Subjective Progress Note for:: 03/24/18 Subjective:: CHELSEY MCDANIEL is a 82 year old female who was admitted on 03/20/2018 for E.coli ESBL UTI and bacteremia. She has a PMH of NSTEMI, chronic diastolic CHF, A. fib on Eliquis, chronic respiratory failure on 2 L home oxygen, GURMEET, recurrent UTI. Last hospitalized at [facility] from 03/02-03/07/2018 for NSTEMI, UTI and ARF. She was discharged to SNF. The patient was seen this morning on rounds, she is resting comfortably in bed on supplemental oxygen. The patient is very sleepy, she is able to wake up for assessment but drifts back to sleep when not participating in conversation. Reason For Visit: FEVER/ELECTROLYTE ABNORMALITIES/UTI. Physical Exam Vital Signs: Temp Pulse Resp BP Pulse Ox 98.7 F 59 L 16 177/61 H 98 03/24/18 19:42 03/24/18 19:42 03/24/18 19:42 03/24/18 19:42 03/24/18 19:42 Intake & Output 03/23/18 03/24/18 03/25/18 06:59 06:59 06:59 Intake Total 2455 3286 1050 Output Total 800 3375 700 Balance 1655 -89 350 Weight 78.5 kg 78 kg General appearance: PRESENT: no acute distress Eye exam: PRESENT: conjunctiva pink, PERRLA Mouth exam: PRESENT: moist Neck exam: PRESENT: full ROM Respiratory exam: PRESENT: clear to auscultation ludivina, symmetrical, unlabored Cardiovascular exam: PRESENT: +S1, +S2 Pulses: PRESENT: normal radial pulses, normal dorsalis pedis pul Vascular exam: PRESENT: normal capillary refill GI/Abdominal exam: PRESENT: normal bowel sounds, soft. ABSENT: tenderness Rectal exam: PRESENT: deferred Extremities exam: PRESENT: full ROM. ABSENT: pedal edema Musculoskeletal exam: PRESENT: ambulatory - with assistance, full ROM Neurological exam: PRESENT: alert, awake, oriented to person, oriented to place , oriented to time, oriented to situation Psychiatric exam: PRESENT: appropriate affect Skin exam: PRESENT: dry, intact, normal color Results Laboratory Results: 03/23/18 06:34 03/23/18 06:34 03/24/18 06:24 Carbonic Acid 1.14 HCO3/H2CO3 Ratio 21:1 ABG pH 7.42 ABG pCO2 38.0 ABG pO2 98.9 ABG HCO3 24.3 ABG O2 Saturation 97.6 ABG Base Excess 0 FiO2 28% Impressions: Abdomen/Pelvis CT 03/20/18 00:00 IMPRESSION: 2.9 cm in diameter are lateral pleural base cavitary mass in the right lower hemithorax as noted above. The differential possibilities would include a lung abscess versus is a cavitary mass lesion. Fat containing umbilical hernia. Atrophic left kidney with compensatory hypertrophy of the right kidney Mcdaniel catheter in the bladder. Other findings as noted above Chest X-Ray 03/20/18 00:26 IMPRESSION: 1. No acute pulmonary process identified. Low lung volumes. Head CT 03/20/18 00:36 IMPRESSION: 1. No acute intracranial abnormality by CT criteria. This exam was performed according to our departmental dose-optimization program, which includes automated exposure control, adjustment of the mA and/or kV according to patient size and/or use of iterative reconstruction technique. Chest CT 03/21/18 00:00 IMPRESSION: 1. IRREGULAR DENSITY IN THE PERIPHERAL SUBPLEURAL RIGHT MIDDLE LOBE DESCRIBED. THIS WAS NOT PRESENT ON THE PRIOR CHEST X-RAY DATED 02/06/2018. THIS MOST LIKELY REPRESENTS AN AREA OF PNEUMONIA. RADIOLUCENT AREAS WITHIN THIS DENSITY APPEAR TO REPRESENT SMALL AREAS OF UNINVOLVED LUNG AND DO NOT REPRESENT TRUE CAVITATION. 2. SUBPLEURAL NODULAR MASS IN THE PERIPHERAL RIGHT LOWER LOBE. DIFFERENTIAL INCLUDES INFECTIOUS ETIOLOGY VERSUS SOFT TISSUE MASS. 3. SMALL PLEURAL EFFUSIONS. BRONCHIECTASIS IN BOTH LOWER LOBES. 4. RECOMMEND APPROPRIATE TREATMENT FOR PRESUMED PNEUMONIA WITH FOLLOW-UP CHEST CT IN 6 WEEKS TO DETERMINE IF THE LESIONS IN THE RIGHT LUNG RESPOND TO TREATMENT. Status: Imported from PACS Assessment & Plan - Diagnosis (1) Sepsis Qualifiers: Sepsis type: sepsis due to unspecified organism Qualified Code(s): A41.9 - Sepsis, unspecified organism Is this a current diagnosis for this admission?: Yes Plan: Sepsis due to UTI as evidenced by leukocytosis (WBC 12.1 - from lab work done at [facility]), and fever. In the last 3 months the patient has been hospitalized twice for urinary tract infection, the organism is always E. coli Urine and blood cultures from this admission e. coli ESBL. Resistant to multiple antibiotics. Continue Meropenem per sensitivity report. ID has been consulted, specifically regarding the length of IV antibiotic treatment Continue maintenance IVF, home dose lasix on hold for now. Chest CT demonstrates irregular density in the peripheral subpleural right middle lobe, not present on prior chest x-ray dated 02/06/2018. Could very well represent an area of pneumonia. Given the patient's recent stay at [facility] facility, currently treating with IV vancomycin for suspected MDR organism. Pulmonology consulted, their recommendations are listed below. (2) UTI (urinary tract infection) Qualifiers: Urinary tract infection type: site unspecified Hematuria presence: without hematuria Qualified Code(s): N39.0 - Urinary tract infection, site not specified Is this a current diagnosis for this admission?: Yes Plan: Patient has a history of recurrent urinary tract infections within the last 3 months. Urine cultures consistently positive for E. coli. Mcdaniel catheter placed in emergency department, no plan to discontinue Antibiotic and culture data listed above (3) Lung mass Is this a current diagnosis for this admission?: Yes Plan: New lung mass present on CT, not previously seen on chest x-ray from 02/06/2018. Irregular density in the peripheral subpleural right middle lobe measuring 2.5 cm in diameter. Subpleural nodular mass in the right lower lobe measuring 6 x 14 mm. cavitary lesion vs. abscess/empyema vs. pneumonia Started empiric vancomycin for healthcare associated pneumonia The patient's lungs are clear to auscultation, she does not appear to be in any respiratory distress. Pulmonary has been consulted, Dr. Giordano recommends continuing empiric antibiotic treatment for pneumonia. Will re-CT chest tomorrow AM (3d after initiation of Vancomycin). If 'infiltrate' has diminished in size, will continue to treat as pneumonia. If no change in size, will likely perform bronchoscopy. (4) Atrial fibrillation Qualifiers: Atrial fibrillation type: chronic Qualified Code(s): I48.2 - Chronic atrial fibrillation Is this a current diagnosis for this admission?: Yes Plan: Rate controlled. Continue home dose Eliquis. Continue home dose Multaq (5) Essential hypertension Is this a current diagnosis for this admission?: Yes Plan: Patient endorses history of hypertension. She has remained HYPERtensive, requiring a number of PRN IV medications. Continue home dose Coreg and multaq. Will increase Catapres from 0.2 to 0.3 mg PO daily. Hydralazine increased from 25 to 50mg PO TID. (6) Limited code status Is this a current diagnosis for this admission?: Yes Plan: The patient is a DNR/DNI, confirmed with family. (7) Weakness Is this a current diagnosis for this admission?: Yes Plan: Family and patient state that the patient has been hospitalized multiple times within the last new months. The patient has spent a lot of time in bed and therefore has experienced generalized de-conditioning The patient requires a 1-2 person assist to get out of bed to recliner. PO/OT has been ordered. Son and [id number] express that they DO NOT want the patient to return to a SNF, they would like her to return home. The patient will require home health and PT post-discharge. Discharge planning has been notified. - Time Time Spent with patient: 15-24 minutes Medications reviewed and adjusted accordingly: Yes Anticipated discharge: Home - Inpatient Certification Based on my medical assessment, after consideration of the patient's comorbidities, presenting symptoms, or acuity I expect that the services needed warrant INPATIENT care.: Yes I certify that my determination is in accordance with my understanding of Medicare's requirements for reasonable and necessary INPATIENT services [42 CFR 412.3e].: Yes Medical Necessity: Need for IV Antibiotics - Plan Summary Plan Summary: Disposition plan is unclear at this time. The family would like to take the patient home with them, they expressed that they DO NOT want the patient to return to SNF. She will require home health and PT.
[2018-03-25] MEDS: HYDRALAZINE HCL INJ/PF 20 MG/1 ML SDV IV PRN ×2 (04:31→23:56)
[2018-03-25 05:09] LABS: ABSOLUTE BASOPHILS # (AUTO) 0.1 10^3/uL (0.0-0.2); ABSOLUTE EOSINOPHILS # (AUTO) 0.1 10^3/uL (0.0-0.6); ABSOLUTE LYMPHOCYTES (AUTO) 1.1 10^3/uL (0.5-4.7); ABSOLUTE MONOCYTES (AUTO) 0.5 10^3/uL (0.1-1.4); ABSOLUTE NEUT (AUTO) 2.8 10^3/uL (1.7-8.2); BASOPHILS % (AUTO) 1.2 % (0-2); EOSINOPHILS % (AUTO) 2.3 % (0-6); HEMATOCRIT 29.3 % (36.0-47.0); HEMOGLOBIN 9.8 g/dL (12.0-15.5); LYMPHOCYTES % (AUTO) 24.7 % (13-45); MEAN CORPUSCULAR HEMOGLOBIN 29.7 pg (27.0-33.4); MEAN CORPUSCULAR HGB CONC 33.6 g/dL (32.0-36.0); MEAN CORPUSCULAR VOLUME 88 fl (80-97); MONOCYTES % (AUTO) 10.4 % (3-13); PLATELET COUNT 175 10^3/uL (150-450); RED BLOOD COUNT 3.31 10^6/uL (3.72-5.28); RED CELL DISTRIBUTION WIDTH 15.4 % (11.5-14.0); SEGMENTED NEUTROPHILS % (AUTO) 61.4 % (42-78); TOTAL CELLS COUNTED % (AUTO) 100 %; WHITE BLOOD COUNT 4.5 10^3/uL (4.0-10.5)
[2018-03-25 05:36] LABS: ANION GAP 12 (5-19); BLOOD UREA NITROGEN 4 mg/dL (7-20); CALCIUM 8.4 mg/dL (8.4-10.2); CARBON DIOXIDE 26 mmol/L (22-30); CHLORIDE 103 mmol/L (98-107); GLUCOSE 88 mg/dL (75-110); PHOSPHORUS 2.6 mg/dL (2.5-4.5); POTASSIUM 3.6 mmol/L (3.6-5.0); SODIUM 140.9 mmol/L (137-145)
[2018-03-25] MEDS: PREDNISOLONE ACETATE 1% OPH SUSP 5 ML OD SCH ×4 (05:58→23:56)
[2018-03-25] MEDS: HYDRALAZINE HCL 50 MG TABLET PO SCH ×3 (05:58→21:26)
[2018-03-25] MEDS: LANSOPRAZOLE 30 MG TAB.RAP.DR PO SCH (05:58)
--- NOTE | 2018-03-25 09:16 | RADIOLOGY REPORT (SQ) ---
EXAM DESCRIPTION: CT CHEST WITHOUT COMPLETED DATE/TIME: 03/25/2018 8:27 am REASON FOR STUDY: evaluate improvement/progression pulmonary lesion COMPARISON: CT 03/21/2018 Chest films 03/20/2018, 03/01/2018 TECHNIQUE: CT scan performed of the chest without intravenous contrast. Images reviewed with lung, soft tissue and bone windows. Reconstructed coronal and sagittal MPR images reviewed. All images st ored on PACS. All CT scanners at this facility use dose modulation, iterative reconstruction, and/or weight based d osing when appropriate to reduce radiation dose to as low as reasonably achievable (ALARA). [facility]: Dose Right [facility]: CareDose [facility]: Dose Right [facility]: Teradose 4D [facility]: [employer] RADIATION DOSE: CT Rad equipment meets quality standard of care and radiation dose reduction techniq ues were employed. CTDIvol: 16.2 mGy. DLP: 589 mGy-cm. mGy. LIMITATIONS: No technical limitations. FINDINGS: LUNGS AND PLEURA: A peripheral wedge-shaped density persists at the intersection of the ri ght major and minor fissures on axial images 59-65. This is worrisome for consolidation in the later al segment right middle lobe. This is similar compared to CT chest 03/21/2018 and chest films 03/20/20 18 and 03/01/2018. There is now dense consolidation in the right and left lower lobes with air bronchograms. Small bila teral pleural effusions are present. HILAR AND MEDIASTINAL STRUCTURES: There are several small prevascular, pretracheal, AP window, and bi lateral hilar lymph nodes similar compared to CT chest 03/21/2018 HEART AND VASCULAR STRUCTURES: No aneurysm. No pericardial effusion. UPPER ABDOMEN: No significant findings. Limited exam. THYROID AND OTHER SOFT TISSUES: No masses. No adenopathy. BONES: No significant finding. HARDWARE: None in the chest. OTHER: No other significant findings. IMPRESSION: Peripheral consolidation lateral segment right middle lobe unchanged from 03/21/2018 Small bilateral pleural effusions with bibasilar airspace disease, atelectasis versus pneumonia. Thi s is new compared to 03/21/2018. TECHNICAL DOCUMENTATION: JOB ID: [id number] Quality ID # [id number]: Final reports with documentation of one or more dose reduction techniques (e.g., Au tomated exposure control, adjustment of the mA and/or kV according to patient size, use of iterative reconstruction technique) 2010 [employer]- All Rights Reserved Reading location - IP/workstation name: [email or web address]
[2018-03-25] MEDS: CARVEDILOL 6.25 MG TABLET PO SCH ×2 (09:49→21:26)
[2018-03-25] MEDS: DRONEDARONE HYDROCHLORIDE 400 MG TABLET PO SCH ×2 (09:50→21:26)
[2018-03-25] MEDS: PREGABALIN 25 MG CAPSULE PO SCH ×2 (09:50→21:26)
[2018-03-25] MEDS: CARBAMAZEPINE 200 MG TABLET PO SCH ×3 (09:50→23:56)
[2018-03-25] MEDS: ASPIRIN 81 MG TABLET, ENT COATED PO SCH (09:50)
[2018-03-25] MEDS: CLONIDINE HCL 0.2 MG TABLET PO SCH ×2 (09:51→21:26)
[2018-03-25] MEDS: APIXABAN 5 MG TABLET PO SCH (09:51)
[2018-03-25] MEDS: SERTRALINE HCL 50 MG TABLET PO SCH (09:51)
[2018-03-25] MEDS: CYCLOSPORINE 0.05% OPH EMULSIO 0.4 ML DROPERETTE OU SCH ×2 (09:51→21:12)
[2018-03-25] MEDS: FUROSEMIDE 20 MG TABLET PO SCH (09:51)
[2018-03-25] MEDS: POLYETHYLENE GLYCOL 3350 POWDER 17 GM/1 PACKET PO SCH (09:53)
[2018-03-25] MEDS: MEROPENEM 1 GM in NORMAL SALINE 50 ML IV SCH ×2 (09:59→17:34)
[2018-03-25] MEDS: 1/2 NORMAL SALINE 1,000 ML IV PRN (12:46)
[2018-03-25] MEDS: ACETAMINOPHEN 325 MG TABLET PO PRN (12:49)
[2018-03-25 14:21] LABS: TOTAL PROTEIN 5.3 g/dL (6.3-8.2)
[2018-03-25 14:23] LABS: INTERNATIONAL RATION (INR) 1.26; PROTHROMBIN TIME 16.4 SEC (11.4-15.4)
[2018-03-25 14:24] LABS: PARTIAL THROMBOPLASTIN TIME 42.3 SEC (23.5-35.8)
--- NOTE | 2018-03-25 14:35 | Progress Note ---
Provider Note Provider Note: ID Consult Note Asked to review the patient's chart by Pharmacy. Pt not seen or examined. Imaging, VS, labs, and notes reviewed. Ms. Orantes is an 82 year old woman who presented on 03/20/18 with increased confusion, lethargy, and fever up to 103.4 F. She has pmh including NSTEMI, chronic diastolic CHF, AF on anticoagulation, chronic respiratory failure on 2 L home oxygen, and GURMEET. She has had a normal WBC count. Chest imaging (CT chest, CXR) do not show a new pulmonary lesion. Urine culture grew an ESBL E. coli, as did one of her blood cultures on admission. She was initially treated with empiric vancomycin and Zosyn. Zosyn was then changed to meropenem on 03/22/18. Impression/Recommendations Sepsis due to ESBL E. coli bacteremia from a urinary source - Traditionally uncomplicated bacteremia with Gram negative bacilli are treated for 7-14 days in duration. The optimal duration of therapy is still a matter of debate, but recent data from several retrospective studies suggests that treating for shorter durations of seven to ten days may be as effective as longer courses. - Recommend completion of 10 days of treatment with a carbapenem. She is currently on meropenem (today should be day 4), which can be continued for another 6 days, or she can complete the remaining 6 days with ertapenem 1 gram daily, since antipseudomonal activity is not needed, and ertapenem has the advantage of once daily dosing. Teddy Urbina MD [facility], [facility] Infectious Diseases pager [phone]
--- NOTE | 2018-03-25 16:26 | PDOC PROGRESS REPORT ---
Subjective Progress Note for:: 03/25/18 Subjective:: The patient is an 82 year old female with a past medical history of NSTEMI, chronic diastolic CHF, A. fib on Eliquis, chronic respiratory failure on 2 L home oxygen, GURMEET, and UTI. The patient was last hospitalized on home H from 03/02 -03/07/18 for non-STEMI, UTI, and ARF. She was discharged to SNF. The patient was readmitted on 03/20/18 with sepsis secondary to UTI. The patient is seen on morning rounds. She is found sitting up in the recliner on supplemental oxygen at 2 L/min. She is initially sleeping but wakes easily when I say her name. She denies complaints other than feeling tired. She denies fever, chills, chest pain, palpitations, dyspnea, orthopnea, cough, abdominal pain, nausea vomiting and diarrhea. The patient does confirm that her goal is to be discharged home and not back to SNF at time of discharge. Reason For Visit: FEVER/ELECTROLYTE ABNORMALITIES/UTI. Physical Exam Vital Signs: Temp Pulse Resp BP Pulse Ox 99.0 F 62 12 136/54 H 97 03/25/18 11:54 03/25/18 14:00 03/25/18 11:54 03/25/18 11:54 03/25/18 11:54 Intake & Output 03/24/18 03/25/18 03/26/18 06:59 06:59 06:59 Intake Total 3286 2640 Output Total 3375 2400 Balance -89 240 Weight 78 kg 78.5 kg General appearance: PRESENT: no acute distress, obese, well-developed, well- nourished Head exam: PRESENT: atraumatic, normocephalic Eye exam: PRESENT: conjunctiva pink, EOMI, PERRLA. ABSENT: scleral icterus Ear exam: PRESENT: normal external ear exam Mouth exam: PRESENT: moist, tongue midline Neck exam: ABSENT: carotid bruit, JVD, lymphadenopathy, thyromegaly Respiratory exam: PRESENT: clear to auscultation ludivina, symmetrical, unlabored, other - baseline oxygen requirement of 2 lpm. ABSENT: rales, rhonchi, wheezes Cardiovascular exam: PRESENT: RRR, +S1, +S2. ABSENT: diastolic murmur, rubs, systolic murmur Pulses: PRESENT: normal dorsalis pedis pul Vascular exam: PRESENT: normal capillary refill GI/Abdominal exam: PRESENT: normal bowel sounds, soft. ABSENT: distended, guarding, mass, organolmegaly, rebound, tenderness Rectal exam: PRESENT: deferred Extremities exam: PRESENT: full ROM. ABSENT: calf tenderness, clubbing, pedal edema Neurological exam: PRESENT: alert, awake, oriented to person, oriented to place , oriented to time, oriented to situation, CN II-XII grossly intact. ABSENT: motor sensory deficit Psychiatric exam: PRESENT: appropriate affect, normal mood. ABSENT: homicidal ideation, suicidal ideation Skin exam: PRESENT: dry, intact, pallor, warm. ABSENT: cyanosis, rash Results Laboratory Results: 03/25/18 03:56 03/25/18 03:56 03/25/18 03/25/18 03/25/18 03:56 03:56 13:23 WBC 4.5 RBC 3.31 L Hgb 9.8 L Hct 29.3 L MCV 88 MCH 29.7 MCHC 33.6 RDW 15.4 H Plt Count 175 Seg Neutrophils % 61.4 Lymphocytes % 24.7 Monocytes % 10.4 Eosinophils % 2.3 Basophils % 1.2 Absolute Neutrophils 2.8 Absolute Lymphocytes 1.1 Absolute Monocytes 0.5 Absolute Eosinophils 0.1 Absolute Basophils 0.1 Sodium 140.9 Potassium 3.6 Chloride 103 Carbon Dioxide 26 Anion Gap 12 BUN 4 L Creatinine 0.60 Est GFR ( Amer) > 60 Est GFR (Non-Af Amer) > 60 Glucose 88 Calcium 8.4 Phosphorus 2.6 Magnesium 1.9 Total Protein 5.3 L Impressions: Abdomen/Pelvis CT 03/20/18 00:00 IMPRESSION: 2.9 cm in diameter are lateral pleural base cavitary mass in the right lower hemithorax as noted above. The differential possibilities would include a lung abscess versus is a cavitary mass lesion. Fat containing umbilical hernia. Atrophic left kidney with compensatory hypertrophy of the right kidney Orantes catheter in the bladder. Other findings as noted above Chest X-Ray 03/20/18 00:26 IMPRESSION: 1. No acute pulmonary process identified. Low lung volumes. Head CT 03/20/18 00:36 IMPRESSION: 1. No acute intracranial abnormality by CT criteria. This exam was performed according to our departmental dose-optimization program, which includes automated exposure control, adjustment of the mA and/or kV according to patient size and/or use of iterative reconstruction technique. Chest CT 03/25/18 06:00 IMPRESSION: Peripheral consolidation lateral segment right middle lobe unchanged from 03/21/2018 Small bilateral pleural effusions with bibasilar airspace disease, atelectasis versus pneumonia. This is new compared to 03/21/2018. Assessment & Plan - Diagnosis (1) Sepsis Qualifiers: Sepsis type: sepsis due to unspecified organism Qualified Code(s): A41.9 - Sepsis, unspecified organism Is this a current diagnosis for this admission?: Yes Plan: Improving. Sepsis due to UTI, present on admission, as evidenced by leukocytosis (WBC 12.1 from lab work done at [facility]), temperature of 103.4, tachypnea with respiratory rate of 24, hypoxia with SPO2 of 91% on 4 L/min which is increased from her baseline requirement of 2 L/min. Leukocytosis has resolved, the patient is now afebrile with normal vital signs. Urine and blood cultures from this admission are positive for ESBL E. coli resistant to multiple antibiotics with similar sensitivity patterns. The patient has been admitted to the medical floor. She is receiving maintenance IV fluids. She has been empirically placed on meropenem which has been continued based on sensitivity reporting. Infectious disease was consulted appreciate their recommendations for a total of 10 days of IV antibiotic therapy. Patient is currently on day 4 of 10. (2) UTI (urinary tract infection) Qualifiers: Urinary tract infection type: site unspecified Hematuria presence: without hematuria Qualified Code(s): N39.0 - Urinary tract infection, site not specified Is this a current diagnosis for this admission?: Yes Plan: The patient has a history of recurrent urinary tract infections within the last 3 months. Urine cultures are consistently positive for E. coli. Current urine culture is positive for ESBL E. coli with multiple resistance patterns; Sensitive to meropenem. Orantes catheter was placed in the emergency department; will continue for now. We will continue meropenem for a total of 10 days; currently on day 4. (3) Lung mass Is this a current diagnosis for this admission?: Yes Plan: Lung masses present on CT which was not previously seen on chest x-ray from . Irregular density in the peripheral subpleural right middle lobe measuring 2.5 cm in diameter. Subpleural nodule mass in the right lower lobe measuring 6 x 14 mm is concerning for cavitary lesion versus abscess/empyema versus pneumonia. Repeat CT of the chest today demonstrates the peripheral consolidation of the lateral segment of the right middle lobe is unchanged from previous exam. Dr. Giordano has been consulted and based upon repeat CT imaging will likely pursue bronchoscopy. This may be completed as an outpatient follow the acute infectious/inflammatory process has resolved. (4) Essential hypertension Is this a current diagnosis for this admission?: Yes Plan: Blood pressures are appropriate today. Continue home dose Coreg and Multaq. Continue Catapres 0.3 mg p.o. daily. Continue hydralazine 50 mg p.o. 3 times daily. Resume furosemide 20 mg p.o. daily. IV hydralazine as needed for BP control. (5) Atrial fibrillation Qualifiers: Atrial fibrillation type: chronic Qualified Code(s): I48.2 - Chronic atrial fibrillation Is this a current diagnosis for this admission?: Yes Plan: Rate controlled. Continue home dose Multaq and Eliquis. (6) Weakness Is this a current diagnosis for this admission?: Yes Plan: The patient and family member state that the patient has been hospitalized multiple times within the last few months. The patient has been a lot of time in bed and therefore is experiencing generalized deconditioning. She is currently a 1-2 person assist to get out of bed to recliner. PT/OT services have been ordered. The patient and family members expressed that they do not want the patient to return to SNF and would like her to return to home. Discharge planning has been notified; she will require home health nursing, aide , PT/OT services at home. - Time Time Spent with patient: 25-34 minutes Anticipated discharge: Home with Homehealth - Inpatient Certification Based on my medical assessment, after consideration of the patient's comorbidities, presenting symptoms, or acuity I expect that the services needed warrant INPATIENT care.: Yes I certify that my determination is in accordance with my understanding of Medicare's requirements for reasonable and necessary INPATIENT services [42 CFR 412.3e].: Yes Medical Necessity: Need Close Monitoring Due to Risk of Patient Decompensation, Need For IV Fluids, Need for IV Antibiotics
--- NOTE | 2018-03-25 18:39 | PDOC PROGRESS REPORT ---
Subjective Progress Note for:: 03/21/18 Subjective:: Resting comfortably Reason For Visit: FEVER/ELECTROLYTE ABNORMALITIES/UTI. Physical Exam Vital Signs: Temp Pulse Resp BP Pulse Ox 97.5 F 68 18 134/48 H 96 03/24/18 11:25 03/24/18 11:25 03/24/18 11:25 03/24/18 11:25 03/24/18 11:25 Intake & Output 03/23/18 03/24/18 03/25/18 06:59 06:59 06:59 Intake Total 2455 3286 Output Total 800 3375 Balance 1655 -89 Weight 78.5 kg 78 kg General appearance: PRESENT: no acute distress, cooperative, disheveled Head exam: PRESENT: atraumatic, normocephalic Eye exam: PRESENT: conjunctiva pale, EOMI. ABSENT: nystagmus, periorbital swelling, scleral icterus Mouth exam: PRESENT: moist, neck supple, tongue midline Neck exam: ABSENT: carotid bruit, JVD, lymphadenopathy, thyromegaly, tracheal deviation, tracheostomy Respiratory exam: PRESENT: decreased breath sounds, prolonged expiratory phas, rales, rhonchi, unlabored. ABSENT: retraction, stridor, tachypnea Cardiovascular exam: PRESENT: RRR, +S1, +S2 Pulses: PRESENT: normal radial pulses GI/Abdominal exam: PRESENT: diminished bowel sounds, soft Gentrourinary exam: PRESENT: indwelling catheter Extremities exam: ABSENT: clubbing, joint swelling Musculoskeletal exam: ABSENT: deformity, dislocation Neurological exam: PRESENT: awake, oriented to person, oriented to place Psychiatric exam: PRESENT: flat affect Skin exam: PRESENT: dry, warm Results Laboratory Results: 03/23/18 06:34 03/23/18 06:34 03/24/18 06:24 Carbonic Acid 1.14 HCO3/H2CO3 Ratio 21:1 ABG pH 7.42 ABG pCO2 38.0 ABG pO2 98.9 ABG HCO3 24.3 ABG O2 Saturation 97.6 ABG Base Excess 0 FiO2 28% Impressions: Abdomen/Pelvis CT 03/20/18 00:00 IMPRESSION: 2.9 cm in diameter are lateral pleural base cavitary mass in the right lower hemithorax as noted above. The differential possibilities would include a lung abscess versus is a cavitary mass lesion. Fat containing umbilical hernia. Atrophic left kidney with compensatory hypertrophy of the right kidney Orantes catheter in the bladder. Other findings as noted above Chest X-Ray 03/20/18 00:26 IMPRESSION: 1. No acute pulmonary process identified. Low lung volumes. Head CT 03/20/18 00:36 IMPRESSION: 1. No acute intracranial abnormality by CT criteria. This exam was performed according to our departmental dose-optimization program, which includes automated exposure control, adjustment of the mA and/or kV according to patient size and/or use of iterative reconstruction technique. Chest CT 03/21/18 00:00 IMPRESSION: 1. IRREGULAR DENSITY IN THE PERIPHERAL SUBPLEURAL RIGHT MIDDLE LOBE DESCRIBED. THIS WAS NOT PRESENT ON THE PRIOR CHEST X-RAY DATED 02/06/2018. THIS MOST LIKELY REPRESENTS AN AREA OF PNEUMONIA. RADIOLUCENT AREAS WITHIN THIS DENSITY APPEAR TO REPRESENT SMALL AREAS OF UNINVOLVED LUNG AND DO NOT REPRESENT TRUE CAVITATION. 2. SUBPLEURAL NODULAR MASS IN THE PERIPHERAL RIGHT LOWER LOBE. DIFFERENTIAL INCLUDES INFECTIOUS ETIOLOGY VERSUS SOFT TISSUE MASS. 3. SMALL PLEURAL EFFUSIONS. BRONCHIECTASIS IN BOTH LOWER LOBES. 4. RECOMMEND APPROPRIATE TREATMENT FOR PRESUMED PNEUMONIA WITH FOLLOW-UP CHEST CT IN 6 WEEKS TO DETERMINE IF THE LESIONS IN THE RIGHT LUNG RESPOND TO TREATMENT. Assessment & Plan - Diagnosis (1) Atrial fibrillation Qualifiers: Atrial fibrillation type: chronic Qualified Code(s): I48.2 - Chronic atrial fibrillation Is this a current diagnosis for this admission?: Yes Plan: Stable rate at this time (2) Lung mass Is this a current diagnosis for this admission?: Yes Plan: Afebrile, no leukocytosis, no left shift, lung mass vs pna vs effusion (3) NSTEMI (non-ST elevated myocardial infarction) Is this a current diagnosis for this admission?: No (4) Aspiration pneumonia Is this a current diagnosis for this admission?: Yes
--- NOTE | 2018-03-25 18:42 | PDOC PROGRESS REPORT ---
Subjective Progress Note for:: 03/24/18 Subjective:: Awaiting talking to relatives Reason For Visit: FEVER/ELECTROLYTE ABNORMALITIES/UTI. Physical Exam Vital Signs: Temp Pulse Resp BP Pulse Ox 97.5 F 68 18 134/48 H 96 03/24/18 11:25 03/24/18 11:25 03/24/18 11:25 03/24/18 11:25 03/24/18 11:25 Intake & Output 03/23/18 03/24/18 03/25/18 06:59 06:59 06:59 Intake Total 2455 3286 Output Total 800 3375 Balance 1655 -89 Weight 78.5 kg 78 kg General appearance: PRESENT: no acute distress, well-developed. ABSENT: disheveled Head exam: PRESENT: atraumatic, normocephalic Eye exam: PRESENT: conjunctiva pale, EOMI. ABSENT: nystagmus, periorbital swelling, scleral icterus Mouth exam: PRESENT: moist, neck supple, tongue midline Neck exam: ABSENT: carotid bruit, JVD, lymphadenopathy, thyromegaly, tracheal deviation, tracheostomy Respiratory exam: PRESENT: decreased breath sounds, prolonged expiratory phas, rales, rhonchi, unlabored. ABSENT: retraction, stridor, tachypnea Cardiovascular exam: PRESENT: RRR, +S1, +S2 Pulses: PRESENT: normal radial pulses GI/Abdominal exam: PRESENT: diminished bowel sounds, soft Extremities exam: ABSENT: clubbing, joint swelling Musculoskeletal exam: ABSENT: deformity, dislocation Neurological exam: PRESENT: awake, oriented to person, oriented to place Psychiatric exam: PRESENT: flat affect Skin exam: PRESENT: dry, warm Results Laboratory Results: 03/23/18 06:34 03/23/18 06:34 03/24/18 06:24 Carbonic Acid 1.14 HCO3/H2CO3 Ratio 21:1 ABG pH 7.42 ABG pCO2 38.0 ABG pO2 98.9 ABG HCO3 24.3 ABG O2 Saturation 97.6 ABG Base Excess 0 FiO2 28% Impressions: Abdomen/Pelvis CT 03/20/18 00:00 IMPRESSION: 2.9 cm in diameter are lateral pleural base cavitary mass in the right lower hemithorax as noted above. The differential possibilities would include a lung abscess versus is a cavitary mass lesion. Fat containing umbilical hernia. Atrophic left kidney with compensatory hypertrophy of the right kidney Orantes catheter in the bladder. Other findings as noted above Chest X-Ray 03/20/18 00:26 IMPRESSION: 1. No acute pulmonary process identified. Low lung volumes. Head CT 03/20/18 00:36 IMPRESSION: 1. No acute intracranial abnormality by CT criteria. This exam was performed according to our departmental dose-optimization program, which includes automated exposure control, adjustment of the mA and/or kV according to patient size and/or use of iterative reconstruction technique. Chest CT 03/21/18 00:00 IMPRESSION: 1. IRREGULAR DENSITY IN THE PERIPHERAL SUBPLEURAL RIGHT MIDDLE LOBE DESCRIBED. THIS WAS NOT PRESENT ON THE PRIOR CHEST X-RAY DATED 02/06/2018. THIS MOST LIKELY REPRESENTS AN AREA OF PNEUMONIA. RADIOLUCENT AREAS WITHIN THIS DENSITY APPEAR TO REPRESENT SMALL AREAS OF UNINVOLVED LUNG AND DO NOT REPRESENT TRUE CAVITATION. 2. SUBPLEURAL NODULAR MASS IN THE PERIPHERAL RIGHT LOWER LOBE. DIFFERENTIAL INCLUDES INFECTIOUS ETIOLOGY VERSUS SOFT TISSUE MASS. 3. SMALL PLEURAL EFFUSIONS. BRONCHIECTASIS IN BOTH LOWER LOBES. 4. RECOMMEND APPROPRIATE TREATMENT FOR PRESUMED PNEUMONIA WITH FOLLOW-UP CHEST CT IN 6 WEEKS TO DETERMINE IF THE LESIONS IN THE RIGHT LUNG RESPOND TO TREATMENT. Assessment & Plan - Diagnosis (1) Atrial fibrillation Qualifiers: Atrial fibrillation type: chronic Qualified Code(s): I48.2 - Chronic atrial fibrillation Is this a current diagnosis for this admission?: Yes Plan: Stable rate at this time (2) Lung mass Is this a current diagnosis for this admission?: Yes Plan: Awaiting repeat CT scan (3) NSTEMI (non-ST elevated myocardial infarction) Is this a current diagnosis for this admission?: No (4) Aspiration pneumonia Is this a current diagnosis for this admission?: Yes Plan: This is a distinct possibility she has chemical pneumonitisConsidering debilitation or level of consciousness waxing and waning with follow these lesions closely and if necessary and suitable for her level of care would proceed with a bronchoscopy after these decisions have been made
--- NOTE | 2018-03-25 18:45 | PDOC PROGRESS REPORT ---
Subjective Progress Note for:: 03/25/18 Subjective:: A little more short of breath Reason For Visit: FEVER/ELECTROLYTE ABNORMALITIES/UTI. Physical Exam Vital Signs: Temp Pulse Resp BP Pulse Ox 99.0 F 61 12 136/54 H 97 03/25/18 11:54 03/25/18 11:54 03/25/18 11:54 03/25/18 11:54 03/25/18 11:54 Intake & Output 03/24/18 03/25/18 03/26/18 06:59 06:59 06:59 Intake Total 3286 2640 Output Total 3375 2400 Balance -89 240 Weight 78 kg 78.5 kg General appearance: PRESENT: no acute distress, cooperative. ABSENT: disheveled Head exam: PRESENT: atraumatic, normocephalic Eye exam: PRESENT: conjunctiva pale, EOMI. ABSENT: nystagmus, periorbital swelling, scleral icterus Mouth exam: PRESENT: moist, neck supple, tongue midline Neck exam: ABSENT: carotid bruit, JVD, lymphadenopathy, thyromegaly, tracheal deviation, tracheostomy Respiratory exam: PRESENT: decreased breath sounds, prolonged expiratory phas, rales, rhonchi, unlabored. ABSENT: retraction, stridor, tachypnea Cardiovascular exam: PRESENT: irregular rhythm, +S1, +S2 Pulses: PRESENT: normal radial pulses GI/Abdominal exam: PRESENT: diminished bowel sounds, soft Extremities exam: ABSENT: calf tenderness, clubbing, joint swelling Musculoskeletal exam: ABSENT: deformity, dislocation Neurological exam: PRESENT: awake Skin exam: PRESENT: dry, warm Results Laboratory Results: 03/25/18 03:56 03/25/18 03:56 03/25/18 03/25/18 03:56 03:56 WBC 4.5 RBC 3.31 L Hgb 9.8 L Hct 29.3 L MCV 88 MCH 29.7 MCHC 33.6 RDW 15.4 H Plt Count 175 Seg Neutrophils % 61.4 Lymphocytes % 24.7 Monocytes % 10.4 Eosinophils % 2.3 Basophils % 1.2 Absolute Neutrophils 2.8 Absolute Lymphocytes 1.1 Absolute Monocytes 0.5 Absolute Eosinophils 0.1 Absolute Basophils 0.1 Sodium 140.9 Potassium 3.6 Chloride 103 Carbon Dioxide 26 Anion Gap 12 BUN 4 L Creatinine 0.60 Est GFR ( Amer) > 60 Est GFR (Non-Af Amer) > 60 Glucose 88 Calcium 8.4 Phosphorus 2.6 Magnesium 1.9 Impressions: Abdomen/Pelvis CT 03/20/18 00:00 IMPRESSION: 2.9 cm in diameter are lateral pleural base cavitary mass in the right lower hemithorax as noted above. The differential possibilities would include a lung abscess versus is a cavitary mass lesion. Fat containing umbilical hernia. Atrophic left kidney with compensatory hypertrophy of the right kidney Orantes catheter in the bladder. Other findings as noted above Chest X-Ray 03/20/18 00:26 IMPRESSION: 1. No acute pulmonary process identified. Low lung volumes. Head CT 03/20/18 00:36 IMPRESSION: 1. No acute intracranial abnormality by CT criteria. This exam was performed according to our departmental dose-optimization program, which includes automated exposure control, adjustment of the mA and/or kV according to patient size and/or use of iterative reconstruction technique. Chest CT 03/25/18 06:00 IMPRESSION: Peripheral consolidation lateral segment right middle lobe unchanged from 03/21/2018 Small bilateral pleural effusions with bibasilar airspace disease, atelectasis versus pneumonia. This is new compared to 03/21/2018. Assessment & Plan - Diagnosis (1) Atrial fibrillation Qualifiers: Atrial fibrillation type: chronic Qualified Code(s): I48.2 - Chronic atrial fibrillation Is this a current diagnosis for this admission?: Yes (2) Lung mass Is this a current diagnosis for this admission?: Yes Plan: CT scan shows increased pleural effusion increase densities in the 50s between lobes requested ultrasound-guided thoracentesis as I believe the bulk of these findings are secondary to pleural effusions possibly due to congestive heart failure (3) NSTEMI (non-ST elevated myocardial infarction) Is this a current diagnosis for this admission?: No (4) Aspiration pneumonia Is this a current diagnosis for this admission?: Yes Plan: Far less likely (5) Pulmonary hypertension Is this a current diagnosis for this admission?: Yes Plan: via echo 02/16
[2018-03-25] MEDS: FENOFIBRATE NANOCRYSTALLIZED 48 MG TABLET PO SCH (21:26)
[2018-03-26] MEDS: MEROPENEM 1 GM in NORMAL SALINE 50 ML IV SCH ×3 (02:52→17:08)
[2018-03-26] MEDS: HYDRALAZINE HCL INJ/PF 20 MG/1 ML SDV IV PRN (03:36)
[2018-03-26 05:23] LABS: HEMATOCRIT 29.4 % (36.0-47.0); HEMOGLOBIN 9.9 g/dL (12.0-15.5); MEAN CORPUSCULAR HEMOGLOBIN 29.9 pg (27.0-33.4); MEAN CORPUSCULAR HGB CONC 33.7 g/dL (32.0-36.0); MEAN CORPUSCULAR VOLUME 89 fl (80-97); PLATELET COUNT 203 10^3/uL (150-450); RED BLOOD COUNT 3.32 10^6/uL (3.72-5.28); RED CELL DISTRIBUTION WIDTH 15.5 % (11.5-14.0)
[2018-03-26 05:42] LABS: ANION GAP 8 (5-19); BLOOD UREA NITROGEN 5 mg/dL (7-20); CALCIUM 8.3 mg/dL (8.4-10.2); CARBON DIOXIDE 28 mmol/L (22-30); CHLORIDE 104 mmol/L (98-107); GLUCOSE 84 mg/dL (75-110); POTASSIUM 3.3 mmol/L (3.6-5.0); SODIUM 140.2 mmol/L (137-145)
[2018-03-26] MEDS: LANSOPRAZOLE 30 MG TAB.RAP.DR PO SCH (06:03)
[2018-03-26] MEDS: HYDRALAZINE HCL 50 MG TABLET PO SCH ×3 (06:03→21:53)
[2018-03-26] MEDS: 1/2 NORMAL SALINE 1,000 ML IV PRN (06:04)
[2018-03-26] MEDS: PREDNISOLONE ACETATE 1% OPH SUSP 5 ML OD SCH ×3 (06:04→17:07)
[2018-03-26] MEDS: CARVEDILOL 6.25 MG TABLET PO SCH ×2 (10:41→21:54)
[2018-03-26] MEDS: POLYETHYLENE GLYCOL 3350 POWDER 17 GM/1 PACKET PO SCH (10:41)
[2018-03-26] MEDS: PREGABALIN 25 MG CAPSULE PO SCH ×2 (10:41→21:52)
[2018-03-26] MEDS: CARBAMAZEPINE 200 MG TABLET PO SCH ×2 (10:42→17:07)
[2018-03-26] MEDS: CLONIDINE HCL 0.2 MG TABLET PO SCH ×2 (10:42→21:53)
[2018-03-26] MEDS: FUROSEMIDE 20 MG TABLET PO SCH (10:42)
[2018-03-26] MEDS: SERTRALINE HCL 50 MG TABLET PO SCH (10:43)
[2018-03-26] MEDS: DRONEDARONE HYDROCHLORIDE 400 MG TABLET PO SCH ×2 (10:43→21:55)
[2018-03-26] MEDS: CYCLOSPORINE 0.05% OPH EMULSIO 0.4 ML DROPERETTE OU SCH ×2 (10:43→21:55)
--- NOTE | 2018-03-26 13:21 | PDOC PROGRESS REPORT ---
Subjective Progress Note for:: 03/26/18 Subjective:: The patient is an 82 year old female with a past medical history of NSTEMI, chronic diastolic CHF, A. fib on Eliquis, chronic respiratory failure on 2 L home oxygen, GURMEET, and UTI. The patient was last hospitalized on home H from 03/02 -03/07/18 for non-STEMI, UTI, and ARF. She was discharged to SNF. The patient was readmitted on 03/20/18 with sepsis secondary to UTI. The patient is seen on morning rounds. She is found sitting up in the recliner on supplemental oxygen at 2 L/min after having worked with physical therapy. She does report slight dyspnea with exertion and can not recall if she was oxygen dependent prior to this admission. She denies fever, chills, chest pain, palpitations, orthopnea, cough, abdominal pain, nausea vomiting and diarrhea. Her only complaint today is the frequent nature of her readmissions. She is aware of the plans for "lung biopsy [thoracentesis]" scheduled for Saturday and has no questions regarding the procedure at this time. The patient does confirm that her goal is to be discharged home and not back to SNF at time of discharge. Reason For Visit: FEVER/ELECTROLYTE ABNORMALITIES/UTI. Physical Exam Vital Signs: Temp Pulse Resp BP Pulse Ox 98.4 F 64 14 152/57 H 98 03/26/18 13:00 03/26/18 13:00 03/26/18 13:00 03/26/18 13:00 03/26/18 13:00 Intake & Output 03/25/18 03/26/18 03/27/18 06:59 06:59 06:59 Intake Total 2640 2820 Output Total 2400 1500 Balance 240 1320 Weight 78.5 kg 78.5 kg General appearance: PRESENT: no acute distress, cooperative, well-developed, well-nourished, other - Overweight Head exam: PRESENT: atraumatic, normocephalic Eye exam: PRESENT: conjunctiva pink, EOMI, PERRLA. ABSENT: scleral icterus Ear exam: PRESENT: normal external ear exam Mouth exam: PRESENT: moist, tongue midline Neck exam: ABSENT: carotid bruit, JVD, lymphadenopathy, thyromegaly Respiratory exam: PRESENT: crackles - RLL, symmetrical, unlabored. ABSENT: rales, rhonchi, wheezes Cardiovascular exam: PRESENT: RRR, +S1, +S2. ABSENT: diastolic murmur, rubs, systolic murmur Pulses: PRESENT: normal dorsalis pedis pul Vascular exam: PRESENT: normal capillary refill GI/Abdominal exam: PRESENT: normal bowel sounds, soft. ABSENT: distended, guarding, mass, organolmegaly, rebound, tenderness Rectal exam: PRESENT: deferred Extremities exam: PRESENT: full ROM. ABSENT: calf tenderness, clubbing, pedal edema Neurological exam: PRESENT: alert, awake, oriented to person, oriented to place , oriented to time, oriented to situation, CN II-XII grossly intact. ABSENT: motor sensory deficit Psychiatric exam: PRESENT: appropriate affect, normal mood. ABSENT: homicidal ideation, suicidal ideation Skin exam: PRESENT: dry, intact, pallor, warm. ABSENT: cyanosis, rash Results Laboratory Results: 03/26/18 03:55 03/26/18 03:55 03/25/18 03/26/18 03/26/18 13:23 03:55 03:55 WBC 5.0 RBC 3.32 L Hgb 9.9 L Hct 29.4 L MCV 89 MCH 29.9 MCHC 33.7 RDW 15.5 H Plt Count 203 Sodium 140.2 Potassium 3.3 L Chloride 104 Carbon Dioxide 28 Anion Gap 8 BUN 5 L Creatinine 0.56 Est GFR ( Amer) > 60 Est GFR (Non-Af Amer) > 60 Glucose 84 Calcium 8.3 L Total Protein 5.3 L Impressions: Abdomen/Pelvis CT 03/20/18 00:00 IMPRESSION: 2.9 cm in diameter are lateral pleural base cavitary mass in the right lower hemithorax as noted above. The differential possibilities would include a lung abscess versus is a cavitary mass lesion. Fat containing umbilical hernia. Atrophic left kidney with compensatory hypertrophy of the right kidney Orantes catheter in the bladder. Other findings as noted above Chest X-Ray 03/20/18 00:26 IMPRESSION: 1. No acute pulmonary process identified. Low lung volumes. Head CT 03/20/18 00:36 IMPRESSION: 1. No acute intracranial abnormality by CT criteria. This exam was performed according to our departmental dose-optimization program, which includes automated exposure control, adjustment of the mA and/or kV according to patient size and/or use of iterative reconstruction technique. Chest CT 03/25/18 06:00 IMPRESSION: Peripheral consolidation lateral segment right middle lobe unchanged from 03/21/2018 Small bilateral pleural effusions with bibasilar airspace disease, atelectasis versus pneumonia. This is new compared to 03/21/2018. Assessment & Plan - Diagnosis (1) Sepsis Qualifiers: Sepsis type: sepsis due to unspecified organism Qualified Code(s): A41.9 - Sepsis, unspecified organism Is this a current diagnosis for this admission?: Yes Plan: Improving. Sepsis due to UTI, present on admission, as evidenced by leukocytosis (WBC 12.1 from lab work done at [facility]), temperature of 103.4, tachypnea with respiratory rate of 24, hypoxia with SPO2 of 91% on 4 L/min which is increased from her baseline requirement of 2 L/min. Leukocytosis has resolved, the patient is now afebrile with normal vital signs. Urine and blood cultures from this admission are positive for ESBL E. coli resistant to multiple antibiotics with similar sensitivity patterns. The patient has been admitted to the medical floor. She has received adequate IVF resuscitation. She has been empirically placed on meropenem which has been continued based on sensitivity reporting. Infectious disease was consulted appreciate their recommendations for a total of 10 days of IV antibiotic therapy. Patient is currently on day 5 of 10. (2) UTI (urinary tract infection) Qualifiers: Urinary tract infection type: site unspecified Hematuria presence: without hematuria Qualified Code(s): N39.0 - Urinary tract infection, site not specified Is this a current diagnosis for this admission?: Yes Plan: The patient has a history of recurrent urinary tract infections within the last 3 months. Urine cultures are consistently positive for E. coli. Current urine culture is positive for ESBL E. coli with multiple resistance patterns; Sensitive to meropenem. Orantes catheter was placed in the emergency department; will continue for now. We will continue meropenem for a total of 10 days; currently on day 5. (3) Lung mass Is this a current diagnosis for this admission?: Yes Plan: Lung masses present on CT which was not previously seen on chest x-ray from . Repeat CT of the chest yesterday demonstrated the peripheral consolidation of the lateral segment of the right middle lobe is unchanged from previous exam. Thoracentesis is scheduled for Saturday. LDH is 451, total protein 5.3 Dr. Giordano has been consulted; appreciate his assistance. Holding aspirin and Eliquis for procedure. Kal stockings and SCDs while in bed for DVT precautions. (4) Essential hypertension Is this a current diagnosis for this admission?: Yes Plan: Blood pressures are appropriate today. Continue home dose Coreg and Multaq. Continue Catapres 0.3 mg p.o. daily. Continue hydralazine 50 mg p.o. 3 times daily. Continue furosemide 20 mg p.o. daily. IV hydralazine as needed for BP control. (5) Atrial fibrillation Qualifiers: Atrial fibrillation type: chronic Qualified Code(s): I48.2 - Chronic atrial fibrillation Is this a current diagnosis for this admission?: Yes Plan: Rate controlled. Continue home dose Multaq. Holding Eliquis for planned proceedure; will resume following thoracentesis. (6) Weakness Is this a current diagnosis for this admission?: Yes Plan: The patient and family member state that the patient has been hospitalized multiple times within the last few months. The patient has been a lot of time in bed and therefore is experiencing generalized deconditioning. She is currently a 1-2 person assist to get out of bed to recliner. PT/OT services have been ordered. The patient and family members expressed that they do not want the patient to return to SNF and would like her to return to home. Discharge planning has been notified; she will require home health nursing, aide , PT/OT services at home as well as home oxygen. (7) Hypokalemia Is this a current diagnosis for this admission?: Yes Plan: Will replace and continue to monitor with daily chemistry. - Time Time Spent with patient: 25-34 minutes Medications reviewed and adjusted accordingly: Yes Anticipated discharge: Home with Homehealth
--- NOTE | 2018-03-26 16:17 | PDOC PROGRESS REPORT ---
Subjective Progress Note for:: 03/26/18 Subjective:: A little more short of breath Reason For Visit: FEVER/ELECTROLYTE ABNORMALITIES/UTI. Physical Exam Vital Signs: Temp Pulse Resp BP Pulse Ox 98.4 F 55 L 14 152/57 H 98 03/26/18 13:00 03/26/18 14:00 03/26/18 13:00 03/26/18 13:00 03/26/18 13:00 Intake & Output 03/25/18 03/26/18 03/27/18 06:59 06:59 06:59 Intake Total 2640 2820 Output Total 2400 1500 Balance 240 1320 Weight 78.5 kg 78.5 kg General appearance: PRESENT: no acute distress, cooperative, disheveled, obese Head exam: PRESENT: atraumatic, normocephalic Eye exam: PRESENT: conjunctiva pale, EOMI. ABSENT: nystagmus, periorbital swelling, scleral icterus Mouth exam: PRESENT: dry mucosa, neck supple, tongue midline Neck exam: ABSENT: carotid bruit, JVD, lymphadenopathy, thyromegaly, tracheal deviation, tracheostomy Respiratory exam: PRESENT: decreased breath sounds, prolonged expiratory phas, rales, rhonchi. ABSENT: retraction, stridor Cardiovascular exam: PRESENT: RRR, +S1, +S2 Pulses: PRESENT: normal radial pulses GI/Abdominal exam: PRESENT: diminished bowel sounds, soft Extremities exam: ABSENT: calf tenderness, clubbing, joint swelling Musculoskeletal exam: ABSENT: deformity, dislocation Neurological exam: PRESENT: awake Skin exam: PRESENT: dry, warm Results Laboratory Results: 03/26/18 03:55 03/26/18 03:55 03/26/18 03/26/18 03:55 03:55 WBC 5.0 RBC 3.32 L Hgb 9.9 L Hct 29.4 L MCV 89 MCH 29.9 MCHC 33.7 RDW 15.5 H Plt Count 203 Sodium 140.2 Potassium 3.3 L Chloride 104 Carbon Dioxide 28 Anion Gap 8 BUN 5 L Creatinine 0.56 Est GFR ( Amer) > 60 Est GFR (Non-Af Amer) > 60 Glucose 84 Calcium 8.3 L Impressions: Abdomen/Pelvis CT 03/20/18 00:00 IMPRESSION: 2.9 cm in diameter are lateral pleural base cavitary mass in the right lower hemithorax as noted above. The differential possibilities would include a lung abscess versus is a cavitary mass lesion. Fat containing umbilical hernia. Atrophic left kidney with compensatory hypertrophy of the right kidney Orantes catheter in the bladder. Other findings as noted above Chest X-Ray 03/20/18 00:26 IMPRESSION: 1. No acute pulmonary process identified. Low lung volumes. Head CT 03/20/18 00:36 IMPRESSION: 1. No acute intracranial abnormality by CT criteria. This exam was performed according to our departmental dose-optimization program, which includes automated exposure control, adjustment of the mA and/or kV according to patient size and/or use of iterative reconstruction technique. Chest CT 03/25/18 06:00 IMPRESSION: Peripheral consolidation lateral segment right middle lobe unchanged from 03/21/2018 Small bilateral pleural effusions with bibasilar airspace disease, atelectasis versus pneumonia. This is new compared to 03/21/2018. Assessment & Plan - Diagnosis (1) Atrial fibrillation Qualifiers: Atrial fibrillation type: chronic Qualified Code(s): I48.2 - Chronic atrial fibrillation Is this a current diagnosis for this admission?: Yes Plan: Stable rate at this time (2) Lung mass Is this a current diagnosis for this admission?: Yes Plan: CT scan shows increased pleural effusion increase densities in the 50s between lobes requested ultrasound-guided thoracentesis as I believe the bulk of these findings are secondary to pleural effusions possibly due to congestive heart failure (3) NSTEMI (non-ST elevated myocardial infarction) Is this a current diagnosis for this admission?: No (4) Aspiration pneumonia Is this a current diagnosis for this admission?: Yes Plan: Far less likely (5) Pulmonary hypertension Is this a current diagnosis for this admission?: Yes Plan: via echo 02/16
[2018-03-26] MEDS: POTASSIUM CHLORIDE 10 MEQ TABLET.SA PO SCH (21:52)
[2018-03-26] MEDS: FENOFIBRATE NANOCRYSTALLIZED 48 MG TABLET PO SCH (21:54)
[2018-03-27] MEDS: PREDNISOLONE ACETATE 1% OPH SUSP 5 ML OD SCH ×5 (00:39→23:16)
[2018-03-27] MEDS: CARBAMAZEPINE 200 MG TABLET PO SCH ×4 (00:39→22:47)
[2018-03-27] MEDS: MEROPENEM 1 GM in NORMAL SALINE 50 ML IV SCH ×3 (01:11→17:47)
[2018-03-27] MEDS: 1/2 NORMAL SALINE 1,000 ML IV PRN (01:11)
[2018-03-27] MEDS: HYDRALAZINE HCL 50 MG TABLET PO SCH ×3 (05:19→22:47)
[2018-03-27] MEDS: LANSOPRAZOLE 30 MG TAB.RAP.DR PO SCH (05:19)
[2018-03-27 05:32] LABS: HEMATOCRIT 30.6 % (36.0-47.0); MEAN CORPUSCULAR HGB CONC 32.7 g/dL (32.0-36.0); MEAN CORPUSCULAR VOLUME 89 fl (80-97); PLATELET COUNT 264 10^3/uL (150-450); RED BLOOD COUNT 3.46 10^6/uL (3.72-5.28); RED CELL DISTRIBUTION WIDTH 15.4 % (11.5-14.0); WHITE BLOOD COUNT 4.6 10^3/uL (4.0-10.5)
[2018-03-27 05:56] LABS: ANION GAP 9 (5-19); BLOOD UREA NITROGEN 4 mg/dL (7-20); CALCIUM 8.5 mg/dL (8.4-10.2); CARBON DIOXIDE 29 mmol/L (22-30); CHLORIDE 102 mmol/L (98-107); GLUCOSE 87 mg/dL (75-110); POTASSIUM 3.3 mmol/L (3.6-5.0); SODIUM 140.4 mmol/L (137-145)
[2018-03-27] MEDS: CARVEDILOL 6.25 MG TABLET PO SCH ×2 (09:11→22:47)
[2018-03-27] MEDS: SERTRALINE HCL 50 MG TABLET PO SCH (09:11)
[2018-03-27] MEDS: CLONIDINE HCL 0.2 MG TABLET PO SCH ×2 (09:11→22:47)
[2018-03-27] MEDS: DRONEDARONE HYDROCHLORIDE 400 MG TABLET PO SCH ×2 (09:12→22:47)
[2018-03-27] MEDS: PREGABALIN 25 MG CAPSULE PO SCH ×2 (09:12→22:47)
[2018-03-27] MEDS: CYCLOSPORINE 0.05% OPH EMULSIO 0.4 ML DROPERETTE OU SCH ×2 (09:12→22:47)
[2018-03-27] MEDS ORDERED: LIDOCAINE 1% INJ-PF (10 MG/ML) 30 ML SDV ONE (09:24)
--- NOTE | 2018-03-27 10:21 | RADIOLOGY REPORT (SQ) ---
EXAM DESCRIPTION: CHEST SINGLE VIEW COMPLETED DATE/TIME: 03/27/2018 10:13 am REASON FOR STUDY: S/P LT THORACENTESIS COMPARISON: CT chest dated 03/25/2018. Chest x-ray dated 03/20/2018. EXAM PARAMETERS: NUMBER OF VIEWS: One view. TECHNIQUE: Single frontal radiographic view of the chest acquired. RADIATION DOSE: NA LIMITATIONS: None. FINDINGS: LUNGS AND PLEURA: No pneumothorax following thoracentesis. Faint density in the lateral r ight mid lung, unchanged. MEDIASTINUM AND HILAR STRUCTURES: No masses. Contour normal. HEART AND VASCULAR STRUCTURES: Heart normal in size. Normal vasculature. BONES: No acute findings. HARDWARE: None in the chest. OTHER: No other significant finding. IMPRESSION: NO PNEUMOTHORAX FOLLOWING THORACENTESIS. NO SIGNIFICANT CHANGE IN APPEARANCE OF THE LUANA ST. TECHNICAL DOCUMENTATION: JOB ID: [id number] [employer]- All Rights Reserved Reading location - IP/workstation name: [email or web address]
[2018-03-27] MEDS: POLYETHYLENE GLYCOL 3350 POWDER 17 GM/1 PACKET PO SCH (10:39)
[2018-03-27] MEDS: POTASSIUM CHLORIDE 10 MEQ TABLET.SA PO SCH (10:39)
[2018-03-27] MEDS: FUROSEMIDE 20 MG TABLET PO SCH (10:40)
[2018-03-27] MEDS: ACETAMINOPHEN 325 MG TABLET PO PRN (10:41)
[2018-03-27 11:28] LABS: FLUID COLOR LIGHT YELLOW; FLUID TYPE PLEURAL
--- NOTE | 2018-03-27 11:28 | PDOC PROGRESS REPORT ---
Subjective Progress Note for:: 03/27/18 Subjective:: A little more short of breath Reason For Visit: FEVER/ELECTROLYTE ABNORMALITIES/UTI. Physical Exam Vital Signs: Temp Pulse Resp BP Pulse Ox 98.5 F 70 16 187/65 H 96 03/27/18 08:18 03/27/18 08:18 03/27/18 08:18 03/27/18 08:18 03/27/18 08:18 Intake & Output 03/26/18 03/27/18 03/28/18 06:59 06:59 06:59 Intake Total 2820 2510 Output Total 1500 1850 Balance 1320 660 Weight 78.5 kg 72.8 kg General appearance: PRESENT: no acute distress, disheveled, well-developed, well -nourished Head exam: PRESENT: atraumatic, normocephalic Eye exam: PRESENT: conjunctiva pale, EOMI. ABSENT: nystagmus, periorbital swelling, scleral icterus Mouth exam: PRESENT: dry mucosa, neck supple, tongue midline Neck exam: ABSENT: carotid bruit, JVD, lymphadenopathy, thyromegaly, tracheal deviation, tracheostomy Respiratory exam: PRESENT: decreased breath sounds, prolonged expiratory phas, rales, rhonchi. ABSENT: retraction, stridor, tachypnea Cardiovascular exam: PRESENT: RRR, +S1, +S2 Pulses: PRESENT: normal radial pulses GI/Abdominal exam: PRESENT: diminished bowel sounds, soft Extremities exam: ABSENT: calf tenderness, clubbing, joint swelling Musculoskeletal exam: ABSENT: deformity, dislocation Neurological exam: PRESENT: awake Skin exam: PRESENT: dry, warm Results Laboratory Results: 03/27/18 04:14 03/27/18 04:14 03/27/18 03/27/18 04:14 04:14 WBC 4.6 RBC 3.46 L Hgb 10.0 L Hct 30.6 L MCV 89 MCH 29.0 MCHC 32.7 RDW 15.4 H Plt Count 264 Sodium 140.4 Potassium 3.3 L Chloride 102 Carbon Dioxide 29 Anion Gap 9 BUN 4 L Creatinine 0.54 Est GFR ( Amer) > 60 Est GFR (Non-Af Amer) > 60 Glucose 87 Calcium 8.5 Impressions: Abdomen/Pelvis CT 03/20/18 00:00 IMPRESSION: 2.9 cm in diameter are lateral pleural base cavitary mass in the right lower hemithorax as noted above. The differential possibilities would include a lung abscess versus is a cavitary mass lesion. Fat containing umbilical hernia. Atrophic left kidney with compensatory hypertrophy of the right kidney Orantes catheter in the bladder. Other findings as noted above Head CT 03/20/18 00:36 IMPRESSION: 1. No acute intracranial abnormality by CT criteria. This exam was performed according to our departmental dose-optimization program, which includes automated exposure control, adjustment of the mA and/or kV according to patient size and/or use of iterative reconstruction technique. Chest CT 03/25/18 06:00 IMPRESSION: Peripheral consolidation lateral segment right middle lobe unchanged from 03/21/2018 Small bilateral pleural effusions with bibasilar airspace disease, atelectasis versus pneumonia. This is new compared to 03/21/2018. Chest X-Ray 03/27/18 00:00 IMPRESSION: NO PNEUMOTHORAX FOLLOWING THORACENTESIS. NO SIGNIFICANT CHANGE IN APPEARANCE OF THE CHEST. Assessment & Plan - Diagnosis (1) Atrial fibrillation Qualifiers: Atrial fibrillation type: chronic Qualified Code(s): I48.2 - Chronic atrial fibrillation Is this a current diagnosis for this admission?: Yes Plan: Stable rate at this time (2) Lung mass Is this a current diagnosis for this admission?: Yes Plan: CT scan shows increased pleural effusion increase densities in the 50s between lobes requested ultrasound-guided thoracentesis as I believe the bulk of these findings are secondary to pleural effusions possibly due to congestive heart failure (3) NSTEMI (non-ST elevated myocardial infarction) Is this a current diagnosis for this admission?: No (4) Aspiration pneumonia Is this a current diagnosis for this admission?: Yes Plan: Far less likely (5) Pulmonary hypertension Is this a current diagnosis for this admission?: Yes Plan: via echo 02/16
[2018-03-27 11:29] LABS: FLUID APPEARANCE HAZY; FLUID VISCOSITY LIQUID
--- NOTE | 2018-03-27 12:32 | RADIOLOGY REPORT (SQ) ---
EXAM DESCRIPTION: U/S THORACENTESIS WITH IMAGING COMPLETED DATE/TIME: 03/27/2018 10:19 am REASON FOR STUDY: r sided effusion COMPARISON: None. LIMITATIONS: None. PROCEDURE: Procedure, risks, benefit, and alternative explained to patient who then gave written con sent. The posterior left chest wall was marked using ultrasound guidance. A time-out was called for correct marking verification. Chest prepped and draped using sterile technique. Local anesthesia ac hieved using 5 ml of 1% lidocaine injection. A 6fr Safe-T- Centesis set was introduced into the left pleural space. Fluid was aspirated. The catheter was removed and the entry site was covered with s terile bandage. No immediate complications noted. Images acquired during the procedure were stored on PACS. FINDINGS: ENTRY SITE: Posterior left chest. FLUID VOLUME: 250 mL. FLUID ANALYSIS: Straw-colored. OTHER: Fluid sent to the lab for testing. IMPRESSION: SUCCESSFUL THORACENTESIS USING ULTRASOUND GUIDANCE. COMMENT: Patient medication list reviewed: Yes- Quality ID# [id number]:Eligible professional attests to doc umenting in the medical record they obtained, updated, or reviewed the patient's current medications. TECHNICAL DOCUMENTATION: JOB ID: [id number] [employer]- All Rights Reserved Reading location - IP/workstation name: [email or web address]
--- NOTE | 2018-03-27 12:43 | RADIOLOGY REPORT (SQ) ---
EXAM DESCRIPTION: CHEST SINGLE VIEW COMPLETED DATE/TIME: 03/27/2018 12:31 pm REASON FOR STUDY: 2 HOURS S/P LT THORACENTESIS COMPARISON: None. EXAM PARAMETERS: NUMBER OF VIEWS: One view. TECHNIQUE: Single frontal radiographic view of the chest acquired. RADIATION DOSE: NA LIMITATIONS: None. FINDINGS: LUNGS AND PLEURA: No opacities, masses or pneumothorax. No pleural effusion. MEDIASTINUM AND HILAR STRUCTURES: No masses. Contour normal. HEART AND VASCULAR STRUCTURES: Heart normal in size. Normal vasculature. BONES: No acute findings. HARDWARE: None in the chest. OTHER: No other significant finding. IMPRESSION: NO ACUTE RADIOGRAPHIC FINDING IN THE CHEST. NO PNEUMOTHORAX STATUS POST THORACENTESIS. TECHNICAL DOCUMENTATION: JOB ID: [id number] [employer]- All Rights Reserved Reading location - IP/workstation name: [email or web address]
--- NOTE | 2018-03-27 14:03 | PDOC PROGRESS REPORT ---
Subjective Progress Note for:: 03/27/18 Subjective:: The patient is an 82 year old female with a past medical history of NSTEMI, chronic diastolic CHF, A. fib on Eliquis, chronic respiratory failure on 2 L home oxygen, GURMEET, and UTI. The patient was last hospitalized on home H from 03/02 -03/07/18 for non-STEMI, UTI, and ARF. She was discharged to SNF. The patient was readmitted on 03/20/18 with sepsis secondary to UTI. The patient is seen on morning rounds with her [id number] present. She is found resting in bed comfortably on supplemental oxygen at 2 L/min after having worked with physical therapy. She is very tired; she states that she did not sleep well last night due to blood draws and vital signs. She request to not be awakened at night for these tasks. She denies fever, chills, chest pain, palpitations, orthopnea, cough, abdominal pain, nausea vomiting and diarrhea. Discussed with patient's family their goals/readiness at discharge; pt will have 24 hr supervision. They request assistance with obtaining a wheelchair but otherwise feel prepared to care for the patient at home. They have no other questions or concerns at this time. Reason For Visit: FEVER/ELECTROLYTE ABNORMALITIES/UTI. Physical Exam Vital Signs: Temp Pulse Resp BP Pulse Ox 98.0 F 68 16 108/50 L 95 03/27/18 12:18 03/27/18 12:18 03/27/18 12:18 03/27/18 12:18 03/27/18 12:18 Intake & Output 03/26/18 03/27/18 03/28/18 06:59 06:59 06:59 Intake Total 2820 2510 Output Total 1500 1850 Balance 1320 660 Weight 78.5 kg 72.8 kg General appearance: PRESENT: no acute distress, obese, well-developed, well- nourished Head exam: PRESENT: atraumatic, normocephalic Eye exam: PRESENT: conjunctiva pink, EOMI, PERRLA. ABSENT: scleral icterus Ear exam: PRESENT: normal external ear exam Mouth exam: PRESENT: moist, tongue midline Neck exam: ABSENT: carotid bruit, JVD, lymphadenopathy, thyromegaly Respiratory exam: PRESENT: decreased breath sounds, rhonchi, symmetrical, unlabored, other - Supplemental oxygen at 2 L/min. ABSENT: rales, wheezes Cardiovascular exam: PRESENT: RRR. ABSENT: diastolic murmur, rubs, systolic murmur Pulses: PRESENT: normal dorsalis pedis pul Vascular exam: PRESENT: normal capillary refill GI/Abdominal exam: PRESENT: normal bowel sounds, soft. ABSENT: distended, guarding, mass, organolmegaly, rebound, tenderness Rectal exam: PRESENT: deferred Extremities exam: PRESENT: full ROM. ABSENT: calf tenderness, clubbing, pedal edema Neurological exam: PRESENT: alert, awake, oriented to person, oriented to place , oriented to time, oriented to situation, CN II-XII grossly intact. ABSENT: motor sensory deficit Psychiatric exam: PRESENT: appropriate affect, normal mood. ABSENT: homicidal ideation, suicidal ideation Skin exam: PRESENT: dry, intact, warm. ABSENT: cyanosis, rash Results Laboratory Results: 03/27/18 04:14 03/27/18 04:14 03/27/18 03/27/18 03/27/18 04:14 04:14 09:56 WBC 4.6 RBC 3.46 L Hgb 10.0 L Hct 30.6 L MCV 89 MCH 29.0 MCHC 32.7 RDW 15.4 H Plt Count 264 Sodium 140.4 Potassium 3.3 L Chloride 102 Carbon Dioxide 29 Anion Gap 9 BUN 4 L Creatinine 0.54 Est GFR ( Amer) > 60 Est GFR (Non-Af Amer) > 60 Glucose 87 Calcium 8.5 Fluid Type PLEURAL Fluid Source Fluid Color LIGHT YELLOW Fluid Appearance HAZY Fluid Viscosity LIQUID Fluid WBC 266 Fluid RBC 291 Impressions: Abdomen/Pelvis CT 03/20/18 00:00 IMPRESSION: 2.9 cm in diameter are lateral pleural base cavitary mass in the right lower hemithorax as noted above. The differential possibilities would include a lung abscess versus is a cavitary mass lesion. Fat containing umbilical hernia. Atrophic left kidney with compensatory hypertrophy of the right kidney Otto catheter in the bladder. Other findings as noted above Head CT 03/20/18 00:36 IMPRESSION: 1. No acute intracranial abnormality by CT criteria. This exam was performed according to our departmental dose-optimization program, which includes automated exposure control, adjustment of the mA and/or kV according to patient size and/or use of iterative reconstruction technique. Chest CT 03/25/18 06:00 IMPRESSION: Peripheral consolidation lateral segment right middle lobe unchanged from 03/21/2018 Small bilateral pleural effusions with bibasilar airspace disease, atelectasis versus pneumonia. This is new compared to 03/21/2018. Chest X-Ray 03/27/18 00:00 IMPRESSION: NO ACUTE RADIOGRAPHIC FINDING IN THE CHEST. NO PNEUMOTHORAX STATUS POST THORACENTESIS. Thoracentesis Ultrasound 03/27/18 12:41 IMPRESSION: SUCCESSFUL THORACENTESIS USING ULTRASOUND GUIDANCE. Assessment & Plan - Diagnosis (1) Sepsis Qualifiers: Sepsis type: sepsis due to unspecified organism Qualified Code(s): A41.9 - Sepsis, unspecified organism Is this a current diagnosis for this admission?: Yes Plan: Resolved. Sepsis due to UTI, present on admission, as evidenced by leukocytosis (WBC 12.1 from lab work done at [facility]), temperature of 103.4, tachypnea with respiratory rate of 24, hypoxia with SPO2 of 91% on 4 L/min which is increased from her baseline requirement of 2 L/min. Leukocytosis has resolved, the patient is now afebrile with normal vital signs. Urine and blood cultures from this admission are positive for ESBL E. coli resistant to multiple antibiotics with similar sensitivity patterns. The patient has been admitted to the medical floor. She has received adequate IVF resuscitation. She has been empirically placed on meropenem which has been continued based on sensitivity reporting. Infectious disease was consulted appreciate their recommendations for a total of 10 days of IV antibiotic therapy. Patient is currently on day 6 of 10. (2) UTI (urinary tract infection) Qualifiers: Urinary tract infection type: site unspecified Hematuria presence: without hematuria Qualified Code(s): N39.0 - Urinary tract infection, site not specified Is this a current diagnosis for this admission?: Yes Plan: The patient has a history of recurrent urinary tract infections within the last 3 months. Urine cultures are consistently positive for E. coli. Current urine culture is positive for ESBL E. coli with multiple resistance patterns; Sensitive to meropenem. Will remove otto catheter today. We will continue meropenem for a total of 10 days; currently on day 6. (3) Lung mass Is this a current diagnosis for this admission?: Yes Plan: Lung masses present on CT which was not previously seen on chest x-ray from . Repeat CT of the chest yesterday demonstrated the peripheral consolidation of the lateral segment of the right middle lobe is unchanged from previous exam. Thoracentesis completed today; laboratory evaluation pending. Serum LDH is 451, total protein 5.3 Dr. Giordano has been consulted; appreciate his assistance. Holding aspirin and Eliquis; will resume tomorrow if no additional procedures are planned by Dr. Giordano. Kal stockings and SCDs while in bed for DVT precautions. (4) Essential hypertension Is this a current diagnosis for this admission?: Yes Plan: Blood pressures are appropriate today. Continue home dose Coreg and Multaq. Continue Catapres 0.3 mg p.o. daily. Continue hydralazine 50 mg p.o. 3 times daily. Continue furosemide 20 mg p.o. daily. IV hydralazine as needed for BP control. (5) Atrial fibrillation Qualifiers: Atrial fibrillation type: chronic Qualified Code(s): I48.2 - Chronic atrial fibrillation Is this a current diagnosis for this admission?: Yes Plan: Rate controlled. Continue home dose Multaq. Holding Eliquis; will resume tomorrow if no additional procedures are planned. (6) Weakness Is this a current diagnosis for this admission?: Yes Plan: The patient and family member state that the patient has been hospitalized multiple times within the last few months. The patient has been a lot of time in bed and therefore is experiencing generalized deconditioning. She is currently a 1-2 person assist to get out of bed to recliner. PT/OT services have been ordered. The patient and family members expressed that they do not want the patient to return to SNF and would like her to return to home. Discharge planning has been notified; she will require home health nursing, aide , PT/OT services at home as well as home oxygen. (7) Hypokalemia Is this a current diagnosis for this admission?: Yes Plan: Will replace and continue to monitor with daily chemistry. - Time Time Spent with patient: 25-34 minutes Anticipated discharge: Home - Plan Summary Plan Summary: Discussed discharge plan with patient's [id number]; they request patient to be discharged to home with home health services and wheelchair after completion of antibiotics.
[2018-03-27] MEDS ORDERED: POTASSIUM CHLORIDE 10 MEQ TABLET.SA PO SCH (16:00)
[2018-03-27] MEDS: HYDRALAZINE HCL INJ/PF 20 MG/1 ML SDV IV PRN (18:47)
[2018-03-27] MEDS: FENOFIBRATE NANOCRYSTALLIZED 48 MG TABLET PO SCH (22:53)
[2018-03-28] MEDS: MEROPENEM 1 GM in NORMAL SALINE 50 ML IV SCH ×3 (02:18→17:55)
[2018-03-28] MEDS: PREDNISOLONE ACETATE 1% OPH SUSP 5 ML OD SCH ×4 (06:11→23:09)
[2018-03-28] MEDS: HYDRALAZINE HCL 50 MG TABLET PO SCH ×3 (06:11→21:34)
[2018-03-28] MEDS: LANSOPRAZOLE 30 MG TAB.RAP.DR PO SCH (06:11)
[2018-03-28] MEDS: POTASSIUM CHLORIDE 10 MEQ TABLET.SA PO SCH ×2 (06:11→13:27)
[2018-03-28] MEDS: CLONIDINE HCL 0.2 MG TABLET PO SCH ×2 (09:40→21:34)
[2018-03-28] MEDS: CARBAMAZEPINE 200 MG TABLET PO SCH ×3 (09:43→23:09)
[2018-03-28] MEDS: CARVEDILOL 6.25 MG TABLET PO SCH ×2 (09:44→21:34)
[2018-03-28] MEDS: FUROSEMIDE 20 MG TABLET PO SCH (09:44)
[2018-03-28] MEDS: ASPIRIN 81 MG TABLET, ENT COATED PO SCH (09:44)
[2018-03-28] MEDS: APIXABAN 5 MG TABLET PO SCH ×2 (09:44→21:34)
[2018-03-28] MEDS: PREGABALIN 25 MG CAPSULE PO SCH ×2 (09:45→21:34)
[2018-03-28] MEDS: SERTRALINE HCL 50 MG TABLET PO SCH (09:45)
[2018-03-28] MEDS: POLYETHYLENE GLYCOL 3350 POWDER 17 GM/1 PACKET PO SCH (09:45)
[2018-03-28] MEDS: DRONEDARONE HYDROCHLORIDE 400 MG TABLET PO SCH ×2 (09:45→21:34)
[2018-03-28] MEDS: CYCLOSPORINE 0.05% OPH EMULSIO 0.4 ML DROPERETTE OU SCH ×2 (09:45→21:34)
[2018-03-28 10:06] LABS: PATH REVIEW PATHOLOGIST REVIEWED
--- NOTE | 2018-03-28 13:05 | PDOC PROGRESS REPORT ---
Subjective Progress Note for:: 03/28/18 Subjective:: The patient is an 82 year old female with a past medical history of NSTEMI, chronic diastolic CHF, A. fib on Eliquis, chronic respiratory failure on 2 L home oxygen, GURMEET, and UTI. The patient was last hospitalized on home H from 03/02 -03/07/18 for non-STEMI, UTI, and ARF. She was discharged to SNF. The patient was readmitted on 03/20/18 with sepsis secondary to UTI. The patient is seen on morning rounds. She is found resting in bed comfortably on supplemental oxygen at 2 L/min. she is sleeping but wakes easily when I say her name. 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 She states that she is feeling well today and is looking forward to her discharge back home the beginning of next week. She denies fever, chills, chest pain, palpitations, orthopnea, cough, abdominal pain, nausea vomiting and diarrhea. She has no new questions or concerns today. Reason For Visit: FEVER/ELECTROLYTE ABNORMALITIES/UTI. Physical Exam Vital Signs: Temp Pulse Resp BP Pulse Ox 98.4 F 66 16 166/62 H 92 03/28/18 11:57 03/28/18 11:57 03/28/18 11:57 03/28/18 11:57 03/28/18 11:57 Intake & Output 03/27/18 03/28/18 03/29/18 06:59 06:59 06:59 Intake Total 2510 1782 Output Total 1850 1450 Balance 660 332 Weight 72.8 kg 70.7 kg General appearance: PRESENT: no acute distress, cooperative - Pleasant, well- developed, well-nourished, other - Overweight Head exam: PRESENT: atraumatic, normocephalic Eye exam: PRESENT: conjunctiva pink, EOMI, PERRLA. ABSENT: scleral icterus Ear exam: PRESENT: normal external ear exam Mouth exam: PRESENT: moist, tongue midline Neck exam: ABSENT: carotid bruit, JVD, lymphadenopathy, thyromegaly Respiratory exam: PRESENT: decreased breath sounds, prolonged expiratory phas, rhonchi. ABSENT: rales, wheezes Cardiovascular exam: PRESENT: RRR. ABSENT: diastolic murmur, rubs Pulses: PRESENT: normal dorsalis pedis pul Vascular exam: PRESENT: normal capillary refill GI/Abdominal exam: PRESENT: normal bowel sounds, soft. ABSENT: distended, guarding, mass, organolmegaly, rebound, tenderness Rectal exam: PRESENT: deferred Extremities exam: PRESENT: full ROM. ABSENT: calf tenderness, clubbing, pedal edema Neurological exam: PRESENT: alert, awake, oriented to person, oriented to place , oriented to time, oriented to situation, CN II-XII grossly intact. ABSENT: motor sensory deficit Psychiatric exam: PRESENT: appropriate affect, normal mood. ABSENT: homicidal ideation, suicidal ideation Skin exam: PRESENT: dry, intact, warm. ABSENT: cyanosis, rash Results Laboratory Results: 03/27/18 04:14 03/27/18 04:14 Impressions: Abdomen/Pelvis CT 03/20/18 00:00 IMPRESSION: 2.9 cm in diameter are lateral pleural base cavitary mass in the right lower hemithorax as noted above. The differential possibilities would include a lung abscess versus is a cavitary mass lesion. Fat containing umbilical hernia. Atrophic left kidney with compensatory hypertrophy of the right kidney Orantes catheter in the bladder. Other findings as noted above Head CT 03/20/18 00:36 IMPRESSION: 1. No acute intracranial abnormality by CT criteria. This exam was performed according to our departmental dose-optimization program, which includes automated exposure control, adjustment of the mA and/or kV according to patient size and/or use of iterative reconstruction technique. Chest CT 03/25/18 06:00 IMPRESSION: Peripheral consolidation lateral segment right middle lobe unchanged from 03/21/2018 Small bilateral pleural effusions with bibasilar airspace disease, atelectasis versus pneumonia. This is new compared to 03/21/2018. Chest X-Ray 03/27/18 00:00 IMPRESSION: NO ACUTE RADIOGRAPHIC FINDING IN THE CHEST. NO PNEUMOTHORAX STATUS POST THORACENTESIS. Thoracentesis Ultrasound 03/27/18 12:41 IMPRESSION: SUCCESSFUL THORACENTESIS USING ULTRASOUND GUIDANCE. Assessment & Plan - Diagnosis (1) Sepsis Qualifiers: Sepsis type: sepsis due to unspecified organism Qualified Code(s): A41.9 - Sepsis, unspecified organism Is this a current diagnosis for this admission?: Yes Plan: Resolved. Sepsis due to UTI, present on admission, as evidenced by leukocytosis (WBC 12.1 from lab work done at [facility]), temperature of 103.4, tachypnea with respiratory rate of 24, hypoxia with SPO2 of 91% on 4 L/min which is increased from her baseline requirement of 2 L/min. Leukocytosis has resolved, the patient is now afebrile with normal vital signs. Urine and blood cultures from this admission are positive for ESBL E. coli resistant to multiple antibiotics with similar sensitivity patterns. The patient has been admitted to the medical floor. She has received adequate IVF resuscitation. She has been empirically placed on meropenem which has been continued based on sensitivity reporting. Infectious disease was consulted appreciate their recommendations for a total of 10 days of IV antibiotic therapy. Patient is currently on day 7 of 10. (2) UTI (urinary tract infection) Qualifiers: Urinary tract infection type: site unspecified Hematuria presence: without hematuria Qualified Code(s): N39.0 - Urinary tract infection, site not specified Is this a current diagnosis for this admission?: Yes Plan: The patient has a history of recurrent urinary tract infections within the last 3 months. Urine cultures are consistently positive for E. coli. Current urine culture is positive for ESBL E. coli with multiple resistance patterns; Sensitive to meropenem. Orantes removed yesterday; doing well with voids to bedside commode. We will continue meropenem for a total of 10 days; currently on day 7. (3) Lung mass Is this a current diagnosis for this admission?: Yes Plan: Lung masses present on CT which was not previously seen on chest x-ray from . Repeat CT of the chest yesterday demonstrated the peripheral consolidation of the lateral segment of the right middle lobe is unchanged from previous exam. Thoracentesis completed today; laboratory evaluation pending. Serum LDH is 451, total protein 5.3 Dr. Giordano has been consulted; appreciate his assistance. Resumed aspirin and Eliquis today. Kal stockings and SCDs while in bed for DVT precautions. (4) Essential hypertension Is this a current diagnosis for this admission?: Yes Plan: Blood pressures are appropriate today. Continue home dose Coreg and Multaq. Continue Catapres 0.3 mg p.o. daily. Continue hydralazine 50 mg p.o. 3 times daily. Continue furosemide 20 mg p.o. daily. IV hydralazine as needed for BP control. (5) Atrial fibrillation Qualifiers: Atrial fibrillation type: chronic Qualified Code(s): I48.2 - Chronic atrial fibrillation Is this a current diagnosis for this admission?: Yes Plan: Rate controlled. Continue home dose Multaq and Eliquis. (6) Weakness Is this a current diagnosis for this admission?: Yes Plan: The patient and family member state that the patient has been hospitalized multiple times within the last few months. The patient has been a lot of time in bed and therefore is experiencing generalized deconditioning. She is currently a 1-2 person assist to get out of bed to recliner. PT/OT services have been ordered. The patient and family members expressed that they do not want the patient to return to SNF and would like her to return to home. Discharge planning has been notified; she will require home health nursing, aide , PT/OT services at home as well as home oxygen. (7) Hypokalemia Is this a current diagnosis for this admission?: Yes Plan: Stable; Will continue to monitor with daily chemistry and replace as necessary. (8) Pleural effusion, right Is this a current diagnosis for this admission?: Yes Plan: Now status post thoracentesis. 250 mL's of straw-colored fluid were removed. AFB smear negative. Pathology pending. Pleural fluid glucose, protein, LDH, amylase are pending. Serum LDH is normal. Differential includes infection, malignancy, and transudative fluid from CHF. She is currently on meropenem for ESBL E. coli urinary tract infection. Echocardiogram from January 2018 demonstrated a normal LVEF with mild to moderate diastolic dysfunction and mild to moderate pulmonary hypertension. Will assess proBNP to evaluate for subtle CHF exacerbation. - Time Time Spent with patient: 25-34 minutes Medications reviewed and adjusted accordingly: Yes Anticipated discharge: Home
[2018-03-28 14:05] LABS: ANION GAP 8 (5-19); BLOOD UREA NITROGEN 6 mg/dL (7-20); CALCIUM 8.5 mg/dL (8.4-10.2); CARBON DIOXIDE 31 mmol/L (22-30); CHLORIDE 101 mmol/L (98-107); GLUCOSE 97 mg/dL (75-110); POTASSIUM 3.7 mmol/L (3.6-5.0); SODIUM 140.4 mmol/L (137-145)
[2018-03-28] MEDS: 1/2 NORMAL SALINE 1,000 ML IV PRN (17:55)
[2018-03-28] MEDS: FENOFIBRATE NANOCRYSTALLIZED 48 MG TABLET PO SCH (21:34)
[2018-03-29] MEDS: MEROPENEM 1 GM in NORMAL SALINE 50 ML IV SCH ×3 (01:43→17:40)
[2018-03-29] MEDS: HYDRALAZINE HCL 50 MG TABLET PO SCH ×3 (06:53→21:39)
[2018-03-29] MEDS: PREDNISOLONE ACETATE 1% OPH SUSP 5 ML OD SCH ×4 (06:53→23:41)
[2018-03-29] MEDS: LANSOPRAZOLE 30 MG TAB.RAP.DR PO SCH (06:54)
[2018-03-29] MEDS: CARBAMAZEPINE 200 MG TABLET PO SCH ×3 (08:13→23:41)
[2018-03-29] MEDS: FUROSEMIDE 20 MG TABLET PO SCH (08:14)
[2018-03-29] MEDS: CLONIDINE HCL 0.2 MG TABLET PO SCH ×2 (10:19→21:39)
[2018-03-29] MEDS: ASPIRIN 81 MG TABLET, ENT COATED PO SCH (10:20)
[2018-03-29] MEDS: DRONEDARONE HYDROCHLORIDE 400 MG TABLET PO SCH ×2 (10:20→21:39)
[2018-03-29] MEDS: SERTRALINE HCL 50 MG TABLET PO SCH (10:20)
[2018-03-29] MEDS: APIXABAN 5 MG TABLET PO SCH ×2 (10:21→21:39)
[2018-03-29] MEDS: CARVEDILOL 6.25 MG TABLET PO SCH ×2 (10:21→21:39)
[2018-03-29] MEDS: PREGABALIN 25 MG CAPSULE PO SCH ×2 (10:21→21:39)
[2018-03-29] MEDS: CYCLOSPORINE 0.05% OPH EMULSIO 0.4 ML DROPERETTE OU SCH ×2 (10:21→21:39)
[2018-03-29] MEDS: POLYETHYLENE GLYCOL 3350 POWDER 17 GM/1 PACKET PO SCH (10:22)
[2018-03-29 11:33] LABS: TOTAL PROTEIN BODY FLUID 1.6 g/dL (.)
--- NOTE | 2018-03-29 13:33 | PDOC PROGRESS REPORT ---
Subjective Progress Note for:: 03/29/18 Subjective:: The patient is an 82 year old female with a past medical history of NSTEMI, chronic diastolic CHF, A. fib on Eliquis, chronic respiratory failure on 2 L home oxygen, GURMEET, and UTI. The patient was last hospitalized on home H from 03/02 -03/07/18 for non-STEMI, UTI, and ARF. She was discharged to SNF. The patient was readmitted on 03/20/18 with sepsis secondary to UTI. The patient is seen on morning rounds. She is found resting in bed comfortably on supplemental oxygen at 2 L/min. She states that she slept well again and feels she is doing much better with more consistent sleep. She is really looking forward to her likely discharge on Saturday following completion of her antibiotic course. She denies fever, chills, chest pain, palpitations, orthopnea, cough, abdominal pain, nausea vomiting and diarrhea. She denies difficulty with urinary urgency , frequency, and dysuria following discontinuation of otto catheter. She has no new questions or concerns today. Reason For Visit: FEVER/ELECTROLYTE ABNORMALITIES/UTI. Physical Exam Vital Signs: Temp Pulse Resp BP Pulse Ox 98.7 F 68 16 125/56 L 93 03/29/18 11:22 03/29/18 11:22 03/29/18 11:22 03/29/18 11:22 03/29/18 11:22 Intake & Output 03/28/18 03/29/18 03/30/18 06:59 06:59 06:59 Intake Total 1782 1852 Output Total 1450 2350 Balance 332 -498 Weight 70.7 kg 69.9 kg General appearance: PRESENT: no acute distress, cooperative - pleasant, well- developed, well-nourished, other - Overweight Head exam: PRESENT: atraumatic, normocephalic Eye exam: PRESENT: conjunctiva pink, EOMI, PERRLA. ABSENT: scleral icterus Ear exam: PRESENT: normal external ear exam Mouth exam: PRESENT: moist, tongue midline Neck exam: ABSENT: carotid bruit, JVD, lymphadenopathy, thyromegaly Respiratory exam: PRESENT: clear to auscultation ludivina, decreased breath sounds - Bibasilar, symmetrical, unlabored. ABSENT: rales, rhonchi, wheezes Cardiovascular exam: PRESENT: RRR, +S1, +S2. ABSENT: diastolic murmur, rubs, systolic murmur Pulses: PRESENT: normal dorsalis pedis pul Vascular exam: PRESENT: normal capillary refill GI/Abdominal exam: PRESENT: normal bowel sounds, soft. ABSENT: distended, guarding, mass, organolmegaly, rebound, tenderness Rectal exam: PRESENT: deferred Extremities exam: PRESENT: full ROM. ABSENT: calf tenderness, clubbing, pedal edema Neurological exam: PRESENT: alert, awake, oriented to person, oriented to place , oriented to time, oriented to situation, CN II-XII grossly intact. ABSENT: motor sensory deficit Psychiatric exam: PRESENT: appropriate affect, normal mood. ABSENT: homicidal ideation, suicidal ideation Skin exam: PRESENT: dry, intact, warm. ABSENT: cyanosis, rash Results Laboratory Results: 03/27/18 04:14 03/28/18 13:17 03/27/18 03/28/18 09:56 13:17 Sodium 140.4 Potassium 3.7 Chloride 101 Carbon Dioxide 31 H Anion Gap 8 BUN 6 L Creatinine 0.62 Est GFR ( Amer) > 60 Est GFR (Non-Af Amer) > 60 Glucose 97 Calcium 8.5 Fluid Glucose 100 Fluid Total Protein 1.6 Fluid LDH 76 Fluid Amylase 9 03/28/18 13:17 NT-Pro-B Natriuret Pep 3080 H Impressions: Abdomen/Pelvis CT 03/20/18 00:00 IMPRESSION: 2.9 cm in diameter are lateral pleural base cavitary mass in the right lower hemithorax as noted above. The differential possibilities would include a lung abscess versus is a cavitary mass lesion. Fat containing umbilical hernia. Atrophic left kidney with compensatory hypertrophy of the right kidney Otto catheter in the bladder. Other findings as noted above Head CT 03/20/18 00:36 IMPRESSION: 1. No acute intracranial abnormality by CT criteria. This exam was performed according to our departmental dose-optimization program, which includes automated exposure control, adjustment of the mA and/or kV according to patient size and/or use of iterative reconstruction technique. Chest CT 03/25/18 06:00 IMPRESSION: Peripheral consolidation lateral segment right middle lobe unchanged from 03/21/2018 Small bilateral pleural effusions with bibasilar airspace disease, atelectasis versus pneumonia. This is new compared to 03/21/2018. Chest X-Ray 03/27/18 00:00 IMPRESSION: NO ACUTE RADIOGRAPHIC FINDING IN THE CHEST. NO PNEUMOTHORAX STATUS POST THORACENTESIS. Thoracentesis Ultrasound 03/27/18 12:41 IMPRESSION: SUCCESSFUL THORACENTESIS USING ULTRASOUND GUIDANCE. Assessment & Plan - Diagnosis (1) Sepsis Qualifiers: Sepsis type: sepsis due to unspecified organism Qualified Code(s): A41.9 - Sepsis, unspecified organism Is this a current diagnosis for this admission?: Yes Plan: Resolved. Sepsis due to UTI, present on admission, as evidenced by leukocytosis (WBC 12.1 from lab work done at [facility]), temperature of 103.4, tachypnea with respiratory rate of 24, hypoxia with SPO2 of 91% on 4 L/min which is increased from her baseline requirement of 2 L/min. Leukocytosis has resolved, the patient is now afebrile with normal vital signs. Urine and blood cultures from this admission are positive for ESBL E. coli resistant to multiple antibiotics with similar sensitivity patterns. The patient has been admitted to the medical floor. She has received adequate IVF resuscitation. She has been empirically placed on meropenem which has been continued based on sensitivity reporting. Infectious disease was consulted appreciate their recommendations for a total of 10 days of IV antibiotic therapy. Patient is currently on day 8 of 10. Kal stockings and SCDs while in bed for DVT precautions. Prevacid for ulcer prophylaxis. (2) UTI (urinary tract infection) Qualifiers: Urinary tract infection type: site unspecified Hematuria presence: without hematuria Qualified Code(s): N39.0 - Urinary tract infection, site not specified Is this a current diagnosis for this admission?: Yes Plan: The patient has a history of recurrent urinary tract infections within the last 3 months. Urine cultures are consistently positive for E. coli. Current urine culture is positive for ESBL E. coli with multiple resistance patterns; Sensitive to meropenem. We will continue meropenem for a total of 10 days; currently on day 8. (3) Lung mass Is this a current diagnosis for this admission?: Yes Plan: Lung masses present on CT which was not previously seen on chest x-ray from . Repeat CT of the chest yesterday demonstrated the peripheral consolidation of the lateral segment of the right middle lobe is unchanged from previous exam. Thoracentesis completed 03/27/18, pleural effusion appears to be transudative. Serum LDH is 451, total protein 5.3 Dr. Giordano has been consulted; appreciate his assistance. Have resumed aspirin and Eliquis. (4) Essential hypertension Is this a current diagnosis for this admission?: Yes Plan: Blood pressures are somewhat labile; will continue current regimen and monitor closely for needed adjustments. Continue home dose Coreg and Multaq. Continue Catapres 0.3 mg p.o. daily. Continue hydralazine 50 mg p.o. 3 times daily. Continue furosemide 20 mg p.o. daily. IV hydralazine as needed for BP control. (5) Atrial fibrillation Qualifiers: Atrial fibrillation type: chronic Qualified Code(s): I48.2 - Chronic atrial fibrillation Is this a current diagnosis for this admission?: Yes Plan: Rate controlled. Continue home dose Multaq and Eliquis. (6) Weakness Is this a current diagnosis for this admission?: Yes Plan: The patient and family member state that the patient has been hospitalized multiple times within the last few months. The patient has been a lot of time in bed and therefore is experiencing generalized deconditioning. She is currently a 1-2 person assist to get out of bed to recliner. PT/OT services have been ordered. The patient and family members expressed that they do not want the patient to return to SNF and would like her to return to home. Discharge planning has been notified; she will require home health nursing, aide , PT/OT services at home as well as home oxygen and a wheelchair. (7) Hypokalemia Is this a current diagnosis for this admission?: Yes Plan: Resolved; Will continue to monitor with and replace as necessary. (8) Pleural effusion, right Is this a current diagnosis for this admission?: Yes Plan: Now status post thoracentesis. 250 mL's of straw-colored fluid were removed; transudative. AFB smear negative. Fungal cultures pending. Pleural fluid glucose 100, protein 1.6, LDH 76, amylase 9 Serum LDH is normal. Differential includes infection, malignancy, and transudative fluid from CHF. She is currently on meropenem for ESBL E. coli urinary tract infection. Echocardiogram from January 2018 demonstrated a normal LVEF with mild to moderate diastolic dysfunction and mild to moderate pulmonary hypertension. Pro-BNP is 3080 (decreased from previous admission) and the patient has no clinical indications of CHF exacerbation. Dr. Giordano is following results; appreciate his evaluation and recommendations. - Time Time Spent with patient: 15-24 minutes Medications reviewed and adjusted accordingly: Yes Anticipated discharge: Home with Homehealth Within: within 72 hours
[2018-03-29] MEDS: FENOFIBRATE NANOCRYSTALLIZED 48 MG TABLET PO SCH (21:39)
[2018-03-30] MEDS: MEROPENEM 1 GM in NORMAL SALINE 50 ML IV SCH ×3 (01:46→17:32)
[2018-03-30] MEDS: HYDRALAZINE HCL 50 MG TABLET PO SCH ×3 (06:33→22:32)
[2018-03-30] MEDS: PREDNISOLONE ACETATE 1% OPH SUSP 5 ML OD SCH ×4 (06:33→23:14)
[2018-03-30] MEDS: LANSOPRAZOLE 30 MG TAB.RAP.DR PO SCH (06:33)
[2018-03-30] MEDS ORDERED: CLONIDINE 0.3 MG/24 HR PATCH.TDWK TD SCH (08:45)
[2018-03-30] MEDS: ASPIRIN 81 MG TABLET, ENT COATED PO SCH (10:21)
[2018-03-30] MEDS: APIXABAN 5 MG TABLET PO SCH ×2 (10:22→22:32)
[2018-03-30] MEDS: CARBAMAZEPINE 200 MG TABLET PO SCH ×3 (10:22→23:14)
[2018-03-30] MEDS: DRONEDARONE HYDROCHLORIDE 400 MG TABLET PO SCH ×2 (10:22→22:32)
[2018-03-30] MEDS: SERTRALINE HCL 50 MG TABLET PO SCH (10:22)
[2018-03-30] MEDS: CYCLOSPORINE 0.05% OPH EMULSIO 0.4 ML DROPERETTE OU SCH ×2 (10:22→22:32)
[2018-03-30] MEDS: FUROSEMIDE 20 MG TABLET PO SCH (10:23)
[2018-03-30] MEDS: PREGABALIN 25 MG CAPSULE PO SCH ×2 (10:23→22:32)
[2018-03-30] MEDS: POLYETHYLENE GLYCOL 3350 POWDER 17 GM/1 PACKET PO SCH (10:24)
[2018-03-30] MEDS: CARVEDILOL 6.25 MG TABLET PO SCH ×2 (10:25→22:31)
--- NOTE | 2018-03-30 11:32 | PDOC PROGRESS REPORT ---
Subjective Progress Note for:: 03/30/18 Subjective:: The patient is an 82 year old female with a past medical history of NSTEMI, chronic diastolic CHF, A. fib on Eliquis, chronic respiratory failure on 2 L home oxygen, GURMEET, and UTI. The patient was last hospitalized on home H from 03/02 -03/07/18 for non-STEMI, UTI, and ARF. She was discharged to SNF. The patient was readmitted on 03/20/18 with sepsis secondary to UTI. The patient is seen on morning rounds. She is found resting in bed comfortably on supplemental oxygen at 2 L/min. She is looking forward to her likely discharge on Saturday following completion of her antibiotic course. We discussed her blood pressure; she states she has always had trouble with widely fluctuating pressures. She reports that she was on a clonidine patch previously with poor results. She denies fever, chills, chest pain, palpitations, orthopnea, cough, abdominal pain, nausea vomiting and diarrhea. She denies difficulty with urinary urgency , frequency, and dysuria following discontinuation of otto catheter. She has no new questions or concerns today. Reason For Visit: FEVER/ELECTROLYTE ABNORMALITIES/UTI. Physical Exam Vital Signs: Temp Pulse Resp BP Pulse Ox 98.9 F 63 12 194/63 H 95 03/30/18 07:13 03/30/18 07:13 03/30/18 07:13 03/30/18 07:13 03/30/18 08:52 Intake & Output 03/29/18 03/30/18 03/31/18 06:59 06:59 06:59 Intake Total 1852 1372 Output Total 2350 2450 Balance -498 -1078 Weight 69.9 kg 68.1 kg General appearance: PRESENT: no acute distress, cooperative, well-developed, well-nourished, other - Overwieght Head exam: PRESENT: atraumatic, normocephalic Eye exam: PRESENT: conjunctiva pink, EOMI, PERRLA. ABSENT: scleral icterus Ear exam: PRESENT: normal external ear exam Mouth exam: PRESENT: moist, tongue midline Neck exam: ABSENT: carotid bruit, JVD, lymphadenopathy, thyromegaly Respiratory exam: PRESENT: clear to auscultation ludivina, decreased breath sounds - Bibasilar, symmetrical, unlabored. ABSENT: rales, rhonchi, wheezes Cardiovascular exam: PRESENT: RRR, +S1, +S2. ABSENT: diastolic murmur, rubs, systolic murmur Pulses: PRESENT: normal dorsalis pedis pul Vascular exam: PRESENT: normal capillary refill GI/Abdominal exam: PRESENT: normal bowel sounds, soft. ABSENT: distended, guarding, mass, organolmegaly, rebound, tenderness Rectal exam: PRESENT: deferred Extremities exam: PRESENT: full ROM. ABSENT: calf tenderness, clubbing, pedal edema Neurological exam: PRESENT: alert, awake, oriented to person, oriented to place , oriented to time, oriented to situation, CN II-XII grossly intact. ABSENT: motor sensory deficit Psychiatric exam: PRESENT: appropriate affect, normal mood. ABSENT: homicidal ideation, suicidal ideation Skin exam: PRESENT: dry, intact, warm. ABSENT: cyanosis, rash Results Laboratory Results: 03/27/18 04:14 03/28/18 13:17 03/27/18 09:56 Fluid Glucose 100 Fluid Total Protein 1.6 Fluid LDH 76 Fluid Amylase 9 03/28/18 13:17 NT-Pro-B Natriuret Pep 3080 H Impressions: Abdomen/Pelvis CT 03/20/18 00:00 IMPRESSION: 2.9 cm in diameter are lateral pleural base cavitary mass in the right lower hemithorax as noted above. The differential possibilities would include a lung abscess versus is a cavitary mass lesion. Fat containing umbilical hernia. Atrophic left kidney with compensatory hypertrophy of the right kidney Otto catheter in the bladder. Other findings as noted above Head CT 03/20/18 00:36 IMPRESSION: 1. No acute intracranial abnormality by CT criteria. This exam was performed according to our departmental dose-optimization program, which includes automated exposure control, adjustment of the mA and/or kV according to patient size and/or use of iterative reconstruction technique. Chest CT 03/25/18 06:00 IMPRESSION: Peripheral consolidation lateral segment right middle lobe unchanged from 03/21/2018 Small bilateral pleural effusions with bibasilar airspace disease, atelectasis versus pneumonia. This is new compared to 03/21/2018. Chest X-Ray 03/27/18 00:00 IMPRESSION: NO ACUTE RADIOGRAPHIC FINDING IN THE CHEST. NO PNEUMOTHORAX STATUS POST THORACENTESIS. Thoracentesis Ultrasound 03/27/18 12:41 IMPRESSION: SUCCESSFUL THORACENTESIS USING ULTRASOUND GUIDANCE. Assessment & Plan - Diagnosis (1) Sepsis Qualifiers: Sepsis type: sepsis due to unspecified organism Qualified Code(s): A41.9 - Sepsis, unspecified organism Is this a current diagnosis for this admission?: Yes Plan: Resolved. Sepsis due to UTI, present on admission, as evidenced by leukocytosis (WBC 12.1 from lab work done at [facility]), temperature of 103.4, tachypnea with respiratory rate of 24, hypoxia with SPO2 of 91% on 4 L/min which is increased from her baseline requirement of 2 L/min. Leukocytosis has resolved, the patient is now afebrile with normal vital signs. Urine and blood cultures from this admission are positive for ESBL E. coli resistant to multiple antibiotics with similar sensitivity patterns. The patient has been admitted to the medical floor. She has received adequate IVF resuscitation. She has been empirically placed on meropenem which has been continued based on sensitivity reporting. Infectious disease was consulted appreciate their recommendations for a total of 10 days of IV antibiotic therapy. Patient is currently on day 9 of 10. Kal stockings and SCDs while in bed for DVT precautions. Prevacid for ulcer prophylaxis. (2) UTI (urinary tract infection) Qualifiers: Urinary tract infection type: site unspecified Hematuria presence: without hematuria Qualified Code(s): N39.0 - Urinary tract infection, site not specified Is this a current diagnosis for this admission?: Yes Plan: The patient has a history of recurrent urinary tract infections within the last 3 months. Urine cultures are consistently positive for E. coli. Current urine culture is positive for ESBL E. coli with multiple resistance patterns; Sensitive to meropenem. We will continue meropenem for a total of 10 days; currently on day 9. (3) Lung mass Is this a current diagnosis for this admission?: Yes Plan: Lung masses present on CT which was not previously seen on chest x-ray from . Repeat CT of the chest yesterday demonstrated the peripheral consolidation of the lateral segment of the right middle lobe is unchanged from previous exam. Thoracentesis completed 03/27/18, pleural effusion appears to be transudative. Serum LDH is 451, total protein 5.3 Dr. Giordano has been consulted; appreciate his assistance. Have resumed aspirin and Eliquis. (4) Essential hypertension Is this a current diagnosis for this admission?: Yes Plan: Blood pressures are somewhat labile; frequently require administration of IV Hydralazine. Patient has been on a clonidine patch previously with poor effect (though can not recall the dose). Continue home dose Coreg and Multaq. Continue Catapres 0.3 mg p.o. daily. Continue hydralazine 50 mg p.o. 3 times daily. Continue furosemide 20 mg p.o. daily. Will change clonidine 2 mg p.o. BID to 1 mg p.o. TID; perhaps more frequent administration will lead to smoother control. IV hydralazine as needed for BP control. (5) Atrial fibrillation Qualifiers: Atrial fibrillation type: chronic Qualified Code(s): I48.2 - Chronic atrial fibrillation Is this a current diagnosis for this admission?: Yes Plan: Rate controlled. Continue home dose Multaq and Eliquis. (6) Weakness Is this a current diagnosis for this admission?: Yes Plan: The patient and family member state that the patient has been hospitalized multiple times within the last few months. The patient has been a lot of time in bed and therefore is experiencing generalized deconditioning. She is currently a 1-2 person assist to get out of bed to recliner. PT/OT services have been ordered. The patient and family members expressed that they do not want the patient to return to SNF and would like her to return to home. Discharge planning has been notified; she will require home health nursing, aide , PT/OT services at home as well as home oxygen and a wheelchair. (7) Hypokalemia Is this a current diagnosis for this admission?: Yes Plan: Resolved; Will continue to monitor with and replace as necessary. (8) Pleural effusion, right Is this a current diagnosis for this admission?: Yes Plan: Now status post thoracentesis. 250 mL's of straw-colored fluid were removed; transudative. AFB smear negative. Fungal cultures pending. Pleural fluid glucose 100, protein 1.6, LDH 76, amylase 9 Serum LDH is normal. Differential includes infection, malignancy, and transudative fluid from CHF. She is currently on meropenem for ESBL E. coli urinary tract infection. Echocardiogram from January 2018 demonstrated a normal LVEF with mild to moderate diastolic dysfunction and mild to moderate pulmonary hypertension. Pro-BNP is 3080 (decreased from previous admission) and the patient has no clinical indications of CHF exacerbation. Dr. Giordano is following results; appreciate his evaluation and recommendations. - Time Time Spent with patient: 25-34 minutes Medications reviewed and adjusted accordingly: Yes Anticipated discharge: Home Within: within 48 hours - Inpatient Certification Based on my medical assessment, after consideration of the patient's comorbidities, presenting symptoms, or acuity I expect that the services needed warrant INPATIENT care.: Yes I certify that my determination is in accordance with my understanding of Medicare's requirements for reasonable and necessary INPATIENT services [42 CFR 412.3e].: Yes Medical Necessity: Need for IV Antibiotics
[2018-03-30] MEDS: CLONIDINE HCL 0.1 MG TABLET PO SCH ×2 (15:36→22:31)
[2018-03-30] MEDS: FENOFIBRATE NANOCRYSTALLIZED 48 MG TABLET PO SCH (22:32)
[2018-03-31] MEDS: MEROPENEM 1 GM in NORMAL SALINE 50 ML IV SCH ×3 (01:14→17:28)
[2018-03-31] MEDS: HYDRALAZINE HCL 50 MG TABLET PO SCH ×3 (06:18→22:04)
[2018-03-31] MEDS: PREDNISOLONE ACETATE 1% OPH SUSP 5 ML OD SCH ×3 (06:18→17:28)
[2018-03-31] MEDS: LANSOPRAZOLE 30 MG TAB.RAP.DR PO SCH (06:18)
[2018-03-31] MEDS: CLONIDINE HCL 0.1 MG TABLET PO SCH (06:18)
[2018-03-31] MEDS: CARVEDILOL 6.25 MG TABLET PO SCH ×2 (09:34→22:04)
[2018-03-31] MEDS: PREGABALIN 25 MG CAPSULE PO SCH (09:34)
[2018-03-31] MEDS: POLYETHYLENE GLYCOL 3350 POWDER 17 GM/1 PACKET PO SCH (09:34)
[2018-03-31] MEDS: ASPIRIN 81 MG TABLET, ENT COATED PO SCH (09:34)
[2018-03-31] MEDS: CYCLOSPORINE 0.05% OPH EMULSIO 0.4 ML DROPERETTE OU SCH ×2 (09:35→22:04)
[2018-03-31] MEDS: APIXABAN 5 MG TABLET PO SCH ×2 (09:35→22:04)
[2018-03-31] MEDS: SERTRALINE HCL 50 MG TABLET PO SCH (09:35)
[2018-03-31] MEDS: FUROSEMIDE 20 MG TABLET PO SCH (09:35)
[2018-03-31] MEDS: CARBAMAZEPINE 200 MG TABLET PO SCH ×2 (09:35→15:39)
[2018-03-31] MEDS: DRONEDARONE HYDROCHLORIDE 400 MG TABLET PO SCH ×2 (09:35→22:04)
--- NOTE | 2018-03-31 11:28 | PDOC PROGRESS REPORT ---
Subjective Progress Note for:: 03/31/18 Subjective:: The patient is an 82 year old female with a past medical history of NSTEMI, chronic diastolic CHF, A. fib on Eliquis, chronic respiratory failure on 2 L home oxygen, GURMEET, and UTI. The patient was last hospitalized on home H from 03/02 -03/07/18 for non-STEMI, UTI, and ARF. She was discharged to SNF. The patient was readmitted on 03/20/18 with sepsis secondary to UTI. The patient is seen on morning rounds. She is found resting in bed comfortably on supplemental oxygen at 2 L/min. She is sleeping but wakes easily upon my entering the room. She is looking forward to her likely discharge tomorrow following completion of her antibiotic course. She denies fever, chills, chest pain, palpitations, orthopnea, cough, abdominal pain, nausea vomiting and diarrhea. She denies difficulty with urinary urgency , frequency, and dysuria following discontinuation of otto catheter. She is ambulatory with minimal assistance. She has no new questions or concerns today. Reason For Visit: FEVER/ELECTROLYTE ABNORMALITIES/UTI. Physical Exam Vital Signs: Temp Pulse Resp BP Pulse Ox 98.8 F 67 16 172/68 H 94 03/31/18 08:00 03/31/18 08:00 03/31/18 08:00 03/31/18 08:00 03/31/18 08:00 Intake & Output 03/30/18 03/31/18 04/01/18 06:59 06:59 06:59 Intake Total 1372 1807 Output Total 2450 1750 Balance -1078 57 Weight 68.1 kg 68 kg General appearance: PRESENT: no acute distress, well-developed, well-nourished, other - Overweight Head exam: PRESENT: atraumatic, normocephalic Eye exam: PRESENT: conjunctiva pink, EOMI, PERRLA. ABSENT: scleral icterus Ear exam: PRESENT: normal external ear exam Mouth exam: PRESENT: moist, tongue midline Neck exam: ABSENT: carotid bruit, JVD, lymphadenopathy, thyromegaly Respiratory exam: PRESENT: clear to auscultation ludivina, symmetrical, unlabored. ABSENT: rales, rhonchi, wheezes Cardiovascular exam: PRESENT: RRR, +S1, +S2. ABSENT: diastolic murmur, rubs, systolic murmur Pulses: PRESENT: normal dorsalis pedis pul Vascular exam: PRESENT: normal capillary refill GI/Abdominal exam: PRESENT: normal bowel sounds, soft. ABSENT: distended, guarding, mass, organolmegaly, rebound, tenderness Rectal exam: PRESENT: deferred Extremities exam: PRESENT: full ROM. ABSENT: calf tenderness, clubbing, pedal edema Neurological exam: PRESENT: alert, awake, oriented to person, oriented to place , oriented to time, oriented to situation, CN II-XII grossly intact. ABSENT: motor sensory deficit Psychiatric exam: PRESENT: appropriate affect, normal mood. ABSENT: homicidal ideation, suicidal ideation Skin exam: PRESENT: dry, intact, warm. ABSENT: cyanosis, rash Results Laboratory Results: 03/27/18 04:14 03/28/18 13:17 03/27/18 09:56 Pleural Fluid AFB Smear Concentration - Final 03/27/18 09:56 Pleural Fluid Acid Fast Bacilli Smear - Final 03/27/18 09:56 Pleural Fluid - Left Pleural Effusion Fungal Smear - Final 03/27/18 09:56 Pleural Fluid - Left Pleural Effusion Fungal Smear - Final 03/28/18 13:17 NT-Pro-B Natriuret Pep 3080 H Impressions: Abdomen/Pelvis CT 03/20/18 00:00 IMPRESSION: 2.9 cm in diameter are lateral pleural base cavitary mass in the right lower hemithorax as noted above. The differential possibilities would include a lung abscess versus is a cavitary mass lesion. Fat containing umbilical hernia. Atrophic left kidney with compensatory hypertrophy of the right kidney Otto catheter in the bladder. Other findings as noted above Head CT 03/20/18 00:36 IMPRESSION: 1. No acute intracranial abnormality by CT criteria. This exam was performed according to our departmental dose-optimization program, which includes automated exposure control, adjustment of the mA and/or kV according to patient size and/or use of iterative reconstruction technique. Chest CT 03/25/18 06:00 IMPRESSION: Peripheral consolidation lateral segment right middle lobe unchanged from 03/21/2018 Small bilateral pleural effusions with bibasilar airspace disease, atelectasis versus pneumonia. This is new compared to 03/21/2018. Chest X-Ray 03/27/18 00:00 IMPRESSION: NO ACUTE RADIOGRAPHIC FINDING IN THE CHEST. NO PNEUMOTHORAX STATUS POST THORACENTESIS. Thoracentesis Ultrasound 03/27/18 12:41 IMPRESSION: SUCCESSFUL THORACENTESIS USING ULTRASOUND GUIDANCE. Assessment & Plan - Diagnosis (1) Sepsis Qualifiers: Sepsis type: sepsis due to unspecified organism Qualified Code(s): A41.9 - Sepsis, unspecified organism Is this a current diagnosis for this admission?: Yes Plan: Resolved. Sepsis due to UTI, present on admission, as evidenced by leukocytosis (WBC 12.1 from lab work done at [facility]), temperature of 103.4, tachypnea with respiratory rate of 24, hypoxia with SPO2 of 91% on 4 L/min which is increased from her baseline requirement of 2 L/min. Leukocytosis has resolved, the patient is now afebrile with normal vital signs. Urine and blood cultures from this admission are positive for ESBL E. coli resistant to multiple antibiotics with similar sensitivity patterns. The patient has been admitted to the medical floor. She has received adequate IVF resuscitation. She has been empirically placed on meropenem which has been continued based on sensitivity reporting. Infectious disease was consulted appreciate their recommendations for a total of 10 days of IV antibiotic therapy. Patient is currently on day 10 of 10; will discontinue following this evening's dose. Kal stockings and SCDs while in bed for DVT precautions. Prevacid for ulcer prophylaxis. (2) UTI (urinary tract infection) Qualifiers: Urinary tract infection type: site unspecified Hematuria presence: without hematuria Qualified Code(s): N39.0 - Urinary tract infection, site not specified Is this a current diagnosis for this admission?: Yes Plan: The patient has a history of recurrent urinary tract infections within the last 3 months. Urine cultures are consistently positive for E. coli. Current urine culture is positive for ESBL E. coli with multiple resistance patterns; Sensitive to meropenem. We will continue meropenem for a total of 10 days; currently on day 10. (3) Lung mass Is this a current diagnosis for this admission?: Yes Plan: Lung masses present on CT which was not previously seen on chest x-ray from . Repeat CT of the chest yesterday demonstrated the peripheral consolidation of the lateral segment of the right middle lobe is unchanged from previous exam. Thoracentesis completed 03/27/18, pleural effusion appears to be transudative. Serum LDH is 451, total protein 5.3 Dr. Giordano has been consulted; appreciate his assistance. Spoke with Dr. Giordano; no plans for additional testing while inpatient. May follow up with him as an outpatient. Have resumed aspirin and Eliquis. (4) Essential hypertension Is this a current diagnosis for this admission?: Yes Plan: Blood pressures are somewhat labile; frequently require administration of IV Hydralazine. Patient has been on a clonidine patch previously with poor effect (though can not recall the dose). Continue home dose Coreg and Multaq. Continue Catapres 0.3 mg p.o. daily, hydralazine 50 mg p.o. 3 times daily, and furosemide 20 mg p.o. daily. Will change clonidine 2 mg p.o. BID to TID. IV hydralazine as needed for BP control. (5) Atrial fibrillation Qualifiers: Atrial fibrillation type: chronic Qualified Code(s): I48.2 - Chronic atrial fibrillation Is this a current diagnosis for this admission?: Yes Plan: Rate controlled. Continue home dose Multaq and Eliquis. (6) Weakness Is this a current diagnosis for this admission?: Yes Plan: The patient and family member state that the patient has been hospitalized multiple times within the last few months. The patient has been a lot of time in bed and therefore is experiencing generalized deconditioning. She is currently a 1 person assist to get out of bed to recliner. PT/OT services have been ordered. The patient and family members expressed that they do not want the patient to return to SNF and would like her to return to home. Discharge planning has been notified; she will require home health nursing, aide , PT/OT services at home as well as home oxygen and a wheelchair. (7) Hypokalemia Is this a current diagnosis for this admission?: Yes Plan: Resolved; Will continue to monitor with and replace as necessary. (8) Pleural effusion, right Is this a current diagnosis for this admission?: Yes Plan: Now status post thoracentesis. 250 mL's of straw-colored fluid were removed; transudative. AFB smear negative. Fungal cultures pending. Pleural fluid glucose 100, protein 1.6, LDH 76, amylase 9 Serum LDH is normal. Differential includes infection, malignancy, and transudative fluid from CHF. She is currently on meropenem for ESBL E. coli urinary tract infection. Echocardiogram from January 2018 demonstrated a normal LVEF with mild to moderate diastolic dysfunction and mild to moderate pulmonary hypertension. Pro-BNP is 3080 (decreased from previous admission) and the patient has no clinical indications of CHF exacerbation. Dr. Giordano is following results; appreciate his evaluation and recommendations. Recommends f/u with him in office after discharge. - Time Time Spent with patient: 15-24 minutes Medications reviewed and adjusted accordingly: Yes Anticipated discharge: Home Within: within 24 hours - Inpatient Certification Based on my medical assessment, after consideration of the patient's comorbidities, presenting symptoms, or acuity I expect that the services needed warrant INPATIENT care.: Yes I certify that my determination is in accordance with my understanding of Medicare's requirements for reasonable and necessary INPATIENT services [42 CFR 412.3e].: Yes Medical Necessity: Need for IV Antibiotics
--- NOTE | 2018-03-31 12:02 | PDOC PROGRESS REPORT ---
Subjective Progress Note for:: 03/31/18 Subjective:: A little more short of breath Reason For Visit: FEVER/ELECTROLYTE ABNORMALITIES/UTI. Physical Exam Vital Signs: Temp Pulse Resp BP Pulse Ox 98.8 F 67 16 172/68 H 94 03/31/18 08:00 03/31/18 08:00 03/31/18 08:00 03/31/18 08:00 03/31/18 08:00 Intake & Output 03/30/18 03/31/18 04/01/18 06:59 06:59 06:59 Intake Total 1372 1807 Output Total 2450 1750 Balance -1078 57 Weight 68.1 kg 68 kg General appearance: PRESENT: no acute distress, well-developed, well-nourished Head exam: PRESENT: atraumatic, normocephalic Eye exam: PRESENT: conjunctiva pale, EOMI. ABSENT: nystagmus, periorbital swelling, scleral icterus Mouth exam: PRESENT: moist, neck supple, tongue midline Neck exam: ABSENT: carotid bruit, JVD, lymphadenopathy, thyromegaly, tracheal deviation, tracheostomy Respiratory exam: PRESENT: decreased breath sounds, prolonged expiratory phas, rhonchi, unlabored. ABSENT: retraction, stridor, tachypnea Cardiovascular exam: PRESENT: RRR, +S1, +S2 Pulses: PRESENT: normal radial pulses GI/Abdominal exam: PRESENT: diminished bowel sounds, soft - [id number] Extremities exam: ABSENT: calf tenderness, clubbing, joint swelling Musculoskeletal exam: ABSENT: deformity, dislocation Neurological exam: PRESENT: awake, oriented to person, oriented to place Psychiatric exam: PRESENT: flat affect Skin exam: PRESENT: dry, warm Results Laboratory Results: 03/27/18 04:14 03/28/18 13:17 03/27/18 09:56 Pleural Fluid AFB Smear Concentration - Final 03/27/18 09:56 Pleural Fluid Acid Fast Bacilli Smear - Final 03/27/18 09:56 Pleural Fluid - Left Pleural Effusion Fungal Smear - Final 03/27/18 09:56 Pleural Fluid - Left Pleural Effusion Fungal Smear - Final 03/28/18 13:17 NT-Pro-B Natriuret Pep 3080 H Impressions: Abdomen/Pelvis CT 03/20/18 00:00 IMPRESSION: 2.9 cm in diameter are lateral pleural base cavitary mass in the right lower hemithorax as noted above. The differential possibilities would include a lung abscess versus is a cavitary mass lesion. Fat containing umbilical hernia. Atrophic left kidney with compensatory hypertrophy of the right kidney Orantes catheter in the bladder. Other findings as noted above Head CT 03/20/18 00:36 IMPRESSION: 1. No acute intracranial abnormality by CT criteria. This exam was performed according to our departmental dose-optimization program, which includes automated exposure control, adjustment of the mA and/or kV according to patient size and/or use of iterative reconstruction technique. Chest CT 03/25/18 06:00 IMPRESSION: Peripheral consolidation lateral segment right middle lobe unchanged from 03/21/2018 Small bilateral pleural effusions with bibasilar airspace disease, atelectasis versus pneumonia. This is new compared to 03/21/2018. Chest X-Ray 03/27/18 00:00 IMPRESSION: NO ACUTE RADIOGRAPHIC FINDING IN THE CHEST. NO PNEUMOTHORAX STATUS POST THORACENTESIS. Thoracentesis Ultrasound 03/27/18 12:41 IMPRESSION: SUCCESSFUL THORACENTESIS USING ULTRASOUND GUIDANCE. Assessment & Plan - Diagnosis (1) Atrial fibrillation Qualifiers: Atrial fibrillation type: chronic Qualified Code(s): I48.2 - Chronic atrial fibrillation Is this a current diagnosis for this admission?: Yes Plan: Stable (2) Lung mass Is this a current diagnosis for this admission?: Yes Plan: will follow as OP (3) NSTEMI (non-ST elevated myocardial infarction) Is this a current diagnosis for this admission?: No (4) Aspiration pneumonia Is this a current diagnosis for this admission?: Yes (5) Pulmonary hypertension Is this a current diagnosis for this admission?: Yes
[2018-03-31] MEDS: CLONIDINE HCL 0.2 MG TABLET PO SCH ×2 (15:40→22:04)
[2018-03-31] MEDS: FENOFIBRATE NANOCRYSTALLIZED 48 MG TABLET PO SCH (22:04)
[2018-04-01] MEDS: PREDNISOLONE ACETATE 1% OPH SUSP 5 ML OD SCH ×2 (00:34→05:31)
[2018-04-01] MEDS: CARBAMAZEPINE 200 MG TABLET PO SCH ×2 (00:34→09:40)
[2018-04-01] MEDS: 1/2 NORMAL SALINE 1,000 ML IV PRN (00:35)
[2018-04-01 05:11] LABS: HEMATOCRIT 31.8 % (36.0-47.0); HEMOGLOBIN 10.5 g/dL (12.0-15.5); MEAN CORPUSCULAR HEMOGLOBIN 29.5 pg (27.0-33.4); MEAN CORPUSCULAR HGB CONC 33.2 g/dL (32.0-36.0); MEAN CORPUSCULAR VOLUME 89 fl (80-97); PLATELET COUNT 311 10^3/uL (150-450); RED BLOOD COUNT 3.58 10^6/uL (3.72-5.28); RED CELL DISTRIBUTION WIDTH 15.5 % (11.5-14.0)
[2018-04-01] MEDS: CLONIDINE HCL 0.2 MG TABLET PO SCH (05:30)
[2018-04-01] MEDS: HYDRALAZINE HCL 50 MG TABLET PO SCH (05:30)
[2018-04-01] MEDS: LANSOPRAZOLE 30 MG TAB.RAP.DR PO SCH (05:30)
[2018-04-01 05:37] LABS: ANION GAP 7 (5-19); BLOOD UREA NITROGEN 9 mg/dL (7-20); CALCIUM 8.7 mg/dL (8.4-10.2); CARBON DIOXIDE 30 mmol/L (22-30); CHLORIDE 100 mmol/L (98-107); GLUCOSE 88 mg/dL (75-110); POTASSIUM 3.4 mmol/L (3.6-5.0); SODIUM 137.2 mmol/L (137-145)
[2018-04-01] MEDS: CARVEDILOL 6.25 MG TABLET PO SCH (09:40)
[2018-04-01] MEDS: FUROSEMIDE 20 MG TABLET PO SCH (09:41)
[2018-04-01] MEDS: ASPIRIN 81 MG TABLET, ENT COATED PO SCH (09:41)
[2018-04-01] MEDS: SERTRALINE HCL 50 MG TABLET PO SCH (09:41)
[2018-04-01] MEDS: APIXABAN 5 MG TABLET PO SCH (09:41)
[2018-04-01] MEDS: POLYETHYLENE GLYCOL 3350 POWDER 17 GM/1 PACKET PO SCH (09:42)
[2018-04-01] MEDS: CYCLOSPORINE 0.05% OPH EMULSIO 0.4 ML DROPERETTE OU SCH (09:42)
[2018-04-01] MEDS: DRONEDARONE HYDROCHLORIDE 400 MG TABLET PO SCH (09:42)
[2018-04-01] MEDS ORDERED: PREGABALIN 25 MG CAPSULE PO SCH (10:00)
[2018-04-01 11:15] VITALS: BP 124/51
[2018-04-01] MEDS ORDERED: HYDRALAZINE HCL 50 MG TABLET PO SCH (12:00)
--- NOTE | 2018-04-01 12:58 | PDOC DISCHARGE SUMMARY ---
General - Admit/Disc Date/PCP Admission Date/Primary Care Provider: 03/20/18 02:34 Discharge Date: 04/01/18 - Discharge Diagnosis (1) Sepsis Is this a current diagnosis for this admission?: Yes Summary: Sepsis secondary to UTI, present on admission, as evidenced by leukocytosis ( WBC 12.1 for lab work done at [facility]), temperature of 103.4, tachypnea with respiratory rate of 24, hypoxia with SPO2 of 91% on 4 L/min which is increased from her baseline requirement of 2 L/min. Urine and blood cultures from this admission are positive for ESBL E. coli resistant to multiple antibiotics with similar sensitivity patterns. Patient was admitted to the medical floor. She received adequate IVF resuscitation. She was empirically placed on meropenem which was continued based on sensitivity reporting. Infectious disease was consulted, they recommended a total of 10 days of IV antibiotic therapy, which the patient completed. (2) UTI (urinary tract infection) Is this a current diagnosis for this admission?: Yes Summary: The patient has a history of recurrent urinary tract infections within the last 3 months. Urine cultures are consistently positive for E. coli. Current urine cultures positive for ESBL E. coli with multiple resistance patterns, sensitive to meropenem. She was treated for a total of 10 days with IV meropenem. (3) Lung mass Is this a current diagnosis for this admission?: Yes Summary: Lung mass present on CT which was not previously seen on chest x-ray from [address] of chest emonstrated the peripheral consolidation in the lateral segment of the right middle lobe is unchanged from previous exam. Thoracentesis was completed on March 27, pleural effusion appears to be transudative. Serum LDH was 4.1, total protein 5.3 Dr. Grace had been consulted, he recommended follow-up with him as an outpatient. No plans for additional testing while inpatient. Patient was resumed on her aspirin and home dose Eliquis following the procedure , will continue post discharge (4) Atrial fibrillation Is this a current diagnosis for this admission?: Yes Summary: Rate controlled. Home dose Multitak and Eliquis, continue post discharge (5) Essential hypertension Is this a current diagnosis for this admission?: Yes Summary: Blood pressures are somewhat labile, frequently require IV hydralazine. Patient has been on a clonidine patch previously with poor effect and cannot recall the dose. Continue home dose Coreg and Multaq postdischarge Clonidine 0.2 mg p.o. 3 times daily, furosemide 20 mg p.o. daily, hydralazine was increased to 50 mg p.o. q6hr. these will all be continued post discharge (6) Limited code status Is this a current diagnosis for this admission?: Yes Summary: Confirmed with family that the patient is a DNR (7) Weakness Is this a current diagnosis for this admission?: Yes Summary: The patient and family members state that the patient has been hospitalized multiple times within the last few months. The patient has spent a lot of time in bed and therefore is experiencing generalized deconditioning. She is currently 1 person assist to get out of bed to recliner. PT OT services were offered to the patient while she was at [facility]. Plan to continue home health and home PT post discharge. The patient and family members expressed that they do not want the patient to return to SNF and would like her to return home in the care of her son and [id number]. Family states that the [id number] is home all the time, and is able to look after the patient. Discharge planning has assisted in obtaining a wheelchair, rolling walker, shower chair, and bedside commode. (8) Pleural effusion, right Is this a current diagnosis for this admission?: Yes Summary: Now status post thoracentesis. 250 mL's of straw-colored fluid were removed, transudative AFB smear negative. Fungal cultures still pending. Pleural fluid glucose 100, protein 1.6, LDH 76, amylase 9 Serum LDH is normal. Differentials include infection, malignancy, transudate of fluid from CHF. Cardiogram from January 2018 demonstrated a normal LVEF with mild to moderate diastolic dysfunction and mild to moderate pulmonary hypertension. ProBNP is 3080, decreased from previous admission, the patient has no clinical indications of CHF exacerbation. Dr. Grace of pulmonology was consulted, he is following results. He recommends follow-up as an outpatient in his office, no plan for further procedures while inpatient. - Additional Information Resuscitation Status: Do Not Resuscitate Discharge Diet: As Tolerated Discharge Activity: Activity As Tolerated, Balance Activity w/Rest Prescriptions: Clonidine HCl [Catapres 0.2 mg Tablet] 0.2 mg PO Q8 #90 tablet Hydralazine HCl [Apresoline 50 mg Tablet] 50 mg PO Q6 #120 tablet Home Medications: Acetaminophen [Tylenol 325 mg Tablet] 650 mg PO Q4HP PRN 03/02/18 Aspirin [Aspirin EC] 81 mg PO DAILY 03/02/18 Carbamazepine [Tegretol 200 mg Tablet] 400 mg PO Q8 03/02/18 Cyclosporine 0.05% Oph Emulsio [Restasis 0.05% Oph Emulsion Pf 0.4 ml] 1 drop OU Q12 03/02/18 Docusate Sodium [Colace 100 mg Capsule] 100 mg PO BID 03/02/18 Dronedarone Hydrochloride [Multaq 400 mg Tablet] 400 mg PO Q12 03/02/18 Fenofibrate Nanocrystallized [Tricor 48 mg Tablet] 48 mg PO QHS 03/02/18 Furosemide [Lasix 20 mg Tablet] 20 mg PO QAM 03/02/18 Metaxalone [Skelaxin 800 mg Tablet] 800 mg PO Q8 03/02/18 Oxycodone HCl [Oxy-Ir 5 mg Tablet] 10 mg PO Q6HP PRN 03/02/18 Pantoprazole Sodium [Protonix] 40 mg PO Q6AM 03/02/18 Prednisolone Acetate [Pred Forte] 1 drop OD Q6 03/02/18 Pregabalin [Lyrica 50 mg Capsule] 50 mg PO Q8 03/02/18 Sertraline HCl [Zoloft 50 mg Tablet] 50 mg PO DAILY 03/02/18 Apixaban [Eliquis 5 mg Tablet] 5 mg PO BID tablet 03/07/18 Carvedilol [Coreg 6.25 mg Tablet] 6.25 mg PO Q12 tablet 03/07/18 Oxycodone HCl [Oxy-Ir 5 mg Tablet] 5 mg PO Q6HP PRN #20 tablet 03/07/18 Polyethylene Glycol 3350 [Miralax Powder 17 gm/Packet] 17 gm PO DAILY powd.pack 03/07/18 Clonidine HCl [Catapres 0.2 mg Tablet] 0.2 mg PO Q8 #90 tablet 04/01/18 Hydralazine HCl [Apresoline 50 mg Tablet] 50 mg PO Q6 #120 tablet 04/01/18 History of Present Illness History of Present Illness: CHELSEY OTTO is a 82 year old female with history of NSTEMI (omn 03/2018), chronic diastolic CHF, A. fib (on Eliquis since 01/2018), chronic respiratory failure (on 2 L home oxygen since 01/2018), GURMEET (not on CPAP) and recurrent UTIs was sent from rehab center with above-mentioned complaints. The patient was last hospitalized here from 03/02/2018 to 03/07/2018 for non-STEMI, UTI and acute renal failure and she was discharged to SNF. Most of the history which was limited was obtained from the ED physician/notes and her son at bedside. According to her son, the patient was more confused and lethargic last night. She also was nauseous and vomited once. According to the ED note, the patient was diagnosed with UTI and was given on dose of Rocephin in AM. However, this evening she spiked a fever of 105 and she had altered mental status so she was sent to the ED for further evaluation and treatment. The patient currently denies any chest pain, shortness of breath, cough, abdominal pain or any diarrhea or constipation. She also denies any dysuria, hematuria or increased frequency or urgency. She feels generally weak since she is severely deconditioned after her long and repeat recent hospitalizations. In the ED, her temperature was 103.4 (105.5 rectally), heart rate 93, respiratory rate 24, blood pressure 153/92 with oxygen saturation of 92% on 2 L nasal cannula. Her WBC was 9.8 and her hemoglobin was 10.8. Her potassium was 2.8 and her magnesium was 1.5. UA was positive. A chest x-ray and CAT scan of the head were done which were unremarkable. She received 3.375 mg and Zosyn 1 , 20 mEq KCl (1 of 3), 1 mg IV magnesium sulfate (1 of 2) and 1 L of normal saline. A otto catheter was placed in the ED. Hospital Course Hospital Course: As above Physical Exam Vital Signs: Temp Pulse Resp BP Pulse Ox 98.6 F 62 16 124/51 L 94 04/01/18 11:09 04/01/18 11:09 04/01/18 11:09 04/01/18 11:04/01/18 11:09 Intake & Output 03/31/18 04/01/18 04/02/18 06:59 06:59 06:59 Intake Total 1807 1340 Output Total 1750 1100 Balance 57 240 Weight 68 kg 67.6 kg Results Laboratory Results: 04/01/18 03:56 04/01/18 03:56 04/01/18 04/01/18 03:56 03:56 WBC 4.0 RBC 3.58 L Hgb 10.5 L Hct 31.8 L MCV 89 MCH 29.5 MCHC 33.2 RDW 15.5 H Plt Count 311 Sodium 137.2 Potassium 3.4 L Chloride 100 Carbon Dioxide 30 Anion Gap 7 BUN 9 Creatinine 0.64 Est GFR ( Amer) > 60 Est GFR (Non-Af Amer) > 60 Glucose 88 Calcium 8.7 03/27/18 09:56 Pleural Fluid Gram Stain - Final 03/27/18 09:56 Pleural Fluid Body Fluid Culture - Final NO AEROBIC OR ANAEROBIC ORGANISMS RECOVERED 03/27/18 09:56 Pleural Fluid AFB Smear Concentration - Final 03/27/18 09:56 Pleural Fluid Acid Fast Bacilli Smear - Final 03/27/18 09:56 Pleural Fluid - Left Pleural Effusion Fungal Smear - Final 03/27/18 09:56 Pleural Fluid - Left Pleural Effusion Fungal Smear - Final 03/28/18 13:17 NT-Pro-B Natriuret Pep 3080 H Impressions: Abdomen/Pelvis CT 03/20/18 00:00 IMPRESSION: 2.9 cm in diameter are lateral pleural base cavitary mass in the right lower hemithorax as noted above. The differential possibilities would include a lung abscess versus is a cavitary mass lesion. Fat containing umbilical hernia. Atrophic left kidney with compensatory hypertrophy of the right kidney Otto catheter in the bladder. Other findings as noted above Head CT 03/20/18 00:36 IMPRESSION: 1. No acute intracranial abnormality by CT criteria. This exam was performed according to our departmental dose-optimization program, which includes automated exposure control, adjustment of the mA and/or kV according to patient size and/or use of iterative reconstruction technique. Chest CT 03/25/18 06:00 IMPRESSION: Peripheral consolidation lateral segment right middle lobe unchanged from 03/21/2018 Small bilateral pleural effusions with bibasilar airspace disease, atelectasis versus pneumonia. This is new compared to 03/21/2018. Chest X-Ray 03/27/18 00:00 IMPRESSION: NO ACUTE RADIOGRAPHIC FINDING IN THE CHEST. NO PNEUMOTHORAX STATUS POST THORACENTESIS. Thoracentesis Ultrasound 03/27/18 12:41 IMPRESSION: SUCCESSFUL THORACENTESIS USING ULTRASOUND GUIDANCE. Status: Imported from PACS Qualifiers - * PATIENT BEING DISCHARGED WITH ANY OF THE FOLLOWING DIAGNOSIS: No Plan Discharge Plan: Discharge home in the care of her son and [id number]. Initiate home health and home PT. Patient sent home with rolling walker, wheelchair, shower chair, bedside commode. Time Spent: Less than 30 Minutes
--- NOTE | 2018-04-01 16:02 | PDOC PROGRESS REPORT ---
Subjective Progress Note for:: 04/01/18 Subjective:: i am ok Reason For Visit: FEVER/ELECTROLYTE ABNORMALITIES/UTI. Physical Exam Vital Signs: Temp Pulse Resp BP Pulse Ox 98.6 F 62 16 124/51 L 94 04/01/18 11:09 04/01/18 11:09 04/01/18 11:09 04/01/18 11:09 04/01/18 11:09 Intake & Output 03/31/18 04/01/18 04/02/18 06:59 06:59 06:59 Intake Total 1807 1340 Output Total 1750 1100 Balance 57 240 Weight 68 kg 67.6 kg General appearance: PRESENT: no acute distress, cooperative, disheveled Head exam: PRESENT: atraumatic, normocephalic Eye exam: PRESENT: conjunctiva pale, EOMI. ABSENT: nystagmus, periorbital swelling, scleral icterus Mouth exam: PRESENT: moist, neck supple, tongue midline Neck exam: ABSENT: carotid bruit, JVD, lymphadenopathy, thyromegaly, tracheal deviation, tracheostomy Respiratory exam: PRESENT: decreased breath sounds, prolonged expiratory phas, rhonchi, unlabored. ABSENT: retraction, stridor, tachypnea Cardiovascular exam: PRESENT: RRR, +S1, +S2 Pulses: PRESENT: normal radial pulses GI/Abdominal exam: PRESENT: normal bowel sounds, soft Extremities exam: ABSENT: calf tenderness, clubbing, joint swelling Musculoskeletal exam: ABSENT: deformity, dislocation Neurological exam: PRESENT: alert, awake Psychiatric exam: PRESENT: normal mood Skin exam: PRESENT: dry, warm Results Laboratory Results: 04/01/18 03:56 04/01/18 03:56 04/01/18 04/01/18 03:56 03:56 WBC 4.0 RBC 3.58 L Hgb 10.5 L Hct 31.8 L MCV 89 MCH 29.5 MCHC 33.2 RDW 15.5 H Plt Count 311 Sodium 137.2 Potassium 3.4 L Chloride 100 Carbon Dioxide 30 Anion Gap 7 BUN 9 Creatinine 0.64 Est GFR ( Amer) > 60 Est GFR (Non-Af Amer) > 60 Glucose 88 Calcium 8.7 03/27/18 09:56 Pleural Fluid Gram Stain - Final 03/27/18 09:56 Pleural Fluid Body Fluid Culture - Final NO AEROBIC OR ANAEROBIC ORGANISMS RECOVERED 03/28/18 13:17 NT-Pro-B Natriuret Pep 3080 H Impressions: Abdomen/Pelvis CT 03/20/18 00:00 IMPRESSION: 2.9 cm in diameter are lateral pleural base cavitary mass in the right lower hemithorax as noted above. The differential possibilities would include a lung abscess versus is a cavitary mass lesion. Fat containing umbilical hernia. Atrophic left kidney with compensatory hypertrophy of the right kidney Orantes catheter in the bladder. Other findings as noted above Head CT 03/20/18 00:36 IMPRESSION: 1. No acute intracranial abnormality by CT criteria. This exam was performed according to our departmental dose-optimization program, which includes automated exposure control, adjustment of the mA and/or kV according to patient size and/or use of iterative reconstruction technique. Chest CT 03/25/18 06:00 IMPRESSION: Peripheral consolidation lateral segment right middle lobe unchanged from 03/21/2018 Small bilateral pleural effusions with bibasilar airspace disease, atelectasis versus pneumonia. This is new compared to 03/21/2018. Chest X-Ray 03/27/18 00:00 IMPRESSION: NO ACUTE RADIOGRAPHIC FINDING IN THE CHEST. NO PNEUMOTHORAX STATUS POST THORACENTESIS. Thoracentesis Ultrasound 03/27/18 12:41 IMPRESSION: SUCCESSFUL THORACENTESIS USING ULTRASOUND GUIDANCE. Assessment & Plan - Diagnosis (1) Atrial fibrillation Qualifiers: Atrial fibrillation type: chronic Qualified Code(s): I48.2 - Chronic atrial fibrillation Is this a current diagnosis for this admission?: Yes Plan: Stable (2) Lung mass Is this a current diagnosis for this admission?: Yes Plan: will follow as OP (3) NSTEMI (non-ST elevated myocardial infarction) Is this a current diagnosis for this admission?: No (4) Aspiration pneumonia Is this a current diagnosis for this admission?: No Plan: Far less likely (5) Pulmonary hypertension Is this a current diagnosis for this admission?: Yes Plan: via echo 02/16
== END 2018-04-01 11:44 | disposition home health service (06) | DRG 872 ==
LOC: ER 00:02 → EH 02:34 → 4N 07:20
PROVIDERS: ADMIT Internal Medicine Geriatric Medicine; ATTEND Internal Medicine Geriatric Medicine
PROC: 0W9B3ZX Drainage of Left Pleural Cavity, Percutaneous Approach, Diagnostic (ICD-10-PCS; principal; 2018-03-27)
DX: A41.51 Sepsis due to Escherichia coli [E. coli] (principal); N39.0 Urinary tract infection, site not specified; J91.8 Pleural effusion in other conditions classified elsewhere; I50.32 Chronic diastolic (congestive) heart failure; J96.10 Chronic respiratory failure, unspecified whether with hypoxia or hypercapnia; B96.20 Unspecified Escherichia coli [E. coli] as the cause of diseases classified elsewhere; Z16.30 Resistance to unspecified antimicrobial drugs; I11.0 Hypertensive heart disease with heart failure; R91.8 Other nonspecific abnormal finding of lung field; I48.2 Chronic atrial fibrillation; I27.20 Pulmonary hypertension, unspecified; E87.6 Hypokalemia; E83.42 Hypomagnesemia; Z66 Do not resuscitate; G47.33 Obstructive sleep apnea (adult) (pediatric); E78.5 Hyperlipidemia, unspecified; Z79.82 Long term (current) use of aspirin; Z79.02 Long term (current) use of antithrombotics/antiplatelets; Z99.81 Dependence on supplemental oxygen; I25.2 Old myocardial infarction; G50.0 Trigeminal neuralgia; F32.9 Major depressive disorder, single episode, unspecified; Z87.440 Personal history of urinary (tract) infections; M19.90 Unspecified osteoarthritis, unspecified site; Z85.41 Personal history of malignant neoplasm of cervix uteri; Z85.828 Personal history of other malignant neoplasm of skin; Z82.49 Family history of ischemic heart disease and other diseases of the circulatory system; Z82.61 Family history of arthritis; Z88.2 Allergy status to sulfonamides; Z88.8 Allergy status to other drugs, medicaments and biological substances
CPT/HCPCS: 32555; 36415; 36600; 51702; 70450; 71045; 71046; 71250; 74176; 80048; 80053; 81001; 82150; 82803; 82945; 83605; 83615; 83735; 83880; 84100; 84155; 84157; 85025; 85027; 85610; 85730; 87015; 87040; 87070; 87075; 87077; 87086; 87088; 87101; 87116; 87186; 87205; 87206; 89050; 94799; 96365; 99285; G8978-GP; G8979-GP; G8987-GO; G8988-GO; J0360; J2185; J2543; J3370; J3475; J3480; J3490; J7030; J7060

== ENCOUNTER 2018-04-08 16:55 | Emergency (ER) | payer MEDICARE, OTHER ==
--- NOTE | 2018-04-08 17:49 | ER Document Report ---
ED Syncope and Near Syncope - General Chief Complaint: Syncope Stated Complaint: DIZZINESS/SYNCOPAL EPISODE Time Seen by Provider: 04/08/18 17:48 Mode of Arrival: Medic Information source: Relative TRAVEL OUTSIDE OF THE [place] IN LAST 30 DAYS: No - HPI Patient complains to provider of: Fainting Episode witnessed (by whom): Yes - CAREGIVER ([id number]) Single episoded occurred: 1500 Symptoms prior to episode: Other - UNUSUALLY SLEEPY, POOR APPETITE. No: Chills , Diarrhea, Fever, Nausea/vomiting, Short of breath Duration of preceeding symptoms: TODAY Position/Activity at time of episode: Standing Details of activity: WAS MAKING WAY TO TOILET, WITH ASSISTANCE Quality of pain: No pain Context: Became unresponsive Duration of LOC (min): 2 MIN Injury location: No: None, Abdomen, Back, Chest, Face, Head, Mouth, Neck, Tongue , LUE, LLE, RUE, RLE Current symptoms: Weakness Similar symptoms previously: Yes - THOUGHT DUE TO U.T.I. Recently seen / treated by doctor: Yes - RECENT ADM. [facility] - Related Data Allergies/Adverse Reactions: ANDREY Inhibitors [Andrey Inhibitors] Allergy (Severe, Verified 04/08/18 17:04) Swelling of tongue,throat,lips,mouth Sulfa (Sulfonamide Antibiotics) Allergy (Mild, Verified 04/08/18 17:04) rash Past Medical History - General Information source: Relative - Social History Smoking Status: Never Smoker Cigarette use (# per day): No Chew tobacco use (# tins/day): No Frequency of alcohol use: None Drug Abuse: None Lives with: Family Family History: Arthritis, Hypertension Patient has suicidal ideation: No Patient has homicidal ideation: No - Past Medical History Cardiac Medical History: Reports: Hx Atrial Fibrillation - on eliquis., Hx Congestive Heart Failure - on 2L home oxygen., Hx Hypercholesterolemia, Hx Hypertension Denies: Hx Heart Attack Pulmonary Medical History: Reports: Hx Sleep Apnea Denies: Hx Asthma Neurological Medical History: Denies: Hx Cerebrovascular Accident, Hx Seizures Renal/ Medical History: Denies: Hx Peritoneal Dialysis Malignancy Medical History: Reports: Hx Cervical Cancer, Hx Skin Cancer GI Medical History: Denies: Hx Hepatitis, Hx Hiatal Hernia, Hx Ulcer Musculoskeltal Medical History: Reports Hx Arthritis Psychiatric Medical History: Reports: Hx Depression Infectious Medical History: Denies: Hx Hepatitis Past Surgical History: Reports: Hx Genitourinary Surgery - bladder, Hx Gynecologic Surgery, Hx Hysterectomy, Hx Orthopedic Surgery - L knee, Other - bladder tuck: R corneal implant.. Denies: Hx Mastectomy, Hx Open Heart Surgery , Hx Pacemaker - Immunizations Hx Diphtheria, Pertussis, Tetanus Vaccination: No Hx Pneumococcal Vaccination: 12/02/14 Review of Systems - Review of Systems Constitutional: See HPI EENT: No symptoms reported Cardiovascular: Syncope Respiratory: No symptoms reported Gastrointestinal: No symptoms reported Genitourinary: No symptoms reported Female Genitourinary: Post menopausal Musculoskeletal: No symptoms reported Skin: No symptoms reported Neurological/Psychological: See HPI Physical Exam - Vital signs Vitals: Resp Pulse Ox 21 H 98 04/08/18 16:59 04/08/18 16:59 Interpretation: No: Hypotensive, Tachycardic, Hypoxic, Tachypneic - General General appearance: Appears well, Alert In distress: None - HEENT Head: Normocephalic Eyes: Pale conjunctiva Ears: Normal Nasal: Normal Mouth/Lips: Normal Mucous membranes: Dry - MILDLY - Respiratory Respiratory status: No respiratory distress Breath sounds: Normal - Cardiovascular Rhythm: Regular Heart sounds: Normal auscultation Murmur: No - Abdominal Inspection: Normal Distension: No distension Bowel sounds: Normal - Extremities General upper extremity: Normal inspection General lower extremity: Normal inspection. No: Tender, Edema - Neurological Neuro grossly intact: Yes Cognition: Normal Orientation: AAOx4 - Psychological Associated symptoms: Normal affect, Normal mood - Skin Skin Temperature: Warm Skin Moisture: Dry Skin Color: Normal Skin Turgor: Elastic Course - Vital Signs Vital signs: Temp Pulse Resp BP Pulse Ox 98.0 F 15 200/77 H 99 04/08/18 22:27 04/08/18 21:56 04/08/18 22:52 04/08/18 21:56 - Laboratory Result Diagrams: 04/08/18 18:00 04/08/18 18:00 Laboratory results interpreted by me: 04/08/18 04/08/18 04/08/18 18:00 18:00 23:45 WBC 3.8 L RBC 3.63 L Hgb 10.8 L Hct 32.0 L RDW 16.5 H Potassium 2.6 L* Glucose 123 H Direct Bilirubin 0.5 H Albumin 3.4 L Ur Leukocyte Esterase MODERATE H - Diagnostic Test Radiology reviewed: Image reviewed, Reports reviewed - EKG Interpretation by Me EKG shows normal: Sinus rhythm, Oxly, Intervals. abnormal: QRS Complexes, ST-T Waves - DIFFUSE ST DEPR., BORDERLINE Rate: Normal Rhythm: NSR Oxly/QRS: IVCD Discharge - Discharge Clinical Impression: Hypokalemia, Essential hypertension Syncope Qualifiers: Syncope type: unspecified Qualified Code(s): R55 - Syncope and collapse Urinary tract infection Qualifiers: Urinary tract infection type: acute cystitis Hematuria presence: without hematuria Qualified Code(s): N30.00 - Acute cystitis without hematuria Condition: Stable Disposition: HOME, SELF-CARE Instructions: Hypokalemia ([facility]), Syncopal Episode ([facility]) Additional Instructions: TAKE MACROBID DIRECTED. CONTINUE YOUR OTHER MEDICATIONS USUAL. DRINK PLENTY OF FLUIDS. YOU NEED TO DRINK AT LEAST A QUART OF WATER EVERY 24 HOURS. FOLLOW UP WITH YOUR PRIMARY CARE PROVIDER TOMORROW SCHEDULED. RETURN TO E.R. IF PROBLEMS. Prescriptions: Nitrofurantoin/Nitrofuran Mac [Macrobid 100 mg Capsule] 100 mg PO BID #20 capsule Referrals: ERICK TORRES MD [Primary Care Provider] - Follow up tomorrow
[2018-04-08 18:14] LABS: ABSOLUTE LYMPHOCYTES (AUTO) 0.7 10^3/uL (0.5-4.7); ABSOLUTE MONOCYTES (AUTO) 0.5 10^3/uL (0.1-1.4); ABSOLUTE NEUT (AUTO) 2.5 10^3/uL (1.7-8.2); BASOPHILS % (AUTO) 1.3 % (0-2); EOSINOPHILS % (AUTO) 0.8 % (0-6); HEMOGLOBIN 10.8 g/dL (12.0-15.5); LYMPHOCYTES % (AUTO) 19.8 % (13-45); MEAN CORPUSCULAR HEMOGLOBIN 29.7 pg (27.0-33.4); MEAN CORPUSCULAR HGB CONC 33.6 g/dL (32.0-36.0); MEAN CORPUSCULAR VOLUME 88 fl (80-97); MONOCYTES % (AUTO) 12.7 % (3-13); PLATELET COUNT 223 10^3/uL (150-450); RED BLOOD COUNT 3.63 10^6/uL (3.72-5.28); RED CELL DISTRIBUTION WIDTH 16.5 % (11.5-14.0); SEGMENTED NEUTROPHILS % (AUTO) 65.4 % (42-78); TOTAL CELLS COUNTED % (AUTO) 100 %; WHITE BLOOD COUNT 3.8 10^3/uL (4.0-10.5)
[2018-04-08 18:29] LABS: ALANINE AMINOTRANSFERASE 25 U/L (9-52); ALBUMIN 3.4 g/dL (3.5-5.0); ALKALINE PHOSPHATASE 63 U/L (38-126); ANION GAP 12 (5-19); ASPARTATE AMINO TRANSFERASE 24 U/L (14-36); BILIRUBIN,DIRECT 0.5 mg/dL (0.0-0.4); BILIRUBIN,TOTAL 0.5 mg/dL (0.2-1.3); BLOOD UREA NITROGEN 12 mg/dL (7-20); CALCIUM 9.2 mg/dL (8.4-10.2); CARBON DIOXIDE 27 mmol/L (22-30); CHLORIDE 100 mmol/L (98-107); CREATINE KINASE 42 U/L (30-135); GLUCOSE 123 mg/dL (75-110); SODIUM 138.6 mmol/L (137-145); TOTAL PROTEIN 6.4 g/dL (6.3-8.2)
[2018-04-08 18:41] LABS: CREATINE KINASE MB 0.94 ng/mL (<4.55)
[2018-04-08 18:50] LABS: POTASSIUM 2.6 mmol/L (3.6-5.0)
[2018-04-08 18:51] LABS: TROPONIN I 0.087 ng/mL
[2018-04-08] MEDS ORDERED: RINGERS SOLUTION,LACTATED 1,000 ML IV PRN (18:51)
[2018-04-08] MEDS ORDERED: POTASSI CL 20 MEQ/50 ML RIDER 20 MEQ/50 ML RTUPB IV ONE (18:51)
--- NOTE | 2018-04-08 19:28 | EKG REPORT ---
SEVERITY:- ABNORMAL ECG - SINUS RHYTHM NONSPECIFIC INTRAVENTRICULAR CONDUCTION DELAY BORDERLINE ST DEPRESSION, DIFFUSE LEADS : Confirmed by: Andrea Mariscal MD 08-Apr-2018 19:27:20
[2018-04-08] MEDS ORDERED: HYDRALAZINE HCL INJ/PF 20 MG/1 ML SDV IV ONE (22:10)
[2018-04-08] MEDS ORDERED: CLONIDINE HCL 0.2 MG TABLET PO ONE (22:10)
[2018-04-08] MEDS ORDERED: HYDRALAZINE HCL 25 MG TABLET PO ONE (22:11)
[2018-04-08] MEDS ORDERED: RINGERS SOLUTION,LACTATED 500 ML IV PRN (22:20)
[2018-04-09 00:04] LABS: APPEARANCE,URINE CLOUDY; BILIRUBIN,URINE NEGATIVE (NEGATIVE); COLOR,URINE YELLOW; GLUCOSE, URINE NEGATIVE (NEGATIVE); KETONES,URINE NEGATIVE (NEGATIVE); LEUKOCYTE ESTERASE,URINE MODERATE (NEGATIVE); NITRITE,URINE NEGATIVE (NEGATIVE); PROTEIN,URINE NEGATIVE (NEGATIVE); URINE SPECIFIC GRAVITY 1.009; UROBILINOGEN,URINE NEGATIVE mg/dL (<2.0)
[2018-04-09] MEDS ORDERED: NITROFURANTOIN MONOHYD/M-CRYST 100 MG CAPSULE PO ONE (00:07)
[2018-04-09 00:23] VITALS: BP 186/72
== END 2018-04-09 00:28 | disposition home or self-care (01) ==
LOC: ER 16:55
DX: E87.6 Hypokalemia (principal); N30.00 Acute cystitis without hematuria; I11.0 Hypertensive heart disease with heart failure; R55 Syncope and collapse; R42 Dizziness and giddiness; R53.1 Weakness; I48.91 Unspecified atrial fibrillation; I50.9 Heart failure, unspecified; E78.00 Pure hypercholesterolemia, unspecified; Z99.81 Dependence on supplemental oxygen; Z88.2 Allergy status to sulfonamides; Z79.02 Long term (current) use of antithrombotics/antiplatelets; Z85.41 Personal history of malignant neoplasm of cervix uteri; Z85.828 Personal history of other malignant neoplasm of skin; Z90.710 Acquired absence of both cervix and uterus
CPT/HCPCS: 93005; 99284; 96375; 96365; 36415; 82553; 82550; 85025; 80053; 81001; 84484; 93010; A9270 ×3; J0360; J3480; J8499

== ENCOUNTER 2019-06-11 08:44 | Emergency (ER) | payer MEDICARE, OTHER ==
[2019-06-11] MEDS ORDERED: NORMAL SALINE 500 ML IV ONE (09:00)
[2019-06-11] MEDS ORDERED: ONDANSETRON HCL INJ/PF 4 MG/2 ML SDV IV ONE (09:00)
--- NOTE | 2019-06-11 09:05 | ER Document Report ---
ED Medical Screen (RME) - General Chief Complaint: Head Injury Stated Complaint: FALL/HEAD PAIN Time Seen by Provider: 06/11/19 09:00 Primary Care Provider: ERICK TORRES MD [Primary Care Provider] - Follow up as needed Mode of Arrival: Wheelchair Information source: Relative Notes: To ED for complaint of fall this morning she states she hit her head she states she does not know why she fell. Daughter states that the last time she fell was in January when she broke her leg and had to have surgery. Patient is alert oriented states she feels very weak tired woozy and nauseated. Daughter states she has been vomiting hard to keep food down. Daughter states the patient last night for dinner had a couple Cheetos and some Ensure. Patient denies any pain or injuries anywhere besides the head. I have greeted and performed a rapid initial assessment of this patient. A comprehensive ED assessment and evaluation of the patient, analysis of test results and completion of medical decision making process will be conducted by an additional ED providers. Dictation of this chart was performed using voice recognition software; therefore, there may be some unintended grammatical errors. TRAVEL OUTSIDE OF THE [place] IN LAST 30 DAYS: No - Related Data Allergies/Adverse Reactions: ANDREY Inhibitors [Andrey Inhibitors] Allergy (Severe, Verified 06/11/19 08:47) Swelling of tongue,throat,lips,mouth Sulfa (Sulfonamide Antibiotics) Allergy (Mild, Verified 06/11/19 08:47) rash Past Medical History - Past Medical History Cardiac Medical History: Reports: Hx Atrial Fibrillation - on eliquis., Hx Congestive Heart Failure - on 2L home oxygen., Hx Hypercholesterolemia, Hx Hypertension Denies: Hx Heart Attack Pulmonary Medical History: Reports: Hx Sleep Apnea Denies: Hx Asthma Neurological Medical History: Denies: Hx Cerebrovascular Accident, Hx Seizures Renal/ Medical History: Denies: Hx Peritoneal Dialysis Malignancy Medical History: Reports: Hx Cervical Cancer, Hx Skin Cancer GI Medical History: Denies: Hx Hepatitis, Hx Hiatal Hernia, Hx Ulcer Musculoskeltal Medical History: Reports Hx Arthritis Psychiatric Medical History: Reports: Hx Depression Infectious Medical History: Denies: Hx Hepatitis Past Surgical History: Reports: Hx Genitourinary Surgery - bladder, Hx Gynecologic Surgery, Hx Hysterectomy, Hx Orthopedic Surgery - L knee, Other - bladder tuck: R corneal implant.. Denies: Hx Mastectomy, Hx Open Heart Surgery, Hx Pacemaker - Immunizations Hx Diphtheria, Pertussis, Tetanus Vaccination: No History of Influenza Vaccine for 09/2017 - 01/2018 Season: Refused Physical Exam - Vital signs Vitals: Temp Pulse Resp BP Pulse Ox 98 F 63 16 178/61 H 95 06/11/19 08:49 06/11/19 08:49 06/11/19 08:49 06/11/19 08:49 06/11/19 08:49 Course - Vital Signs Vital signs: Temp Pulse Resp BP Pulse Ox 98 F 63 16 178/61 H 95 06/11/19 08:49 06/11/19 08:49 06/11/19 08:49 06/11/19 08:49 06/11/19 08:49 Doctor's Discharge - Discharge Referrals: ERICK TORRES MD [Primary Care Provider] - Follow up as needed
[2019-06-11 09:45] LABS: ABSOLUTE BASOPHILS # (AUTO) 0.1 10^3/uL (0.0-0.2); ABSOLUTE EOSINOPHILS # (AUTO) 0.1 10^3/uL (0.0-0.6); ABSOLUTE LYMPHOCYTES (AUTO) 0.9 10^3/uL (0.5-4.7); ABSOLUTE MONOCYTES (AUTO) 0.4 10^3/uL (0.1-1.4); ABSOLUTE NEUT (AUTO) 4.1 10^3/uL (1.7-8.2); BASOPHILS % (AUTO) 0.9 % (0-2); EOSINOPHILS % (AUTO) 1.2 % (0-6); HEMATOCRIT 39.5 % (36.0-47.0); HEMOGLOBIN 12.9 g/dL (12.0-15.5); MEAN CORPUSCULAR HEMOGLOBIN 29.9 pg (27.0-33.4); MEAN CORPUSCULAR HGB CONC 32.5 g/dL (32.0-36.0); MEAN CORPUSCULAR VOLUME 92 fl (80-97); MONOCYTES % (AUTO) 6.6 % (3-13); PLATELET COUNT 194 10^3/uL (150-450); RED CELL DISTRIBUTION WIDTH 15.5 % (11.5-14.0); SEGMENTED NEUTROPHILS % (AUTO) 74.3 % (42-78); TOTAL CELLS COUNTED % (AUTO) 100 %; WHITE BLOOD COUNT 5.6 10^3/uL (4.0-10.5)
[2019-06-11 10:02] VITALS: BP 191/66
[2019-06-11 10:06] LABS: ALANINE AMINOTRANSFERASE 18 U/L (9-52); ALBUMIN 3.6 g/dL (3.5-5.0); ALKALINE PHOSPHATASE 81 U/L (38-126); ANION GAP 8 (5-19); ASPARTATE AMINO TRANSFERASE 26 U/L (14-36); BILIRUBIN,DIRECT 0.5 mg/dL (0.0-0.4); BILIRUBIN,TOTAL 0.6 mg/dL (0.2-1.3); BLOOD UREA NITROGEN 24 mg/dL (7-20); CALCIUM 9.6 mg/dL (8.4-10.2); CARBON DIOXIDE 28 mmol/L (22-30); CHLORIDE 102 mmol/L (98-107); GLUCOSE 110 mg/dL (75-110); POTASSIUM 3.6 mmol/L (3.6-5.0); SODIUM 138.1 mmol/L (137-145); TOTAL PROTEIN 6.9 g/dL (6.3-8.2)
--- NOTE | 2019-06-11 10:18 | RADIOLOGY REPORT (SQ) ---
EXAM DESCRIPTION: CT CERVICAL SPINE WITHOUT COMPLETED DATE/TIME: 06/11/2019 9:57 am REASON FOR STUDY: fall COMPARISON: None. TECHNIQUE: Axial images acquired through the cervical spine without intravenous contrast. Images re viewed with lung, soft tissue and bone windows. Reconstructed coronal and sagittal MPR images review ed. Images stored on PACS. All CT scanners at this facility use dose modulation, iterative reconstruction, and/or weight based d osing when appropriate to reduce radiation dose to as low as reasonably achievable (ALARA). [facility]: Dose Right [facility]: CareDose [facility]: Dose Right [facility]: Teradose 4D [facility]: [employer] RADIATION DOSE: CT Rad equipment meets quality standard of care and radiation dose reduction techniq ues were employed. CTDIvol: 17.0 mGy. DLP: 311 mGy-cm. mGy. LIMITATIONS: None. FINDINGS: ALIGNMENT: Anatomic. MINERALIZATION: Normal. VERTEBRAL BODIES: No fractures or dislocation. DISCS: Moderate multilevel disc and degenerative disease and osteophytosis. FACETS, LATERAL MASSES, POSTERIOR ELEMENTS: Moderate to severe multilevel facet degenerative disease. No fractures. No dislocation. No acute findings. HARDWARE: None in the spine. VISUALIZED RIBS: No fractures. LUNG APICES AND SOFT TISSUES: No significant or acute findings. OTHER: No other significant finding. IMPRESSION: No fracture or static subluxation of the cervical spine. Multilevel disc and facet dege nerative disease. TECHNICAL DOCUMENTATION: JOB ID: [id number] Quality ID # [id number]: Final reports with documentation of one or more dose reduction techniques (e.g., Au tomated exposure control, adjustment of the mA and/or kV according to patient size, use of iterative reconstruction technique) 2010 [employer]- All Rights Reserved Reading location - IP/workstation name: [email or web address]
--- NOTE | 2019-06-11 10:24 | RADIOLOGY REPORT (SQ) ---
EXAM DESCRIPTION: CT HEAD WITHOUT COMPLETED DATE/TIME: 06/11/2019 9:57 am REASON FOR STUDY: fell hit head unsure why fell COMPARISON: CT brain, 03/20/2018 TECHNIQUE: Axial images acquired through the brain without intravenous contrast. Images reviewed wi th bone, brain and subdural windows. Additional sagittal and coronal reconstructions were generated. Images stored on PACS. All CT scanners at this facility use dose modulation, iterative reconstruction, and/or weight based d osing when appropriate to reduce radiation dose to as low as reasonably achievable (ALARA). [facility]: Dose Right [facility]: CareDose [facility]: Dose Right [facility]: Teradose 4D [facility]: [employer] RADIATION DOSE: CT Rad equipment meets quality standard of care and radiation dose reduction techniq ues were employed. CTDIvol: 53.2 mGy. DLP: 991 mGy-cm. mGy. LIMITATIONS: None. FINDINGS: VENTRICLES: Normal size and contour. CEREBRUM: No masses. No hemorrhage. No midline shift. No evidence for acute infarction. Normal gra y/white matter differentiation. No areas of low density in the white matter. CEREBELLUM: No masses. No hemorrhage. No alteration of density. No evidence for acute infarction. EXTRAAXIAL SPACES: No fluid collections. No masses. ORBITS AND GLOBE: No intra- or extraconal masses. Normal contour of globe without masses. CALVARIUM: No fracture. PARANASAL SINUSES: There is extensive bilateral paranasal sinus mucosal thickening and air-fluid leve ls within the maxillary sinuses, frontal sinuses, sphenoid sinuses, and partial opacification of the left mastoid air cells. SOFT TISSUES: No mass or hematoma. OTHER: No other significant finding. IMPRESSION: 1. No acute intracranial pathology. 2. There is extensive bilateral paranasal sinus mucosal thickening and air-fluid levels within the m axillary sinuses, frontal sinuses, sphenoid sinuses, and partial opacification of the left mastoid ai r cells. There is no obvious displaced fracture or other abnormality of the orbits or sinus pal, h owever these findings are generally suspicious for fracture in the setting of trauma. Correlate for point tenderness and consider dedicated CT examination of the facial bones to further evaluate. EVIDENCE OF ACUTE STROKE: NO. COMMENT: Quality ID # [id number]: Final reports with documentation of one or more dose reduction techniques (e.g., Automated exposure control, adjustment of the mA and/or kV according to patient size, use of iterative reconstruction technique) TECHNICAL DOCUMENTATION: JOB ID: [id number] [employer]- All Rights Reserved Reading location - IP/workstation name: [email or web address]
--- NOTE | 2019-06-11 10:35 | RADIOLOGY REPORT (SQ) ---
EXAM DESCRIPTION: CHEST SINGLE VIEW COMPLETED DATE/TIME: 06/11/2019 10:26 am REASON FOR STUDY: low sats COMPARISON: 03/20/2018 NUMBER OF VIEWS: One view. TECHNIQUE: Single frontal radiographic view of the chest acquired. LIMITATIONS: None. FINDINGS: LUNGS AND PLEURA: There is linear atelectasis or scarring in the left base. Lung schaefer a re otherwise clear. No pneumothorax. No effusions. MEDIASTINUM AND HILAR STRUCTURES: No masses. Contour normal. HEART AND VASCULAR STRUCTURES: Stable in appearance. No failure. BONES: No acute findings. HARDWARE: None in the chest. OTHER: No other significant finding. IMPRESSION: NO SIGNIFICANT RADIOGRAPHIC FINDING IN THE CHEST. TECHNICAL DOCUMENTATION: JOB ID: [id number] [employer]- All Rights Reserved Reading location - IP/workstation name: [email or web address]
[2019-06-11 12:04] LABS: APPEARANCE,URINE CLEAR; BILIRUBIN,URINE NEGATIVE (NEGATIVE); COLOR,URINE YELLOW; GLUCOSE, URINE NEGATIVE (NEGATIVE); KETONES,URINE NEGATIVE (NEGATIVE); LEUKOCYTE ESTERASE,URINE TRACE (NEGATIVE); NITRITE,URINE NEGATIVE (NEGATIVE); PROTEIN,URINE NEGATIVE (NEGATIVE); URINE SPECIFIC GRAVITY 1.014; UROBILINOGEN,URINE NEGATIVE mg/dL (<2.0)
--- NOTE | 2019-06-11 12:09 | RADIOLOGY REPORT (SQ) ---
EXAM DESCRIPTION: CT FACIAL AREA WITHOUT COMPLETED DATE/TIME: 06/11/2019 11:55 am REASON FOR STUDY: facial pain COMPARISON: None. TECHNIQUE: Noncontrasted images through the facial bones and orbits windowed for bone and soft tissu e. Additional coronal and sagittal reconstructed images reviewed. All images stored on PACS. All CT scanners at this facility use dose modulation, iterative reconstruction, and/or weight based d osing when appropriate to reduce radiation dose to as low as reasonably achievable (ALARA). [facility]: Dose Right [facility]: CareDose [facility]: Dose Right [facility]: Teradose 4D [facility]: [employer] RADIATION DOSE: CT Rad equipment meets quality standard of care and radiation dose reduction techniq ues were employed. CTDIvol: 30.4 - 53.2 mGy. DLP: 1574 mGy-cm. mGy. LIMITATIONS: None. FINDINGS: FACIAL BONES: No fracture or bone lesion. ORBITS: Intact. No fracture. Symmetric intact globes and retroorbital soft tissues. PARANASAL SINUSES: There is pansinusitis. Air-fluid levels in the left aspect of the frontal sinus, b oth sphenoid air cells and right and left maxillary sinuses. Probable polyp in the left maxillary si nus as well. SOFT TISSUES: No mass or edema. INFERIOR BRAIN: Limited view. No acute findings. OTHER: There is opacification of the left mastoid air cells as well. IMPRESSION: Pansinusitis as described. TECHNICAL DOCUMENTATION: JOB ID: [id number] Quality ID # [id number]: Final reports with documentation of one or more dose reduction techniques (e.g., Au tomated exposure control, adjustment of the mA and/or kV according to patient size, use of iterative reconstruction technique) 2010 [employer]- All Rights Reserved Reading location - IP/workstation name: [email or web address]
[2019-06-11] MEDS ORDERED: AMOXICILLIN TRIHYD 250 MG CAPSULE PO ONE (12:55)
[2019-06-11] MEDS ORDERED: AMOXICILLIN TR/POT CLAVULANATE 500-125 MG TAB PO ONE (12:55)
--- NOTE | 2019-06-11 12:55 | ER Document Report ---
ED General - General Chief Complaint: Head Injury Stated Complaint: FALL/HEAD PAIN Time Seen by Provider: 06/11/19 09:00 Primary Care Provider: ERICK TORRES MD [Primary Care Provider] - Follow up as needed Mode of Arrival: Wheelchair Notes: Patient is a 84-year-old female presents to the emergency department for a fall this morning. Patient states she was trying to get out of bed when she leaned "too far over" her walker. States she fell forward hitting her forehead on the floor. Patient's denying any loss of consciousness but is complaining of generalized headache, and neck pain. Patient denies weakness, lightheadedness, dizziness, chest pain, shortness of breath, LOC, vomiting. Patient's family is in the room with patient states she has been more "weak" in the last few days. Family is very concerned because the patient "does not eat like she is supposed to." Family states patient recently broke bilateral lower extremities in January from a fall due to weakness. Family states approximately a month ago patient was placed on doxycycline for an upper respiratory infection. Family and patient state patient continues with generalized cough, congestion. Denies fever. Upon my evaluation patient has a GCS of 15. She adamantly denies weakness, lightheadedness, dizziness, chest pain, shortness of breath, abdominal pain, nausea, vomiting. States, "my family is over exaggerating." Family states patient does have an appointment with her primary care provider later this afternoon. Patient takes multiple medications for her blood pressure, isosorbide, clonidine, labetalol, Norvasc, losartan. Patient is also on oxygen at night. Patient has not yet taken her medications today. TRAVEL OUTSIDE OF THE [place] IN LAST 30 DAYS: No - Related Data Allergies/Adverse Reactions: ANDREY Inhibitors [Andrey Inhibitors] Allergy (Severe, Verified 06/11/19 08:47) Swelling of tongue,throat,lips,mouth Sulfa (Sulfonamide Antibiotics) Allergy (Mild, Verified 06/11/19 08:47) rash Past Medical History - General Information source: Patient, Relative - Social History Smoking Status: Unknown if Ever Smoked Family History: Arthritis, Hypertension Patient has suicidal ideation: No Patient has homicidal ideation: No - Past Medical History Cardiac Medical History: Reports: Hx Atrial Fibrillation - on eliquis., Hx Congestive Heart Failure - on 2L home oxygen., Hx Hypercholesterolemia, Hx Hypertension Denies: Hx Heart Attack Pulmonary Medical History: Reports: Hx Sleep Apnea Denies: Hx Asthma Neurological Medical History: Denies: Hx Cerebrovascular Accident, Hx Seizures Renal/ Medical History: Denies: Hx Peritoneal Dialysis Malignancy Medical History: Reports: Hx Cervical Cancer, Hx Skin Cancer GI Medical History: Denies: Hx Hepatitis, Hx Hiatal Hernia, Hx Ulcer Musculoskeletal Medical History: Reports Hx Arthritis Psychiatric Medical History: Reports: Hx Depression Infectious Medical History: Denies: Hx Hepatitis Past Surgical History: Reports: Hx Genitourinary Surgery - bladder, Hx Gynecologic Surgery, Hx Hysterectomy, Hx Orthopedic Surgery - L knee, Other - bladder tuck: R corneal implant.. Denies: Hx Mastectomy, Hx Open Heart Surgery, Hx Pacemaker - Immunizations Hx Diphtheria, Pertussis, Tetanus Vaccination: No Hx Pneumococcal Vaccination: 12/02/14 Review of Systems - Review of Systems Constitutional: See HPI. denies: Fever EENT: See HPI Cardiovascular: See HPI Respiratory: See HPI Gastrointestinal: See HPI Genitourinary: No symptoms reported Female Genitourinary: No symptoms reported Musculoskeletal: See HPI Skin: No symptoms reported Hematologic/Lymphatic: No symptoms reported Neurological/Psychological: See HPI Physical Exam - Vital signs Vitals: Temp Pulse Resp BP Pulse Ox 98 F 63 16 178/61 H 95 06/11/19 08:49 06/11/19 08:49 06/11/19 08:49 06/11/19 08:49 06/11/19 08:49 - Notes Notes: GENERAL: Alert, interacts well. No acute distress. HEAD: Normocephalic, atraumatic. Generalized pain upon palpation over nasal bone and bilateral zygomatic arches, no erythema, ecchymosis seen. EYES: Pupils equal, round, and reactive to light. Extraocular movements intact and painless. ENT: Oral mucosa moist, tongue midline. Nares patent, no nasal septal hematoma, TM's intact, Nonerythematous, nonbulging bilaterally. NECK: Full range of motion. Supple. Trachea midline. Intermittent cervical paraspinal and cervical spine tenderness noted, no crepitus felt. LUNGS: Clear to auscultation bilaterally, no wheezes, rales, or rhonchi. No respiratory distress. HEART: Regular rate and rhythm. No murmur ABDOMEN: Soft, non-tender. Non-distended. Bowel sounds present in all 4 quadrants. EXTREMITIES: Moves all 4 extremities spontaneously. No edema, normal radial and dorsalis pedis pulses bilaterally. No cyanosis. BACK: no thoracic, lumbar midline tenderness. No saddle anesthesia, normal distal neurovascular exam. NEUROLOGICAL: Alert and oriented x3. Normal speech. cranial nerves II through XII grossly intact. PSYCH: Normal affect, normal mood. SKIN: Warm, dry, normal turgor. No rashes or lesions noted. Course - Re-evaluation Re-evalutation: 06/11/19 12:55 Laboratory 06/11/19 06/11/19 06/11/19 09:28 09:28 09:28 WBC 5.6 RBC 4.30 Hgb 12.9 Hct 39.5 MCV 92 MCH 29.9 MCHC 32.5 RDW 15.5 H Plt Count 194 Seg Neutrophils % 74.3 Lymphocytes % 17.0 Monocytes % 6.6 Eosinophils % 1.2 Basophils % 0.9 Absolute Neutrophils 4.1 Absolute Lymphocytes 0.9 Absolute Monocytes 0.4 Absolute Eosinophils 0.1 Absolute Basophils 0.1 Sodium 138.1 Potassium 3.6 Chloride 102 Carbon Dioxide 28 Anion Gap 8 BUN 24 H Creatinine 0.82 Est GFR ( Amer) > 60 Est GFR (Non-Af Amer) > 60 Glucose 110 Calcium 9.6 Total Bilirubin 0.6 Direct Bilirubin 0.5 H Neonat Total Bilirubin Not Reportable Neonat Direct Bilirubin Not Reportable Neonat Indirect Bili Not Reportable AST 26 ALT 18 Alkaline Phosphatase 81 Troponin I 0.019 Total Protein 6.9 Albumin 3.6 Urine Color Urine Appearance Urine pH Ur Specific [place] Urine Protein Urine Glucose (UA) Urine Ketones Urine Blood Urine Nitrite Urine Bilirubin Urine Urobilinogen Ur Leukocyte Esterase Urine WBC (Auto) Urine RBC (Auto) Urine Bacteria (Auto) Squamous Epi Cells Auto Urine Ascorbic Acid 06/11/19 11:41 WBC RBC Hgb Hct MCV MCH MCHC RDW Plt Count Seg Neutrophils % Lymphocytes % Monocytes % Eosinophils % Basophils % Absolute Neutrophils Absolute Lymphocytes Absolute Monocytes Absolute Eosinophils Absolute Basophils Sodium Potassium Chloride Carbon Dioxide Anion Gap BUN Creatinine Est GFR ( Amer) Est GFR (Non-Af Amer) Glucose Calcium Total Bilirubin Direct Bilirubin Neonat Total Bilirubin Neonat Direct Bilirubin Neonat Indirect Bili AST ALT Alkaline Phosphatase Troponin I Total Protein Albumin Urine Color YELLOW Urine Appearance CLEAR Urine pH 6.0 Ur Specific [place] 1.014 Urine Protein NEGATIVE Urine Glucose (UA) NEGATIVE Urine Ketones NEGATIVE Urine Blood NEGATIVE Urine Nitrite NEGATIVE Urine Bilirubin NEGATIVE Urine Urobilinogen NEGATIVE Ur Leukocyte Esterase TRACE H Urine WBC (Auto) 2 Urine RBC (Auto) 1 Urine Bacteria (Auto) TRACE Squamous Epi Cells Auto 4 Urine Ascorbic Acid NEGATIVE Head CT 06/11/19 08:56 IMPRESSION: 1. No acute intracranial pathology. 2. There is extensive bilateral paranasal sinus mucosal thickening and air- fluid levels within the maxillary sinuses, frontal sinuses, sphenoid sinuses, and partial opacification of the left mastoid air cells. There is no obvious displaced fracture or other abnormality of the orbits or sinus pal, however these findings are generally suspicious for fracture in the setting of trauma. Correlate for point tenderness and consider dedicated CT examination of the facial bones to further evaluate. EVIDENCE OF ACUTE STROKE: NO. Cervical Spine CT 06/11/19 09:18 IMPRESSION: No fracture or static subluxation of the cervical spine. Multilevel disc and facet degenerative disease. Chest X-Ray 06/11/19 10:01 IMPRESSION: NO SIGNIFICANT RADIOGRAPHIC FINDING IN THE CHEST. Facial Bones CT 06/11/19 11:34 IMPRESSION: Pansinusitis as described. I have discussed with Pt. and family that most times sinusitis is caused by virus'. I have also discussed that the patient has been treated with doxycycline in the past for same. Family and patient wish for continued antibiotics. I have discussed treatment with Augmentin can typically cause diarrhea. I have also discussed need for close follow-up with primary care provider. Patient and family states they have an appointment with the patient's primary care provider later today for which they are going to keep that appointment. I have discussed talking with primary care provider about continued antibiotic use and to follow their recommendations. At this time will discharge with return precautions and follow-up recommendations. Verbal discharge instructions given a the bedside and opportunity for questions given. Medication warnings reviewed. Patient is in agreement with this plan and has verbalized understanding of return precautions and the need for primary care follow-up in the next 24-72 hours. This medical record was dictated with voice recognizing software. There may be grammatical, syntax errors that are unintended. 06/11/19 12:58 I have also discussed with family and patient patient's elevated blood pressure. Patient is on multiple different blood pressure medications, patient does not know the doses of all. States she did not take her medications this morning. I discussed attempting to find patient's medications in the computer system in order to give the patient her hypertensive medications. Patient and family states they will give the patient her proper medications when they get home. They are unsure of the proper doses and do not want to "mess anything up." Patient continues to deny any chest pain and is currently denying any headache. EKG sinus bradycardia rate of 58, QTc 445, no ST segment elevations or depressio ns noted. - Vital Signs Vital signs: Temp Pulse Resp BP Pulse Ox 98 F 63 16 191/66 H 97 06/11/19 08:49 06/11/19 08:49 06/11/19 10:00 06/11/19 09:26 06/11/19 10:00 - Laboratory Result Diagrams: 06/11/19 09:28 06/11/19 09:28 Laboratory results interpreted by me: 06/11/19 06/11/19 06/11/19 09:28 09:28 11:41 RDW 15.5 H BUN 24 H Direct Bilirubin 0.5 H Ur Leukocyte Esterase TRACE H Discharge - Discharge Clinical Impression: Sinusitis Qualifiers: Sinusitis location: frontal Chronicity: acute Recurrence: non-recurrent Qualified Code(s): J01.10 - Acute frontal sinusitis, unspecified Fall Qualifiers: Encounter type: initial encounter Qualified Code(s): W19.XXXA - Unspecified fall, initial encounter Condition: Stable Disposition: HOME, SELF-CARE Instructions: Head Injury Precautions ([facility]), Sinusitis ([facility]) Additional Instructions: As we discussed you have been seen and treated in the emergency department after a fall for generalized weakness. Your lab reveals no signs of abnormalities. Your CT imaging of your head reveals no abnormalities of your brain but does reveal sinusitis. It is my suggestion that you continue to follow-up with your primary care provider for continued care and return to the emergency room for any concerns. Prescriptions: Amox Tr/Potassium Clavulanate [Augmentin 875-125 mg Tablet] 1 tab PO BID 14 Days tablet Referrals: ERICK TORRES MD [Primary Care Provider] - Follow up as needed
--- NOTE | 2019-06-11 20:03 | EKG REPORT ---
SEVERITY:- ABNORMAL ECG - SINUS RHYTHM ATRIAL PREMATURE COMPLEX NONSPECIFIC INTRAVENTRICULAR CONDUCTION DELAY PROBABLE LEFT VENTRICULAR HYPERTROPHY : Confirmed by: Kristel Blancas MD 11-Jun-2019 20:02:39
== END 2019-06-11 14:42 | disposition home or self-care (01) ==
LOC: ER 08:44
DX: R51 Headache (principal); W19.XXXA Unspecified fall, initial encounter; Y93.89 Activity, other specified; J01.10 Acute frontal sinusitis, unspecified; J32.4 Chronic pansinusitis; M50.30 Other cervical disc degeneration, unspecified cervical region; R05 Cough; R00.1 Bradycardia, unspecified; I10 Essential (primary) hypertension; Z79.899 Other long term (current) drug therapy; Z99.81 Dependence on supplemental oxygen; Z88.2 Allergy status to sulfonamides; Z88.8 Allergy status to other drugs, medicaments and biological substances; Z87.81 Personal history of (healed) traumatic fracture
CPT/HCPCS: 93005; 99284; 96361; 96374; 36415; 87086; 85025; 87088; 80053; 81001; 84484; 87186; 71045; 70450; 70486; 72125; 93010; A9270 ×2; J2405; J7040; J3490

== ENCOUNTER 2020-02-02 13:02 | Emergency (ER) | payer MEDICARE, OTHER ==
--- NOTE | 2020-02-02 13:20 | ER Document Report ---
ED Medical Screen (RME) - General Chief Complaint: Fall Stated Complaint: FALL/HEAD PAIN Time Seen by Provider: 02/02/20 13:16 Primary Care Provider: ERICK TORRES MD [Primary Care Provider] - Follow up as needed Notes: 84-year-old female who is on aspirin 81 mg presents for mechanical fall. Patient states she tripped over her cane and fell flat on her face. Patient is complaining of left humeral pain, hematoma to her left elbow, skin tears to her right hand, abrasions to her left knee, abrasion to her left nose, and bleeding to her left nostril. EMS also reports patient's blood pressure was elevated 208 systolic. Patient states she did take her blood pressure medicine around noon and self adjust her blood pressure medicine based off of how high it is. Patient is requesting to take her home hydralazine 50 mg and Tylenol for pain in triage. Patient does have a history of rods in her left knee due to breaking her legs last year. I have greeted and performed a rapid initial assessment of this patient. A comprehensive ED assessment and evaluation of the patient, analysis of test results and completion of the medical decision making process with be conducted by additional ED providers. TRAVEL OUTSIDE OF THE [place] IN LAST 30 DAYS: No - Related Data Allergies/Adverse Reactions: ANDREY Inhibitors [Andrey Inhibitors] Allergy (Severe, Verified 06/11/19 08:47) Swelling of tongue,throat,lips,mouth Sulfa (Sulfonamide Antibiotics) Allergy (Mild, Verified 06/11/19 08:47) rash Past Medical History - Past Medical History Cardiac Medical History: Reports: Hx Atrial Fibrillation - on eliquis., Hx Congestive Heart Failure - on 2L home oxygen., Hx Hypercholesterolemia, Hx Hype rtension Denies: Hx Heart Attack Pulmonary Medical History: Reports: Hx Sleep Apnea Denies: Hx Asthma Neurological Medical History: Denies: Hx Cerebrovascular Accident, Hx Seizures Renal/ Medical History: Denies: Hx Peritoneal Dialysis Malignancy Medical History: Reports: Hx Cervical Cancer, Hx Skin Cancer GI Medical History: Denies: Hx Hepatitis, Hx Hiatal Hernia, Hx Ulcer Musculoskeltal Medical History: Reports Hx Arthritis Psychiatric Medical History: Reports: Hx Depression Infectious Medical History: Denies: Hx Hepatitis Past Surgical History: Reports: Hx Genitourinary Surgery - bladder, Hx Gynecologic Surgery, Hx Hysterectomy, Hx Orthopedic Surgery - L knee, Other - bladder tuck: R corneal implant.. Denies: Hx Mastectomy, Hx Open Heart Surgery, Hx Pacemaker - Immunizations Hx Diphtheria, Pertussis, Tetanus Vaccination: No Doctor's Discharge - Discharge Referrals: ERICK TORRES MD [Primary Care Provider] - Follow up as needed
--- NOTE | 2020-02-02 14:16 | RADIOLOGY REPORT (SQ) ---
EXAM DESCRIPTION: HAND RIGHT 3 VIEWS; ELBOW LEFT AP/LATERAL; HUMERUS LEFT; KNEE LEFT 3 VIEWS COMPLETED DATE/TIME: 02/02/2020 2:03 pm REASON FOR STUDY: fall, hit hand; fall, hematoma to elbow; fall, left arm pain; fall, knee abrasion, hx rods in knee COMPARISON: None. FINDINGS: Two views left humerus: Shoulder evaluated in a limited fashion. Essentially NONDISPLACE D LATERAL HUMERAL HEAD AND GREATER TUBEROSITY FRACTURE. No arlet subluxation or dislocation allowing for the limited assessment. Osteopenic. Left lung clear. Two views left elbow: Soft tissue swelling along the proximal forearm. This is present dorsally. L imiting osteopenia. No fracture or dislocation or significant effusion. Three views right hand: Osteopenic. No fracture or dislocation identified. Three views left knee: Osteopenic. Old posttraumatic/ postoperative changes but no acute fracture. No effusion suggested. TECHNICAL DOCUMENTATION: JOB ID: [id number] Reading location - IP/workstation name: [email or web address]
--- NOTE | 2020-02-02 14:16 | RADIOLOGY REPORT (SQ) ---
EXAM DESCRIPTION: HAND RIGHT 3 VIEWS; ELBOW LEFT AP/LATERAL; HUMERUS LEFT; KNEE LEFT 3 VIEWS COMPLETED DATE/TIME: 02/02/2020 2:03 pm REASON FOR STUDY: fall, hit hand; fall, hematoma to elbow; fall, left arm pain; fall, knee abrasion, hx rods in knee COMPARISON: None. FINDINGS: Two views left humerus: Shoulder evaluated in a limited fashion. Essentially NONDISPLACE D LATERAL HUMERAL HEAD AND GREATER TUBEROSITY FRACTURE. No arlet subluxation or dislocation allowing for the limited assessment. Osteopenic. Left lung clear. Two views left elbow: Soft tissue swelling along the proximal forearm. This is present dorsally. L imiting osteopenia. No fracture or dislocation or significant effusion. Three views right hand: Osteopenic. No fracture or dislocation identified. Three views left knee: Osteopenic. Old posttraumatic/ postoperative changes but no acute fracture. No effusion suggested. TECHNICAL DOCUMENTATION: JOB ID: [id number] Reading location - IP/workstation name: [email or web address]
--- NOTE | 2020-02-02 14:16 | RADIOLOGY REPORT (SQ) ---
EXAM DESCRIPTION: HAND RIGHT 3 VIEWS; ELBOW LEFT AP/LATERAL; HUMERUS LEFT; KNEE LEFT 3 VIEWS COMPLETED DATE/TIME: 02/02/2020 2:03 pm REASON FOR STUDY: fall, hit hand; fall, hematoma to elbow; fall, left arm pain; fall, knee abrasion, hx rods in knee COMPARISON: None. FINDINGS: Two views left humerus: Shoulder evaluated in a limited fashion. Essentially NONDISPLACE D LATERAL HUMERAL HEAD AND GREATER TUBEROSITY FRACTURE. No arlet subluxation or dislocation allowing for the limited assessment. Osteopenic. Left lung clear. Two views left elbow: Soft tissue swelling along the proximal forearm. This is present dorsally. L imiting osteopenia. No fracture or dislocation or significant effusion. Three views right hand: Osteopenic. No fracture or dislocation identified. Three views left knee: Osteopenic. Old posttraumatic/ postoperative changes but no acute fracture. No effusion suggested. TECHNICAL DOCUMENTATION: JOB ID: [id number] Reading location - IP/workstation name: [email or web address]
--- NOTE | 2020-02-02 14:16 | RADIOLOGY REPORT (SQ) ---
EXAM DESCRIPTION: HAND RIGHT 3 VIEWS; ELBOW LEFT AP/LATERAL; HUMERUS LEFT; KNEE LEFT 3 VIEWS COMPLETED DATE/TIME: 02/02/2020 2:03 pm REASON FOR STUDY: fall, hit hand; fall, hematoma to elbow; fall, left arm pain; fall, knee abrasion, hx rods in knee COMPARISON: None. FINDINGS: Two views left humerus: Shoulder evaluated in a limited fashion. Essentially NONDISPLACE D LATERAL HUMERAL HEAD AND GREATER TUBEROSITY FRACTURE. No arlet subluxation or dislocation allowing for the limited assessment. Osteopenic. Left lung clear. Two views left elbow: Soft tissue swelling along the proximal forearm. This is present dorsally. L imiting osteopenia. No fracture or dislocation or significant effusion. Three views right hand: Osteopenic. No fracture or dislocation identified. Three views left knee: Osteopenic. Old posttraumatic/ postoperative changes but no acute fracture. No effusion suggested. TECHNICAL DOCUMENTATION: JOB ID: [id number] Reading location - IP/workstation name: [email or web address]
--- NOTE | 2020-02-02 14:35 | RADIOLOGY REPORT (SQ) ---
EXAM DESCRIPTION: CT HEAD WITHOUT COMPLETED DATE/TIME: 02/02/2020 2:03 pm REASON FOR STUDY: fall, hit head, on aspirin COMPARISON: 06/11/2019 TECHNIQUE: Axial images acquired through the brain without intravenous contrast. Images reviewed wi th bone, brain and subdural windows. Additional sagittal and coronal reconstructions were generated. Images stored on PACS. All CT scanners at this facility use dose modulation, iterative reconstruction, and/or weight based d osing when appropriate to reduce radiation dose to as low as reasonably achievable (ALARA). [facility]: Dose Right [facility]: CareDose [facility]: Dose Right [facility]: Teradose 4D [facility]: Punchbowl RADIATION DOSE: CT Rad equipment meets quality standard of care and radiation dose reduction techniq ues were employed. CTDIvol: 53.2 mGy. DLP: 964 mGy-cm. mGy. LIMITATIONS: None. FINDINGS: VENTRICLES: Normal size and contour. CEREBRUM: No masses. No hemorrhage. No midline shift. No evidence for acute infarction. Areas of l ow density in the white matter most likely chronic small vessel ischemic changes. CEREBELLUM: No masses. No hemorrhage. No alteration of density. No evidence for acute infarction. EXTRAAXIAL SPACES: No fluid collections. No masses. ORBITS AND GLOBE: No intra- or extraconal masses. Normal contour of globe without masses. CALVARIUM: No fracture. PARANASAL SINUSES: No fluid or mucosal thickening. SOFT TISSUES: No mass or hematoma. OTHER: No other significant finding. IMPRESSION: MILD CHRONIC MICROVASCULAR ISCHEMIA. NO ACUTE IMAGING FINDINGS IN THE BRAIN. EVIDENCE OF ACUTE STROKE: NO. COMMENT: Quality ID # [id number]: Final reports with documentation of one or more dose reduction techniques (e.g., Automated exposure control, adjustment of the mA and/or kV according to patient size, use of iterative reconstruction technique) TECHNICAL DOCUMENTATION: JOB ID: [id number] 2010 [employer]- All Rights Reserved Reading location - IP/workstation name: [email or web address]
[2020-02-02] MEDS ORDERED: LIDOCAINE 1% INJ-PF (10 MG/ML) 30 ML SDV INJ ONE (14:38)
--- NOTE | 2020-02-02 15:22 | RADIOLOGY REPORT (SQ) ---
EXAM DESCRIPTION: NOSE/NASAL BONES COMPLETED DATE/TIME: 02/02/2020 3:12 pm REASON FOR STUDY: fall/pain COMPARISON: None. NUMBER OF VIEWS: Three view. TECHNIQUE: Images of the nasal bones acquired. LIMITATIONS: None. FINDINGS: ORBITS: No fracture. No foreign body. SINUSES: No mucosal thickening. No air fluid levels. NASAL BONES: No fracture. OTHER: No other significant finding. IMPRESSION: NO FOREIGN BODY OR FRACTURE OF THE NASAL BONES. TECHNICAL DOCUMENTATION: JOB ID: [id number] 2010 [employer]- All Rights Reserved Reading location - IP/workstation name: [email or web address]
[2020-02-02] MEDS ORDERED: CLONIDINE HCL 0.1 MG TABLET PO ONE ×2 (15:24→16:33)
[2020-02-02] MEDS ORDERED: DIPH/PERTUSS(ACELL)/TETANUS VAC/PF 0.5 ML SYR (>=10YO) IM ONE (16:39)
--- NOTE | 2020-02-02 16:45 | ER Document Report ---
ED Fall - General Chief Complaint: Fall Injury Stated Complaint: FALL/HEAD PAIN Time Seen by Provider: 02/02/20 13:16 Primary Care Provider: ERICK TORRES MD [Primary Care Provider] - Follow up as needed Information source: Patient TRAVEL OUTSIDE OF THE [place] IN LAST 30 DAYS: No - HPI Notes: Patient states that she was at [facility] today when she tripped and fell. She denies being dizzy or lightheaded she states it was a mechanical fall. She complains mainly of pain to the left shoulder. She also has some pain about the left elbow left hand right hand right wrist and left knee. However she states that these are minor compared to the pain in her left shoulder. The left shoulder pain is moderate to severe. It radiates down the left arm. It is worse with movement and better with rest. It is constant. There is no loss of consciousness. She states that she used to be on a blood thinner but has not been on one now for several months other than aspirin. - Related data Allergies/Adverse Reactions: ANDREY Inhibitors [Andrey Inhibitors] Allergy (Severe, Verified 02/02/20 15:38) Swelling of tongue,throat,lips,mouth Sulfa (Sulfonamide Antibiotics) Allergy (Mild, Verified 02/02/20 15:38) rash Home Medications: pt took her home tylenol and her home hydralizine 50mg at this time Past Medical History - General Information source: Patient - Social History Smoking Status: Never Smoker Frequency of alcohol use: None Drug Abuse: None Family History: Arthritis, Hypertension Patient has suicidal ideation: No Patient has homicidal ideation: No - Past Medical History Cardiac Medical History: Reports: Hx Atrial Fibrillation - on eliquis., Hx Congestive Heart Failure - on 2L home oxygen., Hx Hypercholesterolemia, Hx Hypertension Denies: Hx Heart Attack Pulmonary Medical History: Reports: Hx Sleep Apnea Denies: Hx Asthma Neurological Medical History: Denies: Hx Cerebrovascular Accident, Hx Seizures Renal/ Medical History: Denies: Hx Peritoneal Dialysis Malignancy Medical History: Reports: Hx Cervical Cancer, Hx Skin Cancer GI Medical History: Denies: Hx Hepatitis, Hx Hiatal Hernia, Hx Ulcer Musculoskeletal Medical History: Reports Hx Arthritis Psychiatric Medical History: Reports: Hx Depression Infectious Medical History: Denies: Hx Hepatitis Past Surgical History: Reports: Hx Genitourinary Surgery - bladder, Hx Gynecologic Surgery, Hx Hysterectomy, Hx Orthopedic Surgery - L knee, Other - bladder tuck: R corneal implant.. Denies: Hx Mastectomy, Hx Open Heart Surgery, Hx Pacemaker - Immunizations Hx Diphtheria, Pertussis, Tetanus Vaccination: No Hx Pneumococcal Vaccination: 12/02/14 Review of Systems - Review of Systems Constitutional: denies: Chills, Fever Cardiovascular: denies: Chest pain, Palpitations Respiratory: denies: Cough, Short of breath -: Yes All other systems reviewed and negative Physical Exam - Vital signs Vitals: Temp Pulse Resp BP Pulse Ox 97.6 F 59 L 18 211/74 H 94 02/02/20 13:11 02/02/20 13:11 02/02/20 13:11 02/02/20 13:11 02/02/20 13:11 Interpretation: Hypertensive - General General appearance: Appears well, Alert In distress: None - HEENT Head: Normocephalic, Ecchymosis - Bridge of nose Eyes: Normal Conjunctiva: Normal Pupils: PERRL Nasal: Other - There is a laceration to the bridge of the nose with bleeding controlled. Please see laceration note Mouth/Lips: Normal Mucous membranes: Moist Pharynx: Normal Neck: Normal - C-spine is nontender - Respiratory Respiratory status: No respiratory distress Chest status: Nontender Breath sounds: Normal Chest palpation: Normal - Cardiovascular Rhythm: Regular Heart sounds: Normal auscultation Murmur: No - Abdominal Inspection: Normal Distension: No distension Bowel sounds: Normal Tenderness: Nontender Organomegaly: No organomegaly - Back Back: Normal, Nontender - Extremities General upper extremity: Normal temperature, Other - Left upper extremity is held in adduction. The left shoulder is tender diffusely to palpation. She is neurovascular intact however in the distal left upper extremity. There are multiple skin tears on both upper extremities that are tender to palpation. None of the skin tears are amenable to sutures. The rest of both upper extremities were thoroughly palpated and examined. Both upper extremities are neurovascularly intact. No other tenderness consistent with fractures. The left elbow does have a large hematoma that is nontender. General lower extremity: Normal temperature, Other - Lower extremities are essentially nontender there is a minor abrasion to the left knee. Both hips are nontender and can be fully ranged without pain.. No: Tessie's sign - Neurological Neuro grossly intact: Yes Cognition: Normal Orientation: AAOx4 [place] Coma Scale Eye Opening: Spontaneous [place] Coma Scale Verbal: Oriented Evita Coma Scale Motor: Obeys Commands [place] Coma Scale Total: 15 Speech: Normal Motor strength normal: LUE, RUE, LLE, RLE Sensory: Normal - Psychological Associated symptoms: Normal affect, Normal mood - Skin Skin Temperature: Warm Skin Moisture: Dry Skin Color: Other - Patient has numerous scattered skin tears abrasions and contusions on both upper extremities. Course - Re-evaluation Re-evalutation: 02/02/20 16:45 Patient presents after a fall. She has a nasal laceration that was repaired. She has a left humerus fracture that was placed in a sling and will follow up with orthopedics. She has no other evidence of injury. No intracranial injury. It did appear to be a mechanical fall. She does have some mildly elevated blood pressure and an extra clonidine was given. I will have the patient follow-up with her primary care physician as well as orthopedics. - Vital Signs Vital signs: Temp Pulse Resp BP Pulse Ox 97.6 F 59 L 18 211/74 H 94 02/02/20 13:11 02/02/20 13:11 02/02/20 13:11 02/02/20 13:11 02/02/20 13:11 - Diagnostic Test Radiology reviewed: Image reviewed, Reports reviewed Procedures - Laceration/Wound Repair Face Time completed: 16:46 Wound length (cm): 1 Wound's Depth, Shape: Into muscle, Stellate Laceration pre-procedure: Sterile drapes applied Anesthetic type: 1% Lidocaine Volume Anesthetic (mLs): 1 Wound explored: Clean Wound Repaired With: Sutures Suture Size/Type: 5:0, Ethilon Number of Sutures: 2 Layer Closure?: No Post-procedure wound care: Sterile dressing applied Post-procedure NV exam normal: Yes Complications: No Discharge - Discharge Clinical Impression: Trigeminal neuralgia of left side of face, Uncontrolled hypertension Nasal laceration Qualifiers: Encounter type: initial encounter Qualified Code(s): S01.21XA - Laceration without foreign body of nose, initial encounter Skin tear of left forearm without complication Qualifiers: Encounter type: initial encounter Qualified Code(s): S51.812A - Laceration without foreign body of left forearm, initial encounter Skin tear of right hand without complication Qualifiers: Encounter type: initial encounter Qualified Code(s): S61.411A - Laceration without foreign body of right hand, initial encounter Humerus head fracture Qualifiers: Encounter type: initial encounter Fracture type: closed Laterality: left Qualified Code(s): S42.292A - Other displaced fracture of upper end of left humerus, initial encounter for closed fracture Traumatic hematoma of left elbow Qualifiers: Encounter type: initial encounter Qualified Code(s): S50.02XA - Contusion of left elbow, initial encounter Condition: Stable Disposition: HOME, SELF-CARE Instructions: Antibiotic Ointment Protection ([facility]), Laceration Care ([facility]), Tetanus Immunization Given ([facility]), Prophylactic Antibiotic ([facility]) Additional Instructions: Please have sutures checked in 5 days for possible removal. Prescriptions: Cefdinir 300 mg PO BID 5 Days #10 capsule Referrals: ERICK TORRES MD [Primary Care Provider] - Follow up in 3-5 days
[2020-02-02 17:15] VITALS: BP 214/79
== END 2020-02-02 17:21 | disposition home or self-care (01) ==
LOC: ER 13:02
DX: S42.292A Other displaced fracture of upper end of left humerus, initial encounter for closed fracture (principal); S09.12XA Laceration of muscle and tendon of head, initial encounter; S01.21XA Laceration without foreign body of nose, initial encounter; S51.812A Laceration without foreign body of left forearm, initial encounter; S61.411A Laceration without foreign body of right hand, initial encounter; S50.02XA Contusion of left elbow, initial encounter; S80.212A Abrasion, left knee, initial encounter; M79.642 Pain in left hand; M25.531 Pain in right wrist; W01.0XXA Fall on same level from slipping, tripping and stumbling without subsequent striking against object, initial encounter; Y93.89 Activity, other specified; Y92.511 Restaurant or cafe as the place of occurrence of the external cause; G50.0 Trigeminal neuralgia; I10 Essential (primary) hypertension; Z79.82 Long term (current) use of aspirin; Z79.899 Other long term (current) drug therapy; Z23 Encounter for immunization; Z88.8 Allergy status to other drugs, medicaments and biological substances; Z88.2 Allergy status to sulfonamides
CPT/HCPCS: 99284; 90471; 73070; 73130; 73060; 73562; 70160; 70450; 90715; 12011; A9270; J3490